=== PATIENT | female | born 1940 | race Caucasian/White ===

== ENCOUNTER 2016-11-13 08:46 | Inpatient (IN) ==
--- OUTSIDE RECORDS SUMMARY | 2016-11-13 09:10 | External Medical Summary ---
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.9 Active 31056667 vascular insufficiency of intestine Problem Vascular K55.9 Active 04112112 insufficiency of intestine Problem Ischemic colitis K55.9 Active 12118961 Problem Gallbladder polyp K82.4 Active 081486118 Problem Lower abdominal R10.30 Active 96606291 pain Problem GERD K21.9 Active 848232206 (gastroesophageal reflux disease) 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 Problem History of GI Z87.19 Active 937778408 bleed Problem Colitis K52.9 Active 715050610 Assessment Personal history Z85.828 Apr, Active 695967719 of other 2017 malignant neoplasm of skin Problem Other specified 706.8 Active 5690130 disease of sebaceous glands Problem Personal history Z85.828 Active 183715663 of other malignant neoplasm of skin Problem Other seborrheic 702.19 Active 820965502 keratosis Problem Other seborrheic L82.1 Active 855779044 keratosis Problem Personal history V10.83 Active 661419074 of other malignant neoplasm of skin Problem Actinic keratosis L57.0 Active 974741316 ALLERGIES Substance Reaction Event Type Date Status Sulfa Drugs Unknown Drug Allergy Apr, Active Fluoride Unknown Drug Allergy Apr, Active Cephalexin Unknown Drug Allergy Apr, Active SOCIAL HISTORY No smoking Hx information available PLAN OF CARE VITAL SIGNS Heart Rate 83 /min 2016-04-12 Height 68.5 in 2016-04-12 Weight 147 lbs 2016-04-12 BMI 22.02 kg/m2 2016-04-12 Blood pressure systolic 122 mm Hg 2016-04-12 Blood pressure diastolic 66 mm Hg 2016-04-12 MEDICATIONS Medication Instructions Dosage Frequency Start End Duration Status Date Date Vitamin D 400 as directed Active UNIT Lorazepam 0.5 MG Orally every 8 1 ml Active hrs PRN Compression Hose as directed Active 15-20 mm Hg Alendronate Orally Once A 1 tablet Active Sodium 10 MG WEEK Florastor 250 MG Orally qd 1 capsule 24h Active Centrum Silver as directed Active Fish Oil 1000 MG Orally Once a 1 capsule 24h 30 day(s) Active day Simvastatin 20 MG Orally Once a 1 tablet in 24h Active day the evening Gas-X 80 MG Orally Four 1 tablet 6h Active times a day after meals and at bedtime as needed Hydrocodone-Aceta Orally every 1 tablet as Active minophen 5-325 MG 4-6 hrs needed Betoptic-S 0.25 % Ophthalmic 1 drop into 12h Active Twice a day affected eye Artificial Tear as directed Active Tylenol 325 MG Orally every 6 1 tablet as 6h Active hrs needed Warfarin Sodium Orally varies 1 tablet Active 2.5 MG (4 DAY AND 3 DAYS) Omeprazole 40 MG Orally Once a 1 capsule 24h Active day Metoprolol & Orally once a as directed 24h Active Diet Manage Prod day 50 MG Calcium + D Orally Twice a 1 tablet 12h 30 day(s) Active 315-200 MG-UNIT day with meals Dicyclomine HCl Orally three 1 tablet Active 20 MG times a day as needed Iron Supplement Orally Once a 1 tablet 24h 30 day(s) Active 325 (65 Fe) MG day Levothyroxine Orally Once a 1 tablet on 24h Active Sodium 88 MCG day an empty stomach in the morning Latanoprost 0.005 Ophthalmic Once 1 drop into 24h Active % a day affected eye in the evening RESULTS No Results PROCEDURES Procedure Date Ordered Related Diagnosis Body Site Office Visit, Est Pt., Level 3 April 12, 2016 MEDS DOCUMENT W/O VERIFICA April 12, 2016 IMMUNIZATIONS No Known Immunizations
--- OUTSIDE RECORDS SUMMARY | 2016-11-13 09:10 | External Medical Summary ---
:1940 Author Organization [employer] Care Team Providers Name Role Phone TONY PINEDO Provider Role Unavailable Allergies, Adverse Reactions, Alerts Substance Reaction Event Type sulfa lip swelling Drug Allergy cephalexin lip swelling Drug Allergy flouride lip swelling Non Drug Allergy Problems Problem Type Condition Code Onset Dates Condition Status Problem Anxiety disorder NOS 300.00 Active Problem Hypothyroidism NOS 244.9 Active Problem Osteoporosis 733.00 Active Problem Bradycardia 427.89 Active Problem Anemia NOS 285.9 Active Problem Onychomycosis 110.1 Active Problem Hyperlipidemia 272.4 Active Problem Coronary Artery Disease, CAD 414.9 Active Problem Osteopenia 733.90 Active Problem Atrial fibrillation 427.31 Active Assessment Hypothyroidism NOS 244.9 Active Assessment Anxiety disorder NOS 300.00 Active Problem Closed fracture of middle or 816.01 Active proximal phalanx of finger Assessment Anemia NOS 285.9 Active Problem 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 Assessment Atrial fibrillation 427.31 Active Problem GERD 530.81 Active Medications Medication Code Code Instructions Start End Date Status Dosage System Date meloxicam NDC 92015 15 mg orally Apr 02, 1 tab(s) once a day 2013 Vitamin D NDC 6150 2000 units po Nov 12, 1 daily 2011 compression hose NDC 0 knee Dec 02, wear it for leg 2010 during day time bilateral lower legs Betoptic S NDC 3302 0.25% in each 2 gtt affected eye 2 times a day lorazepam NDC 48908 0.5 mg orally 3 May 19, 1 tab(s) times a day prn 2014 levothyroxine NDC 58908 75 mcg (0.075 Dec 26, 1 tab(s) mg) orally once 2012 a day Centrum Silver NDC 8497 Therapeutic 1 tab(s) Multiple Vitamins with Minerals orally once a day warfarin NDC 28023 5mg orally once 1 tab(s) a day except take 2.5mg on Sun, Artificial Tears NDC 6389 preserved in 1 gtt each eye 2 times a day alendronate NDC 56793 70 mg orally Nov 16, 1 tab(s) once a week 2011 Florastor NDC 63523 250 mg orally 1 cap(s) daily simvastatin NDC 27168 40 mg orally June 12, 1 tab(s) once a day (at 2013 bedtime) alendronate NDC 87228 70 mg orally Oct 14, 1 tab(s) once a week 2013 fish oil NDC 23946 1000mg po daily Jan 20, 4 cap s 2010 calcium and NDC 61982 500 mg-400 intl 1 tab(s) vitamin D units chewed 2 combination times a day Tylenol NDC 6732 500 mg orally Oct 06, 2 tab(s) every 6 hours 2009 metoprolol NDC 53209 25 mg orally 2 1 tab(s) times a day omeprazole NDC 39408 40 mg orally August 20, 1 cap(s) once a day 2011 Procedures Procedure Coding System Code Date Office Visit, estab pt, Level 4 CPT-4 73211 May 19, 2014 Vital Signs Date/Time: May 19, 2014 Blood Pressure Diastolic 58 mm Hg Blood Pressure Systolic 110 mm Hg Weight 154.8 lbs Pain Scale 8 feet 0-10 Results No Known Results Summary Purpose eClinicalWorks Submission
--- OUTSIDE RECORDS SUMMARY | 2016-11-13 09:10 | External Medical Summary ---
:1940 Author Organization [employer] Care Team Providers Name Role Phone TONY PINEDO Provider Role Unavailable Allergies No Known Allergies Problems Problem Type Condition Code Onset Dates Condition Status Problem Anxiety disorder NOS 300.00 Active Problem Hypothyroidism NOS 244.9 Active Problem Osteoporosis 733.00 Active Problem Bradycardia 427.89 Active Problem Anemia NOS 285.9 Active Problem Onychomycosis 110.1 Active Problem Hyperlipidemia 272.4 Active Problem Coronary Artery Disease, CAD 414.9 Active Problem Osteopenia 733.90 Active Problem Atrial fibrillation 427.31 Active Problem Closed fracture of middle or 816.01 Active proximal phalanx of finger Problem 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
--- OUTSIDE RECORDS SUMMARY | 2016-11-13 09:10 | External Medical Summary | Referral Summary ---
:[address] [place] Address [address] [address] Care Team Providers Name Role Phone Justin Martinez Primary Care Physician Encounter [facility] [id number] Date(s): 11/09/14 - 11/09/[address] [place] [facility] [address] [facility] [address] [place] [address] us Discharge Disposition: 01-Home or Self Care Attending Physician: Justin Martinez MD Admitting Physician: Justin Martinez MD Vital Signs No data available for this section Problem List Condition Effective Dates Status Health Status Informant Mitral valve disorder Active (disorder)(Confirmed) Allergies, Adverse Reactions, Alerts No data available for this section Medications No data available for this section Results Coagulation Most recent to oldest [Reference Range]: 1 PT Fingerstick (11/09/14 11:30 AM) INR [0.8-1.2] 2.7 1 *HI* (11/09/14 11:30 AM) 1Result Comment: Patient takes Warfarin and alternates 2.5mg and 5mg every day. Last taken 11/09/2014 5mg. Normal (no anticoagulant): 0.8 - 1.2 Units Routine Therapeutic Range: 2.0 - 3.0 Units High Risk Therapeutic Range: 2.5 - 3.5 Units Immunizations No data available for this section Procedures No data available for this section Social History No data available for this section Assessment and Plan No data available for this section
--- OUTSIDE RECORDS SUMMARY | 2016-11-13 09:10 | External Medical Summary ---
:1940 Author Organization [employer] Care Team Providers Name Role Phone TONY PINEDO Provider Role Unavailable Allergies No Known Allergies Problems Problem Type Condition ICD-9 Code Onset Dates Condition Status Problem Anxiety [...]
--- OUTSIDE RECORDS SUMMARY | 2016-11-13 09:10 | External Medical Summary ---
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
--- OUTSIDE RECORDS SUMMARY | 2016-11-13 09:10 | External Medical Summary ---
:1939 Author Organization [facility] [place] Address [address] [place] [phone] Care Team Providers Name Role Phone Brit Ly Unavailable Unavailable PROBLEMS Type Condition ICD9-CM [id number] Onset Condition SNOMED Code Code Code Dates Status Problem Unspecified 557.9 Active 35047939 vascular insufficiency of intestine Problem Vascular K55.9 Active 24370924 insufficiency of intestine Problem Ischemic colitis K55.9 Active 48866533 Problem Gallbladder polyp K82.4 Active 590825334 Problem Lower abdominal R10.30 Active 66079396 pain Problem GERD K21.9 Active 093532058 (gastroesophageal reflux disease) 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 70221783 of stomach Problem History of GI Z87.19 Active 767774753 bleed Problem Colitis K52.9 Active 279696458 Assessment GERD K21.9 18 Feb, Active 326161839 (gastroesophageal 2017 reflux disease) Problem Other specified 706.8 Active 8895318 disease of sebaceous glands Problem Personal history Z85.828 Active 798669787 of other malignant neoplasm of skin Problem Other seborrheic 702.19 Active 425031346 keratosis Problem Other seborrheic L82.1 Active 121694935 keratosis Problem Personal history V10.83 Active 196422146 of other malignant neoplasm of skin Problem Actinic keratosis L57.0 Active 246171117 ALLERGIES Substance Reaction Event Type Date Status Sulfa Drugs Unknown Drug Allergy Feb, Active Fluoride Unknown Drug Allergy Feb, Active Cephalexin Unknown Drug Allergy Feb, Active SOCIAL HISTORY No smoking Hx information available PLAN OF CARE VITAL SIGNS Heart Rate 85 /min 2016-03-01 Height 68.5 in 2016-03-01 Weight 146.4 lbs 2016-03-01 BMI 21.93 kg/m2 2016-03-01 Blood pressure systolic 134 mm Hg 2016-03-01 Blood pressure diastolic 69 mm Hg 2016-03-01 MEDICATIONS Medication Instructions Dosage Frequency Start End Duration Status Date Date Simvastatin 20 MG Orally Once a 1 tablet in 24h Active day the evening Warfarin Sodium Orally varies 1 tablet Active 2.5 MG (4 DAY AND 3 DAYS) Metoprolol & Orally once a as directed 24h Active Diet Manage Prod day 50 MG Alendronate Orally Once A 1 tablet Active Sodium 10 MG WEEK Florastor 250 MG Orally qd 1 capsule 24h Active Calcium + D Orally Twice a 1 tablet 12h 30 day(s) Active 315-200 MG-UNIT day with meals Tylenol 325 MG Orally every 6 1 tablet as 6h Active hrs needed Lorazepam 0.5 MG Orally every 8 1 ml Active hrs PRN Latanoprost 0.005 Ophthalmic Once 1 drop into 24h Active % a day affected eye in the evening Gas-X 80 MG Orally Four 1 tablet 6h Active times a day after meals and at bedtime as needed Artificial Tear as directed Active Centrum Silver as directed Active Compression Hose as directed Active 15-20 mm Hg Dicyclomine HCl Orally three 1 tablet Active 20 MG times a day as needed Betoptic-S 0.25 % Ophthalmic 1 drop into 12h Active Twice a day affected eye Vitamin D 400 as directed Active UNIT Iron Supplement Orally Once a 1 tablet 24h 30 day(s) Active 325 (65 Fe) MG day Hydrocodone-Aceta Orally every 1 tablet as Active minophen 5-325 MG 4-6 hrs needed Levothyroxine Orally Once a 1 tablet on 24h Active Sodium 88 MCG day an empty stomach in the morning Omeprazole 40 MG Orally Once a 1 capsule 24h Active day Fish Oil 1000 MG Orally Once a 1 capsule 24h 30 day(s) Active day RESULTS No Results PROCEDURES Procedure Date Ordered Related Diagnosis Body Site Office Visit Est Pt Level 3 Mar 01, 2016 [facility] MED MERGE Mar 01, 2016 DOC MEDS VERIFIED W/PT OR RE Mar 01, 2016 IMMUNIZATIONS No Known Immunizations
--- OUTSIDE RECORDS SUMMARY | 2016-11-13 09:10 | External Medical Summary ---
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 Assessment Anxiety disorder NOS 300.00 Active Problem GERD 530.81 Active Medications Medication Code Code Instructions Start End Date Status Dosage System Date Betoptic S NDC 3302 0.25% in each 2 gtt affected eye 2 times a day calcium and NDC 05198 500 mg-400 intl 1 tab(s) vitamin D units chewed 2 combination times a day compression hose NDC 0 knee Dec 02, wear it for leg 2010 during day time bilateral lower legs alendronate NDC 97605 70 mg orally June 14, 1 tab(s) once a week 2014 metoprolol NDC 46678 12.5 mg orally 2 1 tab(s) times a day Tylenol NDC 6732 500 mg orally Oct 06, 2 tab(s) every 6 hours 2009 warfarin NDC 07840 7.5 mg orally 1 tab(s) once a day Florastor NDC 70905 250 mg orally 1 cap(s) daily fish oil NDC 03790 1000mg po daily Jan 20, 4 cap s 2010 levothyroxine NDC 16116 75 mcg (0.075 Dec 26, 1 tab(s) mg) orally once 2012 [place] [address] 0.5 mg orally 3 May 19, 1 tab(s) times a day prn 2014 [place] [address] 40 mg orally August 20, 1 cap(s) once a day 2011 Vitamin D [place] 6150 2000 units po Nov 12, 1 daily 2011 Artificial [place]ears [place] 6389 preserved in 1 gtt each eye 2 [place] [address] 40 mg orally June 12, 1 tab(s) once a day (at 2013 bedtime) Centrum Silver ND 8497 Therapeutic 1 tab(s) Multiple Vitamins with Minerals orally once a day Results No Known Results Summary Purpose eClinicalWorks Submission
--- OUTSIDE RECORDS SUMMARY | 2016-11-13 09:10 | External Medical Summary ---
:1939 Author Organization [employer]ClinicalWorks Care Team Providers Name Role Phone TONY PINEDO Provider Role Unavailable Allergies, Adverse Reactions, Alerts Substance Reaction Event Type sulfa lip swelling Drug Allergy cephalexin lip swelling Drug Allergy flouride lip swelling Non Drug Allergy Problems Problem Type Condition ICD-9 Code Onset Dates Condition Status Problem Anxiety disorder NOS 300.00 Active Problem Hypothyroidism NOS 244.9 Active Problem Osteoporosis 733.00 Active Problem Bradycardia 427.89 Active Problem Anemia NOS 285.9 Active Problem Onychomycosis 110.1 Active Problem Hyperlipidemia 272.4 Active Problem Coronary Artery Disease, CAD 414.9 Active Problem Osteopenia 733.90 Active Problem Atrial fibrillation 427.31 Active Assessment Onychomycosis 110.1 Active Problem Closed fracture of middle or 816.01 Active proximal phalanx of finger Problem 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 Assessment Hypothyroidism NOS 244.9 Active Problem GERD 530.81 Active Medications Medication Code Code Instructions Start End Status Dosage System Date [place] 69803 0.5 mg orally 3 April 16, 1 tab(s) times a day prn 2009 alendronate NDC 63242 70 mg orally Oct 14, 1 tab(s) once a week 2013 levothyroxine NDC 27200 75 mcg (0.075 Dec 26, 1 tab(s) mg) orally once 2012 a day warfarin NDC 82367 5mg orally once 1 tab(s) a day except take 2.5mg on Sun, calcium and NDC 97760 500 mg-400 intl 1 tab(s) vitamin D units chewed 2 combination times a day Centrum Silver NDC 8497 Therapeutic 1 tab(s) Multiple Vitamins with Minerals orally once a day meloxicam NDC 78450 15 mg orally Apr 02, 1 tab(s) once a day 2013 Terbinafine NDC 737115 250 mg orally Apr 03, 1 tab(s) Hydrochloride once a day 2014 compression hose NDC 0 knee Dec 02, wear it for leg 2010 during day time bilateral lower legs Betoptic S NDC 3302 0.25% in each 2 gtt affected eye 2 times a day Artificial Tears NDC 6389 preserved in 1 gtt each eye 2 times a day omeprazole NDC 26488 40 mg orally August 20, 1 cap(s) once a day 2011 simvastatin NDC 64700 40 mg orally June 12, 1 tab(s) once a day (at 2013 bedtime) metoprolol NDC 17078 25 mg orally 2 1 tab(s) times a day Florastor NDC 10032 250 mg orally 1 cap(s) daily alendronate NDC 24905 70 mg orally Nov 16, 1 tab(s) once a week 2011 Tylenol NDC 6732 500 mg orally Oct 06, 2 tab(s) every 6 hours 2009 Vitamin D NDC 6150 2000 units po Nov 12, 1 daily 2011 fish oil NDC 57680 1000mg po daily Jan 20, 4 cap s 2010 Procedures Procedure Coding System Code Date Office Visit, [facility] pt, Level 3 CPT-4 31255 Apr 03, 2014 Vital Signs Date/Time: Apr 03, 2014 Blood Pressure Systolic 110 mm Hg Temperature 97.7 F Weight 153.5 lbs Pain Scale 8 feet when walking 0-10 Blood Pressure Diastolic 80 mm Hg Results No Known Results Summary Purpose eClinicalWorks Submission
--- OUTSIDE RECORDS SUMMARY | 2016-11-13 09:11 | External Medical Summary ---
:1939 Author Organization 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 Problem Post-inflammatory L81.0 Active 700837511 hyperpigmentation Problem History of GI bleed Z87.19 Active 789524462 Problem Colitis K52.9 Active 223158679 Problem Gallbladder polyp K82.4 Active 678419078 Problem Lower abdominal pain R10.30 Active 22071598 Problem Other seborrheic 702.19 Active 666145370 keratosis Problem Personal history of V10.83 Active 299714456 other malignant neoplasm of skin Problem Other seborrheic L82.1 Active 495245640 keratosis Problem Actinic keratosis L57.0 Active 557546771 Problem Other specified 706.8 Active 2622612 disease of sebaceous glands Problem Unspecified vascular 557.9 Active 23403298 insufficiency of intestine Problem Personal history of Z85.828 Active 673433432 other malignant neoplasm of skin Problem Ischemic colitis K55.9 Active 30312513 ALLERGIES Substance Reaction Event Type Date Status Sulfa Drugs Unknown Drug Allergy Aug, Active Fluoride Unknown Drug Allergy Aug, Active Cephalexin Unknown Drug Allergy Aug, Active SOCIAL HISTORY No smoking Hx information available PLAN OF CARE Activity Details Follow Up 6 Months Shana Reason: VITAL SIGNS Heart Rate 92 /min 2016-08-30 Height 68.5 in 2016-08-30 Weight 148.4 lbs 2016-08-30 BMI 22.23 kg/m2 2016-08-30 Blood pressure systolic 128 mm Hg 2016-08-30 Blood pressure diastolic 67 mm Hg 2016-08-30 MEDICATIONS Medication Instructions Dosage Frequency Start End Duration Status Date Date Iron Supplement Orally Once a 1 tablet 24h 30 day(s) Active 325 (65 Fe) MG day Levothyroxine Orally Once a 1 tablet on 24h Active Sodium 88 MCG day an empty stomach in the morning Tylenol 325 MG Orally every 6 1 tablet as 6h Active hrs needed Alendronate Orally Once A 1 tablet Active Sodium 10 MG WEEK Omeprazole 40 MG Orally Once a 1 capsule 24h Active day Vitamin D 400 Orally Once a as directed 24h Active UNIT day Metoprolol & Orally once a as directed 24h Active Diet Manage Prod day 50 MG Lorazepam 0.5 MG Orally every 8 1 ml Active hrs PRN Fish Oil 1000 MG Orally Once a 4 capsule 24h Active day Hydrocodone-Aceta Orally every 1 tablet as Active minophen 5-325 MG 4-6 hrs needed Compression Hose as directed Active 15-20 mm Hg Centrum Silver as directed Active Artificial Tear as directed Active Florastor 250 MG Orally qd 1 capsule 24h Active Gas-X 80 MG Orally Four 1 tablet 6h Active times a day after meals and at bedtime as needed Calcium + D Orally Once a 1 tablet 24h Active 315-200 MG-UNIT day with meals Simvastatin 20 MG Orally Once a 1 tablet in 24h Active day the evening Betoptic-S 0.25 % Ophthalmic 1 drop into 12h Active Twice a day affected eye Warfarin Sodium Orally varies 1 tablet Active 2.5 MG (4 DAY AND 3 DAYS) Dicyclomine HCl Orally three 1 tablet Active 20 MG times a day as needed Latanoprost 0.005 Ophthalmic Once 1 drop into 24h Active % a day affected eye in the evening RESULTS No Results PROCEDURES Procedure Date Ordered Related Diagnosis Body Site Office Visit Est Pt Level 3 August 30, 2016 DOC MEDS VERIFIED W/PT OR RE August 30, 2016 IMMUNIZATIONS No Known Immunizations
--- OUTSIDE RECORDS SUMMARY | 2016-11-13 09:11 | External Medical Summary ---
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 Problem Post-inflammatory L81.0 Active 116626587 hyperpigmentation Problem History of GI bleed Z87.19 Active 035184148 Problem Colitis K52.9 Active 635777564 Problem Gallbladder polyp K82.4 Active 304516520 Problem Lower abdominal pain R10.30 Active 73430688 Problem Other seborrheic 702.19 Active 948134447 keratosis Problem Personal history of V10.83 Active 908555096 other malignant neoplasm of skin Problem Other seborrheic L82.1 Active 327320944 keratosis Problem Actinic keratosis L57.0 Active 908277275 Problem Other specified 706.8 Active 5955842 disease of sebaceous glands Problem Unspecified vascular 557.9 Active 23881673 insufficiency of intestine Problem Personal history of Z85.828 Active 755424888 other malignant neoplasm of skin Problem Ischemic colitis K55.9 Active 63763314 ALLERGIES Substance Reaction Event Type Date Status Sulfa Drugs Unknown Drug Allergy June, Active Fluoride Unknown Drug Allergy June, Active Cephalexin Unknown Drug Allergy June, Active SOCIAL HISTORY No smoking Hx information available PLAN OF CARE Activity Details Follow Up as scheduled Reason: Future/Pending Procedure DESTRUCTION OF LESIONS, PREMALIG, 1ST LESION VITAL SIGNS Heart Rate 80 /min 2016-06-20 Height 68.5 in 2016-06-20 Weight 148 lbs 2016-06-20 BMI 22.17 kg/m2 2016-06-20 Blood pressure systolic 122 mm Hg 2016-06-20 Blood pressure diastolic 71 mm Hg 2016-06-20 MEDICATIONS Medication Instructions Dosage Frequency Start End Duration Status Date Date Lorazepam 0.5 MG Orally every 8 1 ml Active hrs PRN Gas-X 80 MG Orally Four 1 tablet 6h Active times a day after meals and at bedtime as needed Calcium + D Orally Twice a 1 tablet 12h 30 day(s) Active 315-200 MG-UNIT day with meals Simvastatin 20 MG Orally Once a 1 tablet in 24h Active day the evening Latanoprost 0.005 Ophthalmic Once 1 drop into 24h Active % a day affected eye in the evening Iron Supplement Orally Once a 1 tablet 24h 30 day(s) Active 325 (65 Fe) MG day Vitamin D 400 as directed Active UNIT Dicyclomine HCl Orally three 1 tablet Active 20 MG times a day as needed Tylenol 325 MG Orally every 6 1 tablet as 6h Active hrs needed Fish Oil 1000 MG Orally Once a 1 capsule 24h 30 day(s) Active day Alendronate Orally Once A 1 tablet Active Sodium 10 MG WEEK Metoprolol & Orally once a as directed 24h Active Diet Manage Prod day 50 MG Centrum Silver as directed Active Omeprazole 40 MG Orally Once a 1 capsule 24h Active day Compression Hose as directed Active 15-20 mm Hg Levothyroxine Orally Once a 1 tablet on 24h Active Sodium 88 MCG day an empty stomach in the morning Warfarin Sodium Orally varies 1 tablet Active 2.5 MG (4 DAY AND 3 DAYS) Artificial Tear as directed Active Hydrocodone-Aceta Orally every 1 tablet as Active minophen 5-325 MG 4-6 hrs needed Florastor 250 MG Orally qd 1 capsule 24h Active Betoptic-S 0.25 % Ophthalmic 1 drop into 12h Active Twice a day affected eye RESULTS No Results PROCEDURES Procedure Date Ordered Related Diagnosis Body Site DESTROY BENIGN/PREMAL LESION June 20, 2016 Office Visit, Est Pt., Level 3 June 20, 2016 MEDS DOCUMENT W/O VERIFICA June 20, 2016 IMMUNIZATIONS No Known Immunizations
--- OUTSIDE RECORDS SUMMARY | 2016-11-13 09:11 | External Medical Summary ---
:1940 Author Organization eClinicalWorks Care Team Providers Name Role Phone Abad Saldana Provider Role Unavailable Allergies, Adverse Reactions, Alerts Substance Reaction Event Type Sulfa Drugs Info Not Available Drug Allergy Fluoride Info Not Available Drug Allergy Cephalexin Info Not Available Drug Allergy Problems Problem Type Condition Code Onset Dates Condition Status Problem Other seborrheic keratosis L82.1 Active Problem Unspecified vascular insufficiency 557.9 Active of intestine Problem Actinic keratosis L57.0 Active Problem History of GI bleed Z87.19 Active Problem Colitis K52.9 Active Problem Lower abdominal pain R10.30 Active Problem Vascular insufficiency of intestine K55.9 Active Problem Ischemic colitis K55.9 Active Problem GERD (gastroesophageal reflux K21.9 Active disease) 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 Problem Other seborrheic keratosis 702.19 Active Problem Personal history of other malignant V10.83 Active neoplasm of skin Problem Other specified disease of 706.8 Active sebaceous glands Assessment Lower abdominal pain R10.30 Active Problem Personal history of other malignant Z85.828 Active neoplasm of skin Medications Medication Code Code Instructions Start End Status Dosage System Date Date Lorazepam [facility] 60654-55 0.5 MG Orally 1 ml 20-01 every 8 hrs PRN Simvastatin [facility] 54220-74 20 MG Orally 1 tablet in 54-10 Once a day the evening Calcium + D [facility] 90878-60 315-200 MG-UNIT 1 tablet 501 Orally Twice a with meals day Latanoprost [facility] 44897-11 0.005 % 1 drop into 45-32 Ophthalmic Once affected a day eye in the evening Centrum Silver [facility] 49128-44 Orally as directed 61-19 Iron Supplement [facility] 54295-34 325 (65 Fe) MG 1 tablet 827 Orally Once a day Omeprazole [facility] 11224-26 40 MG Orally 1 capsule 22-05 Once a day Vitamin D [facility] 64700-22 400 UNIT Orally as directed 831 Fish Oil [facility] 73326-02 1000 MG Orally 1 capsule 71-40 Once a day Dicyclomine HCl NDC 97274-21 20 MG Orally 1 tablet 27-01 three times a day as needed Metoprolol & NDC 0 50 MG Orally as directed Diet Manage Prod once a day Tylenol NDC 93844-99 325 MG Orally 1 tablet as 96-60 every 6 hrs needed Warfarin Sodium NDC 79625-26 2.5 MG Orally 1 tablet 14- varies (4 DAY AND 3 DAYS) [place] [address]-66 88 MCG Orally 1 tablet on Sodium 07-01 Once a day an empty stomach in the morning Artificial Tear NDC 0 [place]hthal[place] [address]-39 0.25 % 1 drop into 46-10 Ophthalmic [place] [address]-63 250 MG Orally qd 1 capsule 007 Alendronate NDC 49146-79 10 MG Orally 1 tablet Sodium 41-01 Once A WEEK Compression Hose NDC 0 apply to legs as directed 15-20 mm Hg qam till [facility] Procedures Procedure Coding System Code Date Office Visit, Est Pt., Level 3 CPT-4 68088 Oct 04, 2015 Vital Signs Date/Time: Oct 04, 2015 Blood Pressure Diastolic 64 mm Hg Blood Pressure Systolic 116 mm Hg Cardiac Monitoring Heart Rate 77 /min BMI 22.23 Index Weight 148.4 lbs Height 68.5 in Results No Known Results Summary Purpose eClinicalWorks Submission
--- OUTSIDE RECORDS SUMMARY | 2016-11-13 09:11 | External Medical Summary ---
[...] Medications Medication Code System Code Instructions Start Date End Date Status Dosage meloxicam [facility] [address] 15 mg orally once a Apr 02, 2013 1 tab(s) day Results No Known Results Summary Purpose eClinicalWorks Submission
--- OUTSIDE RECORDS SUMMARY | 2016-11-13 09:11 | External Medical Summary | Referral Summary ---
:[address] [place] Address [address] [address] Care Team Providers Name Role Phone Justin Martinez Primary Care Physician Encounter [facility] [id number] Date(s): 11/09/14 - 11/09/[address] [place] [facility] Medicine [address] [facility] [address] [place] [address]- us Discharge Disposition: 01-Home or [...]
--- OUTSIDE RECORDS SUMMARY | 2016-11-13 09:11 | External Medical Summary ---
[...] Instructions Start Date End Date Status Dosage levothyroxine [facility] [address] 75 mcg (0.075 mg) Dec 26 tab(s) orally once a day 2012 Results No Known Results Summary Purpose eClinicalWorks Submission
--- OUTSIDE RECORDS SUMMARY | 2016-11-13 09:11 | External Medical Summary ---
[...] Start End Status Dosage [place] [address]-30 1000 MG Orally 1 capsule 71-40 [place] [address]-03 0.25 % 1 drop into 46-10 Ophthalmic Twice [place] [address]-27 40 MG Orally 1 capsule 22-05 [place] [address]-14 250 MG Orally qd 1 capsule 007 [place] [address]-98 0.5 MG Orally 1 ml 20-01 every 8 hrs PRN Metoprolol & NDC 0 50 MG Orally as directed Diet Manage [place] [address]-25 400 UNIT Orally as directed 831 [place] [address]-04 0.005 % 1 drop into 45-32 Ophthalmic Once affected a day eye in the evening Centrum Silver NDC 74974-90 Orally as directed 61-19 [place] [address]-18 20 MG Orally 1 tablet 20-01 three times a day as needed Compression Hose NDC 0 apply to legs as directed 15-20 [place] [address]-56 325 MG Orally 1 tablet as 96-60 every 6 hrs needed Simvastatin NDC 84292-11 20 MG Orally 1 tablet in 54-10 [place] [address]-27 10 MG Orally 1 tablet Sodium 41-01 [place] [address]-31 5-325 MG Orally 1 tablet as minophen 12-20 every 4-6 hrs needed Gas-X NDC 18823-50 80 MG Orally 1 tablet 16-36 Four times a day after meals and at bedtime as needed Iron Supplement [facility] 96596-04 325 (65 Fe) MG 1 tablet 827 Orally Once a day Artificial Tear NDC 0 [place] [address]-23 88 MCG Orally 1 tablet on Sodium 07-01 Once a day an empty [place] the [place] [address]-38 2.5 MG Orally 1 tablet 14- varies (4 DAY AND 3 DAYS) Calcium + D [facility] 52449-32 315-200 MG-UNIT 1 tablet 501 Orally Twice a with meals day Procedures Procedure Coding System Code Date Office Visit, Tiff Pt., Level 3 CPT-4 45139 Nov 16, 2015 Vital Signs Date/Time: Nov 16, 2015 Blood Pressure Diastolic 75 mm Hg Blood Pressure Systolic 129 mm Hg Cardiac Monitoring Heart Rate 86 /min BMI 22.47 Index Weight 150.0 lbs Height 68.5 in Results No Known Results Summary Purpose eClinicalWorks Submission
--- OUTSIDE RECORDS SUMMARY | 2016-11-13 09:11 | External Medical Summary ---
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
--- NOTE | 2016-11-13 09:12 | Emergency Department Report ---
General Adult HPI - General Chief complaint: Nausea/Vomiting/Diarrhea Stated complaint: diarrhea,chills Time Seen by Provider: 11/13/16 09:05 Source: patient, family, EMS Mode of arrival: EMS Limitations: altered mental status - History of Present Illness HPI narrative: 76-year-old female presents the emergency department with a chief complaint of diarrhea and not feeling well. Patient noted onset of symptoms one day ago. Symptoms have been persistent in nature since onset. Patient denies any current pain or discomfort. Patient does not note any exacerbating or remitting factors. No other complaints or associated symptoms. Patient was at her sister's house visiting when her symptoms began. Symptoms have been persistent in nature since onset. No other complaints or associated symptoms. Patient sister arrives at bedside and states that the patient has been increasingly generally weak and that she has noticed that the patient is having trouble processing information more so than normal. - Related Data Home Medications Medication Instructions Recorded Confirmed Acetaminophen [Tylenol] 500 mg PO Q6HPRN PRN 11/13/16 11/13/16 Alendronate Sodium [Alendronate 70 mg PO WEEKLY 11/13/16 11/13/16 Sodium] Artificial Tears [Tears Naturale] 1 drop EACH EYE BID 11/13/16 11/13/16 Ascorbate Calcium [Vitamin C] 500 mg PO DAILY 11/13/16 11/13/16 Betaxolol HCl [Betoptic S] 2 drops OP BID 11/13/16 11/13/16 Calcium Carbonate/Vitamin D3 1 each PO BID 11/13/16 11/13/16 [Calcium 500+D Tablet Chew] Dicyclomine [Bentyl] 20 mg PO TID 11/13/16 11/13/16 Ferrous Sulfate 325 mg PO DAILY 11/13/16 11/13/16 Hydrocodone/APAP 5/325 [Helm 1 tab PO Q4-6HPRN PRN 11/13/16 11/13/16 5/325] Hyoscyamine [Levsin] 0.125 mg PO Q4HPRN PRN 11/13/16 11/13/16 LORazepam [Ativan] 0.5 mg PO TID PRN 11/13/16 11/13/16 Latanoprost 2.5 ml OP HS 11/13/16 11/13/16 Levothyroxine Sodium 88 mcg PO DAILY 11/13/16 11/13/16 Methylcellulose (with Sugar) 2,000 gm PO DAILY 11/13/16 11/13/16 [Citrucel Powder] Metoprolol Tartrate [Lopressor] 50 mg PO DAILY 11/13/16 11/13/16 Multivit-Min/Iron/Folic/Lutein 1 each PO DAILY 11/13/16 11/13/16 [Centrum Silver Women Tablet] [place]-3/Dha/Epa/Fish Oil [Fish Oil 1 each PO QID 11/13/16 11/13/16 1,000 mg Softgel] Omeprazole [Omeprazole] 40 mg PO DAILY 11/13/16 11/13/16 Simvastatin 20 mg PO HS 11/13/16 11/13/16 Vitamin B Complex Vit C No.4 150 mg PO DAILY 11/13/16 11/13/16 [Super B Complex] Warfarin [Coumadin] 2.5 mg PO MOTH 11/13/16 11/13/16 Warfarin [Coumadin] 5 mg PO SUTUWEFRSA 11/13/16 11/13/16 Allergies Allergy/AdvReac Type Severity Reaction Status Date / Time Sulfa (Sulfonamide Allergy Intermediate [place] Verified 11/13/16 14:20 Antibiotics) Review of Systems Limitations: ROS unobtainable due to patient's medical condition PFSH Patient Stated Medical History Glaucoma Yes Cardiac Arrhythmia Yes: Afib Hypertension Yes Other Cardiology Yes: Mitral valve problem, L pacemaker Gastroesophageal Reflux Yes Disease Other Hematologic Yes: Takes Warfarin QD Other Musculoskeletal Yes: Osteoporosis Depression Yes Surgical History: Heart valve replacement, pacemaker Family History: Reviewed and noncontributory. - Social History Smoking status: Never smoker Substance use type: does not use Alcohol intake frequency: does not drink Physical Exam - Limitations Limitations: altered mental status - General General appearance: alert, in no apparent distress - Normal Exams: Head:: Normocephalic without trauma Eyes:: Pupils are PERRLA w/ EOMI, No scleral icterus, irritation, or foreign bodies noted ENMT:: No facial trauma, nasal exudates, pharyngeal erythema, or exudates are noted Dental: No fractured, loose, or missing teeth noted Neck:: Full range of motion, without adenopathy, JVD, bruits or thyromegaly Chest/Respirations:: Clear all west, with good airflow, and symmetry bilaterally Cardiovascular:: Regular rate and rhythm, without murmur or gallop, Pulses 2+ all extremities, capillary refill, <2 seconds all extremities Abdomen:: Bowel sounds positive, soft, non-tender, non-distended, no hepatosplenomegaly, masses or bruits noted Lymphatic:: No lymphadenopathy, or lymphedema noted Musculoskeletal:: No tenderness, or deformity noted, good range of motion, all extremities Integumentary:: No rashes, hives, or bruising noted, hair and nails, without abnormality Neurological:: Patient is alert (oriented times 23 without focal neurologic deficit.) Course Vital Signs Temperature 100.9 F H 11/13/16 08:55 Pulse Rate 74 11/13/16 08:55 Respiratory Rate 24 11/13/16 08:55 Blood Pressure 130/61 11/13/16 08:55 Pulse Oximetry 92 11/13/16 08:55 Temperature 99.1 F 11/13/16 16:59 Pulse Rate 65 11/13/16 16:59 Respiratory Rate 20 11/13/16 16:59 Blood Pressure 112/45 11/13/16 16:59 Pulse Oximetry 95 11/13/16 16:59 Medical Decision Making - MDM Narrative Medical decision making narrative: Labs / Imaging were discussed in detail with the patient and family and questions are answered. Patient does meet SIRS criteria in the emergency department, however, I do not have a source of infection in order to qualify for sepsis and it is possible for the patient to have a viral syndrome. Patient is given 1 L normal saline intravenously. Patient is discussed with the hospitalist Dr. Clementer will be admitted to her service in improved condition. Patient and family are in agreement with the current plan of management. Discussion with the hospitalist indicates that the hospitalist may cover with broad-spectrum antibiotics after evaluation of patient. Antibiotic selection will be left to the hospitalist team as indicated at their request as I do not have a source to treat with antibiotic therapy at this time. Patient is admitted to the hospital in improved condition. No further orders from accepting physician who is in agreement with the current plan of management. Patient and family are in agreement with the current plan of management. Patient's plasma lactate is unremarkable at 1.0. Patient's pro-calcitonin is not positive at 0.8. Since sepsis markers are not elevated patient will be admitted to the service of the hospitalist for further evaluation and treatment. - Differential Diagnosis Viral syndrome, UTI, Pneumonia, Dehydration, - Lab Data Result diagrams: 11/13/16 09:16 11/13/16 09:20 Lab Results 11/13/16 11/13/16 11/13/16 Range/Units 09:16 09:16 09:20 WBC 17.2 H (4.5-11.0) T/MM3 RBC 3.54 L (4.00-5.20) M/MM3 Hgb 11.1 L (12-16) GM/DL Hct 34.6 L (36-46) % MCV 97.7 (80-100) UM3 MCH 31.4 (26-34) UUG MCHC 32.1 (31-37) GM/DL RDW Std Deviation 44.6 (36.9-50.2) FL Plt Count 172 (130-400) T/MM3 MPV 9.5 (9.4-12.4) UM3 Immature Gran % (Auto) Not performed Neut % (Auto) Not performed Lymph % (Auto) Not performed [place] % (Auto) Not performed Eos % (Auto) Not performed Baso % (Auto) Not performed Neut # (Auto) Not performed Lymph # (Auto) Not performed [place] # (Auto) Not performed Eos # (Auto) Not performed Baso # (Auto) Not performed Abs Immat Gran (auto) Not performed Neutrophils % (Manual) 56.0 (33-66) % Band Neutrophils % 14.0 H (0-6) % Lymphocytes % (Manual) 3.0 L (23-45) % Monocytes % (Manual) 26.0 H (0-9.0) % Myelocytes % 1.0 H (0-0) % Neutrophils # (Manual) 9.6 H (1.8-7.7) T/MM3 Band Neutrophils # 2.4 T/MM3 Lymphocytes # (Manual) 0.5 L (1-4.8) T/MM3 Monocytes # (Manual) 4.5 H (0-0.8) T/MM3 Myelocytes # 0.2 T/MM3 Hypochromasia 1+ Poikilocytosis 1+ RBC Morph Comment Abnormal INR 3.36 H (0.99-1.21) Turbidity < 20 (0-20) Sodium 146 H (134-144) MEQ/L Potassium 3.8 (3.6-5) MEQ/L Chloride 110 H (98-107) MEQ/L Carbon Dioxide 25 (22-30) MEQ/L Anion Gap 11 (5-15) MEQ/L BUN 14.0 (7-17) MG/DL Creatinine 0.9 (0.7-1.2) MG/DL GFR Calculation 61 BUN/Creatinine Ratio 16 (6-26) RATIO Glucose 125 H (65-110) MG/DL Calculated Osmolality 283 H (261-280) MOSM/KG Calcium 9.9 (8.4-10.2) MG/DL Total Bilirubin 0.60 (0.20-1.30) MG/DL Icterus Index < 2 (0-7) AST 32 (14-36) U/L ALT 39 (9-52) U/L Alkaline Phosphatase 83 (38-126) U/L Troponin I < 0.012 (0-0.12) ng/ml Total Protein 7.3 (6.3-8.2) G/DL Albumin 4.4 (3.5-5.0) G/DL Globulin 2.9 (2.4-3.6) G/DL Albumin/Globulin Ratio 1.5 (1.1-2.2) RATIO Plasma Lactate 1.0 (0.6-2.2) MMOL/L Procalcitonin NG/ML Specimen Hemolysis < 15 (0-25) Ur Collection Type Urine Color (YELLOW) Urine Clarity Urine pH (5.0-8.0) Ur Specific [place] (1.015-1.025) Urine Protein (NEGATIVE) Urine Glucose (UA) (NEGATIVE) Urine Ketones (NEGATIVE) Urine Occult Blood (NEGATIVE) Urine Nitrate (NEGATIVE) Urine Bilirubin (NEGATIVE) Urine Urobilinogen (NORMAL) EU/DL Ur Leukocyte Esterase (NEGATIVE) Urinalysis Comment 11/13/16 11/13/16 Range/Units 09:20 10:17 WBC (4.5-11.0) T/MM3 RBC (4.00-5.20) M/MM3 Hgb (12-16) GM/DL Hct (36-46) % MCV (80-100) UM3 MCH (26-34) UUG MCHC (31-37) GM/DL RDW Std Deviation (36.9-50.2) FL Plt Count (130-400) T/MM3 MPV (9.4-12.4) UM3 Immature Gran % (Auto) Neut % (Auto) Lymph % (Auto) [place] % (Auto) Eos % (Auto) Baso % (Auto) Neut # (Auto) Lymph # (Auto) [place] # (Auto) Eos # (Auto) Baso # (Auto) Abs Immat Gran (auto) Neutrophils % (Manual) (33-66) % Band Neutrophils % (0-6) % Lymphocytes % (Manual) (23-45) % Monocytes % (Manual) (0-9.0) % Myelocytes % (0-0) % Neutrophils # (Manual) (1.8-7.7) T/MM3 Band Neutrophils # T/MM3 Lymphocytes # (Manual) (1-4.8) T/MM3 Monocytes # (Manual) (0-0.8) T/MM3 Myelocytes # T/MM3 Hypochromasia Poikilocytosis RBC Morph Comment INR (0.99-1.21) Turbidity (0-20) Sodium (134-144) MEQ/L Potassium (3.6-5) MEQ/L Chloride (98-107) MEQ/L Carbon Dioxide (22-30) MEQ/L Anion Gap (5-15) MEQ/L BUN (7-17) MG/DL Creatinine (0.7-1.2) MG/DL GFR Calculation BUN/Creatinine Ratio (6-26) RATIO Glucose (65-110) MG/DL Calculated Osmolality (261-280) MOSM/KG Calcium (8.4-10.2) MG/DL Total Bilirubin (0.20-1.30) MG/DL Icterus Index (0-7) AST (14-36) U/L ALT (9-52) U/L Alkaline Phosphatase (38-126) U/L Troponin I (0-0.12) ng/ml Total Protein (6.3-8.2) G/DL Albumin (3.5-5.0) G/DL Globulin (2.4-3.6) G/DL Albumin/Globulin Ratio (1.1-2.2) RATIO Plasma Lactate (0.6-2.2) MMOL/L Procalcitonin 0.81 NG/ML Specimen Hemolysis (0-25) Ur Collection Type Urine, clean catch Urine Color Yellow (YELLOW) Urine Clarity Clear Urine pH 6.5 (5.0-8.0) Ur Specific [place] 1.010 L (1.015-1.025) Urine Protein Negative (NEGATIVE) Urine Glucose (UA) Negative (NEGATIVE) Urine Ketones Negative (NEGATIVE) Urine Occult Blood Negative (NEGATIVE) Urine Nitrate Negative (NEGATIVE) Urine Bilirubin Negative (NEGATIVE) Urine Urobilinogen 0.2 (NORMAL) EU/DL Ur Leukocyte Esterase Negative (NEGATIVE) Urinalysis Comment Microscopic not ind. - Radiology Data Chest x-ray: Left lower lobe atelectasis otherwise unremarkable. CT abdomen/pelvis: No acute processes. CT head: No acute processes. - EKG Data EKG #1 EKG results narrative: Junctional rhythm. 63 bpm. Right bundle audelia block with LVH. No STEMI. Reviewed with Dr. Cruz of cardiology Disposition Clinical Impression: generalized weakness Leukocytosis Qualifiers: Leukocytosis type: unspecified Qualified Code(s): D72.829 - Elevated white blood cell count, unspecified Disposition: 02 To [facility] Acute Care Condition: Stable for Transport Time of Disposition: 11:00 (Admit. Dr. Faustin. ) - Seen By: physician
--- NOTE | 2016-11-13 09:55 | CT Scan Report ---
EXAM: CT head/brain wo con COMPARISON: None available. HISTORY: AMS . Altered mental status. [place] [facility] [place]CHNIQUE: Without IV contrast, axial images were obtained through the brain and reviewed in brain, soft tissue, bone, and subdural windows. The current CT scan was performed using radiation dose-reduction techniques. FINDINGS: The CSF spaces are prominent likely related to atrophy in keeping with age. Periventricular deep white matter hypodensities are noted likely related to small vessel ischemic disease. The suprasellar cistern and quadrigeminal plate cisterns are intact. The sanchez-white junctions are distinct. No sulcal effacement is identified. The basal ganglia, posterior fossa and brainstem region appear unremarkable. There is no evidence for midline shift or mass effect. The midline structures appear unremarkable. No osseous abnormalities are identified. The paranasal sinuses and mastoid air cells are clear. IMPRESSION: 1. Atrophy in keeping with age. 2. Periventricular deep white matter hypodensities are noted likely related to small vessel ischemic disease. Note: This report was generated soon after the exam was performed and is immediately available to the ordering clinician on 11/13/2016 9:51 AM. .
--- NOTE | 2016-11-13 09:57 | XRay Report ---
EXAM: XR chest 1V COMPARISON: None available. HISTORY: AMS . FINDINGS:EKG leads project over the chest. Pacemaker and pacer wire is in place with the lead projecting over the left upper heart. Sternotomy wires are in place. The heart is enlarged. The pulmonary vascularity appears unremarkable. Linear opacities are seen at the left lung base which may represent atelectasis or scarring. There is no evidence for pleural effusion. There is no evidence for a pneumothorax. No osseous abnormalities are identified. There may be previous defibrillator wires projecting over the mid to lower heart. IMPRESSION: 1. Cardiomegaly. 2. Left basilar atelectatic changes or scarring. 3. Pacemaker in place with the lead projecting over the left mid to upper heart. LOCATION OF DICTATION: [facility] – [place] .
[2016-11-13] MEDS ORDERED: NS 1,000 ML IV ONE (11:07)
--- NOTE | 2016-11-13 11:36 | CT Scan Report ---
EXAM: CT abdomen pelvis wo con COMPARISON: None available. HISTORY: leukocytosis LOCATION OF DICTATION: [facility] [place] TECHNIQUE: Axial images were obtained from the domes of the diaphragms to the ischial tuberosities without IV contrast. The study was reconstructed into thinner axial sections and in coronal and sagittal reformations. Study is reviewed in lung, soft tissue, bone and liver windows. The current CT scan was performed using radiation dose-reduction techniques. ABDOMEN AND PELVIS FINDINGS: LUNG BASES: Some linear opacities are seen at the left posterior sulcus which may represent atelectasis rather than infiltrate. There may be a trace of right pleural effusion. HEART: Defibrillator wires are seen within the pericardium. Pacemaker lead is in place although the tip is not imaged. LIVER: Unremarkable. GALLBLADDER: Gallbladder is distended but otherwise appears unremarkable without evidence for gallstones, gallbladder wall thickening, pericholecystic fluid. SPLEEN: Unremarkable. PANCREAS: Unremarkable. ADRENAL GLANDS: Unremarkable. AORTA/IVC/VASCULATURE: Unremarkable. LYMPH NODES: No lymphadenopathy is identified. Small lymph nodes are noted, but are not pathologically enlarged. GENITOURINARY: There is a 5 mm calcific density at the lower pole of the left kidney with some cortical thinning which may represent scarring. There is a rounded hypodensity at the upper pole of the left kidney which could represent a cyst. There is bilateral perinephric stranding although no definite evidence for obstructive uropathy, ureteral, or bladder calculi are identified. The perinephric stranding may be within range of normal for this patient or could be related to other etiologies such as pyelonephritis. Clinical correlation is suggested. BOWEL: There is a small to moderate amount of stool seen throughout the colon. The terminal ileum is unremarkable. What is thought to represent the appendix appears unremarkable. The remainder of the small bowel is unremarkable. The duodenum is unremarkable. The stomach casper are thickened but may be due to nondistention rather than gastritis. ABDOMINAL/PELVIC WALL: Small umbilical defect without herniated loops of bowel. BONES: Disc space narrowing and endplate sclerosis and vacuum phenomenon is noted from T10-11 through L1-2 and mildly at L3-4. There is superior migration of the hips from joint space narrowing. SI joint degenerative changes with sclerosis is noted. IMPRESSION: 1. There is a 5 mm left renal calculus without evidence for obstructive uropathy, ureteral, or bladder stone. 2. There is bilateral perinephric stranding which is of uncertain etiology. It may be within range of normal for this patient although other etiologies such as pyelonephritis is also a consideration. Clinical correlation is suggested. 3. There may be a trace of a right pleural effusion. Linear opacities are seen at left lung base which may represent atelectasis rather than infiltrate. Note: This report was generated soon after the exam was performed and is immediately available to the ordering clinician on 11/13/2016 11:32 AM. .
[2016-11-13 12:24] VITALS: BMI 27.6
--- NOTE | 2016-11-13 14:12 | History & Physical Report ---
<Ana Cummings - Last Filed: 11/13/16 13:46> History of Present Illness Date: 11/13/16 Chief complaint: chills, weakness HPI: Patient is a 76-year-old female who resides in [place] but is here visiting her sister who lives in [place]. She states last night she started feeling achy and had chills. She was not able to sleep due to her symptoms. Her symptoms persisted this morning, thus prompting her ER visit. She was unable to check her temperature at home, but states she had a fever in the emergency room. She has not had any ill contacts. She has not had any symptoms suggestive of illness other than she feels "queasy," and reports she lost control of her bowels when she was in the emergency room. (ER nursing staff report her stools were soft.) Her sister notes that patient usually has diarrhea every morning. Patient denies any loose stools this morning however. Patient denies vomiting. She reports the last thing she ate last night was a "creamed horn." She has had nothing to eat or drink today. Her only complaint of pain is in her back, which is chronic for her. In ER, patient had negative head CT, CXR showing cardiomegaly and left basilar atelectasis vs scarring, essentially negative CT scan abdomen/pelvis, and negative urine. She had leukocytosis and bandemia, initial lactate was normal and repeat was elevated. She was given a liter of NS. Patient is seen in her bed with her sister at her bedside. She is A&O x 3 and is able to answer most questions. Her biggest complaint is feeling weak and having chills. Review of Systems All systems PM: 10-point ROS was reviewed, no additional remarkable complaints except - Constitutional Constitutional: Present: chills, fatigue, weakness - Gastrointestinal Gastrointestinal: Present: nausea - Musculoskeletal Musculoskeletal: Present: back pain [facility] Patient Stated Medical History Heart valve replacement x2 Pacemaker Atrial fibrillation Hypothyroidism GERD Osteoporosis Iron deficiency anemia Anxiety Irritable bowel syndrome Glaucoma Surgical History: Heart valve replacement, pacemaker, wrist surgery following a fracture Family History: Noncontributory - Social History Smoking status: Never smoker Substance use type: does not use Alcohol intake frequency: does not drink Housing: house Household members: none Current occupational status: retired Social history: PCP-Dr. 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 Ha at [employer] [phone] HONEY is her daughter, Danyelle Jimenez (Lives in [facility]) Medications Home Medications Medication Instructions Recorded Confirmed Type Acetaminophen [Tylenol] 500 mg PO Q6HPRN PRN 11/13/16 11/13/16 History Alendronate Sodium [Alendronate 70 mg PO WEEKLY 11/13/16 11/13/16 History Sodium] Artificial Tears [Tears Naturale] 1 drop EACH EYE BID 11/13/16 11/13/16 History Ascorbate Calcium [Vitamin C] 500 mg PO DAILY 11/13/16 11/13/16 History Betaxolol HCl [Betoptic S] 2 drops OP BID 11/13/16 11/13/16 History Calcium Carbonate/Vitamin D3 1 each PO BID 11/13/16 11/13/16 History [Calcium 500+D Tablet Chew] Dicyclomine [Bentyl] 20 mg PO TID 11/13/16 11/13/16 History Ferrous Sulfate 325 mg PO DAILY 11/13/16 11/13/16 History Hydrocodone/APAP 5/325 [[place] 1 tab PO Q4-6HPRN PRN 11/13/16 11/13/16 History 5/325] Hyoscyamine [Levsin] 0.125 mg PO Q4HPRN PRN 11/13/16 11/13/16 History LORazepam [Ativan] 0.5 mg PO TID PRN 11/13/16 11/13/16 History Latanoprost 2.5 ml OP HS 11/13/16 11/13/16 History Levothyroxine Sodium 88 mcg PO DAILY 11/13/16 11/13/16 History Methylcellulose (with Sugar) 2,000 gm PO DAILY 11/13/16 11/13/16 History [Citrucel Powder] Metoprolol Tartrate [Lopressor] 50 mg PO DAILY 11/13/16 11/13/16 History Multivit-Min/Iron/Folic/Lutein 1 each PO DAILY 11/13/16 11/13/16 History [Centrum Silver Women Tablet] [place]-3/Dha/Epa/Fish Oil [Fish Oil 1 each PO QID 11/13/16 11/13/16 History 1,000 mg Softgel] Omeprazole [Omeprazole] 40 mg PO DAILY 11/13/16 11/13/16 History Simvastatin 20 mg PO HS 11/13/16 11/13/16 History Vitamin B Complex Vit C No.4 150 mg PO DAILY 11/13/16 11/13/16 History [Super B Complex] Warfarin [Coumadin] 2.5 mg PO MOTH 11/13/16 11/13/16 History Warfarin [Coumadin] 5 mg PO SUTUWEFRSA 11/13/16 11/13/16 History Allergies Allergy/AdvReac Type Severity Reaction Status Date / Time Sulfa (Sulfonamide Allergy Intermediate ashford Verified 11/13/16 14:20 Antibiotics) Exam Vital Signs: Temperature 96.8 F 11/13/16 12:23 Pulse Rate 69 11/13/16 12:23 Respiratory Rate 17 11/13/16 12:23 Blood Pressure 129/61 11/13/16 12:23 Pulse Oximetry 94 11/13/16 12:23 Height/Weight/BMI: Height 1.55 m Weight 66.2 kg Body Mass Index 27.6 - Constitutional Present: mild distress, well developed, thin - Routine HEENT Exam Head: Present: normocephalic, atraumatic Eye: Present: EOMI. Absent: conjunctival icterus ENT: Present: oropharynx clear, nares patent - Routine Neck Exam Present: supple. Absent: lymphadenopathy, tenderness - Routine Chest/Breast/Axilla Exam Chest wall: Absent: tenderness - Routine Respiratory Exam Present: CTA bilaterally. Absent: wheezes - Routine Cardiovascular Exam Present: RRR, S1, S2, click. Absent: murmur - Routine Abdominal Exam Present: soft, normoactive bowel sounds, tenderness (right upper quadrant), non distended - Routine Extremities Exam Present: no edema, normal capillary refill - Routine Skin Exam Present: dry, warm - Routine Neurological Exam Present: alert, oriented X3, normal tone - Routine Psychiatric Exam Present: normal affect, cooperative Results - Labs CBC & Chem 7: 11/13/16 09:16 11/13/16 09:20 Labs: Laboratory Tests 11/13/16 09:16 INR 3.36 H Laboratory Tests 11/13/16 11/13/16 11/13/16 09:20 09:20 13:32 Plasma Lactate 1.0 2.4 H Procalcitonin 0.81 UA negative - Imaging and Cardiology Chest x-ray Additional comments: FINDINGS:EKG leads project over the chest. Pacemaker and pacer wire is in place with the lead projecting over the left upper heart. Sternotomy wires are in place. The heart is enlarged. The pulmonary vascularity appears unremarkable. Linear opacities are seen at the left lung base which may represent atelectasis or scarring. There is no evidence for pleural effusion. There is no evidence for a pneumothorax. No osseous abnormalities are identified. There may be previous defibrillator wires projecting over the mid to lower heart. IMPRESSION: 1. Cardiomegaly. 2. Left basilar atelectatic changes or scarring. 3. Pacemaker in place with the lead projecting over the left mid to upper heart. CT scan - abdomen Additional comments: ABDOMEN AND PELVIS FINDINGS: LUNG BASES: Some linear opacities are seen at the left posterior sulcus which may represent atelectasis rather than infiltrate. There may be a trace of right pleural effusion. HEART: Defibrillator wires are seen within the pericardium. Pacemaker lead is in place although the tip is not imaged. LIVER: Unremarkable. GALLBLADDER: Gallbladder is distended but otherwise appears unremarkable without evidence for gallstones, gallbladder wall thickening, pericholecystic fluid. SPLEEN: Unremarkable. PANCREAS: Unremarkable. ADRENAL GLANDS: Unremarkable. AORTA/IVC/VASCULATURE: Unremarkable. LYMPH NODES: No lymphadenopathy is identified. Small lymph nodes are noted, but are not pathologically enlarged. GENITOURINARY: There is a 5 mm calcific density at the lower pole of the left kidney with some cortical thinning which may represent scarring. There is a rounded hypodensity at the upper pole of the left kidney which could represent a cyst. There is bilateral perinephric stranding although no definite evidence for obstructive uropathy, ureteral, or bladder calculi are identified. The perinephric stranding may be within range of normal for this patient or could be related to other etiologies such as pyelonephritis. Clinical correlation is suggested. BOWEL: There is a small to moderate amount of stool seen throughout the colon. The terminal ileum is unremarkable. What is thought to represent the appendix appears unremarkable. The remainder of the small bowel is unremarkable. The duodenum is unremarkable. The stomach casper are thickened but may be due to nondistention rather than gastritis. ABDOMINAL/PELVIC WALL: Small umbilical defect without herniated loops of bowel. BONES: Disc space narrowing and endplate sclerosis and vacuum phenomenon is noted from T10-11 through L1-2 and mildly at L3-4. There is superior migration of the hips from joint space narrowing. SI joint degenerative changes with sclerosis is noted. IMPRESSION: 1. There is a 5 mm left renal calculus without evidence for obstructive uropathy, ureteral, or bladder stone. 2. There is bilateral perinephric stranding which is of uncertain etiology. It may be within range of normal for this patient although other etiologies such as pyelonephritis is also a consideration. Clinical correlation is suggested. 3. There may be a trace of a right pleural effusion. Linear opacities are seen at left lung base which may represent atelectasis rather than infiltrate. CT scan - head Additional comments: FINDINGS: The CSF spaces are prominent likely related to atrophy in keeping with age. Periventricular deep white matter hypodensities are noted likely related to small vessel ischemic disease. The suprasellar cistern and quadrigeminal plate cisterns are intact. The sanchez-white junctions are distinct. No sulcal effacement is identified. The basal ganglia, posterior fossa and brainstem region appear unremarkable. There is no evidence for midline shift or mass effect. The midline structures appear unremarkable. No osseous abnormalities are identified. The paranasal sinuses and mastoid air cells are clear. IMPRESSION: 1. Atrophy in keeping with age. 2. Periventricular deep white matter hypodensities are noted likely related to small vessel ischemic disease. Assessment and Plan DVT Prophylaxis: SCD's GI Prophylaxis: other (omeprazole-patient takes at home) Assessment and Plan: Assessment: Severe sepsis - based on temp 100.9, tachypnea, WBC 17.2, 14% bands and lactate >2 and suspected GI source of infection given her RUQ pain on exam RUQ abdominal pain weakness leukocytosis acute urinary retention Heart valve replacement x2 Pacemaker Atrial fibrillation Hypothyroidism GERD Osteoporosis Iron deficiency anemia Anxiety Irritable bowel syndrome Glaucoma PLAN: Admit patient to observation under the hospitalist service, Dr. Faustin attending, for severe sepsis. Blood cultures and initial lactate drawn in emergency room. Repeat lactate was elevated. Initiate Zosyn 3.375 IV every 6 hours for suspected intra-abdominal infection given her right upper quadrant pain and nausea. Gallbladder ultrasound and lipase added to orders to rule out gallbladder disease. GI panel to rule out GI pathogens given her stool incontinence Check lateral view chest x-ray for completeness possibility of pulmonary source of infection. Normal saline 100 cc per hour for hydration SCDs for DVT prophylaxis. Patient is also on warfarin for A. fib and valve replacement. NPO until gallbladder Ultrasound has been resulted. Place Zarate catheter given her urinary retention CBC and CMP in a.m. to follow leukocytosis, renal and kidney function and electrolytes. Pharmacy consult to monitor warfarin dosage for A. fib and valve replacement Incentive spirometry for pulmonary toilet Patient requests to be a Patient's care to return to her PCP, Dr. Garcia, in [place], [place] on dismissal Sepsis Assessment - Evaluation Possible source: GI tract/intra-abdominal Confirmed Suspected Infection: No SIRS Criteria: acute mental status change, temperature > or equal to 100.4, WBC > or equal to 12,000, Bands > or equal to 10%, RR > or equal to 20 Severe Sepsis: lactate > or equal to 2.0 mg/dl, INR > 1.5 Hospital Course Summary Disclaimer: The visit summary below is not to be considered part of the above Progress Note. <Jocelin Faustin - Last Filed: 11/13/16 15:47> History of Present Illness Date: 11/13/16 Exam Vital Signs: Temperature 96.8 F 11/13/16 12:23 Pulse Rate 69 11/13/16 12:23 Respiratory Rate 17 11/13/16 12:23 Blood Pressure 129/61 11/13/16 12:23 Pulse Oximetry 94 11/13/16 12:23 Height/Weight/BMI: Height 1.55 m Weight 66.2 kg Body Mass Index 27.6 Results - Labs CBC & Chem 7: 11/13/16 09:16 11/13/16 09:20 Assessment and Plan Resuscitation Status: Full Code Assessment and Plan: I have independently evaluated and examined this patient. I reviewed the chart, the patient's history, and the CHEF HEAD/PA's documented findings as above. We discussed and formulated the assessment and plan as above with additions as below: Mrs. Jimenez reports onset of feeling poorly last night when she developed shakes that she couldn't control followed by fevers. She describes having a cough with minimal sputum production for some time that comes and goes and was present this morning but is better this afternoon. She does not feel that GI symptoms or anything beyond her normal irritable bowel syndrome. She denies urinary symptoms or flank pain and is not have generalized myalgias or arthralgias. Examination reveals a pale female who responds to questions appropriately but appears very fatigued Conjugate gaze, no palpebral petechiae Respirations nonlabored, left basilar crackles Regular rhythm, 2-3/6 aortic murmur upper sternal borders No splinter hemorrhages at nailbeds Abdomen soft with minor discomfort on deep palpation right upper quadrant/ epigastric-no guarding No wounds, erythema, or acute joint inflammation Leukocytosis with left shift noted. Urine unremarkable, procalcitonin 0.81, lactic acid 2.4. CT abdomen reviewed by myself-gallbladder sludge without gallbladder wall thickening or or cholecystic fluid, infiltrate left base versus atelectasis. Portable chest x-ray with poorly defined left base-possible infiltrate by my review. EKG also reviewed-likely paced although spikes not well seen. Repeat chest x-ray with lateral view to be obtained to better define potential left lower lobe infiltrate. Presentation with abrupt onset chills consistent with strep pneumonia. Patient also has artificial valve and at risk for bacteremia although no stigmata present. Empiric treatment initiated for GI sources, should cover strep if present. Strep pneumonia urine antigen to be obtained. Monitor GI symptoms closely for recurrent diarrhea or change in periumbilical pain. Discussed with Dr. Handy, multiple imaging studies reviewed by myself. Hospital Course Summary Disclaimer: The visit summary below is not to be considered part of the above Progress Note.
[2016-11-13] MEDS ORDERED: WARFARIN - PHARMACY CONSULT MC ONE (14:28)
[2016-11-13] MEDS ORDERED: ONDANSETRON 4 MG/2 ML INJECTION IVP PRN (14:51)
[2016-11-13] MEDS ORDERED: LORazepam 0.5 MG TABLET PO PRN (15:01)
[2016-11-13] MEDS ORDERED: ACETAMINOPHEN 500 MG TABLET PO PRN (15:01)
[2016-11-13] MEDS ORDERED: HYOSCYAMINE 0.125 MG ORAL TABLET PO PRN (15:01)
[2016-11-13] MEDS: NS 1,000 ML IV SCH (15:05)
[2016-11-13] MEDS: PIPERACILLIN/TAZOBACTAM 3.375 GM in NS 100 ML IV SCH ×2 (15:28→20:54)
--- NOTE | 2016-11-13 16:01 | Pharmacy Consult ---
Pharmacy Consult-Warfarin - Laboratory Information is 76yo F admitted for severe sepsis, secondary to probable intraabdominal infection. Pt has hx of A. Fib, mitral valve replacement x 2. Last valve is tissue (pig) valve. Warfarin home dose reported as 2.5mg on , Th, 5mg all other days. Pt has not taken today yet. Today's INR = 3.36 Will HOLD dose today. Goal INR = 2-3 Thank you.
--- NOTE | 2016-11-13 16:07 | Ultrasound Report ---
EXAM: US gall bladder LOCATION OF DICTATION: [facility] [place] COMPARISON: 11/13/2016 CT abdomen pelvis. HISTORY: RUQ pain, fever FINDINGS: PANCREAS: Unremarkable. What is able to be seen of the head and body of the pancreas appears unremarkable. The tail of the pancreas is not well visualized and is not able to be evaluated. AORTA/IVC: Unremarkable. No evidence for aneurysm. LIVER: 14.1 cm in length. Normal in echotexture, size, and appearance. No intrahepatic ductal dilatation. No lesions are seen. The main portal vein has normal color Doppler flow and direction. GALLBLADDER: Some echogenic debris is seen within the gallbladder which may represent sludge. No evidence for gallstones, gallbladder wall thickening, or pericholecystic fluid. The patient is not tender over the gallbladder with transducer pressure. CBD: Unremarkable. Normal in caliber. No intra or extrahepatic ductal dilatation. Normal for age. 2.3 mm. RIGHT KIDNEY: There may mild prominence of the right renal pelvis which could represent an extrarenal pelvis rather than hydronephrosis. 10.7 x 4.1 x 4.5 cm. COMMENTS: The liver was technically difficult to image well. The pancreas was not fully seen. Mobile debris was seen of the gallbladder. Echogenic debris was also seen attached to the anterior wall of the gallbladder. IMPRESSION: 1. Echogenic debris is seen within the gallbladder which may represent sludge. Otherwise, unremarkable exam without evidence for cholelithiasis or other signs of acute or chronic cholecystitis. 2. Right renal pelvis appeared mildly prominent but likely represents an extrarenal pelvis rather than hydronephrosis. The technologist conveyed the results to the ordering clinician, or to nurse on the floor, immediately after the exam which is consistent with the above findings. .
--- NOTE | 2016-11-13 16:43 | XRay Report ---
EXAM: Single lateral view of the chest, two images. COMPARISON: 11/13/2016 at 0942 hours HISTORY: fever . FINDINGS:Study is limited as only a single lateral view of the chest was ordered. Pacemaker and pacer wires are in place and appears appropriate. Valvular prosthesis is in place. Sternotomy wires are in place. There may be minimal blunting the posterior sulcus which may represent pleural thickening. Mild endplate sclerosis is seen of the thoracic spine. No definite evidence for infiltrate or consolidation is identified to suggest pneumonia. Costochondral calcifications are noted. The lungs are relatively clear. The heart is mildly enlarged. IMPRESSION: 1. Study is limited as only a lateral single view is obtained. No definite evidence for pneumonia is identified. 2. Mild cardiomegaly. LOCATION OF DICTATION: [facility] [place] .
[2016-11-13] MEDS: HYDROCODONE/APAP 5mg/325mg TABLET PO PRN (18:18)
[2016-11-13] MEDS: LATANOPROST 0.005% EYE DROPS 2.5ml EACH EYE SCH (20:53)
[2016-11-13] MEDS: EYE RIGHT EYE SCH (20:53)
[2016-11-13] MEDS: BETAXOLOL 0.25% RIGHT EYE SCH (20:53)
[2016-11-13] MEDS: REFRESH CLASSIC Eye Drops 0.4ml EACH EYE SCH (20:54)
[2016-11-13] MEDS ORDERED: VANCOMYCIN - PHARMACY CONSULT MC ONE (21:44)
[2016-11-14] MEDS: PIPERACILLIN/TAZOBACTAM 3.375 GM in NS 100 ML IV SCH ×2 (02:03→09:23)
[2016-11-14] MEDS: NS 1,000 ML IV SCH ×2 (04:33→11:22)
[2016-11-14] MEDS: HYDROCODONE/APAP 5mg/325mg TABLET PO PRN ×2 (06:09→13:25)
[2016-11-14] MEDS: LEVOTHYROXINE 88 MCG TABLET PO SCH (06:09)
--- NOTE | 2016-11-14 08:28 | Pharmacy Consult ---
Pharmacy Consult-Warfarin - Laboratory Information 11/14/16 04:15 INR 3.87 H is 76yo F admitted for severe sepsis, secondary to probable intraabdominal infection. Patient has a history of A. Fib, mitral valve replacement x 2. Last valve is tissue (pig) valve. Warfarin home dose reported as 2.5mg on Mo, Th, 5mg all other days. The goal INR is between 2-3. Date INR Dose 11/13 3.36 Held 11/14 3.87 Hold Today's INR is supratherapeutic at 3.87. I ordered the warfarin to be held today. I called his nurse and informed her that the warfarin was to be held today. Thank you for the Warfarin Dosing Protocol, Dse Lala, Pharmacist.
[2016-11-14] MEDS: FERROUS SULFATE 324 MG TABLET PO SCH (09:26)
[2016-11-14] MEDS: CALCIUM 500 + VIT D 200 TABLET PO SCH ×2 (09:26→20:36)
[2016-11-14] MEDS: MULTI-VITAMIN + MINERAL TABLET PO SCH (09:27)
[2016-11-14] MEDS: BETAXOLOL 0.25% RIGHT EYE SCH ×2 (09:27→20:36)
[2016-11-14] MEDS: EYE RIGHT EYE SCH ×2 (09:27→20:36)
[2016-11-14] MEDS: REFRESH CLASSIC Eye Drops 0.4ml EACH EYE SCH ×2 (09:29→20:36)
[2016-11-14] MEDS: ASCORBIC ACID 500 MG TABLET PO SCH ×2 (09:30→11:56)
[2016-11-14] MEDS: OMEPRAZOLE 20 MG CAPSULE PO SCH (09:30)
--- NOTE | 2016-11-14 11:36 | Progress Note ---
<Ana Cummings - Last Filed: 11/14/16 11:30> Subjective: Patient is seen during her bed bath today. She reports she feels slightly better. She has eaten some. She's not developed any new symptoms. No vomiting. She reports she feels the urge to void consistently (has anderson in) but has no urge to defecate, despite the fact that she has had ongoing passage of soft stools which she is not aware of. She was initially not requiring oxygen, but this morning, she is requiring 3.5 L of oxygen to keep O2 sat of 90%. She continues to run a low-grade fever. She continues to cough some, but reports this is typical for her. Objective Vital signs: Temperature 99.8 F 11/14/16 08:43 Pulse Rate 64 11/14/16 08:43 Respiratory Rate 18 11/14/16 08:43 Blood Pressure 95/44 11/14/16 08:43 Pulse Oximetry 90 11/14/16 08:43 Height/Weight/BMI: Height 1.55 m Weight 69 kg Body Mass Index 27.6 - Constitutional Present: no acute distress, well nourished, well developed - Routine HEENT Exam Head: Present: normocephalic, atraumatic - Routine Respiratory Exam Present: decreased breath sounds, CTA bilaterally. Absent: wheezes - Routine Cardiovascular Exam Present: RRR, S1, S2, murmur (grade 2-3, best heard at the upper sternal borders ) - Routine Abdominal Exam Present: soft, normoactive bowel sounds, non distended. Absent: tenderness - Routine Extremities Exam Present: no edema, normal capillary refill - Routine Skin Exam Present: dry, warm - Routine Neurological Exam Present: alert, altered mental status (she has some problems with recall. She herself notes that is having more trouble with processing (with this illness) than her baseline.) - Routine Lymphatic Exam Lymphatic: Absent: adenopathy - Routine Psychiatric Exam Present: normal affect, cooperative Results - Labs CBC & Chem 7: 11/14/16 04:15 11/14/16 04:15 Microbiology Results: Microbiology 11/13/16 17:13 Urine Streptococcus pneumoniae Antigen (M - Final She has growth of Staphylococcus aureus from both peripheral sites drawn in ER yesterday. Assessment and Plan Assessment and Plan: Assessment Bacteremia-positive growth of staph aureus on blood cultures (final results pending) Severe sepsis - based on temp 100.9, tachypnea, WBC 17.2, 14% bands and lactate >2 and suspected GI source of infection given her RUQ pain on exam RUQ abdominal pain Transaminitis Hypernatremia Hypokalemia Weakness Leukocytosis-worsening Acute urinary retention (POA) Heart valve replacement x2 Pacemaker Atrial fibrillation Hypothyroidism GERD Osteoporosis Iron deficiency anemia Anxiety Irritable bowel syndrome Glaucoma Plan Vancomycin was initiated overnight due to the positive Staphylococcus aureus blood cultures. Zosyn was discontinued. Simvastatin is held given her increase in LFTs. Consult cardiology-Dr. Rowe. Will schedule CARLITOS given her artificial valves and bacteremia - needs to be NPO for 8 hours prior. May have regular diet for now. Dr. Rowe prefers her INR be less than 2.5 to perform procedure. Pharmacy was notified to discontinue Coumadin. We will need to re-order when it needs to be restarted. Continue daily INR. Hospital Course Summary Disclaimer: The visit summary below is not to be considered part of the above Progress Note. Hospital Course: Assessment Bacteremia-positive growth of staph aureus on blood cultures (final results pending) Severe sepsis - based on temp 100.9, tachypnea, WBC 17.2, 14% bands and lactate >2 and suspected GI source of infection given her RUQ pain on exam RUQ abdominal pain Transaminitis Hypernatremia Hypokalemia Weakness Leukocytosis-worsening Acute urinary retention (POA) Heart valve replacement x2 Pacemaker Atrial fibrillation Hypothyroidism GERD Osteoporosis Iron deficiency anemia Anxiety Irritable bowel syndrome Glaucoma 11/13/16-hospital admission Admit patient to observation under the hospitalist service, Dr. Faustin attending, for severe sepsis. Blood cultures and initial lactate drawn in emergency room. Repeat lactate was elevated. Initiate Zosyn 3.375 IV every 6 hours for suspected intra-abdominal infection given her right upper quadrant pain and nausea. Gallbladder ultrasound and lipase added to orders to rule out gallbladder disease. GI panel to rule out GI pathogens given her stool incontinence Check lateral view chest x-ray for completeness possibility of pulmonary source of infection. Normal saline 100 cc per hour for hydration SCDs for DVT prophylaxis. Patient is also on warfarin for A. fib and valve replacement. NPO until gallbladder Ultrasound has been resulted. Place Anderson catheter given her urinary retention CBC and CMP in a.m. to follow leukocytosis, renal and kidney function and electrolytes. Pharmacy consult to monitor warfarin dosage for A. fib and valve replacement Incentive spirometry for pulmonary toilet Pt has a living will. Is deferring DNR vs full code decision to her daughter. At this time, patient will be listed as a full-code. Patient's care to return to her PCP, Dr. Garcia, in [place], [place] on dismissal 11/14/16 Vancomycin was initiated overnight due to the positive Staphylococcus aureus blood cultures. Zosyn was discontinued. Simvastatin is held given her increase in LFTs. Consult cardiology-Dr. Rowe. Will schedule CARLITOS given her artificial valves and bacteremia - needs to be NPO for 8 hours prior. May have regular diet for now. Dr. Rowe prefers her INR be less than 2.5 to perform procedure. Pharmacy was notified to discontinue Coumadin. We will need to re-order when it needs to be restarted. Continue daily INR. <Jocelin Faustin - Last Filed: 11/14/16 16:23> Objective Vital signs: Temperature 99.8 F 11/14/16 08:43 Pulse Rate 64 11/14/16 08:43 Respiratory Rate 18 11/14/16 08:43 Blood Pressure 95/44 11/14/16 08:43 Pulse Oximetry 90 11/14/16 08:43 Results - Labs CBC & Chem 7: 11/14/16 04:15 11/14/16 04:15 Assessment and Plan DVT Prophylaxis: Coumadin Resuscitation Status: Full Code Assessment and Plan: I have independently evaluated and examined this patient. I reviewed the chart, the patient's history, and the CHECK INSPECTOR/PA's documented findings as above. We discussed and formulated the assessment and plan as above with additions as below: Mrs. Jimenez reports feeling a little better today despite continued low-grade fevers overnight. She denied nausea and indicated she was hungry. She denies dyspnea and reports the only time she needs oxygen is when she is in the hospital. No pain described. Denies palpitations-due to have pacemaker checked. Generalized pallor, no conjunctival petechiae; no splinter hemorrhages Respirations nonlabored but crackles are present at the bases bilaterally, no wheezing Regular rhythm, S1-S2 Persistent mild tenderness right upper quadrant without guarding. Leukocytosis present with 9% bands; 2/2 blood cultures positive for staph aureus. INR 3.87. Mild elevation transaminases today. Staph aureus bacteremia-discussed with Dr. Rowe to coordinate CARLITOS, tentatively scheduled for Sunday. Blood cultures to be repeated in a.m. after patient on vancomycin for 24 hours. IV fluids discontinued, repeat chest x-ray in a.m. due to hypoxia and development of crackles at the bases bilaterally. Pacemaker to be interrogated. Hospital Course Summary Disclaimer: The visit summary below is not to be considered part of the above Progress Note.
--- NOTE | 2016-11-14 11:51 | Pharmacy Consult-Antibiotics ---
Pharmacy Consult-Vancomycin - Laboratory Information WBC 20.6 T/MM3 (4.5-11.0) H 11/14/16 04:15 BUN 19.0 MG/DL (7-17) H 11/14/16 04:15 Creatinine 1.2 MG/DL (0.7-1.2) D 11/14/16 04:15 Procalcitonin 0.81 NG/ML 11/13/16 09:20 - Consult Information 76 y.o. F. admitted through E.R. with chills, fatigue, weakness and nausea. blood culture results positive for staph aureus. Vancomycin per pharmacy protocol ordered. goal trough range= 15 to 20 mcg/ml Vancomycin 1 gram IV Q18H ordered. This dose gives an estimated trough of ~17 mcg/ml. SCr increased 11/14/16= 1.2 mg/dL from 11/13/16 SCr= 0.9 mg/dL on admit Pharmacy will monitor and adjust as needed. Thank you, Lacey Puga [facility]
[2016-11-14] MEDS ORDERED: SIMETHICONE 80 MG CHEWABLE TABLET PO PRN (12:02)
--- NOTE | 2016-11-14 16:08 | Cardiology Consult Note ---
History of Present Illness Chief complaint: staph bacteremia , hx of artifical valve replacement <Paulie Rowe Dalton - 11/15/16 19:26> shaking, fatigue, hx of artifical valve replacement <Alicia Laguerre 11/14/16 16:42> History of present illness: she denies dyspnea, orthopnea PND or LE edema. we were asked to evaluate for CARLITOS to R/O prosthetic valve endocarditis . pt is anticoagulated with a supratherapeutic INR. Pt is expected to remain in the hospital for several days . <Paulie Rowe Dalton - 11/15/16 19:26> 76 yo female w/ hx of rhuematic fever as child and 2 mitral valve replacement sx presented to ED yesterday for confusion, chills, shaking x2 days. pt is in town from [place] visiting her sister. her sister states that yesterday Ms. kruse would not get out of bed, was very cold, was shivering and seemed out of it. she called EMS and states the pt had a fever of 102. pt feels tired and weak; she had watery diarrhea 2 times yesterday, she denies N/V, abdominal pain. she denies any recent hospitalizations, denies being around any sick people. denies hx of CA, HTN, stroke, DM. her first mitral valve replacement was a mechanical valve in 1982, second MVR was a tissue valve in 1992. pt had a pacemaker put in about two years ago. she is on coumadin for a fib. she denies cp, chest pressure, palpitations, lightheadedness, dizziness, soa, UTI symp, stroke symp. <Alicia Laguerre 11/14/16 16:42> Review of Systems - Constitutional Constitutional: Present: chills, fatigue, fever(s), headache(s), weakness. Absent: weight gain, weight loss <Alicia Laguerre 11/14/16 16:14> Comments: decreased appetite x 6mo <Alicia Laguerre 11/14/16 16:42> - EENMT Eyes: Absent: blurry vision, change in vision, loss of vision <Alicia Laguerre 11/14/16 16:14> Mouth/Throat: Absent: sore throat <Alicia Laguerre 11/14/16 16:14> - Cardiovascular Cardiovascular: Present: hx of rheumatic fever. Absent: chest pain, palpitations, syncope, cyanosis <EdilsonAlicia la 11/14/16 16:14> - Respiratory Respiratory: Present: cough (was productive, now a dry cough for a while now ). Absent: dyspnea <Alicia Laguerre 11/14/16 16:42> - Gastrointestinal Gastrointestinal: Present: diarrhea. Absent: abdominal pain, constipation, hematochezia, nausea, vomiting <Alicia Laguerre 11/14/16 16:14> - Genitourinary Genitourinary: Present: urinary frequency. Absent: dysuria, pelvic pain < EdilsonAlicia la 11/14/16 16:14> - Integumentary/Breasts Integumentary: Absent: lesions, wounds <EdilsonAlicia la 11/14/16 16:14> - Neurological Neurological: Present: confusion. Absent: abnormal speech, dizziness < Alicia Laguerre 11/14/16 16:14> - Hematologic/Lymphatic Hematologic/Lymphatic: Present: other (anticoagulation apparently for Afib. no outside records available.) <Paulie Rowe Dalton 11/15/16 19:26> [facility] Patient Stated Medical History Hx Renal Disease No <Paulie Rowe Dalton 11/15/16 19:26> Surgical History: see HPI <Jae,Paulie Dalton 11/15/16 19:26> Heart valve replacement, pacemaker <Alicia Laguerre 16:14> - Social History Smoking status: Never smoker <Jae,Paulie Dalton 11/15/16 19:51> Alcohol intake frequency: does not drink <Paluie Rowe Dalton 11/15/16 19:51> Current occupational status: retired <JaePaulie Dalton 11/15/16 19:51> Current residence: Apartment/Private Home <Alicia Laguerre 11/14/16 16:14> Medications Home Medications Medication Instructions Recorded Confirmed Type Acetaminophen [Tylenol] 500 mg PO Q6HPRN PRN 11/13/16 11/13/16 History Alendronate Sodium [Alendronate 70 mg PO WEEKLY 11/13/16 11/13/16 History Sodium] Artificial Tears [Tears Naturale] 1 drop EACH EYE BID 11/13/16 11/13/16 History Ascorbate Calcium [Vitamin C] 500 mg PO DAILY 11/13/16 11/13/16 History Betaxolol HCl [Betoptic S] 2 drops OP BID 11/13/16 11/13/16 History Calcium Carbonate/Vitamin D3 1 each PO BID 11/13/16 11/13/16 History [Calcium 500+D Tablet Chew] Dicyclomine [Bentyl] 20 mg PO TID 11/13/16 11/13/16 History Ferrous Sulfate 325 mg PO DAILY 11/13/16 11/13/16 History Hydrocodone/APAP 5/325 [[place] 1 tab PO Q4-6HPRN PRN 11/13/16 11/13/16 History 5/325] Hyoscyamine [Levsin] 0.125 mg PO Q4HPRN PRN 11/13/16 11/13/16 History LORazepam [Ativan] 0.5 mg PO TID PRN 11/13/16 11/13/16 History Latanoprost 2.5 ml OP HS 11/13/16 11/13/16 History Levothyroxine Sodium 88 mcg PO DAILY 11/13/16 11/13/16 History Methylcellulose (with Sugar) 2,000 gm PO DAILY 11/13/16 11/13/16 History [Citrucel Powder] Metoprolol Tartrate [Lopressor] 50 mg PO DAILY 11/13/16 11/13/16 History Multivit-Min/Iron/Folic/Lutein 1 each PO DAILY 11/13/16 11/13/16 History [Centrum Silver Women Tablet] [place]-3/Dha/Epa/Fish Oil [Fish Oil 1 each PO QID 11/13/16 11/13/16 History 1,000 mg Softgel] Omeprazole [Omeprazole] 40 mg PO DAILY 11/13/16 11/13/16 History Simvastatin 20 mg PO HS 11/13/16 11/13/16 History Vitamin B Complex Vit C No.4 150 mg PO DAILY 11/13/16 11/13/16 History [Super B Complex] Warfarin [Coumadin] 2.5 mg PO MOTH 11/13/16 11/13/16 History Warfarin [Coumadin] 5 mg PO [id number] 11/13/16 11/13/16 History <Paulie Rowe Dalton - 11/15/16 19:51> Allergies Allergy/AdvReac Type Severity Reaction Status Date / Time Sulfa (Sulfonamide Allergy Intermediate [place] Verified 11/13/16 14:20 Antibiotics) <Paulie Rowe - 11/15/16 19:51> Exam Vital signs: Temperature 97.7 F 11/15/16 14:58 Pulse Rate 61 11/15/16 14:58 Respiratory Rate 20 11/15/16 14:58 Blood Pressure 108/73 11/15/16 14:58 Pulse Oximetry 99 11/15/16 14:58 <Paulie Rowe - 11/15/16 19:51> Temperature 99.8 F 11/14/16 08:43 Pulse Rate 64 11/14/16 08:43 Respiratory Rate 18 11/14/16 08:43 Blood Pressure 95/44 11/14/16 08:43 Pulse Oximetry 90 11/14/16 08:43 <Alicia Laguerre R - 11/14/16 16:14> Narrative: EKG: appears junctional rhythm, rate 63 BPM, w/ RBBB and LAFB tele: appears junctional rhythm, rate 60 BPM CXR: 1. Cardiomegaly. 2. Left basilar atelectatic changes or scarring. 3. Pacemaker in place with the lead projecting over the left mid to upper heart. <Alicia Laguerre - 11/14/16 16:42> - Constitutional no acute distress, thin, cooperative <Alicia Laguerre 11/14/16 16:14> - Routine HEENT Exam Head: Present: normocephalic, atraumatic <Alicia Laguerre 11/14/16 16:14> Eye: Present: EOMI, PERRL, conjunctivae pink. Absent: nystagmus <Alicia Laguerre 11/14/16 16:14> ENT: Present: mucous membranes moist <Alicia Laguerre 11/14/16 16:14> Throat: normal inspection, other (no ruiz spots) <Alicia Laguerre - 11/14/16 16:14> - Routine Neck Exam Present: supple, trachea midline. Absent: JVD, carotid bruit, thyromegaly < Alicia Laguerre - 11/14/16 16:14> - Routine Chest/Breast/Axilla Exam Chest wall: Present: pacemaker (normal scar L upper chest) <[facility] 11/15/16 19:51> Present: pacemaker. Absent: tenderness <Alicia Laguerre [facility] 16:14> - Routine Respiratory Exam Present: CTA bilaterally (overall except for few scattered rales ), rales <[facility] 11/15/16 19:51> Present: CTA bilaterally, rales (few, scattered ). Absent: accessory muscle use <Alicia Laguerre [facility] 11/14/16 16:14> - Routine Cardiovascular Exam Present: murmur (II/ systolic throughout the precordium) < [facility] 11/15/16 19:51> Present: RRR, murmur (II/ systolic ) <Alicia Laguerre [facility] 04/28 16:14> - Routine Abdominal Exam Absent: organomegaly, mass <[facility] 11/15/16 19:51> Present: soft, normoactive bowel sounds, non distended, non tender <Alicia Laguerre [facility] 11/14/16 16:14> - Routine Extremities Exam Present: normal capillary refill <[facility] 11/15/16 19: 51> Present: pulses intact. Absent: cyanosis, clubbing, edema < Alicia Laguerre [facility] 11/14/16 16:14> - Routine Skin Exam Absent: petechiae <[facility] 11/15/16 19:51> Present: intact. Absent: cyanosis, erythema, lesions, rash < Alicia Laguerre [facility] 11/14/16 16:42> Comments: no splinter hemorrhages on nail beds. <Alicia Laguerre [facility] 11/14/16 16:42> - Routine Neurological Exam Present: alert, oriented X3, CN II-XII intact, moving all extremities, normal speech. Absent: motor deficit, facial asymmetry <Alicia Laguerre [facility] 11/14/16 16:14> - Routine Psychiatric Exam Present: normal affect, normal thought process <Alicia Laguerre [facility] 11/14/16 16 :14> Results 11/15/16 04:13 11/15/16 04:13 <Paulie Rowe Dalton - 11/15/16 19:51> Cardiac Enzymes 11/15/16 Range/Units 04:13 AST 81 H (14-36) U/L CBC 11/15/16 Range/Units 04:13 WBC 19.3 H (4.5-11.0) T/MM3 RBC 3.06 L (4.00-5.20) M/MM3 Hgb 9.4 L (12-16) GM/DL Hct 29.9 L (36-46) % Plt Count 120 L (130-400) T/MM3 Neut # (Auto) Not performed Lymph # (Auto) Not performed [place] # (Auto) Not performed Eos # (Auto) Not performed Baso # (Auto) Not performed Comprehensive Metabolic Panel 11/15/16 Range/Units 04:13 Sodium 142 (134-144) MEQ/L Potassium 3.5 L (3.6-5) MEQ/L Chloride 114 H (98-107) MEQ/L Carbon Dioxide 21 L (22-30) MEQ/L BUN 18.0 H (7-17) MG/DL Creatinine 0.9 D (0.7-1.2) MG/DL Glucose 109 (65-110) MG/DL Calcium 8.6 (8.4-10.2) MG/DL AST 81 H (14-36) U/L ALT 79 H (9-52) U/L Alkaline Phosphatase 60 (38-126) U/L Total Protein 5.7 L (6.3-8.2) G/DL Albumin 3.1 L (3.5-5.0) G/DL Intake and Output 11/15/16 11/15/16 11/15/16 06:59 14:59 22:59 Intake Total 994 / 994 Output Total 400 / 400 1850 / 1850 Balance -400 / -400 -856 / -856 Intake: IV 250 / 250 Vancocin 1,000 mg In 250 / 250 Normal Saline 250 ml @ 250 mls/hr IV Q18H [facility] Rx #:[id number] Oral 744 / 744 Output: Urine Amount (Catheter) 400 / 400 1850 / 1850 Other: Urine Appearance Cloudy Clear Urine Color Straw Yellow Urine Odor Strong Normal Stool Color Brown Stool Consistency Dry and Hard Size of Bowel Movement Small # Incontinent Bowel 1 Movements Weight 69.5 kg Patient Weight 11/16/16 06:59 Weight 69.5 kg <JaePaulie Dalton - 11/15/16 19:51> Intake and Output 11/14/16 11/14/16 11/14/16 06:59 14:59 22:59 Output Total 275 / 275 Balance -275 / 325 Output: Urine Amount (Catheter) 275 / 275 Other: Urine Color Yellow Stool Color Brown Stool Consistency Soft Size of Bowel Movement Small # Incontinent Bowel 1 Movements <Alicia Laguerre R - 11/14/16 16:14> - Imaging and Cardiology Holter: other (telemetry shows a regular wide QRS stable rythm w/o pacemaker spikes) <JaePaulie Dalton - 11/15/16 19:51> Imaging & Cardiology Narrative: 11/15/16 19:49 CXR single chamber Pacemaker in place w/o cardiomegaly or pulomonary edema <Paulie Rowe - 11/15/16 19:51> - EKG Interpretation EKG: no acute changes (no visible p waves or pacemaker spikes .regular rhythm appears to be acclerated junctional RBBB ), not changed from: (no old ekg for comparison) <JaePaulie Dalton - 11/15/16 19:51> Assessment and Plan - Attestation Attestation Narrative: 11/15/16 19:44 I have personally interviewed and examined the pt and formulated the plan of care.I have personally and directly supervised the student. <JaePaulie Dalton - 11/15/16 19:51> - Assessment and Plan (1) Hx of artificial heart valve replacement Current visit: Yes Status: Acute medtronic pacemaker interrogation hold coumadin CARLITOS scheduled sunday 1100AM, risks, benefits, indications, and alternatives discussed with pt, pt verbalizes she would like to proceed with procedure. will follow pt intermittently, please call Dr. Rowe if new cardiovascular issues occurs. (2) Atrial fibrillation Current visit: Yes Status: Acute (3) Bacteremia Current visit: Yes Status: Acute <Alicia Laguerre - 11/14/16 16:33> (1) Hx of artificial heart valve replacement Current visit: Yes Status: Acute no indication for urgent CARLITOS , so will await INR to go down. pt is receiving IV Vanco for staph bactremia . There is no hemodynamic instability ,pulmonary edema or embolism (such as a stroke) that would warrant a more urgent Dx or an different intervention , wether a vegetation on the prosthetic valve is to be found. this was discussed in detail with the hospitalist service and they'r in agreement. (2) Atrial fibrillation Current visit: Yes Status: Chronic (3) Bacteremia Current visit: Yes Status: Acute (4) Cardiac pacemaker Current visit: Yes Status: Chronic <Paulie Rowe Dalton - 11/15/16 19:51> Hospital Course Summary Disclaimer: The visit summary below is not to be considered part of the above Progress Note. <JaePaulie - 11/15/16 19:51> The visit summary below is not to be considered part of the above Progress Note. <Alicia Laguerre - 11/14/16 16:14> Hospital Course: Assessment Bacteremia-positive growth of staph aureus on blood cultures (final results pending) Severe sepsis - based on temp 100.9, tachypnea, WBC 17.2, 14% bands and lactate >2 and suspected GI source of infection given her RUQ pain on exam RUQ abdominal pain Transaminitis Hypernatremia Hypokalemia Weakness Leukocytosis-worsening Acute urinary retention (POA) Heart valve replacement x2 Pacemaker Atrial fibrillation Hypothyroidism GERD Osteoporosis Iron deficiency anemia Anxiety Irritable bowel syndrome Glaucoma 11/13/16-hospital admission Admit patient to observation under the hospitalist service, Dr. Faustin attending, for severe sepsis. Blood cultures and initial lactate drawn in emergency room. Repeat lactate was elevated. Initiate Zosyn 3.375 IV every 6 hours for suspected intra-abdominal infection given her right upper quadrant pain and nausea. Gallbladder ultrasound and lipase added to orders to rule out gallbladder disease. GI panel to rule out GI pathogens given her stool incontinence Check lateral view chest x-ray for completeness possibility of pulmonary source of infection. Normal saline 100 cc per hour for hydration SCDs for DVT prophylaxis. Patient is also on warfarin for A. fib and valve replacement. NPO until gallbladder Ultrasound has been resulted. Place Zarate catheter given her urinary retention CBC and CMP in a.m. to follow leukocytosis, renal and kidney function and electrolytes. Pharmacy consult to monitor warfarin dosage for A. fib and valve replacement Incentive spirometry for pulmonary toilet Pt has a living will. Is deferring DNR vs full code decision to her daughter. At this time, patient will be listed as a full-code. Patient's care to return to her PCP, Dr. Garcia, in [place], [place] on dismissal 11/14/16 Vancomycin was initiated overnight due to the positive Staphylococcus aureus blood cultures. Zosyn was discontinued. Simvastatin is held given her increase in LFTs. Consult cardiology-Dr. Rowe. Will schedule CARLITOS given her artificial valves and bacteremia - needs to be NPO for 8 hours prior. May have regular diet for now. Dr. Rowe prefers her INR be less than 2.5 to perform procedure. Pharmacy was notified to discontinue Coumadin. We will need to re-order when it needs to be restarted. Continue daily INR. <Alicia Laguerre R - 11/14/16 16:14>
[2016-11-14] MEDS: LATANOPROST 0.005% EYE DROPS 2.5ml EACH EYE SCH (20:36)
[2016-11-14] MEDS ORDERED: SIMVASTATIN 20 MG TABLET PO SCH (21:00)
[2016-11-15] MEDS: HYDROCODONE/APAP 5mg/325mg TABLET PO PRN ×3 (00:19→20:10)
[2016-11-15] MEDS: LEVOTHYROXINE 88 MCG TABLET PO SCH (06:20)
--- NOTE | 2016-11-15 08:51 | XRay Report ---
INDICATION: hypoxemia PROCEDURE: CHEST 2-VIEWS UPRIGHT (PA & LAT) Encounter: Initial COMPARISON: November 13, 2016 FINDINGS: New significant airspace consolidation in the medial aspect of the right upper and lower lobes with a new small right pleural effusion. There is also some hazy infrahilar airspace opacity on the left with a small left effusion. No pneumothorax. Heart size and mediastinal contours are stable. Prior CABG with a left cardiac pacemaker. Impression: New severe pulmonary edema. .
[2016-11-15] MEDS: NS FLUSH BAG 500ml IV PRN (09:02)
[2016-11-15] MEDS: OMEPRAZOLE 20 MG CAPSULE PO SCH (09:03)
[2016-11-15] MEDS: ASCORBIC ACID 500 MG TABLET PO SCH (09:05)
[2016-11-15] MEDS: MULTI-VITAMIN + MINERAL TABLET PO SCH (09:05)
[2016-11-15] MEDS: REFRESH CLASSIC Eye Drops 0.4ml EACH EYE SCH ×2 (09:05→20:47)
[2016-11-15] MEDS: FERROUS SULFATE 324 MG TABLET PO SCH (09:05)
[2016-11-15] MEDS: CALCIUM 500 + VIT D 200 TABLET PO SCH ×2 (09:05→20:46)
[2016-11-15] MEDS: BETAXOLOL 0.25% RIGHT EYE SCH ×2 (09:06→20:46)
[2016-11-15] MEDS: EYE RIGHT EYE SCH ×2 (09:06→20:46)
--- NOTE | 2016-11-15 10:01 | Progress Note ---
Subjective: The patient was seen this morning accompanied by her sister. The patient states that she is feeling better. She states that her confusion is better and her sister agrees. She states she is less fatigued and having less shaking chills. She denies any headache, chest pain or abdominal pain. She denies any nausea or vomiting. She states that she does not have her dentures and is having trouble eating because of this. The speech therapist is coming in to see her after my visit. The patient complains of some chronic back pain around the waist level from a compression fracture in May 2015. Other than that she denies any pain. She denies feeling short of breath. She denies nausea, vomiting and diarrhea. She states that prior to admission she did not notice difficulties with urinary retention or difficulties urinating. She denies any bleeding. Objective Vital signs: Temperature 97.9 F 11/15/16 07:45 Pulse Rate 62 11/15/16 07:45 Respiratory Rate 18 11/15/16 07:45 Blood Pressure 122/54 11/15/16 07:45 Pulse Oximetry 94 11/15/16 07:45 Height/Weight/BMI: Weight 69.5 kg Comments: MAXIMUM TEMPERATURE is 100.9. Current temperature is 97.9. Blood pressure 122/54 , heart rate 62, O2 sat 94% on 5.5 L. Yesterday morning she was requiring 3 L. First admission weight is likely an error and was 45 kg. Repeat weight that day was 66.2 kg. Weight today is 69.5 kg up 3.2 kg. GEN-alert, oriented, no acute distress. She is having difficulty chewing her oatmeal without her dentures and eventually has to spit it out. HEENT-sclera anicteric, pupils are equal, oropharynx is moist, no oral lesions NECK-supple with positive JVD CV-regular rate and rhythm CHEST-mild crackles more so in the right midlung field and base ABD-soft, mild tenderness right upper quadrant, no rebound or guarding, positive bowel sounds, non-distended -Zarate in place with good urine output EXT-SCDs are on, no edema NEURO-no focal deficits SKIN-warm and dry without rashes Results - Labs CBC & Chem 7: 11/15/16 04:13 11/15/16 04:13 Labs: Bands are down from 9 yesterday to 2 today Hemoglobin is trending down and is 9.4 White count is fairly stable at 19.3 INR is 4.69 up from 3.87 and 3.36 Transaminases are trending down and AST is 81 and ALT is 79. Microbiology Results: Microbiology 11/15/16 04:09 Peripheral/Iv Start Blood Culture - Preliminary Culture Initiated - Results Pending 11/15/16 04:13 Peripheral/Iv Start Blood Culture - Preliminary Culture Initiated - Results Pending Staph is sensitive to all antibiotics tested. - Impressions Chest x-ray reveals no significant airspace consolidation in the medial aspect of the right upper and lower lobes with a new small right pleural effusion. Also some hazy infrahilar airspace opacity in the left with small left effusion. Impression is no severe pulmonary edema. I have also viewed the films myself and agree with radiology interpretation. Assessment and Plan Assessment and Plan: 11/15/2016 Assessment Bacteremia-positive growth of staph aureus on blood cultures 2 on 11/13/2016. Sensitive to all antibiotics tested. Severe sepsis - based on temp 100.9, tachypnea, WBC 17.2, 14% bands and lactate >2 source is unknown Acute hypoxic respiratory failure secondary to sepsis and pulmonary edema, rule out pneumonia Pulmonary edema with bilateral pleural effusions RUQ abdominal tenderness-improved, uncertain etiology Transaminitis-improving Hypernatremia-resolved Hypokalemia-resolved Weakness-improving Leukocytosis-stable, bandemia decreasing Acute urinary retention (POA)-Zarate catheter placed Heart valve replacement x2 Pacemaker Atrial fibrillation Hypothyroidism GERD Osteoporosis Iron deficiency anemia Anxiety Irritable bowel syndrome Glaucoma Encephalopathy on admission-resolved Dysphagia-worsened without patient's dentures Chronic back pain secondary to old compression fracture-stable Dysphagia Plan Overall, the patient is feeling better despite worsening signs on chest x-ray and increasing oxygen needs. We'll give Lasix 40 mg IV 2 for pulmonary edema and reassess. Replace potassium orally. Discuss treatment of staph bacteremia with infectious disease chain sales consultant. Repeat blood cultures drawn this morning and are pending. Place PICC line for presumed prolonged IV antibiotics. Continue to hold Coumadin for coagulopathy and for CARLITOS scheduled for Sunday. Agree with IRU consult Cause of the patient's mild right upper quadrant tenderness is unknown. Patient denies abdominal pain, nausea or vomiting. Liver enzymes are improving. Continue Zarate for now for urinary retention and need for aggressive diuresis. Consider trying to remove Zarate tomorrow. Speech therapy consult regarding dysphagia Consult Dr. Ramirez regarding worsening acute hypoxic respiratory failure and pulmonary infiltrates (pulmonary edema/possible pneumonia in the setting of sepsis bacteremia). Will diurese for now and continue IV antibiotics. Repeat CBC and chemistries in the morning. Repeat chest x-ray in the morning. Greater than 45 minutes time spent seeing and evaluating the patient in determining care plan. Hospital Course Summary Disclaimer: The visit summary below is not to be considered part of the above Progress Note. Hospital Course: Assessment Bacteremia-positive growth of staph aureus on blood cultures (final results pending) Severe sepsis - based on temp 100.9, tachypnea, WBC 17.2, 14% bands and lactate >2 and suspected GI source of infection given her RUQ pain on exam RUQ abdominal pain Transaminitis Hypernatremia Hypokalemia Weakness Leukocytosis-worsening Acute urinary retention (POA) Heart valve replacement x2 Pacemaker Atrial fibrillation Hypothyroidism GERD Osteoporosis Iron deficiency anemia Anxiety Irritable bowel syndrome Glaucoma 11/13/16-hospital admission Admit patient to observation under the hospitalist service, Dr. Faustin attending, for severe sepsis. Blood cultures and initial lactate drawn in emergency room. Repeat lactate was elevated. Initiate Zosyn 3.375 IV every 6 hours for suspected intra-abdominal infection given her right upper quadrant pain and nausea. Gallbladder ultrasound and lipase added to orders to rule out gallbladder disease. GI panel to rule out GI pathogens given her stool incontinence Check lateral view chest x-ray for completeness possibility of pulmonary source of infection. Normal saline 100 cc per hour for hydration SCDs for DVT prophylaxis. Patient is also on warfarin for A. fib and valve replacement. NPO until gallbladder Ultrasound has been resulted. Place Zarate catheter given her urinary retention CBC and CMP in a.m. to follow leukocytosis, renal and kidney function and electrolytes. Pharmacy consult to monitor warfarin dosage for A. fib and valve replacement Incentive spirometry for pulmonary toilet Pt has a living will. Is deferring DNR vs full code decision to her daughter. At this time, patient will be listed as a full-code. Patient's care to return to her PCP, Dr. Garcia, in [place], [place] on dismissal 11/14/16 Vancomycin was initiated overnight due to the positive Staphylococcus aureus blood cultures. Zosyn was discontinued. Simvastatin is held given her increase in LFTs. Consult cardiology-Dr. Rowe. Will schedule CARLITOS given her artificial valves and bacteremia - needs to be NPO for 8 hours prior. May have regular diet for now. Dr. Rowe prefers her INR be less than 2.5 to perform procedure. Pharmacy was notified to discontinue Coumadin. We will need to re-order when it needs to be restarted. Continue daily INR.
[2016-11-15] MEDS: FUROSEMIDE 40 MG/4 ML INJECTION IVP SCH ×2 (10:12→15:20)
--- NOTE | 2016-11-15 10:52 | Pulmonology Consult Note ---
<MeghanMissy D - Last Filed: 11/15/16 10:42> History of Present Illness Consult date: 11/15/16 Requesting physician: Susan Miller Reason for consult: hypoxemia, pleural effusion Chief complaint: Abdominal pain, fevers History of present illness: This is a 76 yo female with a Hx of VHD who was visiting her sister in [place]. She currently resides in [place], [place]. She states Sunday night she noted fevers and chills which didn't allow her to sleep well. Her symptoms persisted Sunday along will noticing RUQ abdominal pain. She was brought to the ER secondary to these symptoms. CT abdomen and pelvis were negative, she was noted with leukocytosis with bandemia, febrile and initial lactate was normal but repeat was elevated at 2.4. She was given an IVF bolus. Since her admit she was noted to have staphylococcus bacteremia and currently on Vancomycin IV, strep pneumoniae urine was negative. She has been having increased O2 needs and currently at 5L per NC, CXR today noted bilateral pleural effusions with Right side infiltrates. We have been consulted for her pulmonary issues and appreciate the consult. Review of Systems - Constitutional Constitutional: Present: chills, fatigue, fever(s) - EENT Eyes: Present: as per HPI Nose: Present: as per HPI - Cardiovascular Cardiovascular: Absent: chest pain, other, as per HPI, palpitations, syncope, dyspnea on exertion, orthopnea, edema, cyanosis, heart murmur, hx of rheumatic fever - Respiratory Respiratory: Present: as per HPI - Gastrointestinal Gastrointestinal: Present: abdominal pain - Genitourinary Genitourinary: Present: as per HPI - Musculoskeletal Musculoskeletal: Present: as per HPI - Integumentary/Breasts Integumentary: Present: as per HPI - Neurological Neurological: Present: as per HPI - Psychiatric Psychiatric: Present: as per HPI - Endocrine Endocrine: Present: as per HPI - Hematologic/Lymphatic Hematologic/Lymphatic: Present: as per HPI - Allergic/Immunologic Allergic/Immunologic: Present: as per HPI PFSH Surgical History: Heart valve replacement, pacemaker - Social History Smoking status: Never smoker Substance use type: does not use Alcohol intake frequency: does not drink Housing: house Current occupational status: retired Current occupational exposures/hazards: No Does patient use chewing tobacco?: No Current residence: Apartment/Private Home Medications Home Medications Medication Instructions Recorded Confirmed Type Acetaminophen [Tylenol] 500 mg PO Q6HPRN PRN 11/13/16 11/13/16 History Alendronate Sodium [Alendronate 70 mg PO WEEKLY 11/13/16 11/13/16 History Sodium] Artificial Tears [Tears Naturale] 1 drop EACH EYE BID 11/13/16 11/13/16 History Ascorbate Calcium [Vitamin C] 500 mg PO DAILY 11/13/16 11/13/16 History Betaxolol HCl [Betoptic S] 2 drops OP BID 11/13/16 11/13/16 History Calcium Carbonate/Vitamin D3 1 each PO BID 11/13/16 11/13/16 History [Calcium 500+D Tablet Chew] Dicyclomine [Bentyl] 20 mg PO TID 11/13/16 11/13/16 History Ferrous Sulfate 325 mg PO DAILY 11/13/16 11/13/16 History Hydrocodone/APAP 5/325 [[place] 1 tab PO Q4-6HPRN PRN 11/13/16 11/13/16 History 5/325] Hyoscyamine [Levsin] 0.125 mg PO Q4HPRN PRN 11/13/16 11/13/16 History LORazepam [Ativan] 0.5 mg PO TID PRN 11/13/16 11/13/16 History Latanoprost 2.5 ml OP HS 11/13/16 11/13/16 History Levothyroxine Sodium 88 mcg PO DAILY 11/13/16 11/13/16 History Methylcellulose (with Sugar) 2,000 gm PO DAILY 11/13/16 11/13/16 History [Citrucel Powder] Metoprolol Tartrate [Lopressor] 50 mg PO DAILY 11/13/16 11/13/16 History Multivit-Min/Iron/Folic/Lutein 1 each PO DAILY 11/13/16 11/13/16 History [Centrum Silver Women Tablet] [place]-3/Dha/Epa/Fish Oil [Fish Oil 1 each PO QID 11/13/16 11/13/16 History 1,000 mg Softgel] Omeprazole [Omeprazole] 40 mg PO DAILY 11/13/16 11/13/16 History Simvastatin 20 mg PO HS 11/13/16 11/13/16 History Vitamin B Complex Vit C No.4 150 mg PO DAILY 11/13/16 11/13/16 History [Super B Complex] Warfarin [Coumadin] 2.5 mg PO MOTH 11/13/16 11/13/16 History Warfarin [Coumadin] 5 mg PO SUTUWEFRSA 11/13/16 11/13/16 History Allergies Allergy/AdvReac Type Severity Reaction Status Date / Time Sulfa (Sulfonamide Allergy Intermediate [place] Verified 11/13/16 14:20 Antibiotics) Exam Vital signs: Temperature 97.9 F 11/15/16 07:45 Pulse Rate 62 11/15/16 07:45 Respiratory Rate 18 11/15/16 07:45 Blood Pressure 122/54 11/15/16 07:45 Pulse Oximetry 94 11/15/16 07:45 - Constitutional no acute distress, well nourished - Routine HEENT Exam Head: Present: normocephalic Eye: Present: PERRL - Routine Neck Exam Present: supple, full ROM - Routine Chest/Breast/Axilla Exam Chest wall: Present: pacemaker - Routine Respiratory Exam Present: decreased breath sounds, crackles - Routine Cardiovascular Exam Present: RRR, no murmur - Routine Abdominal Exam Present: soft, normoactive bowel sounds, non tender - Routine Back/Spine/Pelvis Exam Back/Spine: Present: full ROM - Routine Skin Exam Present: intact, dry - Routine Neurological Exam Present: alert, oriented X3, CN II-XII intact - Routine Psychiatric Exam Present: normal affect, normal thought process Results - Laboratory Findings CBC and BMP: 11/15/16 04:13 11/15/16 04:13 PT/INR, D-dimer INR 4.69 (0.99-1.21) H* 11/15/16 04:13 Abnormal lab findings: Abnormal Labs 11/15/16 11/15/16 11/15/16 04:13 04:13 04:13 WBC 19.3 H RBC 3.06 L Hgb 9.4 L Hct 29.9 L Plt Count 120 L Lymphocytes % (Manual) 12.0 L Monocytes % (Manual) 34.0 H Neutrophils # (Manual) 10.0 H Monocytes # (Manual) 6.6 H INR 4.69 H* Potassium 3.5 L Chloride 114 H Carbon Dioxide 21 L BUN 18.0 H AST 81 H ALT 79 H Total Protein 5.7 L Albumin 3.1 L - Diagnostic Findings Chest x-ray: image reviewed (as noted in HPI) Assessment and Plan - Assessment and Plan (1) Acute respiratory failure with hypoxia Current visit: Yes Status: Acute (2) Pleural effusion Current visit: Yes Status: Acute (3) Pulmonary infiltrates on CXR Current visit: Yes Status: Acute (4) Bacteremia Current visit: Yes Status: Acute (5) Hx of artificial heart valve replacement Current visit: Yes Status: Acute - Assessment and Plan Pt currently on O2 at 5L per NC and tolerating, doesn't use O2 at home. CXR as noted with bilateral pleural effusions and R side infiltrates. ? cause of infiltrates, no c/o coughing while eating, would try to obtain a sputum cx, add BT's, + cough with no sputum noted at this time. Primary started lasix for pleural effusions and congestion, follow CXR and I/O in am. Afebrile but WBC 20.6>19.3 on vanco for staph bacteremia. Is on coumadin and being held at this time for possible CARLITOS on sunday, INR 4.69 today, per primary. <Christian Ramirez - Last Filed: 11/16/16 14:57> History of Present Illness History of present illness: Patient presented with pneumonia, bacteremia with S aureus. Reports mild cough and sputum. Breathing is stable on O2. [facility] Patient Stated Medical History Hx Renal Disease No Exam Vital signs: Temperature 98.8 F 11/16/16 08:00 Pulse Rate 82 11/16/16 13:00 Respiratory Rate 20 11/16/16 13:00 Blood Pressure 121/60 11/16/16 08:00 Pulse Oximetry 95 11/16/16 13:00 Results - Laboratory Findings CBC and BMP: 11/16/16 04:08 11/16/16 04:08 PT/INR, D-dimer INR 1.64 (0.99-1.21) H 11/16/16 04:08 Abnormal lab findings: Abnormal Labs 11/15/16 11/15/16 11/15/16 04:13 04:13 04:13 WBC 19.3 H RBC 3.06 L Hgb 9.4 L Hct 29.9 L Plt Count 120 L Lymphocytes % (Manual) 12.0 L Monocytes % (Manual) 34.0 H Neutrophils # (Manual) 10.0 H Monocytes # (Manual) 6.6 H INR 4.69 H* Potassium 3.5 L Chloride 114 H Carbon Dioxide 21 L BUN 18.0 H Phosphorus AST 81 H ALT 79 H C-Reactive Protein Total Protein 5.7 L Albumin 3.1 L 11/16/16 11/16/16 11/16/16 04:08 04:08 04:08 WBC 13.3 H RBC 2.90 L Hgb 9.0 L Hct 28.0 L Plt Count 117 L Lymphocytes % (Manual) 13.0 L Monocytes % (Manual) 28.0 H Neutrophils # (Manual) Monocytes # (Manual) 3.7 H INR 1.64 H Potassium 3.3 L Chloride 110 H Carbon Dioxide BUN Phosphorus 1.7 L AST ALT C-Reactive Protein 188.8 H Total Protein Albumin 3.1 L - Diagnostic Findings Chest x-ray: report reviewed, image reviewed Assessment and Plan - Assessment and Plan (1) Staph aureus infection Current visit: Yes Status: Acute S aureus pneumonia wiht bacteremia. gram stain on sputum was polymicrobial, and I do wonder about aspiration as a possible cause. CARLITOS planned for tomorrow. CXR is improved on current antibiotics. Continue O2, neb treatments, mucus clearance and lung expansion device.
--- NOTE | 2016-11-15 14:45 | XRay Report ---
Indication: PICC PLACEMENT PROCEDURE: XR chest post-procedure 1V: Encounter: Initial Comparison: November 15, 2016 at 0609 Findings: New right PICC line in place with the tip projecting over the right atrium. Lungs are stable with severe airspace disease in the right lung and small right greater than left pleural effusions. No pneumothorax. Left pacemaker. Heart size and mediastinal contours are grossly stable. Impression: New right PICC line tip projects over the right atrium. This could be retracted by approximately 1 cm to reside at the expected cavoatrial junction. These findings were relayed to the clinical service by the soil technologist at the time of the exam. .
[2016-11-15] MEDS: CEFAZOLIN 2 G in NS 100 ML IV SCH (17:25)
[2016-11-15] MEDS: ALBUTEROL 2.5mg/3ml (0.083%) NEB AEROSOL SCH ×2 (17:32→19:45)
[2016-11-15] MEDS ORDERED: PHYTONADIONE 5 MG/2.5 ML ORAL LIQUID PO ONE (18:21)
[2016-11-15] MEDS ORDERED: PHYTONADIONE 1 MG/0.5 ML ORAL LIQUID PO ONE (18:35)
[2016-11-15] MEDS: LATANOPROST 0.005% EYE DROPS 2.5ml EACH EYE SCH (21:44)
[2016-11-15] MEDS ORDERED: FALL RISK - PHARMACY CONSULT XX ONE (22:00)
[2016-11-16] MEDS: CEFAZOLIN 2 G in NS 100 ML IV SCH ×3 (00:29→17:48)
[2016-11-16] MEDS: SALINE FLUSH 10ml SYRINGE IVF PRN (00:29)
[2016-11-16] MEDS: HYDROCODONE/APAP 5mg/325mg TABLET PO PRN ×2 (04:14→22:20)
[2016-11-16] MEDS: LEVOTHYROXINE 88 MCG TABLET PO SCH (06:09)
[2016-11-16] MEDS ORDERED: FUROSEMIDE 20 MG/2 ML INJECTION IVP ONE (07:47)
[2016-11-16] MEDS: ALBUTEROL 2.5mg/3ml (0.083%) NEB AEROSOL SCH ×5 (07:49→19:30)
--- NOTE | 2016-11-16 08:33 | XRay Report ---
INDICATION: pulm edema, effusions PROCEDURE: CHEST 2-VIEWS UPRIGHT (PA & LAT) Encounter: Initial COMPARISON: November 15, 2016 FINDINGS: Right PICC line remains in place. Left pacemaker. Continued diffuse airspace opacity in the right lung with small bilateral pleural effusions. There is slight improvement of the right lower lobe and less density of the consolidation overall with more of a groundglass type appearance. Faint hazy opacity in the left infrahilar region. No pneumothorax. Heart size and mediastinal contours are stable. Impression: Slightly decreasing density of the diffuse right lung consolidation. Continued small pleural effusions. .
[2016-11-16] MEDS: ASCORBIC ACID 500 MG TABLET PO SCH (08:53)
[2016-11-16] MEDS: OMEPRAZOLE 20 MG CAPSULE PO SCH (08:53)
[2016-11-16] MEDS: REFRESH CLASSIC Eye Drops 0.4ml EACH EYE SCH ×2 (08:54→21:15)
[2016-11-16] MEDS: CALCIUM 500 + VIT D 200 TABLET PO SCH ×2 (08:54→21:15)
[2016-11-16] MEDS: FERROUS SULFATE 324 MG TABLET PO SCH (08:54)
[2016-11-16] MEDS: MULTI-VITAMIN + MINERAL TABLET PO SCH (08:54)
[2016-11-16] MEDS: EYE RIGHT EYE SCH ×2 (08:55→21:16)
[2016-11-16] MEDS: BETAXOLOL 0.25% RIGHT EYE SCH ×2 (08:55→21:16)
[2016-11-16] MEDS: POTASSIUM ACID PHOSPHATE 500 MG TABLET PO SCH ×4 (09:02→21:36)
[2016-11-16] MEDS ORDERED: ALBUTEROL 2.5mg/3ml (0.083%) NEB AEROSOL SCH (11:14)
[2016-11-16] MEDS: ACETAMINOPHEN 500 MG TABLET PO PRN (17:40)
[2016-11-16] MEDS: NS FLUSH BAG 500ml IV PRN (17:48)
[2016-11-16] MEDS: LATANOPROST 0.005% EYE DROPS 2.5ml EACH EYE SCH (21:56)
--- NOTE | 2016-11-16 22:28 | Progress Note ---
Subjective: The patient was seen earlier this afternoon. She stated she was feeling a little bit better. She was able to be weaned down to 3 L per nasal cannula, but going lower than that caused some dyspnea. She denies any shortness of breath or chest pain. She was given Lasix IV 1 this morning. She is eating and drinking a little bit better. Objective Vital signs: Temperature 97.0 F 11/16/16 20:17 Pulse Rate 93 11/16/16 20:17 Respiratory Rate 26 H 11/16/16 20:17 Blood Pressure 102/40 11/16/16 20:17 Pulse Oximetry 92 11/16/16 20:17 Height/Weight/BMI: Weight 68.3 kg Comments: GEN-alert, oriented, no acute distress, appears chronically ill HEENT-sclera anicteric, oropharynx is moist NECK-positive JVD CV-regular rate and rhythm, positive prosthetic clicks CHEST-mild crackles ABD-soft, nontender with positive bowel sounds -Zarate in place with good urine output EXT-no edema NEURO-no focal deficits SKIN-warm and dry and without rashes Results - Labs CBC & Chem 7: 11/16/16 04:08 11/16/16 04:08 Labs: Laboratory Tests 11/13/16 11/14/16 11/15/16 09:16 04:15 04:13 INR 3.36 H 3.87 H 4.69 H* 11/16/16 04:08 INR 1.64 H Microbiology Results: Microbiology 11/15/16 15:23 Sputum, Expectorated Gram Stain - Final 11/15/16 15:23 Sputum, Expectorated Sputum Culture - Preliminary Staphylococcus aureus 11/15/16 04:09 Peripheral/Iv Start Blood Culture - Preliminary No Growth After 1 Day 11/15/16 04:13 Peripheral/Iv Start Blood Culture - Preliminary No Growth After 1 Day - Impressions Chest x-ray showed slight lead decreasing density of the diffuse right lung consolidation. Continued small pleural effusions. I did view the films myself and agree. Assessment and Plan Assessment and Plan: 11/16/2016 Assessment Bacteremia-positive growth of staph aureus on blood cultures 2 on 11/13/2016. Sensitive to all antibiotics tested. Severe sepsis - based on temp 100.9, tachypnea, WBC 17.2, 14% bands and lactate >2 source is unknown Acute hypoxic respiratory failure-improving Probable pneumonia with staph aureus in sputum-sensitivities pending Pulmonary edema with bilateral pleural effusions-improved with diuresis RUQ abdominal tenderness-improved, uncertain etiology Transaminitis-improving Hypernatremia-resolved Hypokalemia Hypophosphatemia Weakness-improving Leukocytosis-stable, bandemia decreasing Acute urinary retention (POA)-Zarate catheter placed Heart valve replacement x2 Pacemaker Atrial fibrillation Hypothyroidism GERD Osteoporosis Iron deficiency anemia Anxiety Irritable bowel syndrome Glaucoma Encephalopathy on admission-resolved Dysphagia-worsened without patient's dentures Chronic back pain secondary to old compression fracture-stable Dysphagia Plan Agent given Lasix 1 again this morning. Replace phosphorus orally Replace potassium orally. Day 2 of cefazolin, the patient previously received 2 days of vancomycin. Continue to hold Coumadin for coagulopathy and for CARLITOS scheduled for Sunday. Vitamin K given yesterday and INR is decreasing Agree with IRU consult Consider DC Zarate tomorrow Discussed with Dr. Ramirez Hospital Course Summary Disclaimer: The visit summary below is not to be considered part of the above Progress Note. Hospital Course: Assessment Bacteremia-positive growth of staph aureus on blood cultures (final results pending) Severe sepsis - based on temp 100.9, tachypnea, WBC 17.2, 14% bands and lactate >2 and suspected GI source of infection given her RUQ pain on exam RUQ abdominal pain Transaminitis Hypernatremia Hypokalemia Weakness Leukocytosis-worsening Acute urinary retention (POA) Heart valve replacement x2 Pacemaker Atrial fibrillation Hypothyroidism GERD Osteoporosis Iron deficiency anemia Anxiety Irritable bowel syndrome Glaucoma 11/13/16-hospital admission Admit patient to observation under the hospitalist service, Dr. Faustin attending, for severe sepsis. Blood cultures and initial lactate drawn in emergency room. Repeat lactate was elevated. Initiate Zosyn 3.375 IV every 6 hours for suspected intra-abdominal infection given her right upper quadrant pain and nausea. Gallbladder ultrasound and lipase added to orders to rule out gallbladder disease. GI panel to rule out GI pathogens given her stool incontinence Check lateral view chest x-ray for completeness possibility of pulmonary source of infection. Normal saline 100 cc per hour for hydration SCDs for DVT prophylaxis. Patient is also on warfarin for A. fib and valve replacement. NPO until gallbladder Ultrasound has been resulted. Place Zarate catheter given her urinary retention CBC and CMP in a.m. to follow leukocytosis, renal and kidney function and electrolytes. Pharmacy consult to monitor warfarin dosage for A. fib and valve replacement Incentive spirometry for pulmonary toilet Pt has a living will. Is deferring DNR vs full code decision to her daughter. At this time, patient will be listed as a full-code. Patient's care to return to her PCP, Dr. Garcia, in [place], [place] on dismissal 11/14/16 Vancomycin was initiated overnight due to the positive Staphylococcus aureus blood cultures. Zosyn was discontinued. Simvastatin is held given her increase in LFTs. Consult cardiology-Dr. Rowe. Will schedule CARLITOS given her artificial valves and bacteremia - needs to be NPO for 8 hours prior. May have regular diet for now. Dr. Rowe prefers her INR be less than 2.5 to perform procedure. Pharmacy was notified to discontinue Coumadin. We will need to re-order when it needs to be restarted. Continue daily INR. 11/16/16 22:28 11/15/2016 Assessment Bacteremia-positive growth of staph aureus on blood cultures 2 on 11/13/2016. Sensitive to all antibiotics tested. Severe sepsis - based on temp 100.9, tachypnea, WBC 17.2, 14% bands and lactate >2 source is unknown Acute hypoxic respiratory failure secondary to sepsis and pulmonary edema, rule out pneumonia Pulmonary edema with bilateral pleural effusions RUQ abdominal tenderness-improved, uncertain etiology Transaminitis-improving Hypernatremia-resolved Hypokalemia-resolved Weakness-improving Leukocytosis-stable, bandemia decreasing Acute urinary retention (POA)-Zarate catheter placed Heart valve replacement x2 Pacemaker Atrial fibrillation Hypothyroidism GERD Osteoporosis Iron deficiency anemia Anxiety Irritable bowel syndrome Glaucoma Encephalopathy on admission-resolved Dysphagia-worsened without patient's dentures Chronic back pain secondary to old compression fracture-stable Dysphagia Plan Overall, the patient is feeling better despite worsening signs on chest x-ray and increasing oxygen needs. We'll give Lasix 40 mg IV 2 for pulmonary edema and reassess. Replace potassium orally. Discuss treatment of staph bacteremia with infectious disease nursing consultant. Repeat blood cultures drawn this morning and are pending. Place PICC line for presumed prolonged IV antibiotics. Continue to hold Coumadin for coagulopathy and for CARLITOS scheduled for Sunday. Agree with IRU consult Cause of the patient's mild right upper quadrant tenderness is unknown. Patient denies abdominal pain, nausea or vomiting. Liver enzymes are improving. Continue Zarate for now for urinary retention and need for aggressive diuresis. Consider trying to remove Zarate tomorrow. Speech therapy consult regarding dysphagia Consult Dr. Ramirez regarding worsening acute hypoxic respiratory failure and pulmonary infiltrates (pulmonary edema/possible pneumonia in the setting of sepsis bacteremia). Will diurese for now and continue IV antibiotics. Repeat CBC and chemistries in the morning. Repeat chest x-ray in the morning. Greater than 45 minutes time spent seeing and evaluating the patient in determining care plan.
[2016-11-17] MEDS: CEFAZOLIN 2 G in NS 100 ML IV SCH ×3 (00:33→16:40)
[2016-11-17] MEDS: SALINE FLUSH 10ml SYRINGE IVF PRN ×3 (00:33→09:11)
[2016-11-17] MEDS: LEVOTHYROXINE 88 MCG TABLET PO SCH (06:12)
[2016-11-17] MEDS ORDERED: SALINE FLUSH 10ml SYRINGE ONE (08:17)
[2016-11-17] MEDS: POTASSIUM ACID PHOSPHATE 500 MG TABLET PO SCH ×4 (08:17→22:43)
[2016-11-17] MEDS: EYE RIGHT EYE SCH ×2 (08:18→22:42)
[2016-11-17] MEDS: BETAXOLOL 0.25% RIGHT EYE SCH ×2 (08:18→22:42)
[2016-11-17] MEDS: ALBUTEROL 2.5mg/3ml (0.083%) NEB AEROSOL SCH ×4 (08:23→19:29)
[2016-11-17] MEDS: REFRESH CLASSIC Eye Drops 0.4ml EACH EYE SCH ×2 (09:13→22:57)
[2016-11-17] MEDS: POTASSIUM CHLORIDE PREMIX 10 MEQ/100 ML BAG IV SCH ×2 (09:13→11:23)
--- NOTE | 2016-11-17 09:14 | Pulmonology Progress Note ---
Subjective Principal diagnosis: Bacteremia Interval history: Pt sitting up in the chair, states she has little cough at this time. Does noted some SOB with ambulation though. Exam Vital signs: Temperature 98.3 F 11/17/16 07:38 Pulse Rate 78 11/17/16 07:38 Respiratory Rate 16 11/17/16 08:23 Blood Pressure 125/56 11/17/16 07:38 Pulse Oximetry 92 11/17/16 08:23 - Constitutional no acute distress, well developed - Routine HEENT Exam Head: Present: normocephalic, atraumatic Eye: Present: PERRL - Routine Neck Exam Present: supple, full ROM - Routine Respiratory Exam Present: crackles - Routine Cardiovascular Exam Present: RRR, no murmur - Routine Abdominal Exam Present: soft, normoactive bowel sounds, non distended, non tender - Routine Extremities Exam Present: no edema, full ROM - Routine Back/Spine/Pelvis Exam Back/Spine: Present: full ROM - Routine Skin Exam Present: intact, dry - Routine Neurological Exam Present: alert, oriented X3, CN II-XII intact - Routine Psychiatric Exam Present: normal affect, normal thought process - Urinary Catheter Management Urethral Cath placed during this visit: yes Insertion date: 11/13/16 Insertion time: 15:20 Progress Note-A&P - Time Spent With Patient Total time spent is greater than 50% in coordination of care (as documented) at patient's floor/unit and/or counseling patient: less than 15 minutes (1) Acute respiratory failure with hypoxia Status: Acute Current Visit: Yes (2) Pleural effusion Status: Acute Current Visit: Yes (3) Bacteremia Status: Acute Current Visit: Yes (4) Pneumonia Status: Acute Current Visit: Yes (5) Hx of artificial heart valve replacement Status: Acute Current Visit: Yes - Assessment and Plan Pt currently on O2 at 2L per NC, tolerating. Still with SOB on ambulation. CXR yesterday with improving R infiltrates, not as consolidated. Currently on Ancef for SHARON pna and bacteremia, WBC improving, afebrile, most recent BC NTD. Is NPO at this time and awaiting CARLITOS secondary to mitral valve replacement. Will continue to follow.
[2016-11-17] MEDS ORDERED: WARFARIN - PHARMACY CONSULT MC ONE (13:30)
[2016-11-17] MEDS ORDERED: WARFARIN 4 MG TABLET PO ONE (13:33)
--- NOTE | 2016-11-17 13:36 | Pharmacy Consult ---
Pharmacy Consult-Warfarin - Laboratory Information 11/15/16 11/16/16 11/17/16 04:13 04:08 04:57 INR 4.69 H* 1.64 H 1.17 - Consult Information We will be resuming warfarin protocol per pharmacy today. 4mg warfarin p.o. ordered for now and daily INR for the next several days. We will be working with the diagnosis of A. Fib. Thanks
--- NOTE | 2016-11-17 13:44 | Transesophageal Echocardiogram ---
DATE 11/17/2016 INDICATION Staph bacteremia in a patient with a bioprosthetic mitral valve, atrial fibrillation and a pacemaker in place. Rule out endocarditis. PREMEDICATION IV Versed and Fentanyl. Please refer to the nursing notes for the exact amount given. Also Cetacaine [place] to the oropharynx was applied. PROCEDURE After adequate level of sedation was obtained, I went ahead and advanced the Omniprobe to the stomach. Transgastric lower and mid transesophageal images of good quality were obtained. Procedure was well tolerated. There were no immediate complications. FINDINGS 1. CARDIAC CHAMBERS. Left atrium is enlarged. There is positive smoke sign present of at least a mild degree. The left atrial appendage appears to have been clipped or ligated. Interatrial septum appears intact without evidence of shunt on color flow Doppler and bubble study. 2. LV FUNCTION. Systolic function appears to be low normal range with septal hypokinesis to dyskinesis associated with prior thoracotomy. LV ejection fraction is estimated at about 50%. 3. VALVES. Aortic valve is trileaflet, normal structure and motion. Mitral valve is replaced by bioprosthesis which appears to have a normal structure and normal valve opening. Tricuspid valve structure and motion appears normal with normal valve excursion. Pulmonic valve leaflets structure and motion appear normal, normal valve excursion. Pacemaker leads are examined and the right atrium and right ventricle appear unremarkable without any evidence of vegetation seen on any of the valves. 4. DOPPLER. Doppler shows a trivial regurgitation involving tricuspid, mitral , aortic and pulmonic valves, none of hemodynamic significance. 5. No evidence of intracardiac masses, thrombi, vegetations or shunts. No pericardial effusion. 6. Visualized portion of the thoracic aorta exhibits mild atherosclerotic plaque without aneurysm or dissection. 7. Patient is in atrial fibrillation throughout the study. IMPRESSION 1. No evidence of vegetation on any of the four valves including the bioprosthesis in the mitral position. No evidence of vegetation on the pacemaker lead. 2. LV systolic function is borderline reduced, ejection fraction estimated about 50%. 3. Normal bioprosthesis in the mitral position with normal structure and motion. 4. Positive "smoke sign" seen in the left atrium indicative of procoagulant state. RECOMMENDATION Restart anticoagulation with bridging with Lovenox. Please contact me p.r.nSindy OLVERA
[2016-11-17] MEDS ORDERED: MIDAZOLAM 2mg/2ml INJECTION IVP ONE (14:52)
[2016-11-17] MEDS ORDERED: FentaNYL 100 MCG/2 ML INJECTION IVP ONE (14:52)
[2016-11-17] MEDS: OMEPRAZOLE 20 MG CAPSULE PO SCH (14:58)
[2016-11-17] MEDS: MULTI-VITAMIN + MINERAL TABLET PO SCH (14:58)
[2016-11-17] MEDS: ASCORBIC ACID 500 MG TABLET PO SCH (14:58)
[2016-11-17] MEDS: CALCIUM 500 + VIT D 200 TABLET PO SCH ×2 (14:59→22:43)
[2016-11-17] MEDS: FERROUS SULFATE 324 MG TABLET PO SCH (14:59)
--- NOTE | 2016-11-17 15:05 | Progress Note ---
Subjective: The patient underwent CARLITOS earlier today. Fortunately, there were no vegetations seen. Patient denies any chest pains or palpitations. She denies feeling short of breath. She states she's feeling a little bit better. She denies pain anywhere. She denies difficulty swallowing but when I was in the room she could not swallow a bite of jello. She is having loose or soft stools daily. Objective Vital signs: Temperature 99.1 F 11/17/16 14:39 Pulse Rate 109 H 11/17/16 14:39 Respiratory Rate 20 11/17/16 14:39 Blood Pressure 128/66 11/17/16 14:39 Pulse Oximetry 91 11/17/16 14:39 Height/Weight/BMI: Weight 67 kg Comments: Weight is 67 kg . Admission weight was 66.2 GEN-alert, no acute distress HEENT-pupils are equal, oropharynx is moist NECK-supple, mild JVD CV-borderline tachycardic rate with irregular rhythm CHEST-clear to auscultation bilaterally ABD-soft, nontender with positive bowel sounds -Zarate in place EXT-no edema, SCDs in place NEURO-no focal deficits SKIN-warm and dry and without rashes Results - Labs CBC & Chem 7: 11/17/16 04:57 11/17/16 04:57 Labs: Bands 6%, neutrophils 66% INR 1.17 Potassium low at 3.3 Microbiology Results: Microbiology 11/15/16 15:23 Sputum, Expectorated Gram Stain - Final 11/15/16 15:23 Sputum, Expectorated Sputum Culture - Final Staphylococcus aureus Normal Respiratory Irene 11/15/16 04:09 Peripheral/Iv Start Blood Culture - Preliminary No Growth After 2 Days 11/15/16 04:13 Peripheral/Iv Start Blood Culture - Preliminary No Growth After 2 Days Blood cultures from 11/13/2016 revealed staph aureus 2 which were pansensitive. Sputum culture also reveals staph aureus which is pansensitive. - Echocardiogram Echocardiogram: CARLITOS 11/17/2016 IMPRESSION 1. No evidence of vegetation on any of the four valves including the bioprosthesis in the mitral position. No evidence of vegetation on the pacemaker lead. 2. LV systolic function is borderline reduced, ejection fraction estimated about 50%. 3. Normal bioprosthesis in the mitral position with normal structure and motion. 4. Positive "smoke sign" seen in the left atrium indicative of procoagulant state. RECOMMENDATION Restart anticoagulation with bridging with Lovenox. Please contact me p.r.n. Assessment and Plan Assessment and Plan: 11/17/2016 Assessment Bacteremia-positive growth of staph aureus on blood cultures 2 on 11/13/2016. Sensitive to all antibiotics tested. Repeat blood cultures are negative so far Severe sepsis - based on temp 100.9, tachypnea, WBC 17.2, 14% bands and lactate >2 source is likely secondary to pneumonia Acute hypoxic respiratory failure-improving pneumonia with staph aureus in sputum-appears to be same species as an blood cultures, all are pansensitive Pulmonary edema with bilateral pleural effusions-improved with diuresis RUQ abdominal tenderness-resolved Transaminitis-improving Hypernatremia-resolved Hypokalemia Hypophosphatemia Weakness-improving Acute urinary retention (POA)-Zarate catheter placed Heart valve replacement x2-tissue valves Pacemaker Atrial fibrillation Hypothyroidism GERD Osteoporosis Iron deficiency anemia Anxiety Irritable bowel syndrome Glaucoma Encephalopathy on admission-resolved Dysphagia-worsened without patient's dentures Chronic back pain secondary to old compression fracture-stable Dysphagia Plan Fortunately, CARLITOS was negative for vegetations. Discussed with Dr. Rowe today. Overall the patient is doing a little bit better. Initiated Vanco on the evening of 11/13/2016 and continued through 11/15/2016. Cefazolin started 11/15/2016. Continue cefazolin for now. Recommend ID consult on Sunday to give further recommendations on antibiotics Replace phosphorus orally Replace potassium orally. Restart Coumadin today. Bridge with therapeutic dose Lovenox starting today. The patient has been accepted to IRU on Sunday. DC Zarate. Increase activity as tolerated. Currently she has mild rapid ventricular response with her A. fib, although she is up in a chair and trying to eat. We'll monitor. She did receive her Lopressor dose this morning. I did ask speech therapy to see the patient again regarding her swallow. Speech therapist did tell me that the patient has significant swallow delay but is not aspirating and can stay on her current diet. Repeat chest x-ray tomorrow. Discussed today with her nurse, Dr. Rowe, and speech therapy. Hospital Course Summary Disclaimer: The visit summary below is not to be considered part of the above Progress Note. Hospital Course: Assessment Bacteremia-positive growth of staph aureus on blood cultures (final results pending) Severe sepsis - based on temp 100.9, tachypnea, WBC 17.2, 14% bands and lactate >2 and suspected GI source of infection given her RUQ pain on exam RUQ abdominal pain Transaminitis Hypernatremia Hypokalemia Weakness Leukocytosis-worsening Acute urinary retention (POA) Heart valve replacement x2 Pacemaker Atrial fibrillation Hypothyroidism GERD Osteoporosis Iron deficiency anemia Anxiety Irritable bowel syndrome Glaucoma 11/13/16-hospital admission Admit patient to observation under the hospitalist service, Dr. Faustin attending, for severe sepsis. Blood cultures and initial lactate drawn in emergency room. Repeat lactate was elevated. Initiate Zosyn 3.375 IV every 6 hours for suspected intra-abdominal infection given her right upper quadrant pain and nausea. Gallbladder ultrasound and lipase added to orders to rule out gallbladder disease. GI panel to rule out GI pathogens given her stool incontinence Check lateral view chest x-ray for completeness possibility of pulmonary source of infection. Normal saline 100 cc per hour for hydration SCDs for DVT prophylaxis. Patient is also on warfarin for A. fib and valve replacement. NPO until gallbladder Ultrasound has been resulted. Place Zarate catheter given her urinary retention CBC and CMP in a.m. to follow leukocytosis, renal and kidney function and electrolytes. Pharmacy consult to monitor warfarin dosage for A. fib and valve replacement Incentive spirometry for pulmonary toilet Pt has a living will. Is deferring DNR vs full code decision to her daughter. At this time, patient will be listed as a full-code. Patient's care to return to her PCP, Dr. Garcia, in [place], [place] on dismissal 11/14/16 Vancomycin was initiated overnight due to the positive Staphylococcus aureus blood cultures. Zosyn was discontinued. Simvastatin is held given her increase in LFTs. Consult cardiology-Dr. Rowe. Will schedule CARLITOS given her artificial valves and bacteremia - needs to be NPO for 8 hours prior. May have regular diet for now. Dr. Rowe prefers her INR be less than 2.5 to perform procedure. Pharmacy was notified to discontinue Coumadin. We will need to re-order when it needs to be restarted. Continue daily INR. 11/16/16 22:28 11/15/2016 Assessment Bacteremia-positive growth of staph aureus on blood cultures 2 on 11/13/2016. Sensitive to all antibiotics tested. Severe sepsis - based on temp 100.9, tachypnea, WBC 17.2, 14% bands and lactate >2 source is unknown Acute hypoxic respiratory failure secondary to sepsis and pulmonary edema, rule out pneumonia Pulmonary edema with bilateral pleural effusions RUQ abdominal tenderness-improved, uncertain etiology Transaminitis-improving Hypernatremia-resolved Hypokalemia-resolved Weakness-improving Leukocytosis-stable, bandemia decreasing Acute urinary retention (POA)-Zarate catheter placed Heart valve replacement x2 Pacemaker Atrial fibrillation Hypothyroidism GERD Osteoporosis Iron deficiency anemia Anxiety Irritable bowel syndrome Glaucoma Encephalopathy on admission-resolved Dysphagia-worsened without patient's dentures Chronic back pain secondary to old compression fracture-stable Dysphagia Plan Overall, the patient is feeling better despite worsening signs on chest x-ray and increasing oxygen needs. We'll give Lasix 40 mg IV 2 for pulmonary edema and reassess. Replace potassium orally. Discuss treatment of staph bacteremia with infectious disease lean consultant. Repeat blood cultures drawn this morning and are pending. Place PICC line for presumed prolonged IV antibiotics. Continue to hold Coumadin for coagulopathy and for CARLITOS scheduled for Sunday. Agree with IRU consult Cause of the patient's mild right upper quadrant tenderness is unknown. Patient denies abdominal pain, nausea or vomiting. Liver enzymes are improving. Continue Zarate for now for urinary retention and need for aggressive diuresis. Consider trying to remove Zarate tomorrow. Speech therapy consult regarding dysphagia Consult Dr. Ramirez regarding worsening acute hypoxic respiratory failure and pulmonary infiltrates (pulmonary edema/possible pneumonia in the setting of sepsis bacteremia). Will diurese for now and continue IV antibiotics. Repeat CBC and chemistries in the morning. Repeat chest x-ray in the morning. Greater than 45 minutes time spent seeing and evaluating the patient in determining care plan. 11/16/2016 Assessment Bacteremia-positive growth of staph aureus on blood cultures 2 on 11/13/2016. Sensitive to all antibiotics tested. Severe sepsis - based on temp 100.9, tachypnea, WBC 17.2, 14% bands and lactate >2 source is unknown Acute hypoxic respiratory failure-improving Probable pneumonia with staph aureus in sputum-sensitivities pending Pulmonary edema with bilateral pleural effusions-improved with diuresis RUQ abdominal tenderness-improved, uncertain etiology Transaminitis-improving Hypernatremia-resolved Hypokalemia Hypophosphatemia Weakness-improving Leukocytosis-stable, bandemia decreasing Acute urinary retention (POA)-Zarate catheter placed Heart valve replacement x2 Pacemaker Atrial fibrillation Hypothyroidism GERD Osteoporosis Iron deficiency anemia Anxiety Irritable bowel syndrome Glaucoma Encephalopathy on admission-resolved Dysphagia-worsened without patient's dentures Chronic back pain secondary to old compression fracture-stable Dysphagia Plan Agent given Lasix 1 again this morning. Replace phosphorus orally Replace potassium orally. Day 2 of cefazolin, the patient previously received 2 days of vancomycin. Continue to hold Coumadin for coagulopathy and for CARLITOS scheduled for Sunday. Vitamin K given yesterday and INR is decreasing Agree with IRU consult Consider DC Zarate tomorrow Discussed with Dr. Ramirez
[2016-11-17] MEDS: HYDROCODONE/APAP 5mg/325mg TABLET PO PRN (18:55)
[2016-11-17] MEDS: ENOXAPARIN 80 MG/0.8 ML INJECTION SQ SCH (22:44)
[2016-11-17] MEDS: LATANOPROST 0.005% EYE DROPS 2.5ml EACH EYE SCH (22:49)
[2016-11-18] MEDS: CEFAZOLIN 2 G in NS 100 ML IV SCH ×3 (01:53→16:54)
[2016-11-18] MEDS: ACETAMINOPHEN 500 MG TABLET PO PRN (02:36)
[2016-11-18] MEDS: LEVOTHYROXINE 88 MCG TABLET PO SCH (06:08)
[2016-11-18] MEDS: ALBUTEROL 2.5mg/3ml (0.083%) NEB AEROSOL SCH ×4 (07:29→19:42)
--- NOTE | 2016-11-18 08:46 | Pharmacy Consult ---
Pharmacy Consult-Warfarin - Laboratory Information 11/15/16 11/16/16 11/17/16 04:13 04:08 04:57 INR 4.69 H* 1.64 H 1.17 11/18/16 04:02 INR 1.22 H - Consult Information 76 y.o. Female with history of a. fib and chronic anticoagulation with Warfarin. home dose= 5 mg po daily except 2.5 mg on Sunday and Sunday. goal INR = 2.0 to 3.0. Vitamin K 5 mg was given 11/15/16 and INR dropped significantly after vitamin K dose. Will give warfarin 3 mg po today. Pharmacy will monitor and adjust as needed. Thank you, Lacey Puga [facility]
[2016-11-18] MEDS: MULTI-VITAMIN + MINERAL TABLET PO SCH (08:48)
[2016-11-18] MEDS: ASCORBIC ACID 500 MG TABLET PO SCH (08:48)
[2016-11-18] MEDS: OMEPRAZOLE 20 MG CAPSULE PO SCH (08:48)
[2016-11-18] MEDS: REFRESH CLASSIC Eye Drops 0.4ml EACH EYE SCH ×2 (08:48→21:26)
[2016-11-18] MEDS: POTASSIUM ACID PHOSPHATE 500 MG TABLET PO SCH ×4 (08:48→21:25)
[2016-11-18] MEDS: SALINE FLUSH 10ml SYRINGE IVF PRN ×2 (08:49→16:54)
[2016-11-18] MEDS: CALCIUM 500 + VIT D 200 TABLET PO SCH ×2 (08:49→21:25)
[2016-11-18] MEDS: FERROUS SULFATE 324 MG TABLET PO SCH (08:49)
[2016-11-18] MEDS: ENOXAPARIN 80 MG/0.8 ML INJECTION SQ SCH ×2 (08:49→21:24)
[2016-11-18] MEDS: EYE RIGHT EYE SCH ×3 (08:53→21:44)
[2016-11-18] MEDS: BETAXOLOL 0.25% RIGHT EYE SCH ×3 (08:53→21:44)
[2016-11-18] MEDS ORDERED: WARFARIN 3 MG TABLET PO SCH (12:00)
[2016-11-18] MEDS: LACTOBACILLUS (15B cfu) CAPSULE PO SCH ×2 (12:08→16:55)
--- NOTE | 2016-11-18 16:10 | Progress Note ---
Subjective: 76-year-old female who resides in [place] but is here visiting her sister who lives in [place]. She states the night before admission, she started feeling achy and had chills. She was not able to sleep due to her symptoms. Her symptoms persisted the next morning so she presented to the ED. She was unable to check her temperature at home, but states she had a fever in the emergency room. She has not had any ill contacts. She has not had any symptoms suggestive of illness other than she feels "queasy," and reports she lost control of her bowels when she was in the emergency room. (ER nursing staff report her stools were soft.) Her sister notes that patient usually has diarrhea every morning. Patient denies vomiting. She reports the last thing she ate the night before was a "creamed corn." She had nothing to eat or drink the day of admission. Her only complaint of pain is in her back, which is chronic for her. In ER, patient had negative head CT, CXR showing cardiomegaly and left basilar atelectasis vs scarring, essentially negative CT scan abdomen/pelvis, and negative urine. She had leukocytosis and bandemia, initial lactate was normal and repeat was elevated. She was given a liter of NS. Patient is seen in her bed with her sister at her bedside. She is A&O x 3 and is able to answer most questions. Her biggest complaint is feeling weak and having chills. 11/18/2016 Today, the patient states she is feeling a bit better. She is not experiencing chills. She does state that she had "3 big blowouts" of soft brown stool today. She denies any pain. She states she feels a bit stronger today. She does report not eating very well as she is just not hungry. She is currently on 1 L of oxygen. She has been off oxygen at times today with good oxygenation saturations. She denies cough or sputum production. She has been afebrile since yesterday afternoon. Her white blood count is up a bit today as our her bands. She denies lightheadedness or dizziness. She does need at least one assist to ambulate. This is that her than yesterday when she required 2assists. She denies abdominal pain. She denies chest pain or palpitations. She denies shortness of breath. Her blood cultures from the 4th remain negative for growth. Objective Vital signs: Temperature 97.7 F 11/18/16 15:32 Pulse Rate 93 11/18/16 15:32 Respiratory Rate 20 11/18/16 15:32 Blood Pressure 114/61 11/18/16 15:32 Pulse Oximetry 94 11/18/16 15:32 Height/Weight/BMI: Weight 66.7 kg Comments: GEN: alert, oriented, no acute distress SKIN: Warm and dry HEENT: NC/AT PERRL, EOMI, sclera anicteric, MMM, OP clear. NECK: Supple. No JVD, Carotids 2+ without bruits. LUNGS: Few fine crackles bilaterally at the bases. Upper airways clear. CV: Irregular. Soft murmur. No rub, gallop. ABD: soft, nontender, nondistended with positive bowel sounds : Zarate in place with good urine output EXT: no edema NEURO: no focal deficits Results - Labs CBC & Chem 7: 11/19/16 03:52 11/19/16 03:52 Microbiology Results: Microbiology 11/15/16 04:09 Peripheral/Iv Start Blood Culture - Preliminary No Growth After 3 Days 11/15/16 04:13 Peripheral/Iv Start Blood Culture - Preliminary No Growth After 3 Days 11/15/16 15:23 Sputum, Expectorated Gram Stain - Final 11/15/16 15:23 Sputum, Expectorated Sputum Culture - Final Staphylococcus aureus Normal Respiratory Irene Assessment and Plan Assessment and Plan: 11/17/2016 Assessment Bacteremia-positive growth of staph aureus on blood cultures 2 on 11/13/2016. Sensitive to all antibiotics tested. Repeat blood cultures are negative so far Severe sepsis - based on temp 100.9, tachypnea, WBC 17.2, 14% bands and lactate >2 source is likely secondary to pneumonia Acute hypoxic respiratory failure-improving pneumonia with staph aureus in sputum-appears to be same species as an blood cultures, all are pansensitive Pulmonary edema with bilateral pleural effusions-improved with diuresis RUQ abdominal tenderness-resolved Transaminitis-improving Hypernatremia-resolved Hypokalemia Hypophosphatemia Weakness-improving Acute urinary retention (POA)-Zarate catheter placed Heart valve replacement x2-tissue valves Pacemaker Atrial fibrillation Hypothyroidism GERD Osteoporosis Iron deficiency anemia Anxiety Irritable bowel syndrome Glaucoma Encephalopathy on admission-resolved Dysphagia-worsened without patient's dentures Chronic back pain secondary to old compression fracture-stable Dysphagia Plan Fortunately, CARLITOS was negative for vegetations. Discussed with Dr. Rowe today. Overall the patient is doing a little bit better. Initiated Vanco on the evening of 11/13/2016 and continued through 11/15/2016. Cefazolin started 11/15/2016. Continue cefazolin for now. Recommend ID consult on Sunday to give further recommendations on antibiotics Replace phosphorus orally Replace potassium orally. Restart Coumadin today. Bridge with therapeutic dose Lovenox starting today. The patient has been accepted to IRU on Sunday. DC Zarate. Increase activity as tolerated. Currently she has mild rapid ventricular response with her A. fib, although she is up in a chair and trying to eat. We'll monitor. She did receive her Lopressor dose this morning. I did ask speech therapy to see the patient again regarding her swallow. Speech therapist did tell me that the patient has significant swallow delay but is not aspirating and can stay on her current diet. Repeat chest x-ray tomorrow. Discussed today with her nurse, Dr. Rowe, and speech therapy. 11/18/2016 Assessment and Plan 1. Bacteremia -+ staph aureus on blood cultures 2 on 11/13/2016. Pansensitive. Repeat Cx 11/15 neg to date. -On Cefazolin -CARLITOS neg for vegetations. 2. Severe sepsis - resolved. 3. Acute hypoxic respiratory failure-improving -pneumonia with staph aureus in sputum-appears to be same species as an blood cultures, all are pansensitive -Pt down to 1 liter oxygen 4. Pulmonary edema with bilateral pleural effusions -improved with diuresis 5. Transaminitis-improved 6. Hypernatremia-resolved 7. Hypokalemia-resolved. 8. Weakness-improving -PT 9. Acute urinary retention (POA)-Zarate catheter placed -Zarate DC's yesterday, urinating. 10. Heart valve replacement x2-tissue valves 11. Afib s/p Pacemaker 12. Hypothyroidism -On supplements 13. GERD -On omeprazole 14. Iron deficiency anemia -On iron supplements 15. Irritable bowel syndrome 16. Glaucoma 17. Encephalopathy on admission-resolved 18. Chronic back pain secondary to old compression fracture-stable 19. Dysphagia-Speech evaluated without concerns. Increase activity. Hospital Course Summary Disclaimer: The visit summary below is not to be considered part of the above Progress Note. Hospital Course: Assessment Bacteremia-positive growth of staph aureus on blood cultures (final results pending) Severe sepsis - based on temp 100.9, tachypnea, WBC 17.2, 14% bands and lactate >2 and suspected GI source of infection given her RUQ pain on exam RUQ abdominal pain Transaminitis Hypernatremia Hypokalemia Weakness Leukocytosis-worsening Acute urinary retention (POA) Heart valve replacement x2 Pacemaker Atrial fibrillation Hypothyroidism GERD Osteoporosis Iron deficiency anemia Anxiety Irritable bowel syndrome Glaucoma 11/13/16-hospital admission Admit patient to observation under the hospitalist service, Dr. Faustin attending, for severe sepsis. Blood cultures and initial lactate drawn in emergency room. Repeat lactate was elevated. Initiate Zosyn 3.375 IV every 6 hours for suspected intra-abdominal infection given her right upper quadrant pain and nausea. Gallbladder ultrasound and lipase added to orders to rule out gallbladder disease. GI panel to rule out GI pathogens given her stool incontinence Check lateral view chest x-ray for completeness possibility of pulmonary source of infection. Normal saline 100 cc per hour for hydration SCDs for DVT prophylaxis. Patient is also on warfarin for A. fib and valve replacement. NPO until gallbladder Ultrasound has been resulted. Place Zarate catheter given her urinary retention CBC and CMP in a.m. to follow leukocytosis, renal and kidney function and electrolytes. Pharmacy consult to monitor warfarin dosage for A. fib and valve replacement Incentive spirometry for pulmonary toilet Pt has a living will. Is deferring DNR vs full code decision to her daughter. At this time, patient will be listed as a full-code. Patient's care to return to her PCP, Dr. Garcia, in [place], [place] on dismissal 11/14/16 Vancomycin was initiated overnight due to the positive Staphylococcus aureus blood cultures. Zosyn was discontinued. Simvastatin is held given her increase in LFTs. Consult cardiology-Dr. Rowe. Will schedule CARLITOS given her artificial valves and bacteremia - needs to be NPO for 8 hours prior. May have regular diet for now. Dr. Rowe prefers her INR be less than 2.5 to perform procedure. Pharmacy was notified to discontinue Coumadin. We will need to re-order when it needs to be restarted. Continue daily INR. 11/16/16 22:28 11/15/2016 Assessment Bacteremia-positive growth of staph aureus on blood cultures 2 on 11/13/2016. Sensitive to all antibiotics tested. Severe sepsis - based on temp 100.9, tachypnea, WBC 17.2, 14% bands and lactate >2 source is unknown Acute hypoxic respiratory failure secondary to sepsis and pulmonary edema, rule out pneumonia Pulmonary edema with bilateral pleural effusions RUQ abdominal tenderness-improved, uncertain etiology Transaminitis-improving Hypernatremia-resolved Hypokalemia-resolved Weakness-improving Leukocytosis-stable, bandemia decreasing Acute urinary retention (POA)-Zarate catheter placed Heart valve replacement x2 Pacemaker Atrial fibrillation Hypothyroidism GERD Osteoporosis Iron deficiency anemia Anxiety Irritable bowel syndrome Glaucoma Encephalopathy on admission-resolved Dysphagia-worsened without patient's dentures Chronic back pain secondary to old compression fracture-stable Dysphagia Plan Overall, the patient is feeling better despite worsening signs on chest x-ray and increasing oxygen needs. We'll give Lasix 40 mg IV 2 for pulmonary edema and reassess. Replace potassium orally. Discuss treatment of staph bacteremia with infectious disease healthcare consultant. Repeat blood cultures drawn this morning and are pending. Place PICC line for presumed prolonged IV antibiotics. Continue to hold Coumadin for coagulopathy and for CARLITOS scheduled for Sunday. Agree with IRU consult Cause of the patient's mild right upper quadrant tenderness is unknown. Patient denies abdominal pain, nausea or vomiting. Liver enzymes are improving. Continue Zarate for now for urinary retention and need for aggressive diuresis. Consider trying to remove Zarate tomorrow. Speech therapy consult regarding dysphagia Consult Dr. Ramirez regarding worsening acute hypoxic respiratory failure and pulmonary infiltrates (pulmonary edema/possible pneumonia in the setting of sepsis bacteremia). Will diurese for now and continue IV antibiotics. Repeat CBC and chemistries in the morning. Repeat chest x-ray in the morning. Greater than 45 minutes time spent seeing and evaluating the patient in determining care plan. 11/16/2016 Assessment Bacteremia-positive growth of staph aureus on blood cultures 2 on 11/13/2016. Sensitive to all antibiotics tested. Severe sepsis - based on temp 100.9, tachypnea, WBC 17.2, 14% bands and lactate >2 source is unknown Acute hypoxic respiratory failure-improving Probable pneumonia with staph aureus in sputum-sensitivities pending Pulmonary edema with bilateral pleural effusions-improved with diuresis RUQ abdominal tenderness-improved, uncertain etiology Transaminitis-improving Hypernatremia-resolved Hypokalemia Hypophosphatemia Weakness-improving Leukocytosis-stable, bandemia decreasing Acute urinary retention (POA)-Zarate catheter placed Heart valve replacement x2 Pacemaker Atrial fibrillation Hypothyroidism GERD Osteoporosis Iron deficiency anemia Anxiety Irritable bowel syndrome Glaucoma Encephalopathy on admission-resolved Dysphagia-worsened without patient's dentures Chronic back pain secondary to old compression fracture-stable Dysphagia Plan Agent given Lasix 1 again this morning. Replace phosphorus orally Replace potassium orally. Day 2 of cefazolin, the patient previously received 2 days of vancomycin. Continue to hold Coumadin for coagulopathy and for CARLITOS scheduled for Sunday. Vitamin K given yesterday and INR is decreasing Agree with IRU consult Consider DC Tessa tomorrow Discussed with Dr. Ramirez
[2016-11-18] MEDS ORDERED: WARFARIN - PHARMACY CONSULT MC ONE (17:08)
[2016-11-18] MEDS: HYDROCODONE/APAP 5mg/325mg TABLET PO PRN (18:40)
[2016-11-18] MEDS: LATANOPROST 0.005% EYE DROPS 2.5ml EACH EYE SCH (21:25)
[2016-11-19] MEDS: HYDROCODONE/APAP 5mg/325mg TABLET PO PRN ×2 (00:13→12:00)
[2016-11-19] MEDS: CEFAZOLIN 2 G in NS 100 ML IV SCH ×2 (00:31→09:07)
[2016-11-19] MEDS: LEVOTHYROXINE 88 MCG TABLET PO SCH (05:44)
[2016-11-19] MEDS: ALBUTEROL 2.5mg/3ml (0.083%) NEB AEROSOL SCH ×2 (07:37→11:20)
[2016-11-19 07:50] VITALS: BP 118/49; TEMP 99.5
--- NOTE | 2016-11-19 08:37 | Pharmacy Consult ---
Pharmacy Consult-Warfarin - Laboratory Information 11/15/16 11/16/16 11/17/16 04:13 04:08 04:57 INR 4.69 H* 1.64 H 1.17 11/18/16 11/19/16 04:02 03:52 INR 1.22 H 1.18 - Consult Information 76 y.o. Female with history of a. fib and chronic anticoagulation with Warfarin. home dose= 5 mg po daily except 2.5 mg on Sunday and Sunday. goal INR = 2.0 to 3.0. Vitamin K 5 mg was given 11/15/16 when INR= 4.69, and INR dropped significantly after vitamin K dose. Will give warfarin 4 mg po today. Pharmacy will monitor and adjust as needed. Thank you, Lacey Puga [facility]
[2016-11-19] MEDS: LACTOBACILLUS (15B cfu) CAPSULE PO SCH ×2 (09:04→12:00)
[2016-11-19] MEDS: CALCIUM 500 + VIT D 200 TABLET PO SCH (09:04)
[2016-11-19] MEDS: MULTI-VITAMIN + MINERAL TABLET PO SCH (09:04)
[2016-11-19] MEDS: FERROUS SULFATE 324 MG TABLET PO SCH (09:05)
[2016-11-19] MEDS: ENOXAPARIN 80 MG/0.8 ML INJECTION SQ SCH (09:07)
[2016-11-19] MEDS: OMEPRAZOLE 20 MG CAPSULE PO SCH (09:07)
[2016-11-19] MEDS: POTASSIUM ACID PHOSPHATE 500 MG TABLET PO SCH ×2 (09:07→12:00)
[2016-11-19] MEDS: ASCORBIC ACID 500 MG TABLET PO SCH (09:07)
[2016-11-19] MEDS: REFRESH CLASSIC Eye Drops 0.4ml EACH EYE SCH (09:08)
[2016-11-19] MEDS: SALINE FLUSH 10ml SYRINGE IVF PRN (09:08)
[2016-11-19] MEDS: NS FLUSH BAG 500ml IV PRN (09:08)
[2016-11-19] MEDS: BETAXOLOL 0.25% RIGHT EYE SCH (09:09)
[2016-11-19] MEDS: EYE RIGHT EYE SCH (09:09)
--- NOTE | 2016-11-19 10:46 | XRay Report ---
INDICATION: pneumonia and pulm edema PROCEDURE: CHEST 2-VIEWS UPRIGHT (PA & LAT) Encounter: Initial COMPARISON: November 16, 2016 FINDINGS: Right PICC line remains in place. Aeration of the right lung has improved. Small pleural effusions are stable. No new areas of airspace disease or pneumothorax. Heart size and mediastinal contours are unchanged. Impression: Improving appearance of the right chest. .
--- NOTE | 2016-11-19 10:55 | XRay Report ---
Indication: Pna PROCEDURE: XR chest 1V: Encounter: Initial Comparison: November 18, 2016 Findings: Right PICC line remains in place. Continued slight improvement in aeration of the right lung with more focal right basilar consolidation peripherally and small right effusion. Left pleural effusion has decreased. No pneumothorax. No new or worsening airspace disease. Heart size and mediastinal contours stable. Pulmonary vascularity is unchanged. Impression: Continued improved appearance of the right lung. .
[2016-11-19 11:23] VITALS: RESP 18; O2SAT 94
[2016-11-19 11:24] VITALS: PULSE 84
[2016-11-19] MEDS ORDERED: LOPERAMIDE 2 MG CAPSULE PO PRN (11:35)
[2016-11-19] MEDS ORDERED: WARFARIN 4 MG TABLET PO SCH (12:00)
--- NOTE | 2016-11-19 12:44 | Discharge Instructions ---
Discharge Plan - Med Rec/Dispo Alex Instructions: Transesophageal Echocardiogram (GEN), Dehydration (GEN) Prescriptions: New Albuterol Neb (0.083%) [Proventil Neb (0.083%)] 2.5 mg AEROSOL RTQID neb Enoxaparin Sodium [Lovenox] 70 mg SQ BID syringe Loperamide [Imodium] 2 mg PO PRN PRN capsule PRN Reason: Diarrhea Warfarin [Coumadin] 3 mg PO NOON #30 tab Acidoph/L.bulg/Bif.b/S.thermop [Bacid Caplet] 2 cap PO TIDWM tablet Simethicone [Mylicon] 80 mg PO PCHS PRN tab.chew PRN Reason: Gas Cefazolin [Kefzol] 2 g IV Q8HR vial Continue Hyoscyamine [Levsin] 0.125 mg PO Q4HPRN PRN PRN Reason: Prn Orders Latanoprost 2.5 ml OP HS Metoprolol Tartrate [Lopressor] 50 mg PO DAILY Levothyroxine Sodium 88 mcg PO DAILY Ascorbate Calcium [Vitamin C] 500 mg PO DAILY Vitamin B Complex Vit C No.4 [Super B Complex] 150 mg PO DAILY Ferrous Sulfate 325 mg PO DAILY Multivit-Min/Iron/Folic/Lutein [Centrum Silver Women Tablet] 1 each PO DAILY Calcium Carbonate/Vitamin D3 [Calcium 500+D Tablet Chew] 1 each PO BID Acetaminophen [Tylenol] 500 mg PO Q6HPRN PRN PRN Reason: Pain Artificial Tears [Tears Naturale] 1 drop EACH EYE BID Omeprazole 40 mg PO DAILY Alendronate Sodium 70 mg PO WEEKLY Dicyclomine [Bentyl] 20 mg PO TID Methylcellulose (with Sugar) [Citrucel Powder] 2,000 gm PO DAILY LORazepam [Ativan] 0.5 mg PO TID PRN PRN Reason: Anxiety Adger-3/Dha/Epa/Fish Oil [Fish Oil 1,000 mg Softgel] 1 each PO QID Betaxolol HCl [Betoptic S] 2 drops OP BID Hydrocodone/APAP 5/325 [[place] 5/325] 1 tab PO Q4-6HPRN PRN PRN Reason: Pain Simvastatin 20 mg PO HS Discontinued Warfarin [Coumadin] 2.5 mg PO MOTH Warfarin [Coumadin] 5 mg PO [id number] - Disposition 61 To [facility]
--- NOTE | 2016-11-19 13:05 | Discharge Summary ---
Discharge Information Date of admission: 11/14/16 10:27 Anticipated date of discharge: 11/19/16 Attending Physician: Susan Miller MD Consults: 11/14/16 IRU Screening [Inpatient Rehab Screening] [CONS] Routine 11/14/16 12:18 Physician Consult [CONS] Routine Consulting Provider: Paulie Rowe Reason For Exam: bacteremia, artificial valves Ordering Provider has Notified Typo Machine Operator: Yes 11/15/16 08:54 Physician Consult [CONS] Routine Consulting Provider: Christian Ramirez Reason For Exam: ?pnuemonia, pleural effusions, hypoxia, staph bact Ordering Provider has Notified Typo Machine Operator: Yes 11/15/16 10:36 Dietary Consult [CONS] Routine Comment: Reason For Exam: poor po intake, difficulty chewing without denture - Procedures Procedures: Type of Exam(s): US keisha w/ doppler DATE 11/17/2016 INDICATION Staph bacteremia in a patient with a bioprosthetic mitral valve, atrial fibrillation and a pacemaker in place. Rule out endocarditis. PREMEDICATION IV Versed and Fentanyl. Please refer to the nursing notes for the exact amount given. Also Cetacaine [place] to the oropharynx was applied. PROCEDURE After adequate level of sedation was obtained, I went ahead and advanced the Omniprobe to the stomach. Transgastric lower and mid transesophageal images of good quality were obtained. Procedure was well tolerated. There were no immediate complications. FINDINGS 1. CARDIAC CHAMBERS. Left atrium is enlarged. There is positive smoke sign present of at least a mild degree. The left atrial appendage appears to have been clipped or ligated. Interatrial septum appears intact without evidence of shunt on color flow Doppler and bubble study. 2. LV FUNCTION. Systolic function appears to be low normal range with septal hypokinesis to dyskinesis associated with prior thoracotomy. LV ejection fraction is estimated at about 50%. 3. VALVES. Aortic valve is trileaflet, normal structure and motion. Mitral valve is replaced by bioprosthesis which appears to have a normal structure and normal valve opening. Tricuspid valve structure and motion appears normal with normal valve excursion. Pulmonic valve leaflets structure and motion appear normal, normal valve excursion. Pacemaker leads are examined and the right atrium and right ventricle appear unremarkable without any evidence of vegetation seen on any of the valves. 4. DOPPLER. Doppler shows a trivial regurgitation involving tricuspid, mitral , aortic and pulmonic valves, none of hemodynamic significance. 5. No evidence of intracardiac masses, thrombi, vegetations or shunts. No pericardial effusion. 6. Visualized portion of the thoracic aorta exhibits mild atherosclerotic plaque without aneurysm or dissection. 7. Patient is in atrial fibrillation throughout the study. IMPRESSION 1. No evidence of vegetation on any of the four valves including the bioprosthesis in the mitral position. No evidence of vegetation on the pacemaker lead. 2. LV systolic function is borderline reduced, ejection fraction estimated about 50%. 3. Normal bioprosthesis in the mitral position with normal structure and motion. 4. Positive "smoke sign" seen in the left atrium indicative of procoagulant state. - Laboratory Labs: 11/19/16 03:52 11/19/16 03:52 DATE INR 11/14 3.87 11/15 4.69 11/16 1.64 11/17 1.17 11/18 1.22 11/19 1.18 - Microbiology Microbiology 11/15/16 04:09 Peripheral/Iv Start Blood Culture - Preliminary No Growth After 4 Days 11/15/16 04:13 Peripheral/Iv Start Blood Culture - Preliminary No Growth After 4 Days 11/15/16 15:23 Sputum, Expectorated Gram Stain - Final 11/15/16 15:23 Sputum, Expectorated Sputum Culture - Final Staphylococcus aureus Normal Respiratory Irene - Radiology Radiology: Date of Exam: 11/19/16 Ordering Provider: Missy Christianson APRN Type of Exam(s): XR chest 1V Reason for Exam(s): Pna Indication: Pna PROCEDURE: XR chest 1V: Encounter: Initial Comparison: November 18, 2016 Findings: Right PICC line remains in place. Continued slight improvement in aeration of the right lung with more focal right basilar consolidation peripherally and small right effusion. Left pleural effusion has decreased. No pneumothorax. No new or worsening airspace disease. Heart size and mediastinal contours stable. Pulmonary vascularity is unchanged. Impression: Continued improved appearance of the right lung. History of Present Illness HPI: Patient is a 76-year-old female who resides in [place] but is here visiting her sister who lives in [place]. She states last night she started feeling achy and had chills. She was not able to sleep due to her symptoms. Her symptoms persisted this morning, thus prompting her ER visit. She was unable to check her temperature at home, but states she had a fever in the emergency room. She has not had any ill contacts. She has not had any symptoms suggestive of illness other than she feels "queasy," and reports she lost control of her bowels when she was in the emergency room. (ER nursing staff report her stools were soft.) Her sister notes that patient usually has diarrhea every morning. Patient denies any loose stools this morning however. Patient denies vomiting. She reports the last thing she ate last night was a "creamed horn." She has had nothing to eat or drink today. Her only complaint of pain is in her back, which is chronic for her. In ER, patient had negative head CT, CXR showing cardiomegaly and left basilar atelectasis vs scarring, essentially negative CT scan abdomen/pelvis, and negative urine. She had leukocytosis and bandemia, initial lactate was normal and repeat was elevated. She was given a liter of NS. Patient is seen in her bed with her sister at her bedside. She is A&O x 3 and is able to answer most questions. Her biggest complaint is feeling weak and having chills. 11/17/2016 The patient underwent KEISHA earlier today. Fortunately, there were no vegetations seen. Patient denies any chest pains or palpitations. She denies feeling short of breath. She states she's feeling a little bit better. She denies pain anywhere. She denies difficulty swallowing but when I was in the room she could not swallow a bite of jello. She is having loose or soft stools daily. 11/18/2016 Today, the patient states she is feeling a bit better. She is not experiencing chills. She does state that she had "3 big blowouts" of soft brown stool today. She denies any pain. She states she feels a bit stronger today. She does report not eating very well as she is just not hungry. She is currently on 1 L of oxygen. She has been off oxygen at times today with good oxygenation saturations. She denies cough or sputum production. She has been afebrile since yesterday afternoon. Her white blood count is up a bit today as our her bands. She denies lightheadedness or dizziness. She does need at least one assist to ambulate. This is that her than yesterday when she required 2assists. She denies abdominal pain. She denies chest pain or palpitations. She denies shortness of breath. Her blood cultures from the 4th remain negative for growth. 11/19/16 13:09 the patient is sending up in the chair today. She states she is feeling better. She has had to loose stools today. She tells me that she has a history of ischemic colitis and just wanted to let me know. She denies any abdominal pain. She's tolerating food. She is on room air and denies feeling shortness of breath. She denies fever or chills. She has been working with physical therapy. Rehab facility is excepting her today. We will transfer her over to IRU by this afternoon. Hospital Course This is a general summary of the patient's hospital course. For more details refer to the complete medical record. Hospital course: Assessment Bacteremia-positive growth of staph aureus on blood cultures (final results pending) Severe sepsis - based on temp 100.9, tachypnea, WBC 17.2, 14% bands and lactate >2 and suspected GI source of infection given her RUQ pain on exam RUQ abdominal pain Transaminitis Hypernatremia Hypokalemia Weakness Leukocytosis-worsening Acute urinary retention (POA) Heart valve replacement x2 Pacemaker Atrial fibrillation Hypothyroidism GERD Osteoporosis Iron deficiency anemia Anxiety Irritable bowel syndrome Glaucoma 11/13/16-hospital admission Admit patient to observation under the hospitalist service, Dr. Faustin attending, for severe sepsis. Blood cultures and initial lactate drawn in emergency room. Repeat lactate was elevated. Initiate Zosyn 3.375 IV every 6 hours for suspected intra-abdominal infection given her right upper quadrant pain and nausea. Gallbladder ultrasound and lipase added to orders to rule out gallbladder disease. GI panel to rule out GI pathogens given her stool incontinence Check lateral view chest x-ray for completeness possibility of pulmonary source of infection. Normal saline 100 cc per hour for hydration SCDs for DVT prophylaxis. Patient is also on warfarin for A. fib and valve replacement. NPO until gallbladder Ultrasound has been resulted. Place Zarate catheter given her urinary retention CBC and CMP in a.m. to follow leukocytosis, renal and kidney function and electrolytes. Pharmacy consult to monitor warfarin dosage for A. fib and valve replacement Incentive spirometry for pulmonary toilet Pt has a living will. Is deferring DNR vs full code decision to her daughter. At this time, patient will be listed as a full-code. Patient's care to return to her PCP, Dr. Garcia, in [place], [place] on dismissal 11/14/16 Vancomycin was initiated overnight due to the positive Staphylococcus aureus blood cultures. Zosyn was discontinued. Simvastatin is held given her increase in LFTs. Consult cardiology-Dr. Rowe. Will schedule EKISHA given her artificial valves and bacteremia - needs to be NPO for 8 hours prior. May have regular diet for now. Dr. Rowe prefers her INR be less than 2.5 to perform procedure. Pharmacy was notified to discontinue Coumadin. We will need to re-order when it needs to be restarted. Continue daily INR. 11/16/16 22:28 11/15/2016 Assessment Bacteremia-positive growth of staph aureus on blood cultures 2 on 11/13/2016. Sensitive to all antibiotics tested. Severe sepsis - based on temp 100.9, tachypnea, WBC 17.2, 14% bands and lactate >2 source is unknown Acute hypoxic respiratory failure secondary to sepsis and pulmonary edema, rule out pneumonia Pulmonary edema with bilateral pleural effusions RUQ abdominal tenderness-improved, uncertain etiology Transaminitis-improving Hypernatremia-resolved Hypokalemia-resolved Weakness-improving Leukocytosis-stable, bandemia decreasing Acute urinary retention (POA)-Zarate catheter placed Heart valve replacement x2 Pacemaker Atrial fibrillation Hypothyroidism GERD Osteoporosis Iron deficiency anemia Anxiety Irritable bowel syndrome Glaucoma Encephalopathy on admission-resolved Dysphagia-worsened without patient's dentures Chronic back pain secondary to old compression fracture-stable Dysphagia Plan Overall, the patient is feeling better despite worsening signs on chest x-ray and increasing oxygen needs. We'll give Lasix 40 mg IV 2 for pulmonary edema and reassess. Replace potassium orally. Discuss treatment of staph bacteremia with infectious disease design and sales consultant. Repeat blood cultures drawn this morning and are pending. Place PICC line for presumed prolonged IV antibiotics. Continue to hold Coumadin for coagulopathy and for KEISHA scheduled for Sunday. Agree with IRU consult Cause of the patient's mild right upper quadrant tenderness is unknown. Patient denies abdominal pain, nausea or vomiting. Liver enzymes are improving. Continue Zarate for now for urinary retention and need for aggressive diuresis. Consider trying to remove Zarate tomorrow. Speech therapy consult regarding dysphagia Consult Dr. Ramirez regarding worsening acute hypoxic respiratory failure and pulmonary infiltrates (pulmonary edema/possible pneumonia in the setting of sepsis bacteremia). Will diurese for now and continue IV antibiotics. Repeat CBC and chemistries in the morning. Repeat chest x-ray in the morning. Greater than 45 minutes time spent seeing and evaluating the patient in determining care plan. 11/16/2016 Assessment Bacteremia-positive growth of staph aureus on blood cultures 2 on 11/13/2016. Sensitive to all antibiotics tested. Severe sepsis - based on temp 100.9, tachypnea, WBC 17.2, 14% bands and lactate >2 source is unknown Acute hypoxic respiratory failure-improving Probable pneumonia with staph aureus in sputum-sensitivities pending Pulmonary edema with bilateral pleural effusions-improved with diuresis RUQ abdominal tenderness-improved, uncertain etiology Transaminitis-improving Hypernatremia-resolved Hypokalemia Hypophosphatemia Weakness-improving Leukocytosis-stable, bandemia decreasing Acute urinary retention (POA)-Zarate catheter placed Heart valve replacement x2 Pacemaker Atrial fibrillation Hypothyroidism GERD Osteoporosis Iron deficiency anemia Anxiety Irritable bowel syndrome Glaucoma Encephalopathy on admission-resolved Dysphagia-worsened without patient's dentures Chronic back pain secondary to old compression fracture-stable Dysphagia Plan Agent given Lasix 1 again this morning. Replace phosphorus orally Replace potassium orally. Day 2 of cefazolin, the patient previously received 2 days of vancomycin. Continue to hold Coumadin for coagulopathy and for KEISHA scheduled for Sunday. Vitamin K given yesterday and INR is decreasing Agree with IRU consult Consider DC Zarate tomorrow Discussed with Dr. Ramirez 11/17/2016 Assessment Bacteremia-positive growth of staph aureus on blood cultures 2 on 11/13/2016. Sensitive to all antibiotics tested. Repeat blood cultures are negative so far Severe sepsis - based on temp 100.9, tachypnea, WBC 17.2, 14% bands and lactate >2 source is likely secondary to pneumonia Acute hypoxic respiratory failure-improving pneumonia with staph aureus in sputum-appears to be same species as an blood cultures, all are pansensitive Pulmonary edema with bilateral pleural effusions-improved with diuresis RUQ abdominal tenderness-resolved Transaminitis-improving Hypernatremia-resolved Hypokalemia Hypophosphatemia Weakness-improving Acute urinary retention (POA)-Zarate catheter placed Heart valve replacement x2-tissue valves Pacemaker Atrial fibrillation Hypothyroidism GERD Osteoporosis Iron deficiency anemia Anxiety Irritable bowel syndrome Glaucoma Encephalopathy on admission-resolved Dysphagia-worsened without patient's dentures Chronic back pain secondary to old compression fracture-stable Dysphagia Plan Fortunately, KEISHA was negative for vegetations. Discussed with Dr. Rowe today. Overall the patient is doing a little bit better. Initiated Vanco on the evening of 11/13/2016 and continued through 11/15/2016. Cefazolin started 11/15/2016. Continue cefazolin for now. Recommend ID consult on Sunday to give further recommendations on antibiotics Replace phosphorus orally Replace potassium orally. Restart Coumadin today. Bridge with therapeutic dose Lovenox starting today. The patient has been accepted to IRU on Sunday. DC Zarate. Increase activity as tolerated. Currently she has mild rapid ventricular response with her A. fib, although she is up in a chair and trying to eat. We'll monitor. She did receive her Lopressor dose this morning. I did ask speech therapy to see the patient again regarding her swallow. Speech therapist did tell me that the patient has significant swallow delay but is not aspirating and can stay on her current diet. Repeat chest x-ray tomorrow. 11/18/2016 Assessment and Plan 1. Bacteremia -+ staph aureus on blood cultures 2 on 11/13/2016. Pansensitive. Repeat Cx 11/15 neg to date. -On Cefazolin -KEISHA neg for vegetations. 2. Severe sepsis - resolved. 3. Acute hypoxic respiratory failure-improving -pneumonia with staph aureus in sputum-appears to be same species as an blood cultures, all are pansensitive -Pt down to 1 liter oxygen 4. Pulmonary edema with bilateral pleural effusions -improved with diuresis 5. Transaminitis-improved 6. Hypernatremia-resolved 7. Hypokalemia-resolved. 8. Weakness-improving -PT 9. Acute urinary retention (POA)-Zarate catheter placed -Zarate DC's yesterday, urinating. 10. Heart valve replacement x2-tissue valves 11. Afib s/p Pacemaker 12. Hypothyroidism -On supplements 13. GERD -On omeprazole 14. Iron deficiency anemia -On iron supplements 15. Irritable bowel syndrome 16. Glaucoma 17. Encephalopathy on admission-resolved 18. Chronic back pain secondary to old compression fracture-stable 19. Dysphagia-Speech evaluated without concerns. Increase activity. 11/19/2016 Ms Jimenez was feeling better today. She was on room air. She denies any coffer sputum production. She did have 2 slightly loose stools today. Cultures on stools were negative. She is eating well. She denies any pain or shortness of breath. IRU has accepted the patient and transfer. The patient is stable to be transferred there for further rehab. Discharge Plan - Med Rec/Dispo [place] Instructions: Transesophageal Echocardiogram (GEN), Dehydration (GEN) Prescriptions: New Albuterol Neb (0.083%) [Proventil Neb (0.083%)] 2.5 mg AEROSOL RTQID neb Enoxaparin Sodium [Lovenox] 70 mg SQ BID syringe Loperamide [Imodium] 2 mg PO PRN PRN capsule PRN Reason: Diarrhea Warfarin [Coumadin] 3 mg PO NOON #30 tab Acidoph/L.bulg/Bif.b/S.thermop [Bacid Caplet] 2 cap PO TIDWM tablet Simethicone [Mylicon] 80 mg PO PCHS PRN tab.chew PRN Reason: Gas Cefazolin [Kefzol] 2 g IV Q8HR vial Continue Hyoscyamine [Levsin] 0.125 mg PO Q4HPRN PRN PRN Reason: Prn Orders Latanoprost 2.5 ml OP HS Metoprolol Tartrate [Lopressor] 50 mg PO DAILY Levothyroxine Sodium 88 mcg PO DAILY Ascorbate Calcium [Vitamin C] 500 mg PO DAILY Vitamin B Complex Vit C No.4 [Super B Complex] 150 mg PO DAILY Ferrous Sulfate 325 mg PO DAILY Multivit-Min/Iron/Folic/Lutein [Centrum Silver Women Tablet] 1 each PO DAILY Calcium Carbonate/Vitamin D3 [Calcium 500+D Tablet Chew] 1 each PO BID Acetaminophen [Tylenol] 500 mg PO Q6HPRN PRN PRN Reason: Pain Artificial Tears [Tears Naturale] 1 drop EACH EYE BID Omeprazole 40 mg PO DAILY Alendronate Sodium 70 mg PO WEEKLY Dicyclomine [Bentyl] 20 mg PO TID Methylcellulose (with Sugar) [Citrucel Powder] 2,000 gm PO DAILY LORazepam [Ativan] 0.5 mg PO TID PRN PRN Reason: Anxiety [place]-3/Dha/Epa/Fish Oil [Fish Oil 1,000 mg Softgel] 1 each PO QID Betaxolol HCl [Betoptic S] 2 drops OP BID Hydrocodone/APAP 5/325 [Americus 5/325] 1 tab PO Q4-6HPRN PRN PRN Reason: Pain Simvastatin 20 mg PO HS Discontinued Warfarin [Coumadin] 2.5 mg PO MOTH Warfarin [Coumadin] 5 mg PO SUTUWEFRSA - Disposition 62 To [facility]
[2016-11-20] MEDS ORDERED: WARFARIN 3 MG TABLET PO SCH (12:00)
== END 2016-11-19 13:48 | DRG 871 ==
LOC: ED 08:46 → MED 08:46 → SUATTDRO 11-14 10:27
PROVIDERS: ADMIT Internal Medicine; ATTEND Internal Medicine

== ENCOUNTER 2016-11-19 13:53 | Inpatient (IN) ==
--- OUTSIDE RECORDS SUMMARY | 2016-11-19 14:01 | External Medical Summary ---
[...] Date Status Dosage System Date meloxicam NDC 81412 15 mg orally Apr 02, 1 tab(s) once a day 2013 Vitamin D NDC 6150 2000 units po Nov 12, 1 daily 2011 compression hose NDC 0 knee Dec 02, wear it for leg 2010 during day time bilateral lower legs Betoptic S NDC 3302 0.25% in each 2 gtt affected eye 2 times a day lorazepam NDC 18704 0.5 mg orally 3 May 19, 1 tab(s) times a day prn 2014 levothyroxine NDC 00963 75 mcg (0.075 Dec 26, 1 tab(s) mg) orally once 2012 a day Centrum Silver NDC 8497 Therapeutic 1 tab(s) Multiple Vitamins with Minerals orally once a day warfarin NDC 64864 5mg orally once 1 tab(s) a day except take 2.5mg on Sun, Artificial Tears NDC 6389 preserved in 1 gtt each eye 2 times a day alendronate NDC 07664 70 mg orally Nov 16, 1 tab(s) once a week 2011 Florastor NDC 51793 250 mg orally 1 cap(s) daily simvastatin NDC 50017 40 mg orally June 12, 1 tab(s) once a day (at 2013 bedtime) alendronate NDC 94754 70 mg orally Oct 14, 1 tab(s) once a week 2013 fish oil NDC 31478 1000mg po daily Jan 20, 4 cap s 2010 calcium and NDC 54190 500 mg-400 intl 1 tab(s) vitamin D units chewed 2 combination times a day Tylenol NDC 6732 500 mg orally Oct 06, 2 tab(s) every 6 hours 2009 metoprolol NDC 54539 25 mg orally 2 1 tab(s) times a day omeprazole NDC 32968 40 mg orally August 20, 1 cap(s) once a day 2011 Procedures Procedure Coding System Code Date Office Visit, estab pt, Level 4 CPT-4 86687 May 19, 2014 Vital Signs Date/Time: May 19, 2014 Blood Pressure Diastolic 58 mm Hg Blood Pressure Systolic 110 mm Hg Weight 154.8 lbs Pain Scale 8 feet 0-10 Results No Known Results Summary Purpose eClinicalWorks Submission
--- OUTSIDE RECORDS SUMMARY | 2016-11-19 14:02 | External Medical Summary ---
[...] Start Date End Date Status Dosage meloxicam [facility] [address] 15 mg orally once a Apr 02, 2013 1 tab(s) day Results No Known Results Summary Purpose eClinicalWorks Submission
--- OUTSIDE RECORDS SUMMARY | 2016-11-19 14:02 | External Medical Summary ---
[...] Dos[place] [address]-56 1000 MG Orally 1 capsule 71-40 [place] [address]-49 0.25 % 1 drop into 46-10 Ophthalmic Twice [place] [address]-52 40 MG Orally 1 capsule 22-05 [place] [address]-33 250 MG Orally qd 1 capsule 007 [place] [address]-89 0.5 MG Orally 1 ml 20-01 every 8 hrs PRN Metoprolol & NDC 0 50 MG Orally as directed Diet Manage [place] [address]-06 400 UNIT Orally as directed 831 [place] [address]-19 0.005 % 1 drop into 45-32 Ophthalmic Once affected a day eye in the evening Centrum Silver NDC 38312-64 Orally as directed 61-19 [place] [address]-92 20 MG Orally 1 tablet 20-01 three times a day as needed Compression Hose NDC 0 apply to legs as directed 15-20 [place] [address]-84 325 MG Orally 1 tablet as 96-60 every 6 hrs needed Simvastatin NDC 60639-67 20 MG Orally 1 tablet in 54-10 [place] [address]-88 10 MG Orally 1 tablet Sodium 41-01 [place] [address]-87 5-325 MG Orally 1 tablet as minophen 12-20 every 4-6 hrs needed Gas-X NDC 67990-26 80 MG Orally 1 tablet 16-36 Four times a day after meals and at bedtime as needed Iron Supplement [facility] 47064-93 325 (65 Fe) MG 1 tablet 827 Orally Once a day Artificial Tear NDC 0 [place] [address]-20 88 MCG Orally 1 tablet on Sodium 07-01 Once a day an empty [place] the [place] [address]-32 2.5 MG Orally 1 tablet 14- varies (4 DAY AND 3 DAYS) Calcium + D [facility] 70620-31 315-200 MG-UNIT 1 tablet 501 Orally Twice a with meals day Procedures Procedure Coding System Code Date Office Visit, Tiff Pt., Level 3 CPT-4 47458 Nov 16, 2015 Vital Signs Date/Time: Nov 16, 2015 Blood Pressure Diastolic 75 mm Hg Blood Pressure Systolic 129 mm Hg Cardiac Monitoring Heart Rate 86 /min BMI 22.47 Index Weight 150.0 lbs Height 68.5 in Results No Known Results Summary Purpose eClinicalWorks Submission
--- OUTSIDE RECORDS SUMMARY | 2016-11-19 14:02 | External Medical Summary ---
[...] 2 times a day calcium and NDC 69232 500 mg-400 intl 1 tab(s) vitamin D units chewed 2 combination times a day compression hose NDC 0 knee Dec 02, wear it for leg 2010 during day time bilateral lower legs alendronate NDC 53063 70 mg orally June 14, 1 tab(s) once a week 2014 metoprolol NDC 06724 12.5 mg orally 2 1 tab(s) times a day Tylenol NDC 6732 500 mg orally Oct 06, 2 tab(s) every 6 hours 2009 warfarin NDC 77080 7.5 mg orally 1 tab(s) once a day Florastor NDC 23299 250 mg orally 1 cap(s) daily fish oil NDC 76992 1000mg po daily Jan 20, 4 cap s 2010 levothyroxine NDC 54794 75 mcg (0.075 Dec 26, 1 tab(s) mg) orally once 2012 [place] [address] 0.5 mg orally 3 May 19, 1 tab(s) times a day prn 2014 [place] [address] 40 mg orally August 20, 1 cap(s) once a day 2011 [place] 6150 2000 units po Nov 12, 1 daily 2011 [place] 6389 preserved in 1 gtt each eye 2 [place] [address] 40 mg orally June 12, 1 tab(s) once a day (at 2013 bedtime) Centrum Silver ND 8497 Therapeutic 1 tab(s) Multiple Vitamins with Minerals orally once a day Results No Known Results Summary Purpose eClinicalWorks Submission
--- OUTSIDE RECORDS SUMMARY | 2016-11-19 14:02 | External Medical Summary ---
[...] Status Dosage System Date Date lorazepam NDC 75258 0.5 mg orally 3 April 16, 1 tab(s) times a day prn 2009 alendronate NDC 80851 70 mg orally Oct 14, 1 tab(s) once a week 2013 levothyroxine NDC 96384 75 mcg (0.075 Dec 26, 1 tab(s) mg) orally once 2012 a day warfarin NDC 50074 5mg orally once 1 tab(s) a day except take 2.5mg on Sun, calcium and NDC 21068 500 mg-400 intl 1 tab(s) vitamin D units chewed 2 combination times a day Centrum Silver NDC 8497 Therapeutic 1 tab(s) Multiple Vitamins with Minerals orally once a day meloxicam NDC 67974 15 mg orally Apr 02, 1 tab(s) once a day 2013 Terbinafine NDC 760223 250 mg orally Apr 03, 1 tab(s) Hydrochloride once a day 2014 compression hose NDC 0 knee Dec 02, wear it for leg 2010 during day time bilateral lower legs Betoptic S NDC 3302 0.25% in each 2 gtt affected eye 2 times a day Artificial Tears NDC 6389 preserved in 1 gtt each eye 2 times a day omeprazole NDC 76103 40 mg orally August 20, 1 cap(s) once a day 2011 simvastatin NDC 58039 40 mg orally June 12, 1 tab(s) once a day (at 2013 bedtime) metoprolol NDC 63606 25 mg orally 2 1 tab(s) times a day Florastor NDC 54949 250 mg orally 1 cap(s) daily alendronate NDC 43321 70 mg orally Nov 16, 1 tab(s) once a week 2011 Tylenol NDC 6732 500 mg orally Oct 06, 2 tab(s) every 6 hours 2009 Vitamin D NDC 6150 2000 units po Nov 12, 1 daily 2011 fish oil NDC 15345 1000mg po daily Jan 20, 4 cap s 2010 Procedures Procedure Coding System Code Date Office Visit, [facility] pt, Level 3 CPT-4 10928 Apr 03, 2014 Vital Signs Date/Time: Apr 03, 2014 Blood Pressure Systolic 110 mm Hg Temperature 97.7 F Weight 153.5 lbs Pain Scale 8 feet when walking 0-10 Blood Pressure Diastolic 80 mm Hg Results No Known Results Summary Purpose eClinicalWorks Submission
--- OUTSIDE RECORDS SUMMARY | 2016-11-19 14:02 | External Medical Summary ---
[...] Start Date End Date Status Dosage levothyroxine [facility] 24205 75 mcg (0.075 mg) Dec 26 tab(s) orally once a day 2012 Results No Known Results Summary Purpose eClinicalWorks Submission
--- OUTSIDE RECORDS SUMMARY | 2016-11-19 14:02 | External Medical Summary ---
[...] End Status Dosage System Date Date Lorazepam [facility][NOTE 3] 02496-53 0.5 MG Orally 1 ml 20-01 every 8 hrs PRN Simvastatin [facility][NOTE 3] 17054-58 20 MG Orally 1 tablet in 54-10 Once a day the evening Calcium + D [facility][NOTE 3] 72394-80 315-200 MG-UNIT 1 tablet 501 Orally Twice a with meals day Latanoprost [facility][NOTE 3] 66046-92 0.005 % 1 drop into 45-32 Ophthalmic Once affected a day eye in the evening Centrum Silver [facility][NOTE 3] 98280-73 Orally as directed 61-19 Iron Supplement [facility][NOTE 3] 27893-04 325 (65 Fe) MG 1 tablet 827 Orally Once a day Omeprazole [facility][NOTE 3] 14218-39 40 MG Orally 1 capsule 22-05 Once a day Vitamin D [facility][NOTE 3] 10779-17 400 UNIT Orally as directed 831 Fish Oil [facility][NOTE 3] 92438-95 1000 MG Orally 1 capsule 71-40 Once a day Dicyclomine HCl NDC 88080-53 20 MG Orally 1 tablet 27-01 three times a day as needed Metoprolol & NDC 0 50 MG Orally as directed Diet Manage Prod once a day Tylenol NDC 96364-91 325 MG Orally 1 tablet as 96-60 every 6 hrs needed Warfarin Sodium NDC 77312-41 2.5 MG Orally 1 tablet 14- varies (4 DAY AND 3 DAYS) [place] [address]-72 88 MCG Orally 1 tablet on Sodium 07-01 Once a day an empty stomach in the morning Artificial Tear NDC 0 Ophthal[place] [address]-45 0.25 % 1 drop into 46-10 Ophthalmic [place] [address]-19 250 MG Orally qd 1 capsule 007 Alendronate NDC 76171-56 10 MG Orally 1 tablet Sodium 41-01 Once A WEEK Compression Hose NDC 0 apply to legs as directed 15-20 mm Hg qam till [facility] Procedures Procedure Coding System Code Date Office Visit, Est Pt., Level 3 CPT-4 04085 Oct 04, 2015 Vital Signs Date/Time: Oct 04, 2015 Blood Pressure Diastolic 64 mm Hg Blood Pressure Systolic 116 mm Hg Cardiac Monitoring Heart Rate 77 /min BMI 22.23 Index Weight 148.4 lbs Height 68.5 in Results No Known Results Summary Purpose eClinicalWorks Submission
[2016-11-19] MEDS ORDERED: LORazepam 0.5 MG TABLET PO PRN (14:11)
[2016-11-19] MEDS ORDERED: FALL RISK - PHARMACY CONSULT XX ONE ×2 (14:11)
[2016-11-19] MEDS ORDERED: ACETAMINOPHEN 500 MG TABLET PO PRN (14:11)
[2016-11-19] MEDS ORDERED: ONDANSETRON 4 MG/2 ML INJECTION IVP PRN (14:11)
[2016-11-19] MEDS ORDERED: LOPERAMIDE 2 MG CAPSULE PO PRN (14:11)
[2016-11-19] MEDS ORDERED: HYOSCYAMINE 0.125 MG ORAL TABLET PO PRN (14:11)
[2016-11-19] MEDS ORDERED: SIMETHICONE 80 MG CHEWABLE TABLET PO PRN (14:11)
[2016-11-19] MEDS ORDERED: NS FLUSH BAG 500ml IV PRN (14:11)
[2016-11-19] MEDS ORDERED: SALINE FLUSH 10ml SYRINGE IVF PRN (14:11)
[2016-11-19 15:33] VITALS: BMI 22.4
[2016-11-19] MEDS: ALBUTEROL 2.5mg/3ml (0.083%) NEB AEROSOL SCH ×2 (16:28→20:00)
[2016-11-19] MEDS: LACTOBACILLUS (15B cfu) CAPSULE PO SCH (18:31)
[2016-11-19] MEDS: CEFAZOLIN 2 G in NS 100 ML IV SCH (18:32)
[2016-11-19] MEDS: POTASSIUM ACID PHOSPHATE 500 MG TABLET PO SCH ×2 (21:05→21:29)
[2016-11-19] MEDS: HYDROCODONE/APAP 5mg/325mg TABLET PO PRN (21:05)
[2016-11-19] MEDS: ENOXAPARIN 80 MG/0.8 ML INJECTION SQ SCH (21:06)
[2016-11-19] MEDS: CALCIUM 500 + VIT D 200 TABLET PO SCH (21:06)
[2016-11-19] MEDS: BETAXOLOL 0.25% RIGHT EYE SCH (21:06)
[2016-11-19] MEDS: SIMVASTATIN 20 MG TABLET PO SCH (21:06)
[2016-11-19] MEDS: EYE RIGHT EYE SCH (21:06)
[2016-11-19] MEDS: LATANOPROST 0.005% EYE DROPS 2.5ml EACH EYE SCH (21:07)
[2016-11-19] MEDS: REFRESH CLASSIC Eye Drops 0.4ml EACH EYE SCH (21:49)
[2016-11-20] MEDS: CEFAZOLIN 2 G in NS 100 ML IV SCH ×3 (00:44→18:17)
[2016-11-20] MEDS: LEVOTHYROXINE 88 MCG TABLET PO SCH (06:42)
[2016-11-20] MEDS: ALBUTEROL 2.5mg/3ml (0.083%) NEB AEROSOL SCH ×4 (06:54→19:10)
[2016-11-20] MEDS: LACTOBACILLUS (15B cfu) CAPSULE PO SCH ×3 (10:02→18:17)
[2016-11-20] MEDS: FERROUS SULFATE 324 MG TABLET PO SCH (10:02)
[2016-11-20] MEDS: POTASSIUM ACID PHOSPHATE 500 MG TABLET PO SCH ×4 (10:03→22:02)
[2016-11-20] MEDS: ASCORBIC ACID 500 MG TABLET PO SCH (10:03)
[2016-11-20] MEDS: BETAXOLOL 0.25% RIGHT EYE SCH (10:04)
[2016-11-20] MEDS: ENOXAPARIN 80 MG/0.8 ML INJECTION SQ SCH ×2 (10:04→22:02)
[2016-11-20] MEDS: CALCIUM 500 + VIT D 200 TABLET PO SCH ×2 (10:04→22:07)
[2016-11-20] MEDS: EYE RIGHT EYE SCH (10:04)
[2016-11-20] MEDS: OMEPRAZOLE 20 MG CAPSULE PO SCH (10:05)
[2016-11-20] MEDS: MULTI-VITAMIN + MINERAL TABLET PO SCH (10:05)
[2016-11-20] MEDS: REFRESH CLASSIC Eye Drops 0.4ml EACH EYE SCH ×2 (10:06→22:03)
--- NOTE | 2016-11-20 10:10 | Consult Note ---
<Ana Cummings - Last Filed: 11/20/16 11:22> Consult Information - Data of Consult Consult date: 11/20/16 Requesting Physician: Golden Boyer MD Primary Care Provider: Dr. Artie Garcia [facility] Provider: Dr. Artie Garcia - Consult Narrative Reason for consult: Management of chronic medical problems. History of present illness: Patient is a 76-year-old female who resides in [place] but was here visiting her sister who lives in [place] when she developed fever and chills. She was admitted to [facility] on 11/13/16 with sepsis. She grew out Staphylococcus aureus from both blood culture sites and sputum culture. Vancomycin was initiated the evening of 11/13/16 and continued through 11/15/16. Cefazolin was started 11/15/16 when sensitivities were resulted. She developed pulmonary edema, hypophosphatemia and hypokalemia. She was given Lasix, phosphorus and potassium to correct this. Dr. Ramirez was consulted for her increasing oxygen needs and pulmonary edema. She had no interventions other than medical management including Lasix and continued antibiotics, breathing treatments and oxygen supplementation. She also developed acute urinary retention during her acute stay and required Zarate catheter, but this was discontinued before discharge. On 11/17/16 she had CARLITOS with Dr. Rowe to rule out vegetation on her artificial valve. Fortunately, this was negative for vegetation. Pharmacy is managing her Coumadin. She also had speech therapy consult during her acute stay due to dysphagia. Speech therapist diagnosed significant swallow delay but reported patient was not aspirating and could stay on a normal diet. 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 Artie Garcia at [facility] in [place] [phone] Hammer Smith-Dr. Ha at [employer] [phone] HONEY is her daughter, Danyelle Jimenez (Lives in [place], [place]) Review of Systems All systems PM: 10-point ROS was reviewed, no additional remarkable complaints except - Constitutional Constitutional: Present: other (poor appetite) - Gastrointestinal Gastrointestinal: Present: diarrhea (chronic for patient) - Integumentary/Breasts Integumentary: Present: other (cold sores) Medications Home Medications Medication Instructions Recorded Confirmed Type Acetaminophen [Tylenol] 500 mg PO Q6HPRN PRN 11/13/16 11/13/16 History Alendronate Sodium 70 mg PO WEEKLY 11/13/16 11/13/16 History Artificial Tears [Tears Naturale] 1 drop EACH EYE BID 11/13/16 11/13/16 History Ascorbate Calcium [Vitamin C] 500 mg PO DAILY 11/13/16 11/13/16 History Betaxolol HCl [Betoptic S] 2 drops OP BID 11/13/16 11/13/16 History Calcium Carbonate/Vitamin D3 1 each PO BID 11/13/16 11/13/16 History [Calcium 500+D Tablet Chew] Dicyclomine [Bentyl] 20 mg PO TID 11/13/16 11/13/16 History Ferrous Sulfate 325 mg PO DAILY 11/13/16 11/13/16 History Hydrocodone/APAP 5/325 [[place] 1 tab PO Q4-6HPRN PRN 11/13/16 11/13/16 History 5/325] Hyoscyamine [Levsin] 0.125 mg PO Q4HPRN PRN 11/13/16 11/13/16 History LORazepam [Ativan] 0.5 mg PO TID PRN 11/13/16 11/13/16 History Latanoprost 2.5 ml OP HS 11/13/16 11/13/16 History Levothyroxine Sodium 88 mcg PO DAILY 11/13/16 11/13/16 History Methylcellulose (with Sugar) 2,000 gm PO DAILY 11/13/16 11/13/16 History [Citrucel Powder] Metoprolol Tartrate [Lopressor] 50 mg PO DAILY 11/13/16 11/13/16 History Multivit-Min/Iron/Folic/Lutein 1 each PO DAILY 11/13/16 11/13/16 History [Centrum Silver Women Tablet] [place]-3/Dha/Epa/Fish Oil [Fish Oil 1 each PO QID 11/13/16 11/13/16 History 1,000 mg Softgel] Omeprazole 40 mg PO DAILY 11/13/16 11/13/16 History Simvastatin 20 mg PO HS 11/13/16 11/13/16 History Vitamin B Complex Vit C No.4 150 mg PO DAILY 11/13/16 11/13/16 History [Super B Complex] Allergies Allergy/AdvReac Type Severity Reaction Status Date / Time Sulfa (Sulfonamide Allergy Intermediate [place] Verified 11/19/16 16:56 Antibiotics) Exam Vital Signs: Temperature 98.3 F 11/20/16 08:00 Pulse Rate 86 11/20/16 08:00 Respiratory Rate 18 11/20/16 08:00 Blood Pressure 103/62 11/20/16 08:00 Pulse Oximetry 99 11/20/16 08:00 Height/Weight/BMI: Height 1.73 m Weight 67 kg Body Mass Index 22.4 - Constitutional Present: no acute distress, well nourished, well developed - Routine HEENT Exam Head: Present: normocephalic, atraumatic Eye: Present: EOMI ENT: Present: mucous membranes moist, oropharynx clear Comments: scabbing on upper lips - Routine Respiratory Exam Present: CTA bilaterally. Absent: wheezes - Routine Cardiovascular Exam Present: irregularly irregular. Absent: murmur - Routine Abdominal Exam Present: soft, normoactive bowel sounds, non distended. Absent: tenderness - Routine Extremities Exam Present: no edema, normal capillary refill - Routine Skin Exam Present: dry, warm - Routine Neurological Exam Present: alert, oriented X3, CN II-XII intact - Routine Psychiatric Exam Present: normal affect, cooperative Results - Labs CBC & Chem 7: 11/20/16 05:30 11/20/16 05:30 Microbiology Results: 11/15/16 Sputum culture-Staphylococcus aureus-pansensitive 11/13/16 both blood culture sites -Staphylococcus aureus-pansensitive - Imaging and Cardiology Chest x-ray Additional comments: Chest x-ray-11/18/16 FINDINGS: Right PICC line remains in place. Aeration of the right lung has improved. Small pleural effusions are stable. No new areas of airspace disease or pneumothorax. Heart size and mediastinal contours are unchanged. Impression: Improving appearance of the right chest. CARLITOS-Dr. Rowe Additional comments: 11/17/16 IMPRESSION 1. No evidence of vegetation on any of the four valves including the bioprosthesis in the mitral position. No evidence of vegetation on the pacemaker lead. 2. LV systolic function is borderline reduced, ejection fraction estimated about 50%. 3. Normal bioprosthesis in the mitral position with normal structure and motion. 4. Positive "smoke sign" seen in the left atrium indicative of procoagulant state. Assessment and Plan Assessment and Plan: Impression Bacteremia- staph aureus on blood cultures Severe sepsis on recent admission-resolved Acute hypoxic respiratory failure-improving pneumonia with staph aureus in sputum-appears to be same species as an blood cultures, all are pansensitive Pulmonary edema with bilateral pleural effusions-improved with diuresis Debility secondary to illness Mitral Heart valve replacement -tissue valve Pacemaker Atrial fibrillation - anticoagulation therapy Hypothyroidism GERD Osteoporosis Iron deficiency anemia Anxiety Irritable bowel syndrome-diarrhea prominent Glaucoma Chronic back pain secondary to old compression fracture-stable Plan Agree with IRU admission for improving strength and functional abilities. Continue anticoagulation for atrial fibrillation. Pharmacy to manage. Dr. David will consult today to determine length of antibiotic therapy for her bacteremia. Continues on cefazolin. Continue nebulizer treatments and oxygen PRN. Continue incentive spirometry. Will monitor blood counts and electrolytes given her history of hypokalemia, hypernatremia and leukocytosis during her acute stay. Her hemoglobin continues to drop. Monitor closely. Continue home medications for her chronic medical problems. Appreciate the consult. We will continue to follow patient with you throughout her stay. Hospital Course Summary Disclaimer: The visit summary below is not to be considered part of the above Progress Note. Hospital Course: Impression Bacteremia- staph aureus on blood cultures Severe sepsis on recent admission-resolved Acute hypoxic respiratory failure-improving pneumonia with staph aureus in sputum-appears to be same species as an blood cultures, all are pansensitive Pulmonary edema with bilateral pleural effusions-improved with diuresis Debility secondary to illness Mitral Heart valve replacement -tissue valve Pacemaker Atrial fibrillation - anticoagulation therapy Hypothyroidism GERD Osteoporosis Iron deficiency anemia Anxiety Irritable bowel syndrome-diarrhea prominent Glaucoma Chronic back pain secondary to old compression fracture-stable 11/20/16 - hospitalist consult Agree with IRU admission for improving strength and functional abilities. Continue anticoagulation for atrial fibrillation. Pharmacy to manage. Dr. David saw patient today. She needs 4 weeks of IV antibiotics from the date of her negative blood culture 11/15/16. She can stay on cefazolin until discharge. Upon discharge, could consider once a day IV antibiotic to finish therapy. Continue nebulizer treatments and oxygen PRN. Continue incentive spirometry. Will monitor blood counts and electrolytes given her history of hypokalemia, hypernatremia and leukocytosis during her acute stay. Her hemoglobin continues to drop. Monitor closely. Continue home medications for her chronic medical problems. Appreciate the consult. We will continue to follow patient with you throughout her stay <MillerSusan willingham - Last Filed: 11/20/16 21:56> Consult Information - Data of Consult Requesting Physician: Golden Boyer MD [facility] Patient Stated Medical History Cataracts Yes: both eyes Glaucoma Yes Cardiac Arrhythmia Yes: Afib Hypertension Yes Other Cardiology Yes: Mitral valve problem, L pacemaker Sleep Apnea No Constipation No Gastroesophageal Reflux Yes Disease Other GI ibs, ischemic colitis Hx Incontinence No Hx Renal Disease No Other Hematologic Yes: Takes Warfarin QD Other Musculoskeletal Yes: Osteoporosis Depression Yes Exam Vital Signs: Temperature 98.8 F 11/20/16 20:46 Pulse Rate 82 11/20/16 20:46 Respiratory Rate 18 11/20/16 20:46 Blood Pressure 115/49 11/20/16 20:46 Pulse Oximetry 98 11/20/16 20:46 Height/Weight/BMI: Height 1.73 m Weight 67 kg Body Mass Index 22.4 Results - Labs CBC & Chem 7: 11/20/16 05:30 11/20/16 05:30 Assessment and Plan Assessment and Plan: 11/20/2016-I reviewed this chart, the patient history, and the EDGE PLUGGER's/PA's documented findings as above. We discussed and formulated the assessment and plan as above with the additions below.-Dr. Miller The patient was seen this evening. Her biggest complaints are of pain around her lips and diarrhea. Most likely the source on her lips are herpes/cold sores. She thinks her diarrhea is from colitis history. She had a negative GI panel on Sunday. At home she occasionally takes Lomotil for diarrhea. She denies any chest pain or shortness of breath. She's having some difficulty eating because of her lip pain. On exam she is alert and in no acute distress HEENT reveals dark scabbed lesions on both upper and lower lips. No lesions in her mouth. Chest is clear to auscultation. Cardiovascular reveals an irregularly irregular rhythm with a 2 /6 systolic murmur. Abdomen is soft and nontender. Extremities are free of edema. Impression and plan We'll continue with current care plan regarding staph bacteremia. Discussed the patient with Dr. David earlier today. A. fib reveals rate control. Continue Lovenox and Coumadin. Can discontinue Lovenox when INR is therapeutic. Agree with acyclovir for oral lesions. Will start now. We'll start Lomotil to before meals breakfast and see if this helps. We'll hold if she is developing constipation. Regarding respiratory failure, the patient is doing much better and is off of oxygen. Hospital Course Summary Disclaimer: The visit summary below is not to be considered part of the above Progress Note.
--- NOTE | 2016-11-20 11:23 | IRU History & Physical Report ---
HPI IRU Date: Chief complaint: I'm very weak HPI: Ms. Jimenez is a 76-year-old white female admitted from acute care. Referring physician is Dr. Jocelin Faustin. Primary care physician is Dr. Artie Garcia in [place]. Her cardiologists include Dr. Palacios and Dr. Ha both in [place]. She was here visiting her sister for her birthday. She developed symptoms of weakness and shivering. She felt achy all over. This was on 11/12/2016. She presented to the emergency department and was evaluated and felt to have severe sepsis on the basis of fever 100, elevated lactic acid, leukocytosis with bandemia with a suspected source of bacterial infection. She was admitted to acute care to the hospitalist service. Blood cultures are positive x 2 for staph aureus which was pansensitive. Urine was positive for Streptococcus pneumonia antigen but negative on culture. Sputum culture was positive for staph aureus which was also pansensitive. Her chest x-ray was abnormal revealing but somewhat diffuse infiltrate mainly in the right lung. Whether that was unilateral pulmonary edema versus infectious infiltrate are 2 options. There is questionable atelectasis in the left base. Source of the positive blood cultures remains obscure. There was consideration given to GI source. Abdominal pelvic CT scan was essentially negative. Gallbladder sonogram did show some sludge but was otherwise unremarkable. It is possible the source was the gallbladder although she has not had ongoing symptoms in that regard. It is also possible source was her pneumonia. In addition she does have history of permanent pacemaker placed several years ago in [place]. She initially had a [place] Deon valve placed in the mitral position. This then failed she states and a porcine valve was placed in the mitral position. To her knowledge, she has had normal coronary arteries. CARLITOS was done during the acute hospitalization failing to reveal evidence of vegetation. Ejection fraction was modestly reduced at around 50%. She has developed acute hypoxemic respiratory failure. She has also had the recent sepsis and hypokalemia. However most significantly, she feels very weak. 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 At home she lives by herself in her own home. She does live in a split-level house and has to climb 6 steps to get on one level and another 6 steps to get another level. She does use a walker from time to time. At home prior to admission she was independent for most activities of daily living. She was modified independent for walking but could walk 500 feet with a rolling walker. She was modified independent for stairs. At present however she is maximum assistance for grooming, maximal assistance for upper and lower body dressing, total assistance for toileting, head/chair/ wheelchair transfers, toilet transfers and walking. She can walk only 18 feet with a rolling walker. The following medical conditions are noted and require active monitoring and/or management: 1. Critical illness myopathy 2. Acute hypoxemic respiratory failure: She has required supplemental oxygen. 3. Hypokalemia: She has received replacement potassium and now her potassium is improved. 4. Recent Severe Sepsis with positive blood cultures for staph aureus. 5. Diarrhea with negative stool screen. She reports a history of ischemic colitis several years ago. She does have irritable bowel syndrome The following therapies will be needed: 1. Physical therapy: for transfers and ambulation and stairs. 2. Occupational therapy: for ADL's and transfers. 3. Medical management: for the above conditions. 4. 24 hour Rehabilitation Nursing to monitor and address the following: oxygen saturations, diarrhea, monitor for recurrence of fever/ infectious signs or symptoms. [facility] Patient Stated Medical History Cataracts Yes: both eyes Glaucoma Yes Cardiac Arrhythmia Yes: Afib Hypertension Yes Other Cardiology Yes: Mitral valve problem, L pacemaker Sleep Apnea No Constipation No Gastroesophageal Reflux Yes Disease Other GI ibs, ischemic colitis Hx Incontinence No Hx Renal Disease No Other Hematologic Yes: Takes Warfarin QD Other Musculoskeletal Yes: Osteoporosis Depression Yes Surgical History: Heart proper placement, pacemaker, wrist surgery following fracture. St. Deon mitral valve placed initially. That failed and in approximately 2007 a porcine mitral valve was placed. Family History: She reports that both parents in their 80s. He did not pass away from heart problems and she does not know the cause of . - Social History Smoking status: Never smoker Substance use type: does not use Alcohol intake: never Alcohol intake frequency: does not drink Housing: house Household members: none Current occupational status: retired Current residence: Apartment/Private Home Social history: Patient lives alone in [place] in her own home which is a split-level. 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 from a number of years ago. She does have 2 children. Review of Systems - Constitutional Constitutional: Present: anorexia, fatigue. Absent: fever(s), headache(s) - EENMT Eyes: Absent: blurry vision, change in vision, diplopia Ears: Absent: ear pain Balance: Absent: vertigo Mouth/Throat: Absent: pain, sore throat - Cardiovascular Cardiovascular: Absent: chest pain, palpitations, syncope, dyspnea on exertion, orthopnea, edema Rhythm: Present: abnormal rhythm Vascular: Absent: intermittent claudication - Respiratory Respiratory: Present: cough (has had a recent cough but now is much improved.), dyspnea. Absent: wheezing, pain on inspiration, chest congestion - Gastrointestinal Gastrointestinal: Present: change in bowel habits, diarrhea (reports explosive diarrhea with negative stool screen. History of irritable bowel syndrome.). Absent: abdominal pain - Musculoskeletal Musculoskeletal: Absent: abnormal gait, arthralgias, myalgias - Neurological Neurological: Present: weakness. Absent: abnormal gait, abnormal movements, abnormal speech, frequent falls - Psychiatric Psychiatric: Absent: abnormal sleep pattern, anhedonia, anxiety, depression, difficulty concentrating, hallucinations Medications Home Medications Medication Instructions Recorded Confirmed Type Acetaminophen [Tylenol] 500 mg PO Q6HPRN PRN 11/13/16 11/13/16 History Alendronate Sodium 70 mg PO WEEKLY 11/13/16 11/13/16 History Artificial Tears [Tears Naturale] 1 drop EACH EYE BID 11/13/16 11/13/16 History Ascorbate Calcium [Vitamin C] 500 mg PO DAILY 11/13/16 11/13/16 History Betaxolol HCl [Betoptic S] 2 drops OP BID 11/13/16 11/13/16 History Calcium Carbonate/Vitamin D3 1 each PO BID 11/13/16 11/13/16 History [Calcium 500+D Tablet Chew] Dicyclomine [Bentyl] 20 mg PO TID 11/13/16 11/13/16 History Ferrous Sulfate 325 mg PO DAILY 11/13/16 11/13/16 History Hydrocodone/APAP 5/325 [[place] 1 tab PO Q4-6HPRN PRN 11/13/16 11/13/16 History 5/325] Hyoscyamine [Levsin] 0.125 mg PO Q4HPRN PRN 11/13/16 11/13/16 History LORazepam [Ativan] 0.5 mg PO TID PRN 11/13/16 11/13/16 History Latanoprost 2.5 ml OP HS 11/13/16 11/13/16 History Levothyroxine Sodium 88 mcg PO DAILY 11/13/16 11/13/16 History Methylcellulose (with Sugar) 2,000 gm PO DAILY 11/13/16 11/13/16 History [Citrucel Powder] Metoprolol Tartrate [Lopressor] 50 mg PO DAILY 11/13/16 11/13/16 History Multivit-Min/Iron/Folic/Lutein 1 each PO DAILY 11/13/16 11/13/16 History [Centrum Silver Women Tablet] [place]-3/Dha/Epa/Fish Oil [Fish Oil 1 each PO QID 11/13/16 11/13/16 History 1,000 mg Softgel] Omeprazole 40 mg PO DAILY 11/13/16 11/13/16 History Simvastatin 20 mg PO HS 11/13/16 11/13/16 History Vitamin B Complex Vit C No.4 150 mg PO DAILY 11/13/16 11/13/16 History [Super B Complex] Allergies Allergy/AdvReac Type Severity Reaction Status Date / Time Sulfa (Sulfonamide Allergy Intermediate [place] Verified 11/19/16 16:56 Antibiotics) Results IRU - Labs Labs: I reviewed extensive acute care notes, labs etc. including radiographs. Exam Vital Signs: Temperature 98.3 F 11/20/16 08:00 Pulse Rate 86 11/20/16 08:00 Respiratory Rate 18 11/20/16 08:00 Blood Pressure 103/62 11/20/16 08:00 Pulse Oximetry 99 11/20/16 08:00 Height/Weight/BMI: Height 1.73 m Weight 67 kg Body Mass Index 22.4 - Constitutional Present: no acute distress, thin. Absent: severe distress - Routine HEENT Exam Head: Present: normocephalic, atraumatic. Absent: cushingoid faces, abrasion, laceration, hematoma Eye: Present: EOMI. Absent: conjunctival icterus, scleral injection ENT: Present: mucous membranes moist - Routine Neck Exam Present: supple - Routine Respiratory Exam Present: CTA bilaterally. Absent: accessory muscle use, dyspnea, rales, respiratory distress, rhonchi, stridor, wheezes, crackles - Routine Cardiovascular Exam Present: S1, S2, click (normal although minimal prosthetic click.), irregularly irregular. Absent: S3, S4 - Routine Abdominal Exam Present: soft, normoactive bowel sounds, non distended. Absent: tenderness, rebound, guarding, firm, organomegaly, mass - Routine Extremities Exam Absent: cyanosis, clubbing, edema - Routine Back/Spine/Pelvis Exam Back/Spine: Present: full ROM - Routine Skin Exam Present: intact, dry, warm. Absent: erythema, lesions - Routine Neurological Exam Present: alert, oriented X3, CN II-XII intact - Routine Psychiatric Exam Present: normal affect, normal thought process, cooperative, good insight, good judgment IRU A/P (1) Myopathy Current visit: Yes Status: Acute Patient has evidence of acute critical illness myopathy. She has muscle weakness primarily lower extremities. (2) Atrial fibrillation Qualifiers: Atrial fibrillation type: chronic Qualified Code(s): I48.2 - Chronic atrial fibrillation Current visit: No Status: Chronic She has chronic atrial fibrillation and will require adjustment of her warfarin dosage. (3) Acute respiratory failure with hypoxia Current visit: No Status: Acute She has required supplemental oxygen but it is improving. We will monitor her saturations carefully. (4) Pulmonary infiltrates on CXR Current visit: No Status: Acute She has had evidence of pneumonia on chest radiograph. Her pulmonary status will be monitored carefully. (5) Pneumonia Qualifiers: Pneumonia type: due to methicillin-sensitive Staphylococcus aureus (MSSA) Laterality: right Lung location: lower lobe of lung Qualified Code(s): J15.211 - Pneumonia due to Methicillin susceptible Staphylococcus aureus Current visit: No Status: Acute She has a positive sputum culture for staph aureus. Her pulmonary status is improving but will be monitored carefully for deterioration. She will remain on intravenous antibiotics for her recent sepsis and pneumonia. (6) Staph aureus infection Current visit: No Status: Acute DVT Prophylaxis: SCD's, Coumadin Resuscitation Status: Full Code - Course Hospital Course: Golden Boyer MD: - Interventions to Obtain Goals PT Treatment Plan: Balance/Proprioception, Functional Activities, Gait Training , Patient/Family Education OT Treatment Plan: ADL (Basic Care), Balance Training, IADL, Pt./Family Education Goals Progress/Modifications: An intensive individualized program of occupational therapy and physical therapy along with medical supervision and 24 rehabilitation nursing monitoring of the patient's saturations and vital signs and observance for recurrence of infection will be undertaken.
--- NOTE | 2016-11-20 11:24 | Infectious Disease Consult ---
Infectious Disease Consult Date of Consultation: 11/20/16 Requesting Physician: Susan Miller Reason for Consultation: antibiotic recs History of Present Illness: Ms. Jimenez is a 76 y/o woman who was admitted here on 11/13/16 with the rather sudden onset of chills. She had no other focal complaints. In ER, patient had negative head CT, CXR showing cardiomegaly and left basilar atelectasis vs scarring, essentially negative CT scan abdomen/pelvis, and negative urine. She had leukocytosis and bandemia, initial lactate was normal and repeat was elevated. She was given a liter of NS. She was admitted for further evaluation , and her blood cultures drawn 11/13 returned positive for MSSA. Blood cultures from 11/15 are NGTD. She also had sputum cx that grew heavy growth of MSSA. CxR showed RUL and RLL opacities. She had a CARLITOS on 11/17 that was negative. I' ve been asked to help with antibiotics. Medications Home Medications Medication Instructions Recorded Confirmed Type Acetaminophen [Tylenol] 500 mg PO Q6HPRN PRN 11/13/16 11/13/16 History Alendronate Sodium 70 mg PO WEEKLY 11/13/16 11/13/16 History Artificial Tears [Tears Naturale] 1 drop EACH EYE BID 11/13/16 11/13/16 History Ascorbate Calcium [Vitamin C] 500 mg PO DAILY 11/13/16 11/13/16 History Betaxolol HCl [Betoptic S] 2 drops OP BID 11/13/16 11/13/16 History Calcium Carbonate/Vitamin D3 1 each PO BID 11/13/16 11/13/16 History [Calcium 500+D Tablet Chew] Dicyclomine [Bentyl] 20 mg PO TID 11/13/16 11/13/16 History Ferrous Sulfate 325 mg PO DAILY 11/13/16 11/13/16 History Hydrocodone/APAP 5/325 [[place] 1 tab PO Q4-6HPRN PRN 11/13/16 11/13/16 History 5/325] Hyoscyamine [Levsin] 0.125 mg PO Q4HPRN PRN 11/13/16 11/13/16 History LORazepam [Ativan] 0.5 mg PO TID PRN 11/13/16 11/13/16 History Latanoprost 2.5 ml OP HS 11/13/16 11/13/16 History Levothyroxine Sodium 88 mcg PO DAILY 11/13/16 11/13/16 History Methylcellulose (with Sugar) 2,000 gm PO DAILY 11/13/16 11/13/16 History [Citrucel Powder] Metoprolol Tartrate [Lopressor] 50 mg PO DAILY 11/13/16 11/13/16 History Multivit-Min/Iron/Folic/Lutein 1 each PO DAILY 11/13/16 11/13/16 History [Centrum Silver Women Tablet] [place]-3/Dha/Epa/Fish Oil [Fish Oil 1 each PO QID 11/13/16 11/13/16 History 1,000 mg Softgel] Omeprazole 40 mg PO DAILY 11/13/16 11/13/16 History Simvastatin 20 mg PO HS 11/13/16 11/13/16 History Vitamin B Complex Vit C No.4 150 mg PO DAILY 11/13/16 11/13/16 History [Super B Complex] Allergies Allergy/AdvReac Type Severity Reaction Status Date / Time Sulfa (Sulfonamide Allergy Intermediate [place] Verified 11/19/16 16:56 Antibiotics) [facility] Patient Stated Medical History Cataracts Yes: both eyes Glaucoma Yes Cardiac Arrhythmia Yes: Afib Hypertension Yes Other Cardiology Yes: Mitral valve problem, L pacemaker Sleep Apnea No Constipation No Gastroesophageal Reflux Yes Disease Other GI ibs, ischemic colitis Hx Incontinence No Hx Renal Disease No Other Hematologic Yes: Takes Warfarin QD Other Musculoskeletal Yes: Osteoporosis Depression Yes Surgical History: Heart valve replacement (mitral), pacemaker, wrist surgery following fracture Family History: reviewed and noncontributory - Social History Smoking status: Never smoker Substance use type: does not use Alcohol intake frequency: does not drink Review of Systems All systems PM: 10-point ROS was reviewed, no additional remarkable complaints except - Constitutional Constitutional: Present: chills, malaise - EENMT Eyes: Absent: change in vision Mouth/Throat: Present: sores (on lips) - Cardiovascular Cardiovascular: Absent: chest pain - Respiratory Respiratory: Present: cough, dyspnea (was on O2) - Gastrointestinal Gastrointestinal: Present: diarrhea (since admission). Absent: nausea, vomiting - Genitourinary Genitourinary: Absent: dysuria - Musculoskeletal Musculoskeletal: Absent: arthralgias - Integumentary/Breasts Integumentary: Absent: rash - Neurological Neurological: Absent: headache(s) Exam Vital Signs: Temperature 98.3 F 11/20/16 08:00 Pulse Rate 86 11/20/16 08:00 Respiratory Rate 18 11/20/16 08:00 Blood Pressure 103/62 11/20/16 08:00 Pulse Oximetry 99 11/20/16 08:00 Height/Weight/BMI: Height 1.73 m Weight 67 kg Body Mass Index 22.4 - Constitutional Present: no acute distress, well nourished, well developed - Routine HEENT Exam Head: Present: normocephalic, atraumatic Eye: Present: EOMI, PERRL. Absent: scleral injection ENT: Present: mucous membranes moist Comments: lesions of crusted blood on lower lips - Routine Neck Exam Present: supple. Absent: lymphadenopathy - Routine Respiratory Exam Present: CTA bilaterally. Absent: accessory muscle use - Routine Cardiovascular Exam Present: RRR. Absent: murmur - Routine Abdominal Exam Present: soft, normoactive bowel sounds, non distended, non tender. Absent: rebound, guarding - Routine Exam Comments: no anderson, no bladder distention - Routine Extremities Exam Absent: cyanosis, clubbing, edema, joint swelling - Routine Back/Spine/Pelvis Exam Back/Spine: Present: full ROM - Routine Skin Exam Present: intact. Absent: rash - Routine Neurological Exam Present: alert, oriented X3, CN II-XII intact. 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 I'll give her some acyclovir for her lip lesions.
--- NOTE | 2016-11-20 11:36 | IRU 24Hr Post Admit Eval ---
24 Hr Post Admission Physical - Relevant Changes Relevant Changes: No Reviewed: I have reviewed the patient's information and concur with the finding and results of the pre-admission screen. Certification: I certify the patient for rehabilitation. - Patient Condition (1) Myopathy Status: Acute Code(s): G72.9 - Myopathy, unspecified Classification: Present on IRF Admission, IRF Tx That Should Address Diagnosis, Diagnosis Requiring Medical Follow Up (2) Atrial fibrillation Status: Chronic Qualifiers: Atrial fibrillation type: chronic Qualified Code(s): I48.2 - Chronic atrial fibrillation Code(s): I48.91 - Unspecified atrial fibrillation Classification: Present on IRF Admission, IRF Tx That Should Address Diagnosis, Diagnosis Requiring Medical Follow Up (3) Acute respiratory failure with hypoxia Status: Acute Code(s): J96.01 - Acute respiratory failure with hypoxia Classification: Present on IRF Admission, IRF Tx That Should Address Diagnosis, Diagnosis Requiring Medical Follow Up (4) Pulmonary infiltrates on CXR Status: Acute Code(s): R91.8 - Other nonspecific abnormal finding of lung field Classification: Present on IRF Admission, IRF Tx That Should Address Diagnosis, Diagnosis Requiring Medical Follow Up (5) Pneumonia Status: Acute Qualifiers: Pneumonia type: due to methicillin-sensitive Staphylococcus aureus (MSSA) Laterality: right Lung location: lower lobe of lung Qualified Code(s): J15.211 - Pneumonia due to Methicillin susceptible Staphylococcus aureus Code(s): J18.9 - Pneumonia, unspecified organism Classification: Present on IRF Admission, IRF Tx That Should Address Diagnosis, Diagnosis Requiring Medical Follow Up (6) Staph aureus infection Status: Acute Code(s): A49.01 - Methicillin susceptible Staphylococcus aureus infection, unspecified site Classification: Present on IRF Admission, IRF Tx That Should Address Diagnosis, Diagnosis Requiring Medical Follow Up - Prior Functional Status Lives With: Alone Residence Type: Apartment/Private Home Assitive Devices: Front Wheeled Walker Prior Functional Status: Indep. at home or school, Used assistive device - Current Functional Status Current Level of Function: Ration is currently maximal assistance for grooming, upper and lower body dressing. She is total assistance for toileting and bed/chair/wheelchair transfers. She is total assistance for walking with a rolling walker and can walk only 18 feet. Failed Alternative Therapy: Arrived from Acute Care Patient Requirements: The patient requires oversight by rehabilitation physician to manage their rehabilitation treatment plan and multidisciplinary approach to care that can only be provided in an IRF and requires a multidisciplinary approach to care, provided by professional PTs, OTs, STs, dieticians, RTs, rehabilitation nurses and is not available in lesser levels of care. Limitations Req: Mobility Impairment, ADL Impairment, Respiratory Impairment Physical Therapy Minutes: 90 Occupational Therapy Minutes: 90 Therapy: The patient is to receive therapy at least 5 days a week. - Complications/Comorbidities Impact on Functional Outcomes: The patient's critical illness myopathy will impact her functional recovery. However it is anticipated that she will be at least modified independent functioning at the conclusion of therapy. Barriers to Discharge: Weakness, Balance, Endurance, Medical Limitation - Plan to Avoid Complications Plan to Avoid Complications: The patient cannot receive this care in a lesser intensive setting such as [facility] or Outpatient Therapy due to the patient requiring the following : Close monitoring of patient's oxygen saturations, vital signs and evidence of recurrence of her staph aureus infection/pneumonia. .
[2016-11-20] MEDS ORDERED: WARFARIN 3 MG TABLET PO SCH (12:00)
[2016-11-20] MEDS: HYDROCODONE/APAP 5mg/325mg TABLET PO PRN ×2 (13:45→19:50)
[2016-11-20] MEDS: SIMVASTATIN 20 MG TABLET PO SCH (22:07)
[2016-11-20] MEDS: LATANOPROST 0.005% EYE DROPS 2.5ml EACH EYE SCH (22:07)
[2016-11-20] MEDS: ACYCLOVIR 200 MG CAPSULE PO SCH (22:15)
[2016-11-21] MEDS: CEFAZOLIN 2 G in NS 100 ML IV SCH ×2 (00:47→09:47)
[2016-11-21] MEDS: HYDROCODONE/APAP 5mg/325mg TABLET PO PRN ×2 (02:01→07:51)
[2016-11-21] MEDS: LEVOTHYROXINE 88 MCG TABLET PO SCH (05:42)
[2016-11-21] MEDS ORDERED: LOPERAMIDE 2 MG CAPSULE PO SCH (06:30)
[2016-11-21] MEDS: ALBUTEROL 2.5mg/3ml (0.083%) NEB AEROSOL SCH ×2 (07:09→11:22)
[2016-11-21] MEDS ORDERED: ACYCLOVIR 200 MG CAPSULE PO SCH (09:00)
[2016-11-21] MEDS ORDERED: NS 1,000 ML IV SCH (09:30)
[2016-11-21] MEDS: MORPHINE SULFATE 2mg INJECTION IVP PRN ×2 (09:46→11:12)
[2016-11-21] MEDS: LACTOBACILLUS (15B cfu) CAPSULE PO SCH ×2 (09:51→12:07)
[2016-11-21] MEDS: FERROUS SULFATE 324 MG TABLET PO SCH (09:51)
[2016-11-21] MEDS: POTASSIUM ACID PHOSPHATE 500 MG TABLET PO SCH ×2 (09:58→12:07)
[2016-11-21] MEDS: ACYCLOVIR 200 MG CAPSULE PO SCH ×2 (10:02→12:08)
[2016-11-21] MEDS: MULTI-VITAMIN + MINERAL TABLET PO SCH (10:03)
[2016-11-21] MEDS: CALCIUM 500 + VIT D 200 TABLET PO SCH (10:03)
[2016-11-21] MEDS: ENOXAPARIN 80 MG/0.8 ML INJECTION SQ SCH (10:03)
--- NOTE | 2016-11-21 10:18 | IRU Progress Note ---
- Subjective/Serverity of Illness Ms. Jimenez was interviewed and examined in her room with her sister present. She is worse today. Sometime in the middle of night she had rather sudden onset of worsening right posterior/lateral and somewhat anterior abdominal pain. Mainly it appears to be in the right flank posteriorly. She is tender to palpate in the right posterior flank but also tender over the lower ribs on the right side and even tender in the posterior superior iliac crest area. She says that she has had a low-grade sensation here for some time, even prior to coming into the hospital but it became suddenly worse last night. She says that she is known to have a compression fracture of the lumbar spine about a year or year and a half ago. She has not fallen recently. She says that her breathing is doing fine. She denies any dysuria or frequency. She is afebrile. Her oxygen saturations are good. She has been evaluated by the hospitalist team. A CT scan of the abdomen and pelvis has been ordered. She says that her breathing is doing fairly well. Does not really have much in the way of cough. Her saturations are normal. She denies any nausea or vomiting. She does have 12% bands with a normal total white count. Her hemoglobin is down to 7.3. The following medical conditions are noted and require active monitoring and/or management: 1. Critical illness myopathy: She continues to have significant muscle weakness in the lower extremities as well as somewhat in the upper extremities. 2. Acute hypoxemic respiratory failure: She has required supplemental oxygen. At the present time her saturations are adequate off of oxygen. 3. Hypokalemia: She has received replacement potassium and now her potassium is improved. 4. Recent Severe Sepsis with positive blood cultures for staph aureus. She remains on intravenous cefazolin. 5. Diarrhea with negative stool screen. She reports a history of ischemic colitis several years ago. She does have irritable bowel syndrome. She does have abdominal pain/right flank pain today. 6. New right flank pain: Differential considerations would include acute pyelonephritis, kidney stone, musculoskeletal such as rib injury or compression fracture. 7. Worsening anemia: This is of unclear etiology. Exam Vital Signs: Temperature 98.1 F 11/21/16 08:00 Pulse Rate 87 11/21/16 08:11 Respiratory Rate 24 11/21/16 08:00 Blood Pressure 105/58 11/21/16 08:11 Pulse Oximetry 97 11/21/16 08:00 Height/Weight/BMI: Height 1.73 m Weight 67 kg Body Mass Index 22.4 Comments: The patient is awake, alert and oriented. However she is in acute painful distress regarding the right flank. Pupils are equal. The neck is supple. Chest: Clear to auscultation bilaterally. Cor: Irregular rhythm with no gallop. She has normal porcine valve prosthetic sound click. I do not hear much in the way of a murmur at present. Abd: The abdomen is soft and she has normoactive bowel sounds. However she is tender in the right upper and mid abdomen. No masses are present. She is also tender in the right posterior flank area. The right inferior ribs are tender to palpate along with the right posterior superior iliac crest. Extremities: No edema is noted. There are good pulses in both ankles. No cyanosis is present. Results IRU - Labs Labs: She has 12% bands with a normal white count. Hemoglobin is down to 7.3 g percent. I have reviewed all labs and vital signs etc. Iron studies are pending. Liver enzymes are normal. She does have 6% metamyelocytes which either represents an active bone marrow or the possibility of an underlying leukemic/ neoplastic process. IRU A/P (1) Myopathy Current visit: Yes Status: Acute Continues to have significant muscle weakness in the upper and lower extremities bilaterally. This is felt to be secondary to her recent critical illness with sepsis. We are going to need to hold therapy today because of her recurrent worsened right flank pain until this is further delineated. (2) Atrial fibrillation Qualifiers: Atrial fibrillation type: chronic Qualified Code(s): I48.2 - Chronic atrial fibrillation Current visit: No Status: Chronic Her INR is 1.31. (3) Acute respiratory failure with hypoxia Current visit: No Status: Resolved She has not required oxygen and I think this problem is currently resolved. (4) Pulmonary infiltrates on CXR Current visit: No Status: Acute (5) Pneumonia Qualifiers: Pneumonia type: due to methicillin-sensitive Staphylococcus aureus (MSSA) Laterality: right Lung location: lower lobe of lung Qualified Code(s): J15.211 - Pneumonia due to Methicillin susceptible Staphylococcus aureus Current visit: No Status: Acute Exam the lungs is fairly unremarkable. She may have some decreased breath sounds on the right but is not prominent. I cannot sit her up well to listen to her entire back however. Clinically she is doing well with regard to lack of fever and no cough. She is oxygenating well. She remains on cefazolin. (6) Staph aureus infection Current visit: No Status: Acute (7) Anemia Qualifiers: Anemia type: unspecified type Qualified Code(s): D64.9 - Anemia, unspecified Current visit: Yes Status: Acute She has worsening anemia of uncertain etiology. Iron studies are pending. She is producing some metamyelocytes indicative of an overactive bone marrow versus underlying neoplastic process. DVT Prophylaxis: SCD's, Coumadin Resuscitation Status: Full Code - Course Hospital Course: Golden Boyer MD: 11/21/16 10:23 Unfortunately she has developed worsening right flank pain today. Workup is in progress including blood work, CT abdomen and pelvis and repeat clinical exam. She is unable to do therapy today so this will be held for 24 hours. Her anemia is of concern. There is no obvious evidence of blood loss. She is producing some metamyelocytes which raises other issues. She has 12% bands. Workup is in progress. - Interventions to Obtain Goals PT Treatment Plan: Balance/Proprioception, Functional Activities, Gait Training , Patient/Family Education OT Treatment Plan: ADL (Basic Care), Balance Training, IADL, Pt./Family Education, Ther. Exercise for ADL Goals Progress/Modifications: Time spent with patient and on floor reviewing data and documentin min Barriers to dismissal: new right flank pain, muscle weakness Medical decision-making: The patient has developed a multitude of difficult issues. She has right flank pain of uncertain cause. She is very debilitated by this and we are needed to hold therapy today. In addition, she has 12% bands with a normal white count. She has 6% metamyelocytes which raises the possibility of an underlying bone marrow process. She remains afebrile and is oxygenating adequately. CT scan has been ordered. We have discussed with the hospitalist service and are coordinating our therapy with them. Please note that the patient's individual plan of care was developed and documented today, requiring review of therapy notes, medical conditions and anticipated functional recovery. This required additional medical decision making with regard to interaction of the patient's medical issues with the anticipated functional recovery. Please see separate document
--- NOTE | 2016-11-21 10:28 | IRU Plan of Care ---
[facility] Overall Plan of Care - Date Date: 11/21/16 - Patient Impairments (1) Myopathy Code(s): G72.9 - Myopathy, unspecified Status: Acute Classification: Present on IRF Admission, IRF Tx That Should Address Diagnosis, Diagnosis Requiring Medical Follow Up (2) Atrial fibrillation Qualifiers: Atrial fibrillation type: chronic Qualified Code(s): I48.2 - Chronic atrial fibrillation Code(s): I48.91 - Unspecified atrial fibrillation Status: Chronic Classification: Present on IRF Admission, IRF Tx That Should Address Diagnosis, Diagnosis Requiring Medical Follow Up (3) Acute respiratory failure with hypoxia Code(s): J96.01 - Acute respiratory failure with hypoxia Status: Resolved Classification: Present on IRF Admission, IRF Tx That Should Address Diagnosis, Diagnosis Requiring Medical Follow Up (4) Pulmonary infiltrates on CXR Code(s): R91.8 - Other nonspecific abnormal finding of lung field Status: Acute Classification: Present on IRF Admission, IRF Tx That Should Address Diagnosis, Diagnosis Requiring Medical Follow Up (5) Pneumonia Qualifiers: Pneumonia type: due to methicillin-sensitive Staphylococcus aureus (MSSA) Laterality: right Lung location: lower lobe of lung Qualified Code(s): J15.211 - Pneumonia due to Methicillin susceptible Staphylococcus aureus Code(s): J18.9 - Pneumonia, unspecified organism Status: Acute Classification: Present on IRF Admission, IRF Tx That Should Address Diagnosis, Diagnosis Requiring Medical Follow Up (6) Staph aureus infection Code(s): A49.01 - Methicillin susceptible Staphylococcus aureus infection, unspecified site Status: Acute Classification: Present on IRF Admission, IRF Tx That Should Address Diagnosis, Diagnosis Requiring Medical Follow Up (7) Anemia Qualifiers: Anemia type: unspecified type Qualified Code(s): D64.9 - Anemia, unspecified Code(s): D64.9 - Anemia, unspecified Status: Acute (8) Acute right flank pain Code(s): R10.9 - Unspecified abdominal pain Status: Acute Classification: IRF Tx That Should Address Diagnosis, Diagnosis Requiring Medical Follow Up, Complications Since IRF Admission - Relevant Changes Relevant Changes: No Reviewed: I have reviewed the patient's information and concur with the finding and results of the pre-admission screen. Certification: I certify the patient for rehabilitation. - Medical Prognosis Medical Prognosis: Good Vital Signs: Last Vital Signs Temp 98.1 F 10/10/17 08:00 Pulse 87 11/21/16 08:11 Resp 24 11/21/16 08:00 BP 105/58 11/21/16 08:11 Pulse Ox 97 11/21/16 08:00 - Anticipated Interventions Anticipated Interventions: The patient requires inpatient IRF care for PT, OT, and/or ST for residuals remaining from sepsis and pneumonia resulting in muscular weakness and strength deficits. - Current Functional Status Failed Alternative Therapy: Arrived from Acute Care Patient Requires: The patient requires oversight by rehabilitation physician to manage their rehabilitation treatment plan and multidisciplinary approach to care that can only be provided in an IRF and requires a multidisciplinary approach to care, provided by professional PTs, OTs, STs, dieticians, RTs, rehabilitation nurses and is not available in lesser levels of care. Physical Therapy Minutes: 90 Occupational Therapy Minutes: 90 Therapy: The patient is to receive therapy at least 5 days a week. - Anticipated LOS/Outcomes Anticipated Functional Outcome: It is anticipated the patient will able to return to her home in [place] with modified independent functioning for all ADLs and ambulation. Anticipated Length of Stay (days): 10 Anticipated DC Destination: Home Health Service Home Safety Plan: The patient will be provided with the development of a Home Safety Plan for return to a home or home-like environment and and to ensure safety post discharge. - Plan to Avoid Complications Barriers to Attaining Goals: Weakness, Endurance, Medical Limitation Plan to Avoid Complications: The patient cannot receive this care in a lesser intensive setting such as Senior Living or Outpatient Therapy due to the patient requiring the following : Close monitoring of oxygen saturations, as well as monitoring for evidence of recurrence of active infection. Also she is on intravenous antibiotics every 8 hours. .
[2016-11-21] MEDS ORDERED: NS FLUSH BAG 500ml IV PRN ×2 (11:41→13:33)
--- NOTE | 2016-11-21 11:44 | CT Scan Report ---
Indication: severe R sided abd/hip pain PROCEDURE: CT abdomen pelvis w con: Encounter: Initial Comparison: CT abdomen and pelvis dated November 13, 2016 Technique: Axial CT images were performed through the abdomen and pelvis after the administration of intravenous contrast. Coronal and sagittal two-dimensional reformats. Automated Exposure Control and Iterative Reconstruction dose reducing techniques were utilized. Contrast: Omnipaque 300 89 mL Findings: New small right pleural effusion with right lower lobe atelectasis. New large right retroperitoneal hemorrhage with fluid hematocrit levels present suggesting that it is somewhat subacute. There is inflammation in the right retroperitoneum. This displaces the right kidney anteriorly. Hemorrhage extends along the right has musculature. The largest fluid pocket measures approximately 10 cm in craniocaudal length. The liver is also somewhat displaced by this process. Liver enhances normally. Gallbladder is unremarkable. The spleen, pancreas and adrenal glands are within normal limits. Kidneys are heterogeneous with left renal cysts and cortical calcifications. No abdominal or pelvic adenopathy. Surgical clips in the right inguinal and femoral region. Bladder is grossly normal. No evidence for a bowel obstruction. Bone windows show degenerative change and scoliosis in the spine. Impression: 1. Large right retroperitoneal hemorrhage with blood products of varying ages appears to represent acute and subacute hemorrhage. No active extravasation identified. 2. Right pleural effusion. Findings were discussed with the ordering clinician Ana Cummings at 1139 November 21, 2016. .
[2016-11-21] MEDS: ASCORBIC ACID 500 MG TABLET PO SCH (12:08)
[2016-11-21] MEDS: DiphenhydrAMINE 25 MG CAPSULE PO ONE ×2 (12:08→13:33)
[2016-11-21] MEDS: OMEPRAZOLE 20 MG CAPSULE PO SCH (12:08)
[2016-11-21] MEDS: REFRESH CLASSIC Eye Drops 0.4ml EACH EYE SCH (12:08)
[2016-11-21] MEDS ORDERED: HYDROMORPHONE 2 MG/ML INJECTION IVP PRN (12:17)
--- NOTE | 2016-11-21 12:42 | Progress Note ---
Progress Note: As noted previously, the patient developed severe right flank pain. She was evaluated by myself as well as the hospitalist team. A CT abdomen and pelvis was obtained demonstrating a retroperitoneal bleed on the right side. I have discussed the case with Dr. Miller personally as well as with the patient. The patient has been fully advised that she does have a bleed. Right now she appears to be stable. Her blood pressure is above 100. Her oxygen saturation is doing well. IV fluids have been ordered as well as pain medication. In addition blood transfusion has been ordered. Dr. Miller has indicated she will check with Dr. Izaguirre, surgery for his input. At present, we will continue monitoring her carefully here with hourly vital signs and close reassessment. However if she deteriorates with regard to blood pressure control etc. we will need to transfer to acute care. I have personally assessed the patient just now as well as earlier this morning and have been in close communication with Dr. Miller recently.
[2016-11-21] MEDS ORDERED: ACETAMINOPHEN 325 MG TABLET PO ONE (13:25)
--- NOTE | 2016-11-21 14:07 | Discharge Instructions ---
Discharge Plan - Med Rec/Dispo Referrals/Follow Up: Susan Miller MD [Physician] - Prescriptions: New Acyclovir [Zovirax] 400 mg PO 5XD capsule Albuterol Neb (0.083%) [Proventil Neb (0.083%)] 2.5 mg AEROSOL RTQID neb Hydromorphone [Dilaudid] 0.5 mg IVP Q3H PRN vial PRN Reason: Pain NS FLUSH BAG 500ml [Normal Saline] 500 ml IV PRN PRN iv.soln PRN Reason: Hypotension Ondansetron Inj [Zofran] 4 mg IVP Q6H PRN vial PRN Reason: Nausea &/Or Vomiting Potassium Acid Phosphate Tab [K-Phos Original] 1,000 mg PO WMHS tablet Saline Flush [IV Flush] 10 - 80 ml IVF PRN PRN syringe PRN Reason: Flushing Cefazolin [Kefzol] 2 g IV Q8HR vial Acetaminophen [Tylenol] 500 mg PO Q5H PRN tablet PRN Reason: Discomfort Acidoph/L.bulg/Bif.b/S.thermop [Bacid Caplet] 2 cap PO TIDWM tablet Loperamide [Imodium] 2 mg PO ACB capsule Polyvinyl Alcohol/Povidone O/S [Refresh Classic] 1 drop EACH EYE BID amp Simethicone [Mylicon] 80 mg PO PCHS PRN tab.chew PRN Reason: Gas Continue Latanoprost 2.5 ml OP HS Levothyroxine Sodium 88 mcg PO DAILY Ascorbate Calcium [Vitamin C] 500 mg PO DAILY Ferrous Sulfate 325 mg PO DAILY Multivit-Min/Iron/Folic/Lutein [Centrum Silver Women Tablet] 1 each PO DAILY Calcium Carbonate/Vitamin D3 [Calcium 500+D Tablet Chew] 1 each PO BID Artificial Tears [Tears Naturale] 1 drop EACH EYE BID Omeprazole 40 mg PO DAILY LORazepam [Ativan] 0.5 mg PO TID PRN PRN Reason: Anxiety Simvastatin 20 mg PO HS Discontinued Hyoscyamine [Levsin] 0.125 mg PO Q4HPRN PRN PRN Reason: Prn Orders Metoprolol Tartrate [Lopressor] 50 mg PO DAILY Hydrocodone/APAP 5/325 [[place] 5/325] 1 tab PO Q4-6HPRN PRN PRN Reason: Pain No Action Vitamin B Complex Vit C No.4 [Super B Complex] 150 mg PO DAILY Acetaminophen [Tylenol] 500 mg PO Q6HPRN PRN PRN Reason: Pain Alendronate Sodium 70 mg PO WEEKLY Dicyclomine [Bentyl] 20 mg PO TID Albuterol Neb (0.083%) [Proventil Neb (0.083%)] 2.5 mg AEROSOL RTQID neb Enoxaparin Sodium [Lovenox] 70 mg SQ BID syringe Loperamide [Imodium] 2 mg PO PRN PRN capsule PRN Reason: Diarrhea Warfarin [Coumadin] 3 mg PO NOON #30 tab Methylcellulose (with Sugar) [Citrucel Powder] 2,000 gm PO DAILY [place]-3/Dha/Epa/Fish Oil [Fish Oil 1,000 mg Softgel] 1 each PO QID Betaxolol HCl [Betoptic S] 2 drops OP BID Acidoph/L.bulg/Bif.b/S.thermop [Bacid Caplet] 2 cap PO TIDWM tablet Simethicone [Mylicon] 80 mg PO PCHS PRN tab.chew PRN Reason: Gas Cefazolin [Kefzol] 2 g IV Q8HR vial Discharge Instructions/Outpatient Orders: Provider Discharge Instructions Location: Determined By Patient - Disposition 02 Acute Care Hosp, Other
--- NOTE | 2016-11-21 14:17 | Discharge Summary ---
Discharge Information Date of admission: 11/19/16 13:53 Anticipated date of discharge: 11/21/16 Attending Physician: Golden Boyer MD Consults: 11/19/16 14:37 Physician Consult [CONS] Routine Consulting Provider: Susan Miller Reason For Exam: Medical management Ordering Provider has Notified Manager Clinical Informatics: Yes 11/20/16 07:56 Physician Consult [CONS] Routine Consulting Provider: Mackenzie David Reason For Exam: mssa bacteremia, pneumonia Ordering Provider has Notified Manager Clinical Informatics: Yes - Discharge Diagnosis (1) Myopathy Status: Acute Discharge Diagnosis: Critical illness myopathy (2) Atrial fibrillation Status: Chronic Discharge Diagnosis: Chronic atrial fibrillation (3) Pulmonary infiltrates on CXR Status: Acute (4) Pneumonia Status: Acute Discharge Diagnosis: Staph aureus, methicillin sensitive, pneumonia (5) Staph aureus infection Status: Acute (6) Anemia Status: Acute Discharge Diagnosis: Acute blood loss anemia (7) Acute right flank pain Status: Acute (8) Retroperitoneal bleed Status: Acute Discharge Diagnosis: Acute right retroperitoneal bleed - Laboratory Labs: 11/21/16 12:09 11/21/16 04:07 History of Present Illness HPI: 11/21/16 14:12 Ms. Jimenez lives in [facility]. She was here visiting her sister for her birthday. She developed weakness and chills and presented to the emergency department. She was found to have positive blood cultures with staph aureus, methicillin sensitive. Chest x-ray was abnormal and she did have evidence of an acute pneumonia. Sputum did grow staph aureus also pansensitive. While on acute care she was initially treated with IV fluids due to severe sepsis. She was treated with vancomycin initially and then this was transitioned to cefazolin after the sensitivities became available. She does have a porcine mitral valve as well as chronic atrial fibrillation. A CARLITOS was performed failing to reveal evidence of valvular vegetation. Her ejection fraction was moderately reduced at around 50%. Abdominal pelvic CT scan done while on acute showed some gallbladder sludge but nothing as dramatic. She improved while on acute care and was felt to be an excellent candidate for acute inpatient rehabilitation where she was transferred. Hospital Course This is a general summary of the patient's hospital course. For more details refer to the complete medical record. After the patient was admitted to the acute rehabilitation unit, individualized program was developed for physical therapy and occupational therapy. She had previously been evaluated by speech therapy but it was not felt she would be a candidate for this component. Medical issues included recent evidence of acute hypoxemic respiratory failure requiring new use of oxygen, critical illness myopathy in view of her sepsis and hospitalization and recent sepsis. The patient was getting started with therapy. 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 She said that she had had some "inkling" of this previously but had not mentioned it. It became suddenly worse early this morning. It was quite severe. She was evaluated by Dr. Boyer, rehabilitation medical photographer as well as by the hospitalist service, Dr. Miller. She was tender in the right posterior flank area. Hemoglobin demonstrated a drop down to around 7.3 g percent. She did have an episode of hypotension and tachycardia which rapidly resolved. IV fluids were begun. CT scan of the abdomen and pelvis was performed urgently demonstrating a large right retroperitoneal bleed with a mixture of old and new blood components. Therefore this could have been a subacute bleed. It is noted that her INR was not particularly elevated (it was 1.31). The Coumadin was discontinued along with the Lovenox. Hemoglobin dropped further to 6.3 g percent. Packed red blood cells were ordered. She was transferred to the intensive care unit for further close monitoring by the hospitalist service. Throughout this time, we maintained close communication with Dr. Miller as well as reassessing the patient on several occasions. At the time of transfer her blood pressure was 115. She is awake and alert. She states that the Dilaudid has helped her discomfort. Hospital course: Impression Bacteremia- staph aureus on blood cultures Severe sepsis on recent admission-resolved Acute hypoxic respiratory failure-improving pneumonia with staph aureus in sputum-appears to be same species as an blood cultures, all are pansensitive Pulmonary edema with bilateral pleural effusions-improved with diuresis Debility secondary to illness Mitral Heart valve replacement -tissue valve Pacemaker Atrial fibrillation - anticoagulation therapy Hypothyroidism GERD Osteoporosis Iron deficiency anemia Anxiety Irritable bowel syndrome-diarrhea prominent Glaucoma Chronic back pain secondary to old compression fracture-stable 11/20/16 - hospitalist consult Agree with IRU admission for improving strength and functional abilities. Continue anticoagulation for atrial fibrillation. Pharmacy to manage. Dr. David saw patient today. She needs 4 weeks of IV antibiotics from the date of her negative blood culture 10/4/17. She can stay on cefazolin until discharge. Upon discharge, could consider once a day IV antibiotic to finish therapy. Continue nebulizer treatments and oxygen PRN. Continue incentive spirometry. Will monitor blood counts and electrolytes given her history of hypokalemia, hypernatremia and leukocytosis during her acute stay. Her hemoglobin continues to drop. Monitor closely. Continue home medications for her chronic medical problems. Appreciate the consult. We will continue to follow patient with you throughout her stay Time spent with patient: 25 - 35 minutes Discharge Plan - Med Rec/Dispo Referrals/Follow Up: Susan Miller MD [Physician] - Prescriptions: New Acyclovir [Zovirax] 400 mg PO 5XD capsule Albuterol Neb (0.083%) [Proventil Neb (0.083%)] 2.5 mg AEROSOL RTQID neb Hydromorphone [Dilaudid] 0.5 mg IVP Q3H PRN vial PRN Reason: Pain NS FLUSH BAG 500ml [Normal Saline] 500 ml IV PRN PRN iv.soln PRN Reason: Hypotension Ondansetron Inj [Zofran] 4 mg IVP Q6H PRN vial PRN Reason: Nausea &/Or Vomiting Potassium Acid Phosphate Tab [K-Phos Original] 1,000 mg PO WMHS tablet Saline Flush [IV Flush] 10 - 80 ml IVF PRN PRN syringe PRN Reason: Flushing Cefazolin [Kefzol] 2 g IV Q8HR vial Acetaminophen [Tylenol] 500 mg PO Q5H PRN tablet PRN Reason: Discomfort Acidoph/L.bulg/Bif.b/S.thermop [Bacid Caplet] 2 cap PO TIDWM tablet Loperamide [Imodium] 2 mg PO ACB capsule Polyvinyl Alcohol/Povidone O/S [Refresh Classic] 1 drop EACH EYE BID amp Simethicone [Mylicon] 80 mg PO PCHS PRN tab.chew PRN Reason: Gas Continue Latanoprost 2.5 ml OP HS Levothyroxine Sodium 88 mcg PO DAILY Ascorbate Calcium [Vitamin C] 500 mg PO DAILY Ferrous Sulfate 325 mg PO DAILY Multivit-Min/Iron/Folic/Lutein [Centrum Silver Women Tablet] 1 each PO DAILY Calcium Carbonate/Vitamin D3 [Calcium 500+D Tablet Chew] 1 each PO BID Artificial Tears [Tears Naturale] 1 drop EACH EYE BID Omeprazole 40 mg PO DAILY LORazepam [Ativan] 0.5 mg PO TID PRN PRN Reason: Anxiety Simvastatin 20 mg PO HS Discontinued Hyoscyamine [Levsin] 0.125 mg PO Q4HPRN PRN PRN Reason: Prn Orders Metoprolol Tartrate [Lopressor] 50 mg PO DAILY Hydrocodone/APAP 5/325 [[place] 5/325] 1 tab PO Q4-6HPRN PRN PRN Reason: Pain No Action Vitamin B Complex Vit C No.4 [Super B Complex] 150 mg PO DAILY Acetaminophen [Tylenol] 500 mg PO Q6HPRN PRN PRN Reason: Pain Alendronate Sodium 70 mg PO WEEKLY Dicyclomine [Bentyl] 20 mg PO TID Albuterol Neb (0.083%) [Proventil Neb (0.083%)] 2.5 mg AEROSOL RTQID neb Enoxaparin Sodium [Lovenox] 70 mg SQ BID syringe Loperamide [Imodium] 2 mg PO PRN PRN capsule PRN Reason: Diarrhea Warfarin [Coumadin] 3 mg PO NOON #30 tab Methylcellulose (with Sugar) [Citrucel Powder] 2,000 gm PO DAILY [place]-3/Dha/Epa/Fish Oil [Fish Oil 1,000 mg Softgel] 1 each PO QID Betaxolol HCl [Betoptic S] 2 drops OP BID Acidoph/L.bulg/Bif.b/S.thermop [Bacid Caplet] 2 cap PO TIDWM tablet Simethicone [Mylicon] 80 mg PO PCHS PRN tab.chew PRN Reason: Gas Cefazolin [Kefzol] 2 g IV Q8HR vial Discharge Instructions/Outpatient Orders: Provider Discharge Instructions Location: Determined By Patient
[2016-11-21 14:37] VITALS: BP 120/56; RESP 24; TEMP 97.5; O2SAT 98
[2016-11-21 15:19] VITALS: PULSE 77
== END 2016-11-21 14:50 | disposition short-term general hospital (02) | DRG 91 ==
PROVIDERS: ADMIT Internal Medicine; ATTEND Internal Medicine

== ENCOUNTER 2016-11-21 14:12 | Inpatient (IN) ==
[2016-11-21] MEDS ORDERED: NS 1,000 ML IV SCH (15:15)
[2016-11-21] MEDS ORDERED: SIMETHICONE 80 MG CHEWABLE TABLET PO PRN (15:15)
[2016-11-21] MEDS ORDERED: HYOSCYAMINE 0.125 MG ORAL TABLET PO PRN (15:15)
[2016-11-21] MEDS ORDERED: FALL RISK - PHARMACY CONSULT XX ONE ×3 (15:15)
[2016-11-21] MEDS ORDERED: LOPERAMIDE 2 MG CAPSULE PO PRN (15:15)
[2016-11-21] MEDS ORDERED: ACETAMINOPHEN 500 MG TABLET PO PRN ×3 (15:15→19:27)
[2016-11-21] MEDS ORDERED: NS FLUSH BAG 500ml IV PRN ×2 (15:15)
--- OUTSIDE RECORDS SUMMARY | 2016-11-21 15:16 | External Medical Summary ---
[...] Date Status Dosage System Date meloxicam NDC 57629 15 mg orally Apr 02, 1 tab(s) once a day 2013 Vitamin D NDC 6150 2000 units po Nov 12, 1 daily 2011 compression hose NDC 0 knee Dec 02, wear it for leg 2010 during day time bilateral lower legs Betoptic S NDC 3302 0.25% in each 2 gtt affected eye 2 times a day lorazepam NDC 33263 0.5 mg orally 3 May 19, 1 tab(s) times a day prn 2014 levothyroxine NDC 91430 75 mcg (0.075 Dec 26, 1 tab(s) mg) orally once 2012 a day Centrum Silver NDC 8497 Therapeutic 1 tab(s) Multiple Vitamins with Minerals orally once a day warfarin NDC 91947 5mg orally once 1 tab(s) a day except take 2.5mg on Sun, Artificial Tears NDC 6389 preserved in 1 gtt each eye 2 times a day alendronate NDC 65910 70 mg orally Nov 16, 1 tab(s) once a week 2011 Florastor NDC 26284 250 mg orally 1 cap(s) daily simvastatin NDC 14409 40 mg orally June 12, 1 tab(s) once a day (at 2013 bedtime) alendronate NDC 14146 70 mg orally Oct 14, 1 tab(s) once a week 2013 fish oil NDC 13665 1000mg po daily Jan 20, 4 cap s 2010 calcium and NDC 66944 500 mg-400 intl 1 tab(s) vitamin D units chewed 2 combination times a day Tylenol NDC 6732 500 mg orally Oct 06, 2 tab(s) every 6 hours 2009 metoprolol NDC 97588 25 mg orally 2 1 tab(s) times a day omeprazole NDC 81362 40 mg orally August 20, 1 cap(s) once a day 2011 Procedures Procedure Coding System Code Date Office Visit, estab pt, Level 4 CPT-4 00808 May 19, 2014 Vital Signs Date/Time: May 19, 2014 Blood Pressure Diastolic 58 mm Hg Blood Pressure Systolic 110 mm Hg Weight 154.8 lbs Pain Scale 8 feet 0-10 Results No Known Results Summary Purpose eClinicalWorks Submission
[2016-11-21 15:50] VITALS: BMI 23.4
--- NOTE | 2016-11-21 15:55 | History & Physical Report ---
<Ana Cummings - Last Filed: 11/21/16 16:02> History of Present Illness Date: 11/21/16 Chief complaint: retroperitoneal bleed HPI: Patient is a 76-year-old female who resides in [place] but was here visiting her sister who lives in [place] when she developed fever and chills. She was admitted to [facility] on 11/13/16 with sepsis. She grew out Staphylococcus aureus from both blood culture sites and sputum culture. Vancomycin was initiated the evening of 11/13/16 and continued through 11/15/16. Cefazolin was started 11/15/16 when sensitivities were resulted. She developed pulmonary edema, hypophosphatemia and hypokalemia. She was given Lasix, phosphorus and potassium to correct this. Dr. Ramirez was consulted for her increasing oxygen needs and pulmonary edema. She had no interventions other than medical management including Lasix and continued antibiotics, breathing treatments and oxygen supplementation. On 11/17/16 she had CARLITOS with Dr. Rowe to rule out vegetation on her artificial valve. Fortunately, this was negative for vegetation. Her Coumadin was resumed and Lovenox was started the evening of 11/17/16. She was stable on the medical unit and transferred to rehabilitation yesterday ( 11/20/16) for continued strengthening. Overnight she developed pain in her right hip and back and abdominal area. This morning she rated it at 10 out of 10. Bonduel did not help the pain. IV morphine relieved the pain some. It was also noted that her hemoglobin has been dropping. Thus, CT of the pelvis and abdomen was performed revealing a retro-peritoneal bleed. She developed some hypotension so she was started on IV fluids and was also given a unit of PRBCs. Decision was made to transfer to CCU for close monitoring given the circumstances. PFSH Medical History Mitral heart valve replacement - tissue valve Pacemaker Atrial fibrillation - anticoagulation therapy Hypothyroidism GERD Osteoporosis Iron deficiency anemia Anxiety Irritable bowel syndrome Glaucoma Surgical History: Heart valve replacement (mitral), pacemaker, wrist surgery following fracture - Social History Smoking status: Never smoker Substance use type: does not use Alcohol intake frequency: does not drink Housing: house Household members: none Current occupational status: retired Social history: PCP - Dr. 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 Ha at [facility] [phone] HONEY is her daughter, Danyelle Jimenez (Lives in [place], [place]) Medications Home Medications Medication Instructions Recorded Confirmed Type Acetaminophen [Tylenol] 500 mg PO Q6HPRN PRN 11/13/16 11/21/16 History Alendronate Sodium 70 mg PO WEEKLY 11/13/16 11/21/16 History Artificial Tears [Tears Naturale] 1 drop EACH EYE BID 11/13/16 11/21/16 History Ascorbate Calcium [Vitamin C] 500 mg PO DAILY 11/13/16 11/21/16 History Calcium Carbonate/Vitamin D3 1 each PO BID 11/13/16 11/21/16 History [Calcium 500+D Tablet Chew] Dicyclomine [Bentyl] 20 mg PO TID 11/13/16 11/21/16 History Ferrous Sulfate 325 mg PO DAILY 11/13/16 11/21/16 History LORazepam [Ativan] 0.5 mg PO TID PRN 11/13/16 11/21/16 History Latanoprost 2.5 ml OP HS 11/13/16 11/21/16 History Levothyroxine Sodium 88 mcg PO DAILY 11/13/16 11/21/16 History Methylcellulose (with Sugar) 2,000 gm PO DAILY 11/13/16 11/21/16 History [Citrucel Powder] Multivit-Min/Iron/Folic/Lutein 1 each PO DAILY 11/13/16 11/21/16 History [Centrum Silver Women Tablet] [place]-3/Dha/Epa/Fish Oil [Fish Oil 1 each PO QID 11/13/16 11/21/16 History 1,000 mg Softgel] Omeprazole 40 mg PO DAILY 11/13/16 11/21/16 History Simvastatin 20 mg PO HS 11/13/16 11/21/16 History Vitamin B Complex Vit C No.4 150 mg PO DAILY 11/13/16 11/21/16 History [Super B Complex] Allergies Allergy/AdvReac Type Severity Reaction Status Date / Time Sulfa (Sulfonamide Allergy Intermediate ashford Verified 11/21/16 16:55 Antibiotics) betaxolol Allergy Mild Verified 11/21/16 17:24 Exam Vital Signs: Temperature 98.9 F 11/21/16 15:34 Pulse Rate 108 H 11/21/16 15:34 Respiratory Rate 24 11/21/16 15:34 Blood Pressure 103/49 11/21/16 15:34 Pulse Oximetry 96 11/21/16 15:34 Results - Labs Microbiology Results: 11/15/16 Sputum culture-Staphylococcus aureus-pansensitive 11/13/16 both blood culture sites -Staphylococcus aureus-pansensitive - Imaging and Cardiology CARLITOS-Dr. Rowe Additional comments: 11/17/16 IMPRESSION 1. No evidence of vegetation on any of the four valves including the bioprosthesis in the mitral position. No evidence of vegetation on the pacemaker lead. 2. LV systolic function is borderline reduced, ejection fraction estimated about 50%. 3. Normal bioprosthesis in the mitral position with normal structure and motion. 4. Positive "smoke sign" seen in the left atrium indicative of procoagulant state. Chest x-ray Additional comments: Chest x-ray-11/18/16 FINDINGS: Right PICC line remains in place. Aeration of the right lung has improved. Small pleural effusions are stable. No new areas of airspace disease or pneumothorax. Heart size and mediastinal contours are unchanged. Impression: Improving appearance of the right chest. 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 Miller, for retroperitoneal bleed. Anticoagulation remains on hold. She is to continue on IV antibiotics through December 13 for her bacteremia. Continue acyclovir for herpes labialis Continue O2, DuoNeb and incentive spirometry for pneumonia Continue Imodium every morning and PRN for diarrhea Continue ferrous sulfate and ascorbic acid iron deficiency anemia Hydromorphone IV PRN pain Continue IV fluids at 125 mL per hour NPO Dr. Miller as discussed patient's case with Dr. Izaguirre. Further plan of care to be determined by Dr. Miller. Hospital Course Summary Disclaimer: The visit summary below is not to be considered part of the above Progress Note. 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 Pneumonia with staph aureus in sputum-(appears to be same species as an blood cultures, all are pansensitive)-improving Pulmonary edema with bilateral pleural effusions-improved with diuresis Debility secondary to illness Mitral Heart valve replacement -tissue valve Pacemaker Atrial fibrillation - anticoagulation therapy (currently on hold) Hypothyroidism GERD Osteoporosis Iron deficiency anemia Anxiety Irritable bowel syndrome-diarrhea prominent Glaucoma Chronic back pain secondary to old compression fracture-stable 11/21/16-admission to CCU Admit to CCU for close monitoring, under the care of Dr. Miller, for retroperitoneal bleed. Anticoagulation remains on hold. She is to continue on IV antibiotics through December 13 for her bacteremia. Continue acyclovir for herpes labialis Continue O2, DuoNeb and incentive spirometry for pneumonia Continue Imodium every morning and PRN for diarrhea Continue ferrous sulfate and ascorbic acid iron deficiency anemia Hydromorphone IV PRN pain Continue IV fluids at 125 mL per hour NPO Dr. Miller as discussed patient's case with Dr. Izaguirre. Further plan of care to be determined by Dr. Miller. <PaulSusan Dubose - Last Filed: 11/21/16 21:03> History of Present Illness Date: 11/21/16 [facility] Patient Stated Medical History Cataracts Yes: both eyes Glaucoma Yes Cardiac Arrhythmia Yes: Afib Hypertension Yes Other Cardiology Yes: Mitral valve problem, L pacemaker Sleep Apnea No Constipation No Gastroesophageal Reflux Yes Disease Other GI ibs, ischemic colitis Hx Incontinence No Hx Renal Disease No Other Hematologic Yes: Takes Warfarin QD Other Musculoskeletal Yes: Osteoporosis Sepsis Yes: 2017 Blood Transfusions Yes Depression Yes Exam Vital Signs: Temperature 97.6 F 11/21/16 16:01 Pulse Rate 108 H 11/21/16 20:30 Respiratory Rate 36 H 11/21/16 20:30 Blood Pressure 84/52 11/21/16 20:30 Pulse Oximetry 95 11/21/16 20:30 Height/Weight/BMI: Height 1.73 m Weight 69.9 kg Body Mass Index 23.4 Results - Labs CBC & Chem 7: 11/21/16 18:40 Assessment and Plan Assessment and Plan: 11/21/2016-I reviewed this chart, the patient history, and the 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 We discussed and formulated the assessment and plan as above with the additions below.-Dr. Miller I've seen the patient off and on throughout the day starting early this morning. She complained of right-sided abdominal and back pain and had a drop in her hemoglobin. CT abdomen showed results as above. Initially blood pressure was stable and plans were made to transfuse and monitor in the inpatient rehabilitation unit. Her hemoglobin dropped further and plans were made to discharge from inpatient rehabilitation and transfer to CCU. Here in CCU she has received 2 units of blood and last hemoglobin was 8.2 and verbal report of a repeat hemoglobin was 9. She has received a 500 cc normal saline bolus. Blood pressures were in the 110s but now have dropped to 87/51 with a heart rate of 108. Currently the patient states she is feeling better regarding pain. She has been getting Dilaudid for pain. The patient denied having any trauma or falls recently. Currently, she is resting comfortably and states her pain is improving. In general, she is pale and chronically ill-appearing. She is in no acute distress. HEENT reveals sclerae to be anicteric. She has scabbed lesions around her lips from probable herpes/cold sores. Chest is clear to auscultation anteriorly. Cardiovascular reveals a borderline tachycardic rate with irregular rhythm. Abdomen is soft, mildly tender, hypoactive bowel sounds. Extremities are free of edema. Impression/plan Acute blood loss anemia on chronic anemia Retroperitoneal bleed-spontaneous Hypotension-likely secondary to acute blood loss anemia Chronic anticoagulation for history of A. fib-Lovenox bridging initiated last Sunday. This has been stopped. Last dose was last night. Coumadin on hold. INR was 1.31 With recent hypotension, will give another unit of blood now (this will be her third unit). Continue to hold Lovenox and warfarin. Continue to monitor hemoglobin every 6 hours SCDs for DVT prophylaxis Discussed with Dr. Li, Tele-hospitalist. He was updated on current findings and plans for transfusion tonight. I did talk with the trauma surgeon application lead earlier this evening and he recommended blood transfusion and close monitoring off of anticoagulation, as we are doing. He stated transfer was not necessary at this time, but if she had significant bleeding requiring more transfusions, could consider transferring to [place] to the surgeon application lead for consideration for angiogram and coiling. Greater than 90 minutes of critical care time spent seeing and evaluating the patient multiple times today, talking with family members and person and by phone, and talking with consultants. Hospital Course Summary Disclaimer: The visit summary below is not to be considered part of the above Progress Note.
[2016-11-21] MEDS: NS FLUSH BAG 500ml IV PRN ×2 (16:26→18:42)
[2016-11-21] MEDS: SALINE FLUSH 10ml SYRINGE IVF PRN (16:27)
[2016-11-21] MEDS: HYDROMORPHONE 2 MG/ML INJECTION IVP PRN ×3 (16:27→22:04)
[2016-11-21] MEDS ORDERED: CEFAZOLIN 2 G in NS 100 ML IV SCH (17:00)
[2016-11-21] MEDS ORDERED: POTASSIUM ACID PHOSPHATE 500 MG TABLET PO SCH (17:30)
[2016-11-21] MEDS: LACTOBACILLUS (15B cfu) CAPSULE PO SCH (18:32)
[2016-11-21] MEDS: ACYCLOVIR 200 MG CAPSULE PO SCH ×2 (18:32→22:07)
[2016-11-21] MEDS: CEFAZOLIN 2 G in NS 100 ML IV SCH (19:09)
[2016-11-21] MEDS: ALBUTEROL 2.5mg/3ml (0.083%) NEB AEROSOL SCH (19:55)
[2016-11-21] MEDS ORDERED: NS FLUSH BAG 500ml IV ONE (20:40)
[2016-11-21] MEDS ORDERED: ENOXAPARIN 80 MG/0.8 ML INJECTION SQ SCH (21:00)
[2016-11-21] MEDS: NS 1,000 ML IV SCH (21:45)
[2016-11-21] MEDS ORDERED: HYDROMORPHONE 2 MG/ML INJECTION IVP PRN (21:58)
[2016-11-21] MEDS: REFRESH CLASSIC Eye Drops 0.4ml EACH EYE SCH (22:06)
[2016-11-21] MEDS: SIMVASTATIN 20 MG TABLET PO SCH (22:07)
[2016-11-21] MEDS: CALCIUM 500 + VIT D 200 TABLET PO SCH (22:07)
[2016-11-21] MEDS: LATANOPROST 0.005% EYE DROPS 2.5ml EACH EYE SCH (22:10)
[2016-11-22] MEDS: HYDROMORPHONE 2 MG/ML INJECTION IVP PRN ×5 (02:28→20:44)
[2016-11-22] MEDS: CEFAZOLIN 2 G in NS 100 ML IV SCH ×3 (04:25→18:58)
[2016-11-22] MEDS: NS 1,000 ML IV SCH ×3 (04:26→21:21)
[2016-11-22] MEDS: ONDANSETRON 4 MG/2 ML INJECTION IVP PRN (05:53)
[2016-11-22] MEDS: OMEPRAZOLE 20 MG CAPSULE PO SCH ×2 (06:56→08:14)
[2016-11-22] MEDS: LEVOTHYROXINE 88 MCG TABLET PO SCH ×2 (06:56→08:13)
[2016-11-22] MEDS: LOPERAMIDE 2 MG CAPSULE PO SCH (06:56)
[2016-11-22] MEDS: ALBUTEROL 2.5mg/3ml (0.083%) NEB AEROSOL SCH ×4 (07:56→19:16)
[2016-11-22] MEDS ORDERED: FUROSEMIDE 40 MG/4 ML INJECTION IVP ONE (07:56)
[2016-11-22] MEDS: ACYCLOVIR 200 MG CAPSULE PO SCH ×5 (08:15→20:06)
[2016-11-22] MEDS: LACTOBACILLUS (15B cfu) CAPSULE PO SCH ×3 (08:16→17:47)
[2016-11-22] MEDS: FERROUS SULFATE 324 MG TABLET PO SCH (08:17)
[2016-11-22] MEDS: MULTI-VITAMIN + MINERAL TABLET PO SCH (08:18)
[2016-11-22] MEDS: ASCORBIC ACID 500 MG TABLET PO SCH (08:18)
[2016-11-22] MEDS: CALCIUM 500 + VIT D 200 TABLET PO SCH ×2 (08:18→20:06)
[2016-11-22] MEDS: REFRESH CLASSIC Eye Drops 0.4ml EACH EYE SCH ×2 (08:21→20:12)
--- NOTE | 2016-11-22 09:05 | Infectious Disease Consult ---
Infectious Disease Consult Date of Consultation: 11/22/16 Requesting Physician: Susan Miller Reason for Consultation: antibiotic recs History of Present Illness: I initially saw Ms. Jimenez on 11/20/16 for antibiotic recommendations for S. aureus septicemia. Ms. Jimenez is a 76 y/o woman who was admitted here on with the rather sudden onset of chills. She had no other focal complaints. In ER, patient had negative head CT, CXR showing cardiomegaly and left basilar atelectasis vs scarring, essentially negative CT scan abdomen/pelvis, and negative urine. She had leukocytosis and bandemia, initial lactate was normal and repeat was elevated. She was given a liter of NS. She was admitted for further evaluation, and her blood cultures drawn 11/13 returned positive for MSSA. Blood cultures from 11/15 are NGTD. She also had sputum cx that grew heavy growth of MSSA. CxR showed RUL and RLL opacities. She had a CARLITOS on 11/17 that was negative. Yesterday she developed severe R-sided abdominal and back pain, and her Hgb was dropping. She was found to have a retroperitoneal hematoma. She was transferred to the CCU, and has been given at least 3 units of PRBCs. Her WBC increased to almost 32K today and her creatinine is increased to 1.6. She had some hypotension yesterday. She has not had any fevers. She continues on the ancef. Medications Home Medications Medication Instructions Recorded Confirmed Type Acetaminophen [Tylenol] 500 mg PO Q6HPRN PRN 11/13/16 11/21/16 History Alendronate Sodium 70 mg PO WEEKLY 11/13/16 11/21/16 History Artificial Tears [Tears Naturale] 1 drop EACH EYE BID 11/13/16 11/21/16 History Ascorbate Calcium [Vitamin C] 500 mg PO DAILY 11/13/16 11/21/16 History Calcium Carbonate/Vitamin D3 1 each PO BID 11/13/16 11/21/16 History [Calcium 500+D Tablet Chew] Dicyclomine [Bentyl] 20 mg PO TID 11/13/16 11/21/16 History Ferrous Sulfate 325 mg PO DAILY 11/13/16 11/21/16 History LORazepam [Ativan] 0.5 mg PO TID PRN 11/13/16 11/21/16 History Latanoprost 2.5 ml OP HS 11/13/16 11/21/16 History Levothyroxine Sodium 88 mcg PO DAILY 11/13/16 11/21/16 History Methylcellulose (with Sugar) 2,000 gm PO DAILY 11/13/16 11/21/16 History [Citrucel Powder] Multivit-Min/Iron/Folic/Lutein 1 each PO DAILY 11/13/16 11/21/16 History [Centrum Silver Women Tablet] [place]-3/Dha/Epa/Fish Oil [Fish Oil 1 each PO QID 11/13/16 11/21/16 History 1,000 mg Softgel] Omeprazole 40 mg PO DAILY 11/13/16 11/21/16 History Simvastatin 20 mg PO HS 11/13/16 11/21/16 History Vitamin B Complex Vit C No.4 150 mg PO DAILY 11/13/16 11/21/16 History [Super B Complex] Allergies Allergy/AdvReac Type Severity Reaction Status Date / Time Sulfa (Sulfonamide Allergy Intermediate [place] Verified 11/21/16 16:55 Antibiotics) betaxolol Allergy Mild Verified 11/21/16 17:24 PFS Patient Stated Medical History Cataracts Yes: both eyes Glaucoma Yes Cardiac Arrhythmia Yes: Afib Hypertension Yes Other Cardiology Yes: Mitral valve problem, L pacemaker Sleep Apnea No Constipation No Gastroesophageal Reflux Yes Disease Other GI ibs, ischemic colitis Hx Incontinence No Hx Renal Disease No Other Hematologic Yes: Takes Warfarin QD Other Musculoskeletal Yes: Osteoporosis Sepsis Yes: 2017 Blood Transfusions Yes Depression Yes Surgical History: Heart valve replacement (mitral), pacemaker, wrist surgery following fracture Family History: reviewed and noncontributory - Social History Smoking status: Never smoker Substance use type: does not use Alcohol intake frequency: does not drink Review of Systems All systems PM: 10-point ROS was reviewed, no additional remarkable complaints except (R-sided abdominal pain, improved) - Constitutional Constitutional: Absent: chills, fever(s) - EENMT Eyes: Absent: change in vision - Cardiovascular Cardiovascular: Absent: chest pain - Respiratory Respiratory: Absent: dyspnea - Gastrointestinal Gastrointestinal: Present: abdominal pain (R side), nausea. Absent: diarrhea, vomiting - Genitourinary Genitourinary: Absent: dysuria - Musculoskeletal Musculoskeletal: Present: back pain - Integumentary/Breasts Integumentary: Absent: erythema, rash - Neurological Neurological: Absent: headache(s) Exam Vital Signs: Temperature 96.8 F 11/22/16 00:00 Pulse Rate 109 H 11/22/16 06:00 Respiratory Rate 20 11/22/16 07:58 Blood Pressure 96/50 11/22/16 06:00 Pulse Oximetry 97 11/22/16 07:58 Height/Weight/BMI: Height 1.73 m Weight 69.9 kg Body Mass Index 23.4 - Constitutional Present: no acute distress, well nourished, well developed - Routine HEENT Exam Head: Present: normocephalic, atraumatic Eye: Present: EOMI, PERRL ENT: Present: mucous membranes moist, dentition normal Comments: crusted lesions on lips, she also has some dried blood in L nare - Routine Neck Exam Present: supple. Absent: lymphadenopathy - Routine Respiratory Exam Present: CTA bilaterally. Absent: accessory muscle use - Routine Cardiovascular Exam Present: RRR. Absent: murmur - Routine Abdominal Exam Present: soft (diminished bowel sounds), non tender. Absent: non distended, rebound, guarding - Routine Extremities Exam Absent: cyanosis, clubbing, edema - Routine Skin Exam Present: intact. Absent: rash - Routine Neurological Exam Present: alert, oriented X3, CN II-XII intact - Routine Psychiatric Exam Present: normal affect Results - Labs CBC & Chem 7: 11/22/16 04:23 11/22/16 08:07 Impression: Sepsis, suspect secondary to pulmonary source MSSA septicemia, CARLITOS negative 11/17/16 MSSA pneumonia S/p Mitral (mechanical followed by tissue) valve replacement S/p pacemaker placement Atrial fibrillation Hypothyroidism Lip lesions, suspect HSV R retroperitoneal bleed GUILHERME Recommendation: I will repeat blood cultures given recent events. I recommend 4 weeks of IV antibiotics after blood cultures are negative, so this would go through . Continue acyclovir x 7 days for her lip lesions. Monitor creatinine.
[2016-11-22] MEDS ORDERED: INFLUENZA VAC. INJ. ADMIN CHARGE INJ ONE (10:16)
[2016-11-22] MEDS ORDERED: PNEUMOCOCCAL VAC ADMIN CHARGE INJ ONE (10:17)
[2016-11-22] MEDS ORDERED: WARFARIN 3 MG TABLET PO SCH (12:00)
[2016-11-22] MEDS: HYDROCODONE/APAP 5mg/325mg TABLET PO PRN ×2 (13:08→19:00)
[2016-11-22] MEDS ORDERED: INFLUENZA VAC High Dose 2017-18 (Fluzone HD*) (>=65yo) 0.5ml IM ONE (14:09)
[2016-11-22] MEDS ORDERED: PNEUMOCOCCAL 13 VACCINE 0.5ml INJECTION IM ONE (15:05)
[2016-11-22] MEDS: SIMVASTATIN 20 MG TABLET PO SCH (20:06)
[2016-11-22] MEDS: LATANOPROST 0.005% EYE DROPS 2.5ml EACH EYE SCH (20:10)
--- NOTE | 2016-11-22 21:31 | Progress Note ---
Subjective: Mrs. Jimenez seen with her sister at bedside. She reported significant mid right abdominal pain radiating to her back indicating pain is 10/10 today. She attributes much of her pain to compression fracture. She reports previously having had epidural injections for back pain. She reports that she had some transient generalized abdominal discomfort with nausea this morning but that has subsided. She denied dyspnea, chest pain, palpitations, fever, or lightheadedness today but reported lightheadedness yesterday. Nursing describes poor urine output this morning which has not responded to a fluid bolus or Lasix administration. She was hypotensive yesterday. Objective Vital signs: Temperature 97.4 F 11/22/16 19:00 Pulse Rate 108 H 11/22/16 21:00 Respiratory Rate 30 H 11/22/16 20:45 Blood Pressure 112/51 11/22/16 20:45 Pulse Oximetry 95 11/22/16 20:45 EXAM General-mildly uncomfortable, alert, fluent speech HEENT-EOMI, conjunctiva clear, oropharynx clear Lungs-respirations nonlabored, good airflow, breath sounds clear anteriorly/ laterally Cardiac-regular rhythm, regular rhythm, low-grade tachycardia Abd-soft with tenderness throughout the right abdomen with mild guarding, decreased bowel sounds Ext-without edema Skin-generalized pallor, bruising on the upper extremities Neuro-moving all extremities well Psych-calm, cooperative - Rhythm: Sinus Tachycardia Height/Weight/BMI: Height 1.73 m Weight 63.1 kg Body Mass Index 23.4 Results - Labs CBC & Chem 7: 11/22/16 04:23 11/22/16 08:07 Labs: Differential: Segs 75, bands 7, lymphocytes 7, monocytes 11 INR 1.23, magnesium 1.5, CRP 41.5 (from 188.8-6 days ago), albumin 2.6 Microbiology Results: Microbiology 11/22/16 13:20 Peripheral/Iv Start Blood Culture - Preliminary Culture Initiated - Results Pending 11/22/16 11:11 Peripheral/Iv Start Blood Culture - Preliminary Culture Initiated - Results Pending Assessment and Plan DVT Prophylaxis: SCD's GI Prophylaxis: other (omeprazole) Resuscitation Status: Full Code Assessment and Plan: Impression Retroperitoneal bleed, acute, spontaneous Acute blood loss anemia on chronic Fe def. 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 Pneumonia with SHARON in sputum-(appears to be same species as an blood cultures, all are pansensitive)-improving Pulmonary edema with bilateral pleural effusions-resolved with diuresis Debility secondary to illness Mitral Heart valve replacement -tissue valve Pacemaker Atrial fibrillation -chronic anticoagulation therapy (currently on hold) Hypothyroidism GERD Osteoporosis Anxiety Irritable bowel syndrome-diarrhea prominent Glaucoma Chronic back pain secondary to old compression fracture-stable Hypomagnesemia, hyperphosphatemia Malnutrition Plan Persistent abdominal pain due to retroperitoneal hemorrhage-no preceding trauma but was anticoagulated. CT of the abdomen/pelvis reviewed by myself demonstrating large multi-density retroperitoneal hemorrhage on the right. Hemoglobin 8.5 after a total of 3 units of packed red blood cells transfused overnight; warfarin/Lovenox on hold. We'll discuss future anticoagulation plans with cardiology but at present for 2 risky to re-anticoagulation in the immediate future. Acute kidney injury evident with poor urine output today and bump in creatinine from 1.1 yesterday to 1.6 today. Renal function being reassessed this evening in conjunction with urine sodium/creatinine. Minimal response to fluid bolus earlier today, continue IV fluids/additional fluid bolus being given this evening. Suspect ATN due to yesterday's hypotension. Continue cefazolin through 12/13 for 0SSA bacteremia/pneumonia. Will also complete 1 week therapy of acyclovir for herpes labialis. Marked leukocytosis-consistent with stress reaction. Magnesium to be replaced IV today-reassess in a.m. Persistent low-grade tachycardia, likely due to pain but may be slightly dry and additional fluids being given Patient remains critically ill and at high risk for decompensation due to multiple medical problems but most acutely the retroperitoneal hemorrhage with hemodynamic instability and threatened renal function. Discussed with nursing throughout the day, patient's sister, and patient's daughter.. Critical care-44 minutes inpatient care. Hospital Course Summary Disclaimer: The visit summary below is not to be considered part of the above Progress Note. 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 Pneumonia with staph aureus in sputum-(appears to be same species as an blood cultures, all are pansensitive)-improving Pulmonary edema with bilateral pleural effusions-improved with diuresis Debility secondary to illness Mitral Heart valve replacement -tissue valve Pacemaker Atrial fibrillation - anticoagulation therapy (currently on hold) Hypothyroidism GERD Osteoporosis Iron deficiency anemia Anxiety Irritable bowel syndrome-diarrhea prominent Glaucoma Chronic back pain secondary to old compression fracture-stable 11/21/16-admission to CCU Admit to CCU for close monitoring, under the care of Dr. Miller, for retroperitoneal bleed. Anticoagulation remains on hold. She is to continue on IV antibiotics through December 13 for her bacteremia. Continue acyclovir for herpes labialis Continue O2, DuoNeb and incentive spirometry for pneumonia Continue Imodium every morning and PRN for diarrhea Continue ferrous sulfate and ascorbic acid iron deficiency anemia Hydromorphone IV PRN pain Continue IV fluids at 125 mL per hour NPO Dr. Miller as discussed patient's case with Dr. Izaguirre. 11/22/16 Persistent abdominal pain due to retroperitoneal hemorrhage-no preceding trauma but was anticoagulated. CT of the abdomen/pelvis reviewed by myself demonstrating large multi-density retroperitoneal hemorrhage on the right. Hemoglobin 8.5 after a total of 3 units of packed red blood cells transfused overnight; warfarin/Lovenox on hold. We'll discuss future anticoagulation plans with cardiology but at present for 2 risky to re-anticoagulation in the immediate future. Acute kidney injury evident with poor urine output today and bump in creatinine from 1.1 yesterday to 1.6 today. Renal function being reassessed this evening in conjunction with urine sodium/creatinine. Minimal response to fluid bolus earlier today, continue IV fluids/additional fluid bolus being given this evening. Suspect ATN due to yesterday's hypotension. Continue cefazolin through 12/13 for 0SSA bacteremia/pneumonia. Will also complete 1 week therapy of acyclovir for herpes labialis. Marked leukocytosis-consistent with stress reaction. Magnesium to be replaced IV today-reassess in a.m. Persistent low-grade tachycardia, likely due to pain but may be slightly dry and additional fluids being given Patient remains critically ill and at high risk for decompensation due to multiple medical problems but most acutely the retroperitoneal hemorrhage with hemodynamic instability and threatened renal function.
[2016-11-22] MEDS: MAGNESIUM SULFATE 1gm PREMIX 1 GM/100 ML BAG IV SCH ×2 (22:13→23:06)
[2016-11-23] MEDS: HYDROMORPHONE 2 MG/ML INJECTION IVP PRN ×5 (01:15→21:41)
[2016-11-23] MEDS: CEFAZOLIN 2 G in NS 100 ML IV SCH ×3 (02:50→19:03)
[2016-11-23] MEDS: HYDROCODONE/APAP 5mg/325mg TABLET PO PRN ×3 (02:50→17:05)
[2016-11-23] MEDS: NS 1,000 ML IV SCH ×2 (04:42→12:54)
[2016-11-23] MEDS: LEVOTHYROXINE 88 MCG TABLET PO SCH (05:54)
[2016-11-23] MEDS: LOPERAMIDE 2 MG CAPSULE PO SCH (05:54)
[2016-11-23] MEDS: OMEPRAZOLE 20 MG CAPSULE PO SCH (05:54)
[2016-11-23] MEDS: SALINE FLUSH 10ml SYRINGE IVF PRN (06:50)
[2016-11-23] MEDS: ALBUTEROL 2.5mg/3ml (0.083%) NEB AEROSOL SCH ×4 (07:17→19:44)
[2016-11-23] MEDS: ASCORBIC ACID 500 MG TABLET PO SCH (08:50)
[2016-11-23] MEDS: FERROUS SULFATE 324 MG TABLET PO SCH (08:50)
[2016-11-23] MEDS: REFRESH CLASSIC Eye Drops 0.4ml EACH EYE SCH ×2 (08:51→21:26)
[2016-11-23] MEDS: ACYCLOVIR 200 MG CAPSULE PO SCH ×5 (08:51→21:25)
[2016-11-23] MEDS: MULTI-VITAMIN + MINERAL TABLET PO SCH (08:51)
[2016-11-23] MEDS: LACTOBACILLUS (15B cfu) CAPSULE PO SCH ×3 (08:51→17:08)
[2016-11-23] MEDS: CALCIUM 500 + VIT D 200 TABLET PO SCH ×2 (08:51→21:25)
[2016-11-23] MEDS ORDERED: LIDOCAINE 1% (10mg/ml) 5ml PF SDV ONE (11:32)
--- NOTE | 2016-11-23 12:43 | CT Scan Report ---
Indication: retroperitoneal hematoma PROCEDURE: CT abdomen pelvis wo con: Encounter: Initial Comparison: CT abdomen and pelvis dated November 21 and November 13, 2016 Technique: Axial CT images were performed through the abdomen and pelvis without intravenous contrast. Coronal and sagittal two-dimensional reformats. Automated Exposure Control and Iterative Reconstruction dose reducing techniques were utilized. Findings: Increasing moderate right and small left pleural effusions with compressive atelectasis in the lower lobes. Cardiomegaly. Increasing size of the large right retroperitoneal hemorrhage with a prominent fluid hematocrit level present. Increase in the proportion of high attenuation material representing acute hemorrhage compared to the prior study. This measures up to 14.5 x 8.4 cm on coronal image #33 compared to 10.7 x 10.5 cm on the prior exam. This again causes displacement of the right kidney and liver. There is inflammatory change and stranding with inflammation surrounding the right psoas muscle. Increasing moderate free abdominal and pelvic fluid as well which appears lower in attenuation at 29 Hounsfield units. Bladder is decompressed with a Zarate catheter. No evidence of a bowel obstruction. Cecum is moderately distended. No abnormally dilated small bowel loops. There is increasing subcutaneous edema and fluid since the prior study with fluid tracking along the left flank and abdominal wall laterally. No free air appreciated. Bone windows are unchanged. The unenhanced contours of the liver, gallbladder, spleen, adrenal glands and kidneys are unchanged. Pancreas is grossly stable. Impression: 1. Increasing size of the large right retroperitoneal hemorrhage with evidence of acute hemorrhage since the prior study. This is consistent with ongoing bleeding, particularly given the history of transfusion requirements. Interventional radiology evaluation for possible embolization may be helpful. 2. Increasing pleural effusions, ascites and anasarca consistent with a generalized volume overload or third spacing of fluid. .
--- NOTE | 2016-11-23 14:10 | CT Scan Report ---
Indication:retroperitoneal hematoma, question infection Procedure:CT guided aspiration RETROPERITONEAL FLUID COLLECTION ASPIRATION WITH CT GUIDANCE: After discussing the details of the procedure, including the risks, the patient's questions were answered. Informed consent was obtained. A preprocedural timeout was performed to confirm the correct patient and procedure. Using aseptic technique, local lidocaine anesthetic, and CT guidance throughout, an 18-gauge spinal needle was advanced into the retroperitoneal fluid collection located in the right side of the abdomen. Approximately 10 cc of straw-colored fluid was collected into a specimen cup and sent to lab. The needle was removed. The patient tolerated this procedure well. Following the procedure, the patient was taken back to her room in the critical care unit. Impression: Successful fluid aspiration from the retroperitoneal fluid collection in the right side of the abdomen. Erick Badillo RPA/ALEXEY performed this under my personal supervision. .
[2016-11-23] MEDS ORDERED: NS FLUSH BAG 500ml IV PRN (15:44)
--- NOTE | 2016-11-23 15:52 | Progress Note ---
Subjective: Mrs. Jimenez was seen earlier today. She reported mild dyspnea overnight but that it had resolved and she remains on room air. She describes significant pain in her right abdomen and back with movement but that she is okay at rest. She's had no fever. She has minimal appetite and reports being very weak. Nursing report poor IV access and that current single lumen PICC cannot be changed to dual-lumen PICC due to small vein. Urine output remains poor. Objective Vital signs: Temperature 99.2 F 11/23/16 15:40 Pulse Rate 104 H 11/23/16 15:40 Respiratory Rate 24 11/23/16 15:40 Blood Pressure 121/56 11/23/16 15:40 Pulse Oximetry 95 11/23/16 15:40 I/O 3876/137 EXAM General-NAD, alert, soft-spoken HEENT-PER, EOMI, oropharynx clear, lower lip lesions improving Lungs-respirations slightly labored with decreased breath sounds; patient not reposition to listen posteriorly at this time Cardiac regular rhythm, S1-S2, low-grade tachycardia Abd-soft, diffuse tenderness on the right side with guarding, diminished bowel sounds; no right flank bruising/ecchymosis evident Ext-PICC site right upper extremity unremarkable Psych-flat affect - Height/Weight/BMI: Height 1.73 m Weight 77.8 kg Body Mass Index 23.4 Results - Labs CBC & Chem 7: 11/23/16 14:58 11/23/16 14:58 Labs: Initial hemoglobin this morning 5.6-6.5-7.6 after 1/2 units PRBC BUN/Creatinine earlier this morning 31/2.6 Microbiology Results: Microbiology 11/22/16 13:20 Peripheral/Iv Start Blood Culture - Preliminary No Growth After 1 Day 11/23/16 12:15 Body Fluid, Nos Body Fluid Culture - Preliminary Culture Initiated - Results Pending 11/22/16 11:11 Peripheral/Iv Start Blood Culture - Preliminary No Growth After 1 Day - Imaging and Cardiology CT scan - abdomen Status: image reviewed by me (CT reviewed and discussed with Dr. Izaguirre- increasing R>L pleural effusions with compressive atelectasis, cardiomegaly; increasing right retroperitoneal hematoma with approximately 4 cm increase caudally, evidence of acute hemorrhage compared to prior study, hematoma causing displacement of the right kidney and liver. Inflammatory stranding in the right psoas muscle. Increasing free abdominal fluid. Increased subcutaneous edema.) Assessment and Plan (1) Nontraumatic retroperitoneal hematoma Current visit: Yes Status: Acute DVT Prophylaxis: SCD's GI Prophylaxis: other (omeprazole) Resuscitation Status: Full Code Assessment and Plan: Impression Retroperitoneal bleed, acute, spontaneous Acute blood loss anemia-transfused 3 units PRBCs 11/21, 2 units 11/23 Chronic Fe def. 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 Pneumonia with SHARON in sputum-(appears to be same species as an blood cultures, all are pansensitive)-improving Pulmonary edema with bilateral pleural effusions-resolved with diuresis Debility secondary to illness Mitral Heart valve replacement -tissue valve Pacemaker Atrial fibrillation -chronic anticoagulation therapy (currently on hold) Hypothyroidism GERD Osteoporosis Anxiety Irritable bowel syndrome-diarrhea prominent Glaucoma Chronic back pain secondary to old compression fracture-stable Hypomagnesemia, hyperphosphatemia Malnutrition Plan Persistent abdominal pain due to retroperitoneal hemorrhage-no preceding trauma but was anticoagulated. Repeat CT of the abdomen/pelvis reviewed by myself demonstrating further bleeding and increasing size hematoma since study 2 days ago. Hemoglobin down again today, 2 units packed red blood cells given. Fibrinogen pending-plan 2 units FFP. Platelet count stable. Off Lovenox/warfarin reversed. May require transfer to [place] for IR embolization of blood loss ongoing. Acute kidney injury -creatinine from 1.1 2 days ago to 2.6 today, appears to be stabilizing and urine output improving slightly with Bumex. Clearly volume overloaded by imaging with borderline oxygenation at times. May require Bumex drip if urine output does not improve further. Fractional excretion consistent with prerenal state however obtained after initial dose of diuretics. Probable ATN. Developing mild metabolic acidosis consistent with renal failure we will initiate low rate bicarbonate infusion. Hematoma aspirated for culture by radiology today to exclude infected hematoma after discussion with Dr. David. Continue cefazolin through 12/13 for 0SSA bacteremia/pneumonia. Will also complete 1 week therapy of acyclovir for herpes labialis. Marked leukocytosis-consistent with stress reaction. Magnesium replaced adequately. Monitor with administration of diuretics Persistent low-grade tachycardia, likely due to pain but may be slightly dry and additional fluids being given. Discussed with patient's strickler attendant's office in [place] and records received confirming chronic atrial fibrillation. Patient remains critically ill and at high risk for decompensation due to multiple medical problems but most acutely the retroperitoneal hemorrhage with hemodynamic instability and threatened renal function. Discussed with nursing throughout the day, patient's sister, and patient's daughter and son. Discussed with Dr. David and Dr. Izaguirre will place central line. Critical care- Time in 1003, time out 1103 Time in 1542, Timeout 1608 Hospital Course Summary Disclaimer: The visit summary below is not to be considered part of the above Progress Note. 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 Pneumonia with staph aureus in sputum-(appears to be same species as an blood cultures, all are pansensitive)-improving Pulmonary edema with bilateral pleural effusions-improved with diuresis Debility secondary to illness Mitral Heart valve replacement -tissue valve Pacemaker Atrial fibrillation - anticoagulation therapy (currently on hold) Hypothyroidism GERD Osteoporosis Iron deficiency anemia Anxiety Irritable bowel syndrome-diarrhea prominent Glaucoma Chronic back pain secondary to old compression fracture-stable 11/21/16-admission to CCU Admit to CCU for close monitoring, under the care of Dr. Miller, for retroperitoneal bleed. Anticoagulation remains on hold. She is to continue on IV antibiotics through December 13 for her bacteremia. Continue acyclovir for herpes labialis Continue O2, DuoNeb and incentive spirometry for pneumonia Continue Imodium every morning and PRN for diarrhea Continue ferrous sulfate and ascorbic acid iron deficiency anemia Hydromorphone IV PRN pain Continue IV fluids at 125 mL per hour NPO Dr. Miller as discussed patient's case with Dr. Izaguirre. 11/22/16 Persistent abdominal pain due to retroperitoneal hemorrhage-no preceding trauma but was anticoagulated. CT of the abdomen/pelvis reviewed by myself demonstrating large multi-density retroperitoneal hemorrhage on the right. Hemoglobin 8.5 after a total of 3 units of packed red blood cells transfused overnight; warfarin/Lovenox on hold. We'll discuss future anticoagulation plans with cardiology but at present for 2 risky to re-anticoagulation in the immediate future. Acute kidney injury evident with poor urine output today and bump in creatinine from 1.1 yesterday to 1.6 today. Renal function being reassessed this evening in conjunction with urine sodium/creatinine. Minimal response to fluid bolus earlier today, continue IV fluids/additional fluid bolus being given this evening. Suspect ATN due to yesterday's hypotension. Continue cefazolin through 12/13 for 0SSA bacteremia/pneumonia. Will also complete 1 week therapy of acyclovir for herpes labialis. Marked leukocytosis-consistent with stress reaction. Magnesium to be replaced IV today-reassess in a.m. Persistent low-grade tachycardia, likely due to pain but may be slightly dry and additional fluids being given Patient remains critically ill and at high risk for decompensation due to multiple medical problems but most acutely the retroperitoneal hemorrhage with hemodynamic instability and threatened renal function. 11/23/16 Persistent abdominal pain due to retroperitoneal hemorrhage-no preceding trauma but was anticoagulated. Repeat CT of the abdomen/pelvis reviewed by myself demonstrating further bleeding and increasing size hematoma since study 2 days ago. Hemoglobin down again today, 2 units packed red blood cells given. Fibrinogen pending-plan 2 units FFP. Platelet count stable. Off Lovenox/warfarin reversed. May require transfer to [place] for IR embolization if blood loss ongoing. Acute kidney injury -creatinine from 1.1 2 days ago to 2.6 today, appears to be stabilizing and urine output improving slightly with Bumex. Clearly volume overloaded by imaging with borderline oxygenation at times. May require Bumex drip if urine output does not improve further. Fractional excretion consistent with prerenal state however obtained after initial dose of diuretics. Probable ATN. Developing mild metabolic acidosis consistent with renal failure we will initiate low rate bicarbonate infusion. Hematoma aspirated for culture by radiology today to exclude infected hematoma after discussion with Dr. David. Continue cefazolin through 12/13 for 0SSA bacteremia/pneumonia. Will also complete 1 week therapy of acyclovir for herpes labialis. Marked leukocytosis-consistent with stress reaction. Magnesium replaced adequately. Monitor with administration of diuretics Persistent low-grade tachycardia, likely due to pain but may be slightly dry and additional fluids being given. Discussed with patient's strickler attendant's office in [place] and records received confirming chronic atrial fibrillation. Patient remains critically ill and at high risk for decompensation due to multiple medical problems but most acutely the retroperitoneal hemorrhage with hemodynamic instability and threatened renal function. Discussed with nursing throughout the day, patient's sister, and patient's daughter and son. Discussed with Dr. David and Dr. Izaguirre will place central line.
--- NOTE | 2016-11-23 16:37 | General Surgery Consult Note ---
Consult date: 11/23/16 Attending Physician: Jocelin Faustin MD Reason for consult: other (central line and retroperitoneal hematoma) [facility] Patient Stated Medical History Cataracts Yes: both eyes Glaucoma Yes Cardiac Arrhythmia Yes: Afib Hypertension Yes Other Cardiology Yes: Mitral valve problem, L pacemaker Sleep Apnea No Constipation No Gastroesophageal Reflux Yes Disease Other GI ibs, ischemic colitis Hx Incontinence No Hx Renal Disease No Other Hematologic Yes: Takes Warfarin QD Other Musculoskeletal Yes: Osteoporosis Sepsis Yes: 2017 Blood Transfusions Yes Depression Yes Surgical History: Heart valve replacement (mitral), pacemaker, wrist surgery following fracture Family History: Noncontributory - Social History Smoking status: Never smoker Social history: PCP - Dr. Artie Garcia at [facility] in [place] [phone] V[address] [facility]-[address] Ha at [facility] [phone] CEDRICK-Gunner is her daughter, Danyelle Jimenez (Lives in [place], [place]) Medications Home Medications Medication Instructions Recorded Confirmed Type Acetaminophen [Tylenol] 500 mg PO Q6HPRN PRN 11/13/16 11/21/16 History Alendronate Sodium 70 mg PO WEEKLY 11/13/16 11/21/16 History Artificial Tears [Tears Naturale] 1 drop EACH EYE BID 11/13/16 11/21/16 History Ascorbate Calcium [Vitamin C] 500 mg PO DAILY 11/13/16 11/21/16 History Calcium Carbonate/Vitamin D3 1 each PO BID 11/13/16 11/21/16 History [Calcium 500+D Tablet Chew] Dicyclomine [Bentyl] 20 mg PO TID 11/13/16 11/21/16 History Ferrous Sulfate 325 mg PO DAILY 11/13/16 11/21/16 History LORazepam [Ativan] 0.5 mg PO TID PRN 11/13/16 11/21/16 History Latanoprost 2.5 ml OP HS 11/13/16 11/21/16 History Levothyroxine Sodium 88 mcg PO DAILY 11/13/16 11/21/16 History Methylcellulose (with Sugar) 2,000 gm PO DAILY 11/13/16 11/21/16 History [Citrucel Powder] Multivit-Min/Iron/Folic/Lutein 1 each PO DAILY 11/13/16 11/21/16 History [Centrum Silver Women Tablet] Gallion-3/Dha/Epa/Fish Oil [Fish Oil 1 each PO QID 11/13/16 11/21/16 History 1,000 mg Softgel] Omeprazole 40 mg PO DAILY 11/13/16 11/21/16 History Simvastatin 20 mg PO HS 11/13/16 11/21/16 History Vitamin B Complex Vit C No.4 150 mg PO DAILY 11/13/16 11/21/16 History [Super B Complex] Allergies Allergy/AdvReac Type Severity Reaction Status Date / Time Sulfa (Sulfonamide Allergy Intermediate [place] Verified 11/21/16 16:55 Antibiotics) betaxolol Allergy Mild Verified 11/21/16 17:24 Review of Systems 10-point ROS: negative except for HPI and the following: - Eyes/Ears/Nose/Throat Eyes: Present: vision problems (wears glasses) - Cardiovascular Cardiovascular: Present: irregular heart beat - Gastrointestinal Gastrointestinal: Present: other (abd pain) - Musculoskeletal Musculoskeletal: Present: back pain, joint pain - Hematologic/Lymphatic Hematologic/Lymphatic: Present: easy bruising, use of blood thinners - Vital Signs Last Vital Signs Temp 99.2 F 11/23/16 15:40 Pulse 104 H 11/23/16 15:40 Resp 24 11/23/16 15:40 BP 121/56 11/23/16 15:40 Pulse Ox 95 11/23/16 15:40 - Laboratory Result Diagrams: 11/23/16 14:58 11/23/16 14:58 - Microbiogy Microbiology 11/22/16 13:20 Peripheral/Iv Start Blood Culture - Preliminary No Growth After 1 Day 11/23/16 12:15 Body Fluid, Nos Body Fluid Culture - Preliminary Culture Initiated - Results Pending 11/22/16 11:11 Peripheral/Iv Start Blood Culture - Preliminary No Growth After 1 Day General Surgery Results - Results Labs: 11/23/16 14:58 11/23/16 14:58 Microbiology: Microbiology 11/22/16 13:20 Peripheral/Iv Start Blood Culture - Preliminary No Growth After 1 Day 11/23/16 12:15 Body Fluid, Nos Body Fluid Culture - Preliminary Culture Initiated - Results Pending 11/22/16 11:11 Peripheral/Iv Start Blood Culture - Preliminary No Growth After 1 Day Hospital Course Summary Disclaimer: The visit summary below is not to be considered part of the above Progress Note. 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 Pneumonia with staph aureus in sputum-(appears to be same species as an blood cultures, all are pansensitive)-improving Pulmonary edema with bilateral pleural effusions-improved with diuresis Debility secondary to illness Mitral Heart valve replacement -tissue valve Pacemaker Atrial fibrillation - anticoagulation therapy (currently on hold) Hypothyroidism GERD Osteoporosis Iron deficiency anemia Anxiety Irritable bowel syndrome-diarrhea prominent Glaucoma Chronic back pain secondary to old compression fracture-stable 11/21/16-admission to CCU Admit to CCU for close monitoring, under the care of Dr. Miller, for retroperitoneal bleed. Anticoagulation remains on hold. She is to continue on IV antibiotics through December 13 for her bacteremia. Continue acyclovir for herpes labialis Continue O2, DuoNeb and incentive spirometry for pneumonia Continue Imodium every morning and PRN for diarrhea Continue ferrous sulfate and ascorbic acid iron deficiency anemia Hydromorphone IV PRN pain Continue IV fluids at 125 mL per hour NPO Dr. Miller as discussed patient's case with Dr. Izaguirre. 11/22/16 Persistent abdominal pain due to retroperitoneal hemorrhage-no preceding trauma but was anticoagulated. CT of the abdomen/pelvis reviewed by myself demonstrating large multi-density retroperitoneal hemorrhage on the right. Hemoglobin 8.5 after a total of 3 units of packed red blood cells transfused overnight; warfarin/Lovenox on hold. We'll discuss future anticoagulation plans with cardiology but at present for 2 risky to re-anticoagulation in the immediate future. Acute kidney injury evident with poor urine output today and bump in creatinine from 1.1 yesterday to 1.6 today. Renal function being reassessed this evening in conjunction with urine sodium/creatinine. Minimal response to fluid bolus earlier today, continue IV fluids/additional fluid bolus being given this evening. Suspect ATN due to yesterday's hypotension. Continue cefazolin through 12/13 for 0SSA bacteremia/pneumonia. Will also complete 1 week therapy of acyclovir for herpes labialis. Marked leukocytosis-consistent with stress reaction. Magnesium to be replaced IV today-reassess in a.m. Persistent low-grade tachycardia, likely due to pain but may be slightly dry and additional fluids being given Patient remains critically ill and at high risk for decompensation due to multiple medical problems but most acutely the retroperitoneal hemorrhage with hemodynamic instability and threatened renal function. 11/23/16 Persistent abdominal pain due to retroperitoneal hemorrhage-no preceding trauma but was anticoagulated. Repeat CT of the abdomen/pelvis reviewed by myself demonstrating further bleeding and increasing size hematoma since study 2 days ago. Hemoglobin down again today, 2 units packed red blood cells given. Fibrinogen pending-plan 2 units FFP. Platelet count stable. Off Lovenox/warfarin reversed. May require transfer to [place] for IR embolization if blood loss ongoing. Acute kidney injury -creatinine from 1.1 2 days ago to 2.6 today, appears to be stabilizing and urine output improving slightly with Bumex. Clearly volume overloaded by imaging with borderline oxygenation at times. May require Bumex drip if urine output does not improve further. Fractional excretion consistent with prerenal state however obtained after initial dose of diuretics. Probable ATN. Developing mild metabolic acidosis consistent with renal failure we will initiate low rate bicarbonate infusion. Hematoma aspirated for culture by radiology today to exclude infected hematoma after discussion with Dr. David. Continue cefazolin through 12/13 for 0SSA bacteremia/pneumonia. Will also complete 1 week therapy of acyclovir for herpes labialis. Marked leukocytosis-consistent with stress reaction. Magnesium replaced adequately. Monitor with administration of diuretics Persistent low-grade tachycardia, likely due to pain but may be slightly dry and additional fluids being given. Discussed with patient's pharmaceutical salesperson's office in [place] and records received confirming chronic atrial fibrillation. Patient remains critically ill and at high risk for decompensation due to multiple medical problems but most acutely the retroperitoneal hemorrhage with hemodynamic instability and threatened renal function. Discussed with nursing throughout the day, patient's sister, and patient's daughter and son. Discussed with Dr. David and Dr. Izaguirre will place central line.
--- NOTE | 2016-11-23 17:04 | XRay Report ---
Indication: Central line placement, r/o pneumothorax PROCEDURE: XR chest post-procedure 1V: Encounter: Initial Comparison: November 19, 2016 Findings: New right internal jugular approach central venous catheter in place with the tip projecting over the lower SVC. Existing right PICC line is stable in position. Left pacemaker. Continued airspace consolidation in the right lower lobe with small bilateral effusions. No visible pneumothorax. Heart size and mediastinal contours are stable. Pulmonary vascularity is mildly prominent. Impression: New right internal jugular line as above. No evidence of pneumothorax. .
[2016-11-23] MEDS: SODIUM BICARBONATE 150 MEQ in D5W 1,000 ML IV SCH (18:20)
--- NOTE | 2016-11-23 20:01 | Consultation ---
DATE OF SERVICE 11/23/2016 FINDINGS Mrs. Jimenez is a 76-year-old female whom I was asked to see as a new patient as a result of her history for an expanding retroperitoneal hematoma in conjunction to assess her venous access. The patient typically resides in [place] but was visiting her sister here in [place]. She then became ill and had developed fever and chills. Patient was admitted on November 13, 2016 to [facility] with sepsis. She was found to be bacteremic with Staphylococcus aureus. Patient had undergone prior transesophageal echocardiogram by Cardiology to rule out vegetation on artificial cardiac valve. The patient was not found to have any element of vegetations. The patient was stabilized and was transferred out to the rehab unit for strengthening and further recovery. The patient's Coumadin was resumed and she was given Lovenox. The patient then began to complain of severe right hip and back pain. The patient subsequently underwent CT scan which did reveal a large retroperitoneal bleed. The patient has required multiple units of packed RBCs. She has been transfused 5 units per report. I did speak with the radiologist today who had stated that he felt that her retroperitoneal hematoma had increased in its overall size over the last 24 hours. At this time nursing staff has a single lumen PICC catheter within the right antecubital fossa as well as an additional IV within her foot. Patient is to receive additional blood products and additional venous access has been requested. PAST MEDICAL HISTORY, PAST SURGICAL HISTORY, MEDICATIONS, ALLERGIES, SOCIAL HISTORY, FAMILY HISTORY, REVIEW OF SYSTEMS Performed by my nurse practitioner, Lambert Watts APRN. PHYSICAL EXAMINATION GENERAL: Mrs. Jimenez is a 76-year-old female who does appear to be in a fair amount of discomfort. She is sitting upright in bed and complaining of right flank and generalized abdominal pain. VITAL SIGNS: Temperature 99.2, pulse 104, respirations 24, blood pressure 121/ 56, SAO2 95% on a couple liters of O2 per nasal cannula. HEENT: Normocephalic. Pupils are equally round and react to light and accommodation. CHEST: Clear to auscultation bilaterally. HEART: Regular rate and rhythm. Normal S1 and S2 without gallops, murmurs or clicks. ABDOMEN: Visualization of the abdomen does reveal it to be somewhat distended in its overall appearance. I did not see any evidence for marked ecchymosis along the right lateral abdominal wall but I was unable to see the right flank region. Palpation of the abdomen revealed it to be tender throughout her entire abdomen. Most tenderness was noted, however, along the right lower abdominal wall as well as extending into the right flank region upon palpation. The patient did have a component of voluntary guarding but was without evidence for involuntary guarding or rebound. EXTREMITIES: Without clubbing, cyanosis, or edema. NEURO: Cranial nerves II-XII grossly intact. Patient is without focal motor or sensory deficits. LABORATORY/RADIOGRAPHIC EVALUATION The patient's white count has significantly increased and currently is 54.9. Hemoglobin is 7.6. The patient does have a left shift with 13% bands and 67% neutrophils. BMP was obtained today and found to be abnormal. Her creatinine was increased to 2.6. BUN is elevated at 33. Chloride is elevated at 114. I reviewed the patient's recent CT scans. Today's CT scan revealed increasing size of a large right retroperitoneal hematoma with evidence of acute hemorrhage since her prior study. This was consistent ongoing bleeding. ASSESSMENT 76-year-old female with history for sepsis, bacteremia, who has now developed a large increasing right retroperitoneal hematoma. PLAN I informed the hospitalist that I felt that the patient may benefit from being transferred to a tertiary care facility where Interventional Radiology is available. Hospitalist had stated with the increasing BUN and creatinine that IR may be reluctant to proceed with intervention. Given her multiple units of transfusion of packed RBCs, I also recommended to the hospitalist that there may be some benefit in replacing her clotting factors and had recommended the patient be transfused a couple units of fresh frozen plasma. I do feel the patient would benefit from placement of a central line for additional venous access. I did discuss with the patient what placement of a right internal jugular triple-lumen catheter would entail and its associated risks which included but was not inclusive of bleeding, hemopneumothorax. The patient understood and wished to proceed. WADE
[2016-11-23] MEDS: SIMVASTATIN 20 MG TABLET PO SCH (21:25)
[2016-11-23] MEDS: LATANOPROST 0.005% EYE DROPS 2.5ml EACH EYE SCH (21:26)
[2016-11-24] MEDS: HYDROCODONE/APAP 5mg/325mg TABLET PO PRN ×3 (01:02→21:02)
[2016-11-24] MEDS: HYDROMORPHONE 2 MG/ML INJECTION IVP PRN ×4 (02:03→22:08)
[2016-11-24] MEDS: CEFAZOLIN 2 G in NS 100 ML IV SCH ×2 (03:45→11:27)
[2016-11-24] MEDS: SALINE FLUSH 10ml SYRINGE IVF PRN ×4 (03:47→12:02)
[2016-11-24] MEDS: LOPERAMIDE 2 MG CAPSULE PO SCH (06:35)
[2016-11-24] MEDS: ALBUTEROL 2.5mg/3ml (0.083%) NEB AEROSOL SCH ×4 (06:39→19:03)
[2016-11-24] MEDS: OMEPRAZOLE 20 MG CAPSULE PO SCH (07:03)
[2016-11-24] MEDS: LEVOTHYROXINE 88 MCG TABLET PO SCH (07:03)
[2016-11-24] MEDS: LACTOBACILLUS (15B cfu) CAPSULE PO SCH ×3 (08:52→17:33)
[2016-11-24] MEDS: FERROUS SULFATE 324 MG TABLET PO SCH (08:52)
[2016-11-24] MEDS: MULTI-VITAMIN + MINERAL TABLET PO SCH (08:53)
[2016-11-24] MEDS: CALCIUM 500 + VIT D 200 TABLET PO SCH ×2 (08:53→21:02)
[2016-11-24] MEDS: ASCORBIC ACID 500 MG TABLET PO SCH (08:53)
[2016-11-24] MEDS: ACYCLOVIR 200 MG CAPSULE PO SCH ×5 (08:53→21:02)
[2016-11-24] MEDS: REFRESH CLASSIC Eye Drops 0.4ml EACH EYE SCH ×2 (10:05→21:03)
--- NOTE | 2016-11-24 10:08 | Progress Note ---
Subjective Date: 11/24/16 Subjective: She still has quite a bit of pain on her right side. Thinks her lips are better. Had some nausea this morning. Denies fever or chills. No vomiting. Exam Vital Signs: Temperature 98 F 11/24/16 04:00 Pulse Rate 109 H 11/24/16 08:00 Respiratory Rate 30 H 11/24/16 07:15 Blood Pressure 120/58 11/24/16 07:15 Pulse Oximetry 90 11/24/16 07:15 Height/Weight/BMI: Height 1.73 m Weight 81.6 kg Body Mass Index 23.4 - Constitutional Present: no acute distress, cooperative, other (pale) - Routine HEENT Exam Head: Present: normocephalic, atraumatic Eye: Present: EOMI, PERRL ENT: Present: mucous membranes moist, dentition normal Comments: scabbed lesions on lips are improving - Routine Neck Exam Present: supple - Routine Respiratory Exam Present: CTA bilaterally. Absent: accessory muscle use - Routine Cardiovascular Exam Present: RRR. Absent: murmur - Routine Abdominal Exam Present: soft, tenderness (over R abdomen). Absent: rebound, guarding Comments: hypoactive bowel sounds - Routine Extremities Exam Present: edema (trace LEs). Absent: cyanosis, clubbing - Routine Skin Exam Present: intact. Absent: rash Comments: RUE PICC, R IJ central line - Routine Neurological Exam Present: alert, oriented X3, CN II-XII intact - Routine Psychiatric Exam Present: normal affect, normal thought process Results - Labs CBC & Chem 7: 11/24/16 04:37 11/24/16 04:37 Microbiology Results: Microbiology 11/22/16 13:20 Peripheral/Iv Start Blood Culture - Preliminary No Growth After 1 Day 11/23/16 12:15 Body Fluid, Nos Body Fluid Culture - Preliminary Culture Initiated - Results Pending 11/22/16 11:11 Peripheral/Iv Start Blood Culture - Preliminary No Growth After 1 Day Impression: Sepsis, suspect secondary to pulmonary source MSSA septicemia 11/13/16, CARLITOS negative 11/17/16. Blood cultures 11/15 NGTD. 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 Continue acyclovir x 7 days for her lip lesions. Monitor creatinine. Discussed with Dr. Faustin. Considering transferring to [place] for IR to embolize bleeding.
[2016-11-24] MEDS ORDERED: PHYTONADIONE 5 MG/2.5 ML ORAL LIQUID PO ONE (10:42)
[2016-11-24] MEDS: BUMETANIDE DRIP IV SCH ×2 (11:27→20:12)
[2016-11-24] MEDS: RTU SALINE IV SCH ×2 (11:27→20:12)
[2016-11-24] MEDS: SODIUM BICARBONATE 150 MEQ in D5W 1,000 ML IV SCH (14:42)
--- NOTE | 2016-11-24 15:40 | Progress Note ---
DATE OF SERVICE 11/24/2016 FINDINGS Mrs. Jimenez this afternoon was sitting upright and conversant. She still was complaining of generalized abdominal tenderness and felt as if there was a "rubber band" going around her abdomen. PHYSICAL EXAM VITAL SIGNS: Last recorded vitals include temperature 98 degrees, pulse 81, respiratory rate 33, blood pressure 121/53, SAO2 85% on room air. HEENT: Normocephalic. Pupils are equally round and react to light and accommodation. CHEST: Clear to auscultation bilaterally. HEART: Regular rate and rhythm. Normal S1 and S2 without gallops, murmurs or clicks. ABDOMEN: Visualization of the abdomen still reveals it to be fairly distended. Palpation of the abdomen reveals it to be taut in nature. Palpation does reveal generalized tenderness throughout. Tenderness is worse on the right in comparison to the left. LABORATORY/RADIOGRAPHIC EVALUATION The patient's hemoglobin today was 7.4. Yesterday it was 8.2. Still has significant leukocytosis with a white count of 45,000. Left shift with 11% bands and 68% neutrophils. INR is 1.59. BMP obtained and reviewed. ASSESSMENT 76-year-old female with spontaneous retroperitoneal bleed. It appear that bleeding has somewhat stabilized at this juncture in time. It does not appear, at least from within the computer, that the patient has received multiple additional transfusions. Although creatinine is increased in nature today to 2.8 from 2.7 yesterday, it does appear that her hourly urinary output has improved. The patient appears to be stable to slightly improved at this time. The right internal jugular catheter that was placed yesterday is clean, dry and intact. Postprocedure chest x-ray did not reveal evidence for pneumothorax and correct placement of tip catheter. [facility]'S HOSPITALPancho
--- NOTE | 2016-11-24 17:14 | XRay Report ---
Indication: hypoxia PROCEDURE: XR chest 1V: Encounter: Initial Comparison: November 23, 2016 Findings: Right IJ line and right PICC line remain in place. Left pacemaker. Increasing moderate right pleural effusion with worsening compressive atelectasis of the right middle and lower lobes. No pneumothorax. Small left effusion. Heart size and mediastinal contours are stable. Pulmonary edema has worsened. Impression: Worsening pulmonary edema and increasing right pleural effusion. .
[2016-11-24] MEDS: LORazepam 0.5 MG TABLET PO PRN (17:37)
--- NOTE | 2016-11-24 18:32 | Progress Note ---
Subjective: Mrs. Jimenez was seen today with her daughter at bedside. Patient reported that she was better although she was breathless at the time I saw her and subsequently developed hypoxia requiring supplemental oxygen. She denied dyspnea and everything else that was asked including palpitations, nausea, fever , or lightheadedness. She reports that she slept well last night. She is having ongoing pain with any activity in the right abdomen and back and her appetite is poor although she feels she ate better at lunch having pudding and broth. Objective Vital signs: Temperature 98.8 F 11/24/16 12:00 Pulse Rate 80 11/24/16 17:51 Respiratory Rate 26 H 11/24/16 16:00 Blood Pressure 132/63 11/24/16 14:00 Pulse Oximetry 92 11/24/16 16:00 I/O 4360/572; urine output thus far today 862 EXAM General-alert, slightly breathless, general pallor HEENT-oropharynx clear Lungs-respirations moderately labored, breath sounds diminished throughout especially at the bases, upper lung west clear, no wheezing or rhonchi Cardiac-regular rhythm, low-grade tachycardia, S1 and S2 Abd-abdomen is distended with generalized tenderness on palpation, bowel sounds are diminished Ext-trace edema bilateral lower extremities and hands Neuro-moving upper extremities spontaneously Psych-flat affect, slightly anxious - Rhythm: Atrial Fibrillation with RVR Height/Weight/BMI: Height 1.73 m Weight 81.6 kg Body Mass Index 23.4 Comments: Ventricularly paced Results - Labs CBC & Chem 7: 11/24/16 13:59 11/24/16 13:58 Labs: Morning labs: White count 45.4 with S 68, B 11, L3, M 12, metamyelocytes 5; HCO3 18, BUN 34, creatinine 1.2 INR 1.59, repeat early afternoon 1.52 Microbiology Results: Microbiology 11/23/16 12:15 Body Fluid, Nos Gram Stain - Final 11/23/16 12:15 Body Fluid, Nos Body Fluid Culture - Preliminary No Growth After 1 Day 11/22/16 13:20 Peripheral/Iv Start Blood Culture - Preliminary No Growth After 2 Days 11/22/16 11:11 Peripheral/Iv Start Blood Culture - Preliminary No Growth After 2 Days - ABG Interpretation Attestation: I reviewed and interpreted this ABG. ABG results: 11/24/16 16:45 ABG pH 7.480 H ABG pCO2 29 L ABG pO2 75 L ABG HCO3 22 ABG Total CO2 22.5 L ABG O2 Saturation 96.0 ABG Base Excess -1.0 Interpretation: respiratory alkalosis (with hypoxia) - Imaging and Cardiology Chest x-ray Status: image reviewed by me (increasing vascular fluid and right pleural effusion-moderately large; atelectasis right lower lung.) Assessment and Plan (1) Nontraumatic retroperitoneal hematoma Current visit: Yes Status: Acute DVT Prophylaxis: SCD's GI Prophylaxis: other (omeprazole) Resuscitation Status: Full Code Assessment and Plan: Impression Retroperitoneal bleed, acute, spontaneous Acute blood loss anemia-transfused 3 units PRBCs 11/21, 3 units 11/23 , 2 units FFP (-11/23, -11/24) Acute renal failure Acute hypoxic respiratory failure-onset 11/24 Chronic Fe def. 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 Pneumonia with SHARON in sputum-(appears to be same species as an blood cultures, all are pansensitive)-improving Pulmonary edema with bilateral pleural effusions-resolved with diuresis Debility secondary to illness Mitral Heart valve replacement -tissue valve Pacemaker Atrial fibrillation -chronic anticoagulation therapy (currently on hold) Hypothyroidism GERD Osteoporosis Anxiety Irritable bowel syndrome-diarrhea prominent Glaucoma Chronic back pain secondary to old compression fracture-stable Hypomagnesemia, hyperphosphatemia Malnutrition Plan Persistent abdominal pain due to retroperitoneal hemorrhage-no preceding trauma but was anticoagulated. Repeat CT of the abdomen/pelvis 11/23 demonstrated further bleeding and increasing size hematoma since original study. Additional blood required yesterday, INR modestly elevated at 1.6 per verbal report of the lab and patient received one unit FFP yesterday and it additional unit today in addition to 10 mg vitamin K. Have discussed potential for transfer to [place] for IR embolization with interventional radiology and nephrology in light of patient's current renal status-both believe intervention now would be very risky due to volume of dye required for the study. Acute kidney failure now oliguric with urine outputs of about 30-130 mL/hr-per hour on Bumex drip. Neck drip initiated this morning at 0.5 mg/h-increased 1 mg/ h this afternoon. Creatinine increased from 1.1 - 3 days ago to 2.8 today, appears to be plateauing. Persistent mild metabolic acidosis-bicarbonate infusion on hold due to volume overload. Clearly volume overloaded by imaging with deteriorating oxygenation through the day today requiring initiation of supplemental oxygen and trial of BiPAP and subsequently converted to CPAP due to high tidal volumes achieved with low pressure BiPAP. Patient advised she will require when necessary CPAP during the day and continuous CPAP at night pending further diuresis. Hematoma aspirated for culture by radiology yesterday to exclude infected hematoma-culture negative today. Continue cefazolin through 12/13 for 0SSA bacteremia/pneumonia. Will also complete 1 week therapy of acyclovir for herpes labialis. Marked leukocytosis-consistent with stress reaction. Magnesium replaced adequately. Monitor with administration of diuresis. Persistent low-grade tachycardia. Patient remains critically ill and at high risk for decompensation due to multiple medical problems but most acutely the retroperitoneal hemorrhage with hemodynamic instability and threatened renal function. Discussed with nursing throughout the day, patient's sister, and patient's daughter and son. Discussed with Dr. David. Multiple conversations with patient and daughter throughout the day. Critical care-55 minutes care today - Time spent with patient Time with patient PN: 50 minutes (55 minutes-critical care) Hospital Course Summary Disclaimer: The visit summary below is not to be considered part of the above Progress Note. 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 Pneumonia with staph aureus in sputum-(appears to be same species as an blood cultures, all are pansensitive)-improving Pulmonary edema with bilateral pleural effusions-improved with diuresis Debility secondary to illness Mitral Heart valve replacement -tissue valve Pacemaker Atrial fibrillation - anticoagulation therapy (currently on hold) Hypothyroidism GERD Osteoporosis Iron deficiency anemia Anxiety Irritable bowel syndrome-diarrhea prominent Glaucoma Chronic back pain secondary to old compression fracture-stable 11/21/16-admission to CCU Admit to CCU for close monitoring, under the care of Dr. Miller, for retroperitoneal bleed. Anticoagulation remains on hold. She is to continue on IV antibiotics through November 1 for her bacteremia. Continue acyclovir for herpes labialis Continue O2, DuoNeb and incentive spirometry for pneumonia Continue Imodium every morning and PRN for diarrhea Continue ferrous sulfate and ascorbic acid iron deficiency anemia Hydromorphone IV PRN pain Continue IV fluids at 125 mL per hour NPO Dr. Miller as discussed patient's case with Dr. Izaguirre. 11/22/16 Persistent abdominal pain due to retroperitoneal hemorrhage-no preceding trauma but was anticoagulated. CT of the abdomen/pelvis reviewed by myself demonstrating large multi-density retroperitoneal hemorrhage on the right. Hemoglobin 8.5 after a total of 3 units of packed red blood cells transfused overnight; warfarin/Lovenox on hold. We'll discuss future anticoagulation plans with cardiology but at present for 2 risky to re-anticoagulation in the immediate future. Acute kidney injury evident with poor urine output today and bump in creatinine from 1.1 yesterday to 1.6 today. Renal function being reassessed this evening in conjunction with urine sodium/creatinine. Minimal response to fluid bolus earlier today, continue IV fluids/additional fluid bolus being given this evening. Suspect ATN due to yesterday's hypotension. Continue cefazolin through 12/13 for 0SSA bacteremia/pneumonia. Will also complete 1 week therapy of acyclovir for herpes labialis. Marked leukocytosis-consistent with stress reaction. Magnesium to be replaced IV today-reassess in a.m. Persistent low-grade tachycardia, likely due to pain but may be slightly dry and additional fluids being given Patient remains critically ill and at high risk for decompensation due to multiple medical problems but most acutely the retroperitoneal hemorrhage with hemodynamic instability and threatened renal function. 11/23/16 Persistent abdominal pain due to retroperitoneal hemorrhage-no preceding trauma but was anticoagulated. Repeat CT of the abdomen/pelvis reviewed by myself demonstrating further bleeding and increasing size hematoma since study 2 days ago. Hemoglobin down again today, 2 units packed red blood cells given. Fibrinogen pending-plan 2 units FFP. Platelet count stable. Off Lovenox/warfarin reversed. May require transfer to [place] for IR embolization if blood loss ongoing. Acute kidney injury -creatinine from 1.1 2 days ago to 2.6 today, appears to be stabilizing and urine output improving slightly with Bumex. Clearly volume overloaded by imaging with borderline oxygenation at times. May require Bumex drip if urine output does not improve further. Fractional excretion consistent with prerenal state however obtained after initial dose of diuretics. Probable ATN. Developing mild metabolic acidosis consistent with renal failure we will initiate low rate bicarbonate infusion. Hematoma aspirated for culture by radiology today to exclude infected hematoma after discussion with Dr. David. Continue cefazolin through 12/13 for 0SSA bacteremia/pneumonia. Will also complete 1 week therapy of acyclovir for herpes labialis. Marked leukocytosis-consistent with stress reaction. Magnesium replaced adequately. Monitor with administration of diuretics Persistent low-grade tachycardia, likely due to pain but may be slightly dry and additional fluids being given. Discussed with patient's rejector's office in [place] and records received confirming chronic atrial fibrillation. Patient remains critically ill and at high risk for decompensation due to multiple medical problems but most acutely the retroperitoneal hemorrhage with hemodynamic instability and threatened renal function. Discussed with nursing throughout the day, patient's sister, and patient's daughter and son. Discussed with Dr. David and Dr. Izaguirre will place central line. 11/24/16 Persistent abdominal pain due to retroperitoneal hemorrhage-no preceding trauma but was anticoagulated. Repeat CT of the abdomen/pelvis 11/23 demonstrated further bleeding and increasing size hematoma since original study. Additional blood required yesterday, INR modestly elevated at 1.6 per verbal report of the lab and patient received one unit FFP yesterday and it additional unit today in addition to 10 mg vitamin K. Have discussed potential for transfer to [place] for IR embolization with interventional radiology and nephrology in light of patient's current renal status-both believe intervention now would be very risky due to volume of dye required for the study. Acute kidney failure now oliguric with urine outputs of about 30-130 mL/hr-per hour on Bumex drip. Neck drip initiated this morning at 0.5 mg/h-increased 1 mg/ h this afternoon. Creatinine increased from 1.1 - 3 days ago to 2.8 today, appears to be plateauing. Persistent mild metabolic acidosis-bicarbonate infusion on hold due to volume overload. Clearly volume overloaded by imaging with deteriorating oxygenation through the day today requiring initiation of supplemental oxygen and trial of BiPAP and subsequently converted to CPAP due to high tidal volumes achieved with low pressure BiPAP. Patient advised she will require when necessary CPAP during the day and continuous CPAP at night pending further diuresis. Hematoma aspirated for culture by radiology yesterday to exclude infected hematoma-culture negative today. Continue cefazolin through 12/13 for 0SSA bacteremia/pneumonia. Will also complete 1 week therapy of acyclovir for herpes labialis. Marked leukocytosis-consistent with stress reaction. Magnesium replaced adequately. Monitor with diuresis. Persistent low-grade tachycardia.
[2016-11-24] MEDS: CEFAZOLIN 1 G in NS 100 ML IV SCH (19:17)
[2016-11-24] MEDS: SIMVASTATIN 20 MG TABLET PO SCH (21:02)
[2016-11-24] MEDS: LATANOPROST 0.005% EYE DROPS 2.5ml EACH EYE SCH (21:03)
[2016-11-24] MEDS: ONDANSETRON 4 MG/2 ML INJECTION IVP PRN (21:55)
[2016-11-25] MEDS: LORazepam 0.5 MG TABLET PO PRN ×2 (00:34→21:47)
[2016-11-25] MEDS: CEFAZOLIN 1 G in NS 100 ML IV SCH ×3 (03:50→19:16)
[2016-11-25] MEDS: SALINE FLUSH 10ml SYRINGE IVF PRN ×3 (04:06→11:34)
[2016-11-25] MEDS: OMEPRAZOLE 20 MG CAPSULE PO SCH (05:48)
[2016-11-25] MEDS: LEVOTHYROXINE 88 MCG TABLET PO SCH (05:48)
[2016-11-25] MEDS: LOPERAMIDE 2 MG CAPSULE PO SCH (05:48)
[2016-11-25] MEDS: HYDROCODONE/APAP 5mg/325mg TABLET PO PRN ×2 (05:48→21:58)
[2016-11-25] MEDS: ALBUTEROL 2.5mg/3ml (0.083%) NEB AEROSOL SCH ×4 (06:41→21:31)
[2016-11-25] MEDS: HYDROMORPHONE 2 MG/ML INJECTION IVP PRN ×4 (08:36→21:49)
[2016-11-25] MEDS: RTU SALINE IV SCH ×4 (09:14→21:55)
[2016-11-25] MEDS: BUMETANIDE DRIP IV SCH ×4 (09:14→21:55)
[2016-11-25] MEDS: LACTOBACILLUS (15B cfu) CAPSULE PO SCH ×3 (09:20→17:24)
[2016-11-25] MEDS: MULTI-VITAMIN + MINERAL TABLET PO SCH (09:20)
[2016-11-25] MEDS: ACYCLOVIR 200 MG CAPSULE PO SCH ×5 (09:24→22:03)
[2016-11-25] MEDS: REFRESH CLASSIC Eye Drops 0.4ml EACH EYE SCH ×2 (09:26→21:56)
[2016-11-25] MEDS: CALCIUM 500 + VIT D 200 TABLET PO SCH ×2 (09:26→21:55)
[2016-11-25] MEDS: FERROUS SULFATE 324 MG TABLET PO SCH (09:26)
--- NOTE | 2016-11-25 10:49 | Progress Note ---
DATE OF SERVICE 11/25/2016 F[address]INGS Mrs. Jimenez this morning was somewhat more somnolent but did awaken and answer appropriately. She states that she is experiencing a little less abdominal pain today. She still describes a "rubber band feeling" around her mid abdomen. EXAM VITAL SIGNS: Temperature 97.9, pulse 74, respirations 24, SAO2 96% on 40% fio2 simple mask. HEENT: Normocephalic. Pupils are equally round and react to light and accommodation. CHEST: Clear to auscultation bilaterally. HEART: Regular rate and rhythm. Normal S1 and S2 without gallops, murmurs or clicks. ABDOMEN: Visualization of the abdomen does not reveal it to be quite as distended today. Palpation of the abdomen actually reveals it to be slightly softer today and not nearly as taut. The patient did have less abdominal discomfort upon palpation as well. LABORATORY/RADIOGRAPHIC EVALUATION The patient's hemoglobin has stabilized and today was 7.3. Her bandemia continues to improve and has gone from 11% to 2%. Her leukocytosis is also continued on a downward trend to 36.8. INR is overall is stable at 1.3. BMP was obtained and her creatinine is stable at 2.8. BUN is slightly elevated at 38. Chest x-ray was obtained yesterday that revealed increasing pulmonary edema, right greater than left. Chest x-ray was not obtained today. ASSESSMENT 76-year-old female with recent history for MMSA septicemia, pneumonia, atrial fibrillation, spontaneous right retroperitoneal bleed originating after initiation of anticoagulation. Retroperitoneal hematoma appears stable at this time without active ongoing bleeding. PLAN At this point in time the patient seems to be stabilizing in regards to her retroperitoneal bleed. She has required no further transfusions. Her abdomen is less tender/taut upon physical examination. Will continue with ongoing care at this time. WADE
--- NOTE | 2016-11-25 16:49 | Progress Note ---
Subjective: Mrs. Jimenez was seen with her daughter at bedside. Patient reported that her breathing was better in oxygenation is been titrated from 6 to 4 L. She tolerated CPAP well overnight wearing it for about 6 hours. Nursing reported abdomen is less distended today and patient doesn't think it's quite as painful. She denied palpitations or nausea and her daughter reports that she ate okay at breakfast. She's had no fever and is voiding well. Objective Vital signs: Temperature 98.5 F 11/25/16 12:00 Pulse Rate 81 11/25/16 14:15 Respiratory Rate 17 11/25/16 14:47 Blood Pressure 128/62 11/25/16 14:15 Pulse Oximetry 94 11/25/16 14:47 I/O 1185/2943 NAD, alert, generalized pallor Respirations remain mildly labored with diminished airflow-especially at the right base, breath sounds are clear in the upper anterior lung west Cardiac rhythm is regular currently, S1-S2 Abdomen is distended but perhaps not quite as much as yesterday, there is still generalized tenderness, soft bowel sounds are present +1/2 edema 4 extremities Oriented 3, moving upper extremities symmetrically Rhythm: Atrial Fibrillation with RVR Height/Weight/BMI: Height 1.73 m Weight 75.2 kg Body Mass Index 23.4 Results - Labs CBC & Chem 7: 11/25/16 04:23 11/25/16 04:23 Labs: INR 1.3 Microbiology Results: Microbiology 11/22/16 13:20 Peripheral/Iv Start Blood Culture - Preliminary No Growth After 3 Days 11/23/16 12:15 Body Fluid, Nos Gram Stain - Final 11/23/16 12:15 Body Fluid, Nos Body Fluid Culture - Preliminary No Growth After 2 Days 11/22/16 11:11 Peripheral/Iv Start Blood Culture - Preliminary No Growth After 3 Days - ABG Interpretation ABG results: 11/24/16 11/25/16 16:45 04:35 ABG pH 7.480 H 7.410 ABG pCO2 29 L 37 ABG pO2 75 L 80 ABG HCO3 22 24 ABG Total CO2 22.5 L 24.6 ABG O2 Saturation 96.0 96.0 ABG Base Excess -1.0 -0.9 Interpretation: other (hypoxia) Assessment and Plan (1) Nontraumatic retroperitoneal hematoma Current visit: Yes Status: Acute DVT Prophylaxis: SCD's GI Prophylaxis: other (omeprazole) Resuscitation Status: Full Code Assessment and Plan: Impression Retroperitoneal bleed, acute, spontaneous Acute blood loss anemia-7 units PRBCs (3-11/21, 3-11/23, 1-11/25), 2 units FFP ( 1-11/23, 1-11/24) Acute renal failure Acute hypoxic respiratory failure-onset 11/24 Volume overload Chronic Fe def. 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 Pneumonia with SHARON in sputum-(appears to be same species as an blood cultures, all are pansensitive)-improving Pulmonary edema with bilateral pleural effusions-resolved with diuresis Debility secondary to illness Mitral Heart valve replacement-tissue valve Pacemaker Atrial fibrillation -chronic anticoagulation therapy (currently on hold) Hypothyroidism GERD Osteoporosis Anxiety Irritable bowel syndrome-diarrhea prominent Glaucoma Chronic back pain secondary to old compression fracture-stable Hypomagnesemia, hyperphosphatemia Malnutrition Plan Persistent abdominal pain due to retroperitoneal hemorrhage-no preceding trauma but was anticoagulated. Repeat CT of the abdomen/pelvis 11/23 demonstrated further bleeding and increasing size hematoma since original study. One additional unit of blood being given today; vitamin K yesterday-INR improved today. Repeat hemoglobin pending currently. Poor oral intake-may require vitamin K intermittently to maintain low INR. Have discussed potential for transfer to [place] for IR embolization with interventional radiology and nephrology in light of patient's current renal status-both believe intervention now would be very risky due to volume of dye required for the study. Acute kidney failure now oliguric with urine outputs of about 150-200 mL/hr-per hour on Bumex drip. Creatinine unchanged. Metabolic acidosis no longer present with current urine volumes. Volume overloaded-continue supplemental oxygen and BiPAP prn/at bedtime. Hematoma aspirated for culture by radiology 11/23 to exclude infected hematoma- culture negative at 48 hours. Continue cefazolin through 12/13 for 0SSA bacteremia/pneumonia. Continue acyclovir for 1 week for herpes labialis-started 11/21. Marked leukocytosis-consistent with stress reaction. Patient remains critically ill and at high risk for decompensation due to multiple medical problems but most acutely the retroperitoneal hemorrhage with hemodynamic instability and threatened renal function. Discussed with nursing throughout the day, patient's daughter and son. Discussed with Dr. Izaguirre. Critical care-43 minutes care today - Time spent with patient Time with patient PN: other (43-critical care) Hospital Course Summary Disclaimer: The visit summary below is not to be considered part of the above Progress Note. 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 Pneumonia with staph aureus in sputum-(appears to be same species as an blood cultures, all are pansensitive)-improving Pulmonary edema with bilateral pleural effusions-improved with diuresis Debility secondary to illness Mitral Heart valve replacement -tissue valve Pacemaker Atrial fibrillation - anticoagulation therapy (currently on hold) Hypothyroidism GERD Osteoporosis Iron deficiency anemia Anxiety Irritable bowel syndrome-diarrhea prominent Glaucoma Chronic back pain secondary to old compression fracture-stable 11/21/16-admission to CCU Admit to CCU for close monitoring, under the care of Dr. Miller, for retroperitoneal bleed. Anticoagulation remains on hold. She is to continue on IV antibiotics through December 13 for her bacteremia. Continue acyclovir for herpes labialis Continue O2, DuoNeb and incentive spirometry for pneumonia Continue Imodium every morning and PRN for diarrhea Continue ferrous sulfate and ascorbic acid iron deficiency anemia Hydromorphone IV PRN pain Continue IV fluids at 125 mL per hour NPO Dr. Miller as discussed patient's case with Dr. Izaguirre. 11/22/16 Persistent abdominal pain due to retroperitoneal hemorrhage-no preceding trauma but was anticoagulated. CT of the abdomen/pelvis reviewed by myself demonstrating large multi-density retroperitoneal hemorrhage on the right. Hemoglobin 8.5 after a total of 3 units of packed red blood cells transfused overnight; warfarin/Lovenox on hold. We'll discuss future anticoagulation plans with cardiology but at present for 2 risky to re-anticoagulation in the immediate future. Acute kidney injury evident with poor urine output today and bump in creatinine from 1.1 yesterday to 1.6 today. Renal function being reassessed this evening in conjunction with urine sodium/creatinine. Minimal response to fluid bolus earlier today, continue IV fluids/additional fluid bolus being given this evening. Suspect ATN due to yesterday's hypotension. Continue cefazolin through 12/13 for 0SSA bacteremia/pneumonia. Will also complete 1 week therapy of acyclovir for herpes labialis. Marked leukocytosis-consistent with stress reaction. Magnesium to be replaced IV today-reassess in a.m. Persistent low-grade tachycardia, likely due to pain but may be slightly dry and additional fluids being given Patient remains critically ill and at high risk for decompensation due to multiple medical problems but most acutely the retroperitoneal hemorrhage with hemodynamic instability and threatened renal function. 11/23/16 Persistent abdominal pain due to retroperitoneal hemorrhage-no preceding trauma but was anticoagulated. Repeat CT of the abdomen/pelvis reviewed by myself demonstrating further bleeding and increasing size hematoma since study 2 days ago. Hemoglobin down again today, 2 units packed red blood cells given. Fibrinogen pending-plan 2 units FFP. Platelet count stable. Off Lovenox/warfarin reversed. May require transfer to [place] for IR embolization if blood loss ongoing. Acute kidney injury -creatinine from 1.1 2 days ago to 2.6 today, appears to be stabilizing and urine output improving slightly with Bumex. Clearly volume overloaded by imaging with borderline oxygenation at times. May require Bumex drip if urine output does not improve further. Fractional excretion consistent with prerenal state however obtained after initial dose of diuretics. Probable ATN. Developing mild metabolic acidosis consistent with renal failure we will initiate low rate bicarbonate infusion. Hematoma aspirated for culture by radiology today to exclude infected hematoma after discussion with Dr. David. Continue cefazolin through 12/13 for 0SSA bacteremia/pneumonia. Will also complete 1 week therapy of acyclovir for herpes labialis. Marked leukocytosis-consistent with stress reaction. Magnesium replaced adequately. Monitor with administration of diuretics Persistent low-grade tachycardia, likely due to pain but may be slightly dry and additional fluids being given. 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 Patient remains critically ill and at high risk for decompensation due to multiple medical problems but most acutely the retroperitoneal hemorrhage with hemodynamic instability and threatened renal function. Discussed with nursing throughout the day, patient's sister, and patient's daughter and son. Discussed with Dr. David and Dr. Izaguirre will place central line. 11/24/16 Persistent abdominal pain due to retroperitoneal hemorrhage-no preceding trauma but was anticoagulated. Repeat CT of the abdomen/pelvis 11/23 demonstrated further bleeding and increasing size hematoma since original study. Additional blood required yesterday, INR modestly elevated at 1.6 per verbal report of the lab and patient received one unit FFP yesterday and it additional unit today in addition to 10 mg vitamin K. Have discussed potential for transfer to [place] for IR embolization with interventional radiology and nephrology in light of patient's current renal status-both believe intervention now would be very risky due to volume of dye required for the study. Acute kidney failure now oliguric with urine outputs of about 30-130 mL/hr-per hour on Bumex drip. Neck drip initiated this morning at 0.5 mg/h-increased 1 mg/ h this afternoon. Creatinine increased from 1.1 - 3 days ago to 2.8 today, appears to be plateauing. Persistent mild metabolic acidosis-bicarbonate infusion on hold due to volume overload. Clearly volume overloaded by imaging with deteriorating oxygenation through the day today requiring initiation of supplemental oxygen and trial of BiPAP and subsequently converted to CPAP due to high tidal volumes achieved with low pressure BiPAP. Patient advised she will require when necessary CPAP during the day and continuous CPAP at night pending further diuresis. Hematoma aspirated for culture by radiology yesterday to exclude infected hematoma-culture negative today. Continue cefazolin through 12/13 for 0SSA bacteremia/pneumonia. Will also complete 1 week therapy of acyclovir for herpes labialis. Marked leukocytosis-consistent with stress reaction. Magnesium replaced adequately. Monitor with diuresis. Persistent low-grade tachycardia. 11/25/16 Persistent abdominal pain due to retroperitoneal hemorrhage-no preceding trauma but was anticoagulated. Repeat CT of the abdomen/pelvis 11/23 demonstrated further bleeding and increasing size hematoma since original study. One additional unit of blood being given today; vitamin K yesterday-INR improved today. Repeat hemoglobin pending currently. Poor oral intake-may require vitamin K intermittently to maintain low INR. Have discussed potential for transfer to [place] for IR embolization with interventional radiology and nephrology in light of patient's current renal status-both believe intervention now would be very risky due to volume of dye required for the study. Acute kidney failure now oliguric with urine outputs of about 150-200 mL/hr-per hour on Bumex drip. Creatinine unchanged. Metabolic acidosis no longer present with current urine volumes. Volume overloaded-continue supplemental oxygen and BiPAP prn/at bedtime. Hematoma aspirated for culture by radiology 11/23 to exclude infected hematoma- culture negative at 48 hours. Continue cefazolin through 12/13 for 0SSA bacteremia/pneumonia. Continue acyclovir for 1 week for herpes labialis-started 11/21.
[2016-11-25] MEDS: ASCORBIC ACID 500 MG TABLET PO SCH (17:21)
[2016-11-25] MEDS: ONDANSETRON 4 MG/2 ML INJECTION IVP PRN (18:54)
[2016-11-25] MEDS: METOCLOPRAMIDE 10mg/2ml INJECTION IVP PRN (21:25)
[2016-11-25] MEDS: SIMVASTATIN 20 MG TABLET PO SCH (21:56)
[2016-11-25] MEDS: LATANOPROST 0.005% EYE DROPS 2.5ml EACH EYE SCH (21:57)
[2016-11-26] MEDS: ONDANSETRON 4 MG/2 ML INJECTION IVP PRN ×4 (00:55→18:17)
[2016-11-26] MEDS ORDERED: ONDANSETRON 4 MG/2 ML INJECTION IVP ONE (02:10)
[2016-11-26] MEDS: CEFAZOLIN 1 G in NS 100 ML IV SCH ×3 (03:17→20:06)
[2016-11-26] MEDS: SALINE FLUSH 10ml SYRINGE IVF PRN ×4 (03:21→22:33)
[2016-11-26] MEDS: HYDROMORPHONE 2 MG/ML INJECTION IVP PRN ×6 (04:11→22:32)
[2016-11-26] MEDS: LEVOTHYROXINE 88 MCG TABLET PO SCH (05:34)
[2016-11-26] MEDS: LOPERAMIDE 2 MG CAPSULE PO SCH (05:34)
[2016-11-26] MEDS: OMEPRAZOLE 20 MG CAPSULE PO SCH (05:34)
[2016-11-26] MEDS: ALBUTEROL 2.5mg/3ml (0.083%) NEB AEROSOL SCH ×4 (07:05→22:22)
[2016-11-26] MEDS: FERROUS SULFATE 324 MG TABLET PO SCH (08:45)
[2016-11-26] MEDS: LACTOBACILLUS (15B cfu) CAPSULE PO SCH ×3 (08:45→17:38)
[2016-11-26] MEDS: ACYCLOVIR 200 MG CAPSULE PO SCH ×5 (08:46→21:26)
[2016-11-26] MEDS: REFRESH CLASSIC Eye Drops 0.4ml EACH EYE SCH ×2 (08:47→21:31)
[2016-11-26] MEDS: BUMETANIDE DRIP IV SCH ×2 (09:45→21:34)
[2016-11-26] MEDS: RTU SALINE IV SCH ×2 (09:45→21:34)
[2016-11-26] MEDS ORDERED: TPN - PHARMACY CONSULT MC ONE (11:53)
[2016-11-26] MEDS: CALCIUM 500 + VIT D 200 TABLET PO SCH ×2 (12:51→21:27)
[2016-11-26] MEDS: MULTI-VITAMIN + MINERAL TABLET PO SCH (12:51)
[2016-11-26] MEDS: ASCORBIC ACID 500 MG TABLET PO SCH (12:51)
--- NOTE | 2016-11-26 13:18 | Pharmacy Consult-TPN/PPN ---
Pharmacy Consult-TPN/PPN - Laboratory Information Chemistry Turbidity < 20 (0-20) 11/26/16 04:08 Sodium 143 MEQ/L (134-144) 11/26/16 04:08 Potassium 3.4 MEQ/L (3.6-5) L 11/26/16 04:08 Chloride 105 MEQ/L (98-107) 11/26/16 04:08 Carbon Dioxide 27 MEQ/L (22-30) 11/26/16 04:08 Anion Gap 11 MEQ/L (5-15) 11/26/16 04:08 BUN 42.0 MG/DL (7-17) H 11/26/16 04:08 Creatinine 2.7 MG/DL (0.7-1.2) H 11/26/16 04:08 GFR Calculation 17 11/26/16 04:08 BUN/Creatinine Ratio 16 RATIO (6-26) 11/26/16 04:08 Glucose 97 MG/DL (65-110) 11/26/16 04:08 Calculated Osmolality 286 MOSM/KG (261-280) H 11/26/16 04:08 Calcium 8.8 MG/DL (8.4-10.2) 11/26/16 04:08 Phosphorus 5.6 MG/DL (2.5-4.5) H 11/26/16 04:08 Magnesium 1.8 MG/DL (1.6-2.3) 11/26/16 04:08 Total Bilirubin 0.30 MG/DL (0.20-1.30) 11/22/16 04:23 Icterus Index < 2 (0-7) 11/26/16 04:08 AST 57 U/L (14-36) H D 11/22/16 04:23 ALT 35 U/L (9-52) 11/22/16 04:23 Alkaline Phosphatase 45 U/L (38-126) 11/22/16 04:23 C-Reactive Protein 41.5 MG/L (0-9) H 11/22/16 04:23 Total Protein 5.2 G/DL (6.3-8.2) L 11/22/16 04:23 Albumin 2.9 G/DL (3.5-5.0) L 11/26/16 04:08 Globulin 2.6 G/DL (2.4-3.6) 11/22/16 04:23 Albumin/Globulin Ratio 1.0 RATIO (1.1-2.2) L 11/22/16 04:23 Prealbumin 17.3 MG/DL (17.6-36.0) L 11/23/16 03:58 Specimen Hemolysis < 15 (0-25) 11/26/16 04:08 Intake and Output 11/25/16 11/26/16 11/27/16 06:59 06:59 06:59 Intake Total 1184.733 / 4714.093 3634.383 / 1233.383 Output Total 2943 / 2943 3380 / 3380 459 / 459 Balance -1758.267 / -1758.267 -2146.617 / -2146.617 -459 / -459 Weight 81.6 kg 75.2 kg 72.1 kg Intake: IV 984.733 / 984.733 373.383 / 373.383 Bumex Drip 12.5 mg In RTU 44.733 / 44.733 73.383 / 73.383 -Saline 50 ml @ 0.5 mls/ hr IV .Q24H SY Rx#: [id number] Cefazolin 1 g In Ns 100 300 / 300 300 / 300 ml @ 200 mls/hr IV Q8H SY Rx#:[id number] Sodium Bicarbonate 150 485.00 / 485.00 meq In D5w 1,000 ml @ 75 mls/hr IV .[id number] SY Rx #:[id number] Oral 200 / 200 860 / 860 Output: Urine Amount (Catheter) 2943 / 2943 3380 / 3380 459 / 459 Other: Urine Appearance Clear Clear Clear Urine Color Pale Pale Pale Yellow Yellow Yellow Stool Color Brown Stool Consistency Formed Size of Bowel Movement Moderate # Bowel Movements 1 Fern is a 76yo F admitted with non-traumatic retroperitoneal bleed. Has hx of poor oral intake, malnutrition. Will start a STANDARD TPN FORMULA via PICC line. Start slowly at 50ml/hr x 12 hrs, then increase to target rate of 90ml/hr [ based on current wt of 72kg]. Will watch electrolytes closely. Magnesium already ordered for tomorrow morning. Will add BMP and Phosphate. Did not add correctional dose insulin order yet. Starting rate slowly and will see how she handles sugars. Adding Fat Emulsion 20% 100ml, one bag daily to prevent Essential Fatty Acid Deficiency, and add additional calories. STANDARD FORMULA as follows: - Amino Acids 8.5% 1000ml - Dextrose 50% 1000ml - Sodium 70mEq per bag - Potassium 60mEq - Magnesium 10mEq - Calcium 9mEq - Acetate 140mEq - Chloride 78mEq - Phosphate 30mMol - MultiVitamin 10ml - Trace Elements 1ml Thank you
[2016-11-26] MEDS: HYDROCODONE/APAP 5mg/325mg TABLET PO PRN (14:08)
[2016-11-26] MEDS: METOCLOPRAMIDE 10mg/2ml INJECTION IVP PRN ×2 (14:57→20:30)
[2016-11-26] MEDS ORDERED: MULTI-VIT INFUSION 10 ML, MULTI-TRACE ELEMENTS 1 ML in TPN - STANDARD FORMULA 2,000 ML IV SCH (15:00)
[2016-11-26] MEDS ORDERED: FAT EMULSION 20% 100 ML BAG IV SCH (16:00)
[2016-11-26] MEDS: FAT EMULSION 20% 100 ML IV SCH (16:30)
--- NOTE | 2016-11-26 18:46 | Progress Note ---
Subjective: Mrs. Jimenez complained of nausea overnight requiring antiemetics. Oral intake has been poor today. Dyspnea is improved although abdominal pain with any movement persists. She denies constipation or fever. She continues to have generalized weakness and does not feel that pain will permit her to try to get up in a chair. She tolerated CPAP for about 6 hours overnight. No chest pain or palpitations. Objective Vital signs: Temperature 98.9 F 11/26/16 16:00 Pulse Rate 80 11/26/16 16:00 Respiratory Rate 29 H 11/26/16 16:00 Blood Pressure 123/60 11/26/16 16:00 Pulse Oximetry 96 11/26/16 16:00 I/O 1233/3380, current urine output 150-200 mL per hour Fatigued appearing elderly female Patient of color in her cheeks today after transfusion yesterday Conjunctiva clear, conjugate gaze Respirations slightly labored, decreased airflow, breath sounds clear upper anterior west Cardiac rhythm irregular, S1-S2 Abdomen moderately distended, diffusely tender to palpation, diminished bowel sounds +2 edema lower extremities, +1 edema upper extremities Flat affect Rhythm: Atrial Fibrillation with Normal Ventricular Rate (ventricular paced) Height/Weight/BMI: Height 1.73 m Weight 72.1 kg Body Mass Index 23.4 Results - Labs CBC & Chem 7: 11/26/16 04:08 11/26/16 15:36 Labs: Differential: S 74, B 13, L2, M 11 INR 1.19 A.m. potassium 3.4, creatinine 2.7, BUN 42, phosphorus 5.6, magnesium 1.8 Microbiology Results: Microbiology 11/22/16 13:20 Peripheral/Iv Start Blood Culture - Preliminary No Growth After 4 Days 11/23/16 12:15 Body Fluid, Nos Gram Stain - Final 11/23/16 12:15 Body Fluid, Nos Body Fluid Culture - Preliminary No Growth After 3 Days 11/22/16 11:11 Peripheral/Iv Start Blood Culture - Preliminary No Growth After 4 Days - ABG Interpretation ABG results: 11/24/16 11/25/16 16:45 04:35 ABG pH 7.480 H 7.410 ABG pCO2 29 L 37 ABG pO2 75 L 80 ABG HCO3 22 24 ABG Total CO2 22.5 L 24.6 ABG O2 Saturation 96.0 96.0 ABG Base Excess -1.0 -0.9 Assessment and Plan (1) Nontraumatic retroperitoneal hematoma Current visit: Yes Status: Acute DVT Prophylaxis: SCD's GI Prophylaxis: other (omeprazole) Resuscitation Status: Full Code Assessment and Plan: Impression Retroperitoneal bleed, acute, spontaneous Acute blood loss anemia-7 units PRBCs (3-11/21, 3-11/23, 1-11/25), 2 units FFP ( 1-11/23, 1-11/24) Acute renal failure Acute hypoxic respiratory failure-onset 11/24 Volume overload Chronic Fe def. 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 Pneumonia with SHARON in sputum-(appears to be same species as an blood cultures, all are pansensitive)-improving Pulmonary edema with bilateral pleural effusions-resolved with diuresis Debility secondary to illness Mitral Heart valve replacement-tissue valve Pacemaker Atrial fibrillation -chronic anticoagulation therapy (currently on hold) Hypothyroidism GERD Osteoporosis Anxiety Irritable bowel syndrome-diarrhea prominent Glaucoma Chronic back pain secondary to old compression fracture-stable Hypomagnesemia, hyperphosphatemia Malnutrition Plan Persistent abdominal pain due to retroperitoneal hemorrhage-no preceding trauma but was anticoagulated. Repeat CT of the abdomen/pelvis 11/23 demonstrated further bleeding and increasing size hematoma since original study. One additional unit of blood being given yesterday; vitamin K 11/24, INR lower today. Hemoglobin 9.2 today after seventh unit of blood yesterday. Poor oral intake-may require vitamin K intermittently to maintain low INR. Have discussed potential for transfer to [place] for IR embolization with interventional radiology and nephrology in light of patient's current renal status-both believe intervention now would be very risky due to volume of dye required for the study. After discussion with patient have elected not to repeat CT tomorrow due to lack of interventional options. Acute kidney failure now nonoliguric with urine outputs of about 150-200 mL/hr- per hour on 0.5mg/hr Bumex drip. Creatinine minimally changed. Volume overloaded-continue supplemental oxygen and BiPAP prn/at bedtime. Hematoma aspirated for culture by radiology 11/23 to exclude infected hematoma- culture negative after 3 days. Continue cefazolin through 12/13 for 0SSA bacteremia/pneumonia. Continue acyclovir for 1 week for herpes labialis-started 11/21. Leukocytosis persists although degree not as great. Patient remains critically ill and at high risk for decompensation due to multiple medical problems but most acutely the retroperitoneal hemorrhage with hemodynamic instability and threatened renal function. Discussed with nursing throughout the day, patient's daughter and son. - Time spent with patient Time with patient PN: 35 minutes (critical care) Hospital Course Summary Disclaimer: The visit summary below is not to be considered part of the above Progress Note. 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 Pneumonia with staph aureus in sputum-(appears to be same species as an blood cultures, all are pansensitive)-improving Pulmonary edema with bilateral pleural effusions-improved with diuresis Debility secondary to illness Mitral Heart valve replacement -tissue valve Pacemaker Atrial fibrillation - anticoagulation therapy (currently on hold) Hypothyroidism GERD Osteoporosis Iron deficiency anemia Anxiety Irritable bowel syndrome-diarrhea prominent Glaucoma Chronic back pain secondary to old compression fracture-stable 11/21/16-admission to CCU Admit to CCU for close monitoring, under the care of Dr. Miller, for retroperitoneal bleed. Anticoagulation remains on hold. She is to continue on IV antibiotics through December 13 for her bacteremia. Continue acyclovir for herpes labialis Continue O2, DuoNeb and incentive spirometry for pneumonia Continue Imodium every morning and PRN for diarrhea Continue ferrous sulfate and ascorbic acid iron deficiency anemia Hydromorphone IV PRN pain Continue IV fluids at 125 mL per hour NPO Dr. Miller as discussed patient's case with Dr. Izaguirre. 11/22/16 Persistent abdominal pain due to retroperitoneal hemorrhage-no preceding trauma but was anticoagulated. CT of the abdomen/pelvis reviewed by myself demonstrating large multi-density retroperitoneal hemorrhage on the right. Hemoglobin 8.5 after a total of 3 units of packed red blood cells transfused overnight; warfarin/Lovenox on hold. We'll discuss future anticoagulation plans with cardiology but at present for 2 risky to re-anticoagulation in the immediate future. Acute kidney injury evident with poor urine output today and bump in creatinine from 1.1 yesterday to 1.6 today. Renal function being reassessed this evening in conjunction with urine sodium/creatinine. Minimal response to fluid bolus earlier today, continue IV fluids/additional fluid bolus being given this evening. Suspect ATN due to yesterday's hypotension. Continue cefazolin through 12/13 for 0SSA bacteremia/pneumonia. Will also complete 1 week therapy of acyclovir for herpes labialis. Marked leukocytosis-consistent with stress reaction. Magnesium to be replaced IV today-reassess in a.m. Persistent low-grade tachycardia, likely due to pain but may be slightly dry and additional fluids being given Patient remains critically ill and at high risk for decompensation due to multiple medical problems but most acutely the retroperitoneal hemorrhage with hemodynamic instability and threatened renal function. 11/23/16 Persistent abdominal pain due to retroperitoneal hemorrhage-no preceding trauma but was anticoagulated. Repeat CT of the abdomen/pelvis reviewed by myself demonstrating further bleeding and increasing size hematoma since study 2 days ago. Hemoglobin down again today, 2 units packed red blood cells given. Fibrinogen pending-plan 2 units FFP. Platelet count stable. Off Lovenox/warfarin reversed. May require transfer to [place] for IR embolization if blood loss ongoing. Acute kidney injury -creatinine from 1.1 2 days ago to 2.6 today, appears to be stabilizing and urine output improving slightly with Bumex. Clearly volume overloaded by imaging with borderline oxygenation at times. May require Bumex drip if urine output does not improve further. Fractional excretion consistent with prerenal state however obtained after initial dose of diuretics. Probable ATN. Developing mild metabolic acidosis consistent with renal failure we will initiate low rate bicarbonate infusion. Hematoma aspirated for culture by radiology today to exclude infected hematoma after discussion with Dr. David. Continue cefazolin through 12/13 for 0SSA bacteremia/pneumonia. Will also complete 1 week therapy of acyclovir for herpes labialis. Marked leukocytosis-consistent with stress reaction. Magnesium replaced adequately. Monitor with administration of diuretics Persistent low-grade tachycardia, likely due to pain but may be slightly dry and additional fluids being given. 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 Patient remains critically ill and at high risk for decompensation due to multiple medical problems but most acutely the retroperitoneal hemorrhage with hemodynamic instability and threatened renal function. Discussed with nursing throughout the day, patient's sister, and patient's daughter and son. Discussed with Dr. David and Dr. Izaguirre will place central line. 11/24/16 Persistent abdominal pain due to retroperitoneal hemorrhage-no preceding trauma but was anticoagulated. Repeat CT of the abdomen/pelvis 11/23 demonstrated further bleeding and increasing size hematoma since original study. Additional blood required yesterday, INR modestly elevated at 1.6 per verbal report of the lab and patient received one unit FFP yesterday and it additional unit today in addition to 10 mg vitamin K. Have discussed potential for transfer to [place] for IR embolization with interventional radiology and nephrology in light of patient's current renal status-both believe intervention now would be very risky due to volume of dye required for the study. Acute kidney failure now oliguric with urine outputs of about 30-130 mL/hr-per hour on Bumex drip. Neck drip initiated this morning at 0.5 mg/h-increased 1 mg/ h this afternoon. Creatinine increased from 1.1 - 3 days ago to 2.8 today, appears to be plateauing. Persistent mild metabolic acidosis-bicarbonate infusion on hold due to volume overload. Clearly volume overloaded by imaging with deteriorating oxygenation through the day today requiring initiation of supplemental oxygen and trial of BiPAP and subsequently converted to CPAP due to high tidal volumes achieved with low pressure BiPAP. Patient advised she will require when necessary CPAP during the day and continuous CPAP at night pending further diuresis. Hematoma aspirated for culture by radiology yesterday to exclude infected hematoma-culture negative today. Continue cefazolin through 12/13 for 0SSA bacteremia/pneumonia. Will also complete 1 week therapy of acyclovir for herpes labialis. Marked leukocytosis-consistent with stress reaction. Magnesium replaced adequately. Monitor with diuresis. Persistent low-grade tachycardia. 11/25/16 Persistent abdominal pain due to retroperitoneal hemorrhage-no preceding trauma but was anticoagulated. Repeat CT of the abdomen/pelvis 11/23 demonstrated further bleeding and increasing size hematoma since original study. One additional unit of blood being given today; vitamin K yesterday-INR improved today. Repeat hemoglobin pending currently. Poor oral intake-may require vitamin K intermittently to maintain low INR. Have discussed potential for transfer to [place] for IR embolization with interventional radiology and nephrology in light of patient's current renal status-both believe intervention now would be very risky due to volume of dye required for the study. Acute kidney failure now nonoliguric with urine outputs of about 150-200 mL/hr- per hour on Bumex drip. Creatinine unchanged. Metabolic acidosis no longer present with current urine volumes. Volume overloaded-continue supplemental oxygen and BiPAP prn/at bedtime. Hematoma aspirated for culture by radiology 11/23 to exclude infected hematoma- culture negative at 48 hours. Continue cefazolin through 12/13 for 0SSA bacteremia/pneumonia. Continue acyclovir for 1 week for herpes labialis-started 11/21. 11/26/16 Hemoglobin 9.2 today after seventh unit of blood yesterday. Poor oral intake-may require vitamin K intermittently to maintain low INR. Have discussed potential for transfer to [place] for IR embolization with interventional radiology and nephrology in light of patient's current renal status-both believe intervention now would be very risky due to volume of dye required for the study. Acute kidney failure now nonoliguric with urine outputs of about 150-200 mL/hr- per hour on 0.5mg/hr Bumex drip. Creatinine minimally changed. Volume overloaded-continue supplemental oxygen and BiPAP prn/at bedtime.
[2016-11-26] MEDS: SIMVASTATIN 20 MG TABLET PO SCH (21:27)
[2016-11-26] MEDS: LATANOPROST 0.005% EYE DROPS 2.5ml EACH EYE SCH (21:30)
[2016-11-26] MEDS: LORazepam 0.5 MG TABLET PO PRN (22:35)
[2016-11-27] MEDS: HYDROMORPHONE 2 MG/ML INJECTION IVP PRN ×8 (00:25→23:18)
[2016-11-27] MEDS: ONDANSETRON 4 MG/2 ML INJECTION IVP PRN ×3 (00:25→22:02)
[2016-11-27] MEDS: CEFAZOLIN 1 G in NS 100 ML IV SCH ×3 (03:00→18:32)
[2016-11-27] MEDS ORDERED: MULTI-VIT INFUSION 10 ML, MULTI-TRACE ELEMENTS 1 ML in TPN - STANDARD FORMULA 2,000 ML IV SCH (04:00)
[2016-11-27] MEDS: OMEPRAZOLE 20 MG CAPSULE PO SCH (06:15)
[2016-11-27] MEDS: LEVOTHYROXINE 88 MCG TABLET PO SCH (06:15)
[2016-11-27] MEDS: LOPERAMIDE 2 MG CAPSULE PO SCH (06:15)
[2016-11-27] MEDS: ALBUTEROL 2.5mg/3ml (0.083%) NEB AEROSOL SCH ×4 (06:45→20:32)
--- NOTE | 2016-11-27 09:12 | Pharmacy Consult-TPN/PPN ---
Pharmacy Consult-TPN/PPN - Laboratory Information Chemistry Turbidity < 20 (0-20) 11/27/16 04:09 Sodium 144 MEQ/L (134-144) 11/27/16 04:09 Potassium 3.1 MEQ/L (3.6-5) L 11/27/16 04:09 Chloride 103 MEQ/L (98-107) 11/27/16 04:09 Carbon Dioxide 32 MEQ/L (22-30) H 11/27/16 04:09 Anion Gap 9 MEQ/L (5-15) 11/27/16 04:09 BUN 48.0 MG/DL (7-17) H 11/27/16 04:09 Creatinine 2.5 MG/DL (0.7-1.2) H 11/27/16 04:09 GFR Calculation 19 11/27/16 04:09 BUN/Creatinine Ratio 19 RATIO (6-26) 11/27/16 04:09 Glucose 167 MG/DL (65-110) H 11/27/16 04:09 Calculated Osmolality 294 MOSM/KG (261-280) H 11/27/16 04:09 Calcium 9.0 MG/DL (8.4-10.2) 11/27/16 04:09 Phosphorus 4.4 MG/DL (2.5-4.5) 11/27/16 04:09 Magnesium 1.6 MG/DL (1.6-2.3) 11/27/16 04:09 Total Bilirubin 0.30 MG/DL (0.20-1.30) 11/22/16 04:23 Icterus Index < 2 (0-7) 11/27/16 04:09 AST 57 U/L (14-36) H D 11/22/16 04:23 ALT 35 U/L (9-52) 11/22/16 04:23 Alkaline Phosphatase 45 U/L (38-126) 11/22/16 04:23 C-Reactive Protein 264.5 MG/L (0-9) H D 11/27/16 04:09 Total Protein 5.2 G/DL (6.3-8.2) L 11/22/16 04:23 Albumin 2.8 G/DL (3.5-5.0) L 11/27/16 04:09 Globulin 2.6 G/DL (2.4-3.6) 11/22/16 04:23 Albumin/Globulin Ratio 1.0 RATIO (1.1-2.2) L 11/22/16 04:23 Prealbumin 17.3 MG/DL (17.6-36.0) L 11/23/16 03:58 Specimen Hemolysis < 15 (0-25) 11/27/16 04:09 Intake and Output 11/26/16 11/27/16 11/28/16 06:59 06:59 06:59 Intake Total 1233.383 / 4747.019 0248.5 / 2029.5 Output Total 3380 / 3380 2899 / 2899 385 / 385 Balance -2146.617 / -2146.617 -869.5 / -869.5 -385 / -385 Weight 75.2 kg 72.1 kg 78.2 kg Intake: IV 373.383 / 280.846 6765.5 / 1379.5 Bumetanide Drip 12.5 mg 28.5 / 28.5 In RTU-Saline 50 ml @ 0.5 MG/HR 2 mls/hr IV .Q24H SY Rx#:[id number] Bumex Drip 12.5 mg In RTU 73.383 / 73.383 -Saline 50 ml @ 0.5 mls/ hr IV .Q24H SY Rx#: [id number] Cefazolin 1 g In Ns 100 300 / 300 300 / 300 ml @ 200 mls/hr IV Q8H SY Rx#:[id number] Fat Emulsion 20% 100 ml @ 100 / 100 50 mls/hr IV 1600 SY Rx #:[id number] Multi-Vit Infusion 10 ml 951 / 951 Multi-Trace Elements 1 ml In TPN - Standard Formula 2,000 ml @ 50 mls /hr IV .Q24H SY Rx#: [id number] Oral 860 / 860 650 / 650 Output: Urine Amount (Catheter) 3380 / 3380 2899 / 2899 385 / 385 Other: Urine Appearance Clear Clear Clear Urine Color Pale Yellow Yellow Yellow I reviewed the patient's electrolytes and the potassium is low and the CO3 was elevated. I ordered that 80 mEq of Potassium Chloride to the next bag of TPN. The pharmacy will continue to monitor the patient and adjust the TPN as needed. Thanks for the Pharmacy TPN Consult, Des Lala, Pharmacy.
--- NOTE | 2016-11-27 09:24 | Progress Note ---
Subjective Date: 11/27/16 Subjective: Patient is seen with her son and daughter at bedside. She continues to have abdominal/back pain that is keeping her from moving much. She is having nausea that seemed to really get worse yesterday per daughter. She denies dyspnea, fevers or chills. Last blood transfusion was Sunday. Her Ancef was decreased from 2gm IV q8 to 1gm IV q8 on 11/24. Exam Vital Signs: Temperature 98.3 F 11/27/16 07:44 Pulse Rate 80 11/27/16 07:44 Respiratory Rate 14 11/27/16 07:44 Blood Pressure 126/58 11/27/16 07:44 Pulse Oximetry 92 11/27/16 07:44 Height/Weight/BMI: Height 1.73 m Weight 78.2 kg Body Mass Index 23.4 - Constitutional Present: no acute distress, thin - Routine HEENT Exam Head: Present: normocephalic, atraumatic Eye: Present: EOMI, PERRL ENT: Present: mucous membranes moist, dentition normal Comments: scabbed lesions on lower lips are getting smaller - Routine Neck Exam Present: supple - Routine Respiratory Exam Present: CTA bilaterally. Absent: accessory muscle use - Routine Cardiovascular Exam Present: RRR. Absent: murmur - Routine Abdominal Exam Present: soft, tenderness (over abdomen, especially R side, hypoactive bowel sounds). Absent: rebound, guarding - Routine Extremities Exam Absent: cyanosis, clubbing, edema - Routine Skin Exam Present: intact. Absent: rash - Routine Neurological Exam Present: alert, oriented X3, CN II-XII intact. Absent: motor deficit - Routine Psychiatric Exam Present: normal affect Results - Labs CBC & Chem 7: 11/27/16 04:08 11/27/16 04:09 Microbiology Results: Microbiology 11/22/16 13:20 Peripheral/Iv Start Blood Culture - Preliminary No Growth After 4 Days 11/23/16 12:15 Body Fluid, Nos Gram Stain - Final 11/23/16 12:15 Body Fluid, Nos Body Fluid Culture - Preliminary No Growth After 3 Days 11/22/16 11:11 Peripheral/Iv Start Blood Culture - Preliminary No Growth After 4 Days - ABG Interpretation ABG results: 11/24/16 11/25/16 16:45 04:35 ABG pH 7.480 H 7.410 ABG pCO2 29 L 37 ABG pO2 75 L 80 ABG HCO3 22 24 ABG Total CO2 22.5 L 24.6 ABG O2 Saturation 96.0 96.0 ABG Base Excess -1.0 -0.9 Impression: Sepsis, suspect secondary to pulmonary source MSSA septicemia 11/13/16, CARLITOS negative 11/17/16. Blood cultures 11/15 NGTD. MSSA pneumonia S/p Mitral (mechanical followed by tissue) valve replacement S/p pacemaker placement Atrial fibrillation Hypothyroidism Lip lesions, suspect HSV R retroperitoneal bleed with fluid level, enlarging and now measuring 14.5 x 8.4 cm, s/p percutaneous aspiration 11/23 with serous appearing fluid, cx and gram stain negative. GUILHERME Leukocytosis vs leukemoid reaction, improving Nausea Recommendation: Continue ancef for 4 weeks after blood cultures are negative, so this would go through 12/13/16. I will stop the acyclovir today in case this is contributing to her nausea (with the renal insufficiency). She has received 5 days of it. Continue to monitor creatinine.
[2016-11-27] MEDS: METOCLOPRAMIDE 10mg/2ml INJECTION IVP PRN (09:41)
[2016-11-27] MEDS: RTU SALINE IV SCH ×2 (09:42→12:55)
[2016-11-27] MEDS: BUMETANIDE DRIP IV SCH ×2 (09:42→12:55)
[2016-11-27] MEDS: FERROUS SULFATE 324 MG TABLET PO SCH (10:18)
[2016-11-27] MEDS: LACTOBACILLUS (15B cfu) CAPSULE PO SCH ×3 (10:18→18:33)
[2016-11-27] MEDS: ASCORBIC ACID 500 MG TABLET PO SCH (10:18)
[2016-11-27] MEDS: CALCIUM 500 + VIT D 200 TABLET PO SCH (10:19)
[2016-11-27] MEDS: MULTI-VITAMIN + MINERAL TABLET PO SCH (10:19)
[2016-11-27] MEDS ORDERED: METOCLOPRAMIDE 10mg/2ml INJECTION IVP PRN (10:29)
[2016-11-27] MEDS ORDERED: SCOPOLAMINE 1.5 MG PATCH TD SCH (10:30)
--- NOTE | 2016-11-27 10:52 | Progress Note ---
DATE 11/26/2016 F[address]INGS Mrs. Jimenez informs me that she is feeling better today. She is having less abdominal pain. She is breathing better. Her main complaint was that of some nausea. OBJECTIVE VITALS: Afebrile. Normotensive. Current vitals include temperature 98.5, pulse 87, blood pressure 133/66, SaO2 94% on 3 liters per nasal cannula. Respiratory rate 13. HEENT: Normocephalic. Pupils are equally round and react to light and accommodation. CHEST: Clear to auscultation bilaterally. HEART: Regular rate and rhythm. Normal S1, S2, without gallops, murmurs or clicks. ABDOMEN: Palpation of the abdomen reveals it to be soft within the mid and left abdomen. The patient is still moderately tender with palpation along the right lateral abdominal wall overlying the area of her retroperitoneal hematoma. Her abdomen is less taut. Abdomen is less tender upon palpation. LABORATORY/RADIOGRAPHIC EVALUATION The patient did undergo a transfusion and her hemoglobin was 9.0 last evening. Hemoglobin remains stable at 9.2 today. Her leukocytosis continues to improve and is down to 24.9. BMP was obtained and creatinine remains stable at 2.7. BUN is slightly elevated at 42.0. The patient continues to have excellent urinary output. ASSESSMENT 76-year-old female with history for sepsis, pneumonia, large right retroperitoneal hematoma which has fortunately currently stabilized. Patient showing clinical improvement. PLAN Will go ahead and sign off the patient's care at this time from a general surgical standpoint. I do believe that her retroperitoneal hematoma has stopped bleeding on its own behalf. Hopefully the patient will continue to improve. Please contact if any further surgical care is required. WADE
[2016-11-27] MEDS: REFRESH CLASSIC Eye Drops 0.4ml EACH EYE SCH ×2 (10:53→22:03)
--- NOTE | 2016-11-27 12:47 | Progress Note ---
Subjective: Fern was seen with her daughter at the bedside. She continues to have moderately significant pain in the right abdomen and mid back-she localizes pain to one specific point over the spine. She had persistent nausea overnight and is taking oral medications poorly. She has not vomited but her daughter indicated she's come close. She tolerates virtually no movement without marked aggravation and pain. Patient denies dyspnea and did not wear CPAP last night due to nausea. Edema has improved per patient report. Fern describes feeling warm and sweaty overnight but denies having chills. Objective Vital signs: Temperature 97.1 F 11/27/16 12:00 Pulse Rate 83 11/27/16 12:00 Respiratory Rate 16 11/27/16 12:00 Blood Pressure 103/64 11/27/16 12:00 Pulse Oximetry 93-3L 11/27/16 12:00 I/O 2040/2899 EXAM General-alert, appears moderately uncomfortable HEENT-conjunctiva clear, no thrush, oral membranes dry Lungs-shallow respirations, fair airflow, breath sounds clear anteriorly Cardiac-irregular cardiac rhythm, S1-S2, very soft systolic murmur Abd-distended, slightly firm throughout and very tender to palpation, decreased bowel sounds Ext-+1 edema bilateral lower extremities, upper extremity edema has resolved Neuro-moves upper extremities spontaneously/symmetrically Psych-flat - Rhythm: Atrial Fibrillation with Normal Ventricular Rate (ventricular paced) Height/Weight/BMI: Height 1.73 m Weight 78.2 kg Body Mass Index 23.4 Results - Labs CBC & Chem 7: 11/27/16 04:08 11/27/16 04:09 Labs: Differential: S69, B15, L2, M11, E1, myelocyte 2 CRP 264.5 Phosphorus 4.4, magnesium 1.6 Microbiology Results: Microbiology 11/22/16 11:11 Peripheral/Iv Start Blood Culture - Final No Growth After 5 Days 11/22/16 13:20 Peripheral/Iv Start Blood Culture - Preliminary No Growth After 4 Days 11/23/16 12:15 Body Fluid, Nos Gram Stain - Final 11/23/16 12:15 Body Fluid, Nos Body Fluid Culture - Preliminary No Growth After 3 Days - ABG Interpretation ABG results: Assessment and Plan (1) Nontraumatic retroperitoneal hematoma Current visit: Yes Status: Acute (2) Acute renal failure Current visit: Yes Status: Acute DVT Prophylaxis: SCD's GI Prophylaxis: other (omeprazole) Resuscitation Status: Full Code Assessment and Plan: Impression Retroperitoneal bleed, acute, spontaneous Acute blood loss anemia-7 units PRBCs (3-11/21, 3-11/23, 1-11/25), 2 units FFP ( 1-11/23, 1-11/24) Acute renal failure, probable ATN due to hypotension Acute hypoxic respiratory failure, onset 11/24 Volume overload Nausea Chronic Fe def. 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 Pneumonia with SHARON in sputum-(appears to be same species as an blood cultures, all are pansensitive)-improving Pulmonary edema with bilateral pleural effusions-resolved with diuresis Debility secondary to illness Mitral Heart valve replacement-tissue valve Pacemaker Atrial fibrillation -chronic anticoagulation therapy (currently on hold) Hypothyroidism GERD Osteoporosis Anxiety Irritable bowel syndrome-diarrhea prominent Glaucoma Chronic back pain secondary to old compression fracture-stable Hypomagnesemia, hyperphosphatemia, hyperkalemia Malnutrition Plan Persistent abdominal pain due to retroperitoneal hemorrhage-no preceding trauma but was anticoagulated. Nausea precludes oral medication; fentanyl patch 12 g initiated today and IV narcotics available. Zofran scheduled to help manage nausea, scopolamine patch will be tried and multiple vitamins are on hold with only critical oral medications being given. If nausea persistent may require repeat imaging of the abdomen. Repeat CT of the abdomen/pelvis 11/23 demonstrated further bleeding and increasing size hematoma since original study. Total of 7 units of blood given to date, hemoglobin 9 over the past 3 days; vitamin K repeated 11/24, INR low today. Poor oral intake-may require vitamin K intermittently to maintain low INR. Monitor every other day. TPN initiated yesterday. Additional potassium being given for hypokalemia present today. Have discussed potential for transfer to [place] for IR embolization with interventional radiology and nephrology in light of patient's current renal status-both believe intervention now would be very risky due to volume of dye required for the study. Acute kidney failure now nonoliguric with urine outputs of about 100-200 mL/hr- per hour on 0.5mg/hr Bumex drip. Creatinine 2.8 to 2.5 over the past 4 days but BUN is up slightly; suspect becoming somewhat prerenal and will adjust dose to maintain fairly equal fluid balance. Edema improving progressively. Volume overloaded-continue supplemental oxygen and BiPAP prn as tolerates Hematoma aspirated for culture by radiology 11/23 to exclude infected hematoma- culture negative after 3 days. Continue cefazolin through 12/13 for 0SSA bacteremia/pneumonia. Dose adjusted for renal function 2 days ago. 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 Discontinued by Dr. David earlier today as possible cause of nausea-course completed today anyway. Leukocytosis persists although degree not as great. Patient remains critically ill and at high risk for decompensation due to multiple medical problems but most acutely the retroperitoneal hemorrhage with hemodynamic instability and threatened renal function. Discussed with nursing and the patient's daughter. - Time spent with patient Time with patient PN: other (41 minutes-critical care time) Hospital Course Summary Disclaimer: The visit summary below is not to be considered part of the above Progress Note. 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 Pneumonia with staph aureus in sputum-(appears to be same species as an blood cultures, all are pansensitive)-improving Pulmonary edema with bilateral pleural effusions-improved with diuresis Debility secondary to illness Mitral Heart valve replacement -tissue valve Pacemaker Atrial fibrillation - anticoagulation therapy (currently on hold) Hypothyroidism GERD Osteoporosis Iron deficiency anemia Anxiety Irritable bowel syndrome-diarrhea prominent Glaucoma Chronic back pain secondary to old compression fracture-stable 11/21/16-admission to CCU Admit to CCU for close monitoring, under the care of Dr. Miller, for retroperitoneal bleed. Anticoagulation remains on hold. She is to continue on IV antibiotics through December 13 for her bacteremia. Continue acyclovir for herpes labialis Continue O2, DuoNeb and incentive spirometry for pneumonia Continue Imodium every morning and PRN for diarrhea Continue ferrous sulfate and ascorbic acid iron deficiency anemia Hydromorphone IV PRN pain Continue IV fluids at 125 mL per hour NPO Dr. Miller as discussed patient's case with Dr. Izaguirre. 11/22/16 Persistent abdominal pain due to retroperitoneal hemorrhage-no preceding trauma but was anticoagulated. CT of the abdomen/pelvis reviewed by myself demonstrating large multi-density retroperitoneal hemorrhage on the right. Hemoglobin 8.5 after a total of 3 units of packed red blood cells transfused overnight; warfarin/Lovenox on hold. We'll discuss future anticoagulation plans with cardiology but at present for 2 risky to re-anticoagulation in the immediate future. Acute kidney injury evident with poor urine output today and bump in creatinine from 1.1 yesterday to 1.6 today. Renal function being reassessed this evening in conjunction with urine sodium/creatinine. Minimal response to fluid bolus earlier today, continue IV fluids/additional fluid bolus being given this evening. Suspect ATN due to yesterday's hypotension. Continue cefazolin through 12/13 for 0SSA bacteremia/pneumonia. Will also complete 1 week therapy of acyclovir for herpes labialis. Marked leukocytosis-consistent with stress reaction. Magnesium to be replaced IV today-reassess in a.m. Persistent low-grade tachycardia, likely due to pain but may be slightly dry and additional fluids being given Patient remains critically ill and at high risk for decompensation due to multiple medical problems but most acutely the retroperitoneal hemorrhage with hemodynamic instability and threatened renal function. 11/23/16 Persistent abdominal pain due to retroperitoneal hemorrhage-no preceding trauma but was anticoagulated. Repeat CT of the abdomen/pelvis reviewed by myself demonstrating further bleeding and increasing size hematoma since study 2 days ago. Hemoglobin down again today, 2 units packed red blood cells given. Fibrinogen pending-plan 2 units FFP. Platelet count stable. Off Lovenox/warfarin reversed. May require transfer to [place] for IR embolization if blood loss ongoing. Acute kidney injury -creatinine from 1.1 2 days ago to 2.6 today, appears to be stabilizing and urine output improving slightly with Bumex. Clearly volume overloaded by imaging with borderline oxygenation at times. May require Bumex drip if urine output does not improve further. Fractional excretion consistent with prerenal state however obtained after initial dose of diuretics. Probable ATN. Developing mild metabolic acidosis consistent with renal failure we will initiate low rate bicarbonate infusion. Hematoma aspirated for culture by radiology today to exclude infected hematoma after discussion with Dr. David. Continue cefazolin through 12/13 for 0SSA bacteremia/pneumonia. Will also complete 1 week therapy of acyclovir for herpes labialis. Marked leukocytosis-consistent with stress reaction. Magnesium replaced adequately. Monitor with administration of diuretics Persistent low-grade tachycardia, likely due to pain but may be slightly dry and additional fluids being given. 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 Patient remains critically ill and at high risk for decompensation due to multiple medical problems but most acutely the retroperitoneal hemorrhage with hemodynamic instability and threatened renal function. Discussed with nursing throughout the day, patient's sister, and patient's daughter and son. Discussed with Dr. David and Dr. Izaguirre will place central line. 11/24/16 Persistent abdominal pain due to retroperitoneal hemorrhage-no preceding trauma but was anticoagulated. Repeat CT of the abdomen/pelvis 11/23 demonstrated further bleeding and increasing size hematoma since original study. Additional blood required yesterday, INR modestly elevated at 1.6 per verbal report of the lab and patient received one unit FFP yesterday and it additional unit today in addition to 10 mg vitamin K. Have discussed potential for transfer to [place] for IR embolization with interventional radiology and nephrology in light of patient's current renal status-both believe intervention now would be very risky due to volume of dye required for the study. Acute kidney failure now oliguric with urine outputs of about 30-130 mL/hr-per hour on Bumex drip. Neck drip initiated this morning at 0.5 mg/h-increased 1 mg/ h this afternoon. Creatinine increased from 1.1 - 3 days ago to 2.8 today, appears to be plateauing. Persistent mild metabolic acidosis-bicarbonate infusion on hold due to volume overload. Clearly volume overloaded by imaging with deteriorating oxygenation through the day today requiring initiation of supplemental oxygen and trial of BiPAP and subsequently converted to CPAP due to high tidal volumes achieved with low pressure BiPAP. Patient advised she will require when necessary CPAP during the day and continuous CPAP at night pending further diuresis. Hematoma aspirated for culture by radiology yesterday to exclude infected hematoma-culture negative today. Continue cefazolin through 12/13 for 0SSA bacteremia/pneumonia. Will also complete 1 week therapy of acyclovir for herpes labialis. Marked leukocytosis-consistent with stress reaction. Magnesium replaced adequately. Monitor with diuresis. Persistent low-grade tachycardia. 11/25/16 Persistent abdominal pain due to retroperitoneal hemorrhage-no preceding trauma but was anticoagulated. Repeat CT of the abdomen/pelvis 11/23 demonstrated further bleeding and increasing size hematoma since original study. One additional unit of blood being given today; vitamin K yesterday-INR improved today. Repeat hemoglobin pending currently. Poor oral intake-may require vitamin K intermittently to maintain low INR. Have discussed potential for transfer to [place] for IR embolization with interventional radiology and nephrology in light of patient's current renal status-both believe intervention now would be very risky due to volume of dye required for the study. Acute kidney failure now nonoliguric with urine outputs of about 150-200 mL/hr- per hour on Bumex drip. Creatinine unchanged. Metabolic acidosis no longer present with current urine volumes. Volume overloaded-continue supplemental oxygen and BiPAP prn/at bedtime. Hematoma aspirated for culture by radiology 11/23 to exclude infected hematoma- culture negative at 48 hours. Continue cefazolin through 12/13 for 0SSA bacteremia/pneumonia. Continue acyclovir for 1 week for herpes labialis-started 11/21. 11/26/16 Hemoglobin 9.2 today after seventh unit of blood yesterday. Poor oral intake-may require vitamin K intermittently to maintain low INR. Have discussed potential for transfer to [place] for IR embolization with interventional radiology and nephrology in light of patient's current renal status-both believe intervention now would be very risky due to volume of dye required for the study. Acute kidney failure now nonoliguric with urine outputs of about 150-200 mL/hr- per hour on 0.5mg/hr Bumex drip. Creatinine minimally changed. Volume overloaded-continue supplemental oxygen and BiPAP prn/at bedtime. 11/27/16 Persistent abdominal pain due to retroperitoneal hemorrhage-no preceding trauma but was anticoagulated. Nausea precludes oral medication; fentanyl patch 12 g initiated today and IV narcotics available. Zofran scheduled to help manage nausea, scopolamine patch will be tried and multiple vitamins are on hold with only critical oral medications being given. If nausea persistent may require repeat imaging of the abdomen. Repeat CT of the abdomen/pelvis 11/23 demonstrated further bleeding and increasing size hematoma since original study. Total of 7 units of blood given to date, hemoglobin 9 over the past 3 days; vitamin K repeated 11/24, INR low today. Poor oral intake-may require vitamin K intermittently to maintain low INR. Monitor every other day. TPN initiated yesterday. Have discussed potential for transfer to [place] for IR embolization with interventional radiology and nephrology in light of patient's current renal status-both believe intervention now would be very risky due to volume of dye required for the study. Acute kidney failure now nonoliguric with urine outputs of about 100-200 mL/hr- per hour on 0.5mg/hr Bumex drip. Creatinine 2.8 to 2.5 over the past 4 days but BUN is up slightly; suspect becoming somewhat prerenal and will adjust dose to maintain fairly equal fluid balance. Edema improving progressively. Volume overloaded-continue supplemental oxygen and BiPAP prn as tolerates Hematoma aspirated for culture by radiology 11/23 to exclude infected hematoma- culture negative after 3 days. Continue cefazolin through 12/13 for 0SSA bacteremia/pneumonia. Dose adjusted for renal function 2 days ago. 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 Discontinued by Dr. David earlier today as possible cause of nausea-course completed today anyway. Leukocytosis persists although degree not as great. 11/27/16 13:05
[2016-11-27] MEDS: POTASSIUM CHLORIDE PREMIX 10 MEQ/100 ML BAG IV SCH ×4 (12:54→16:14)
[2016-11-27] MEDS ORDERED: [UNRECOGNIZED DRUG - OTHER] IV SCH (16:00)
[2016-11-27] MEDS ORDERED: MULTI VIT INFUSION IV SCH (16:00)
[2016-11-27] MEDS ORDERED: MULTI TRACE ELEMENTS IV SCH (16:00)
[2016-11-27] MEDS ORDERED: POTASSIUM CHLORIDE IV SCH (16:00)
[2016-11-27] MEDS: PANTOPRAZOLE 40 MG INJECTION IVP SCH (16:10)
--- NOTE | 2016-11-27 16:19 | CT Scan Report ---
Indication: retroperitoneal hematoma, intractable nausea CT abdomen pelvis wo con: Comparison: 11/23/2016 Technique: Patient scan without contrast from above the diaphragm to below the pubic symphysis. Dose reduction imaging technology is used. Reformatted sagittal and coronal images are provided. Findings: Patient should more prominent bilateral pleural effusions and basilar atelectasis greater on the right side. No marked change in the cardiac appearance is seen with prior heart surgery and a permanent pacemaker in place. Imaging below the diaphragm shows extensive retroperitoneal hemorrhage with a large mass density involving the right flank. As on the previous study this is a slightly mottled density suggesting some more recent hemorrhage as well as similar finding hemorrhage. It is causing displacement of the liver margin in the right kidney. Its measuring 9.2 x 4.1 cm in axial orientation and extends for approximately 17 cm from top to bottom. Stomach is filled with fluid and there is probable generalized ileus present. : No definitive obstruction to the bowel is identified. There is just a trace of free fluid in the pelvis. Impression: 1. Patient demonstrates a large retroperitoneum hematoma in the right flank region its measuring approximate 17 x4 x 9 cm. There is a slightly mixed density suggesting some older and some new or hemorrhage although, the area has not dramatically changed since previous study. 2. Increase in bilateral pleural effusions and basilar atelectasis which persist greater on the right side. .
[2016-11-27] MEDS: FAT EMULSION 20% 100 ML IV SCH (16:33)
[2016-11-27] MEDS: METOCLOPRAMIDE 10mg/2ml INJECTION IVP SCH (19:05)
[2016-11-27] MEDS ORDERED: SORE THROAT SPRAY 20ml PO PRN (20:12)
[2016-11-27] MEDS: LATANOPROST 0.005% EYE DROPS 2.5ml EACH EYE SCH (22:03)
[2016-11-27] MEDS: SALINE FLUSH 10ml SYRINGE IVF PRN ×2 (22:06→23:17)
[2016-11-28] MEDS: METOCLOPRAMIDE 10mg/2ml INJECTION IVP SCH ×5 (00:29→22:52)
[2016-11-28] MEDS: HYDROMORPHONE 2 MG/ML INJECTION IVP PRN ×10 (00:52→22:53)
[2016-11-28] MEDS: CEFAZOLIN 1 G in NS 100 ML IV SCH ×3 (02:49→18:26)
[2016-11-28] MEDS: SALINE FLUSH 10ml SYRINGE IVF PRN ×3 (04:54→22:53)
[2016-11-28] MEDS: LOPERAMIDE 2 MG CAPSULE PO SCH (06:01)
[2016-11-28] MEDS: LEVOTHYROXINE 88 MCG TABLET PO SCH (06:01)
[2016-11-28] MEDS: ONDANSETRON 4 MG/2 ML INJECTION IVP PRN ×2 (07:39→19:40)
--- NOTE | 2016-11-28 07:57 | XRay Report ---
Indication: NG placement PROCEDURE: XR chest 1V: Encounter: Initial Comparison: November 24, 2016 Findings: Right PICC line and right IJ line remain in place. New nasogastric tube in place extending into the stomach where it appears to be tightly coiled or possibly kinked. Continued moderate to large right pleural effusion. Small left effusion. Bibasilar airspace disease. No pneumothorax. Cardiac silhouette remains enlarged. Mediastinal contours are stable. Impression: Nasogastric tube tip projects over the body of the stomach. The tube may be kinked. Recommend correlation with function. There is a preliminary report by [facility]. .
--- NOTE | 2016-11-28 08:10 | Pharmacy Consult-TPN/PPN ---
Pharmacy Consult-TPN/PPN - Laboratory Information Chemistry Turbidity < 20 (0-20) 11/28/16 04:44 Sodium 144 MEQ/L (134-144) 11/28/16 04:44 Potassium 3.9 MEQ/L (3.6-5) D 11/28/16 04:44 Chloride 102 MEQ/L (98-107) 11/28/16 04:44 Carbon Dioxide 36 MEQ/L (22-30) H 11/28/16 04:44 Anion Gap 6 MEQ/L (5-15) 11/28/16 04:44 BUN 60.0 MG/DL (7-17) H* 11/28/16 04:44 Creatinine 2.3 MG/DL (0.7-1.2) H D 11/28/16 04:44 GFR Calculation 21 11/28/16 04:44 BUN/Creatinine Ratio 26 RATIO (6-26) 11/28/16 04:44 Glucose 135 MG/DL (65-110) H 11/28/16 04:44 Calculated Osmolality 296 MOSM/KG (261-280) H 11/28/16 04:44 Calcium 9.1 MG/DL (8.4-10.2) 11/28/16 04:44 Phosphorus 3.7 MG/DL (2.5-4.5) 11/28/16 04:44 Magnesium 1.7 MG/DL (1.6-2.3) 11/28/16 04:44 Total Bilirubin 0.30 MG/DL (0.20-1.30) 11/22/16 04:23 Icterus Index < 2 (0-7) 11/28/16 04:44 AST 57 U/L (14-36) H D 11/22/16 04:23 ALT 35 U/L (9-52) 11/22/16 04:23 Alkaline Phosphatase 45 U/L (38-126) 11/22/16 04:23 C-Reactive Protein 264.5 MG/L (0-9) H D 11/27/16 04:09 Total Protein 5.2 G/DL (6.3-8.2) L 11/22/16 04:23 Albumin 2.7 G/DL (3.5-5.0) L 11/28/16 04:44 Globulin 2.6 G/DL (2.4-3.6) 11/22/16 04:23 Albumin/Globulin Ratio 1.0 RATIO (1.1-2.2) L 11/22/16 04:23 Prealbumin 17.3 MG/DL (17.6-36.0) L 11/23/16 03:58 Specimen Hemolysis < 15 (0-25) 11/28/16 04:44 Intake and Output 11/27/16 11/28/16 11/29/16 06:59 06:59 06:59 Intake Total 2039.767 / 2039.767 1766.667 / 1766.667 Output Total 2899 / 2899 3240 / 3240 Balance -859.233 / -859.233 -1473.333 / -1473.333 Weight 72.1 kg 78.2 kg Intake: IV 1389.767 / 7628.343 6765.667 / 1726.667 Bumetanide Drip 12.5 mg 28.5 / 28.5 55.667 / 55.667 In RTU-Saline 50 ml @ 0.5 MG/HR 2 mls/hr IV .Q24H SY Rx#:[id number] Cefazolin 1 g In Ns 100 300 / 300 300 / 300 ml @ 200 mls/hr IV Q8H SY Rx#:[id number] Fat Emulsion 20% 100 ml @ 100 / 100 50 mls/hr IV 1600 SY Rx #:[id number] Multi-Vit Infusion 10 ml 951 / 951 Multi-Trace Elements 1 ml In TPN - Standard Formula 2,000 ml @ 50 mls /hr IV .Q24H SY Rx#: [id number] Potassium Chloride Inj 80 1076.000 / 1076.000 meq Multi-Vit Infusion 10 ml Multi-Trace Elements 1 ml In TPN - Standard Formula 2,000 ml @ 80 mls/hr IV .Q24H SY Rx#:[id number] Potassium Chloride Premix 295 / 295 10 meq In 100 ml @ 100 mls/hr IV Q1H SY Rx#: [id number] Oral 650 / 650 Intake, Gastric Tube 40 / 40 Irrigant Amount Right Nare 40 / 40 Output: Urine Amount (Catheter) 2899 / 2899 2040 / 2040 Gastric Drainage 1200 / 1200 Right Nare 1200 / 1200 Other: Urine Appearance Clear Clear Urine Color Yellow Pale Yellow - Consult Information Will add 250mls of free water to today's formula. Otherwise same formula at 80 mls/hr. Thank you.
[2016-11-28] MEDS: ALBUTEROL 2.5mg/3ml (0.083%) NEB AEROSOL SCH ×4 (08:14→20:20)
[2016-11-28] MEDS: PANTOPRAZOLE 40 MG INJECTION IVP SCH (09:22)
[2016-11-28] MEDS: LACTOBACILLUS (15B cfu) CAPSULE PO SCH ×3 (09:23→17:10)
[2016-11-28] MEDS: REFRESH CLASSIC Eye Drops 0.4ml EACH EYE SCH ×2 (09:23→21:38)
[2016-11-28] MEDS ORDERED: SCOPOLAMINE PATCH REMOVAL TD ONE (10:30)
--- NOTE | 2016-11-28 15:56 | Progress Note ---
Subjective: Mrs. Jimenez describes ongoing right abdominal and back pain-currently rated 6/10 requiring Dilaudid for pain control. Dose was increased overnight with greater relief offered. Nausea subsided after placement of NG with fairly rapid return of 1200 mL fluid and total of 2 L overnight. She describes sore throat today due to irritation of the NG but no longer feel she'll vomit. She denies dyspnea , chest pain, or palpitations. Objective Vital signs: Temperature 98.1 F 11/28/16 08:00 Pulse Rate 64 11/28/16 12:00 Respiratory Rate 20 11/28/16 15:36 Blood Pressure 118/56 11/28/16 11:00 Pulse Oximetry 95 - RA 11/28/16 15:36 I/O [id number]/3240 Uncomfortable appearing female, shallow respirations, alert Conjunctiva clear, dry oral membranes, dried/scabbed over lesions on the lips from recent herpes labialis Respirations nonlabored but shallow, diminished breath sounds, anterior lung west clear, no wheezing Irregular rhythm, S1-S2, soft systolic murmur Abdomen is soft, distended, and diffusely tender to palpation-even very light touch is uncomfortable Moving upper extremities spontaneously +2 edema in dependent portion of thighs, minimal edema distally Rhythm: Atrial Fibrillation with Normal Ventricular Rate (ventricular paced) Height/Weight/BMI: Height 1.73 m Weight 73.5 kg Body Mass Index 23.4 Results - Labs CBC & Chem 7: 11/28/16 04:44 11/28/16 04:44 Labs: Differential: S64, B2, L2, M32 Phosphorus 3.7, magnesium 1.7, albumin 2.7 Microbiology Results: Microbiology 11/23/16 12:15 Body Fluid, Nos Gram Stain - Final 11/23/16 12:15 Body Fluid, Nos Body Fluid Culture - Final No Growth After 5 Days 11/22/16 13:20 Peripheral/Iv Start Blood Culture - Final No Growth After 5 Days 11/22/16 11:11 Peripheral/Iv Start Blood Culture - Final No Growth After 5 Days - ABG Interpretation ABG results: 11/24/16 11/25/16 16:45 04:35 ABG pH 7.480 H 7.410 ABG pCO2 29 L 37 ABG pO2 75 L 80 ABG HCO3 22 24 ABG Total CO2 22.5 L 24.6 ABG O2 Saturation 96.0 96.0 ABG Base Excess -1.0 -0.9 Assessment and Plan (1) Nontraumatic retroperitoneal hematoma Current visit: Yes Status: Acute (2) Acute renal failure Current visit: Yes Status: Acute DVT Prophylaxis: SCD's GI Prophylaxis: other (omeprazole) Resuscitation Status: Full Code Assessment and Plan: Impression Retroperitoneal bleed, acute, spontaneous Acute blood loss anemia-7 units PRBCs (3-11/21, 3-11/23, 1-11/25), 2 units FFP ( 1-11/23, 1-11/24) Acute renal failure, probable ATN due to hypotension Acute hypoxic respiratory failure, onset 11/24 Volume overload Ileus, partial gastric obstruction with intractable nausea Chronic Fe def. 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 Pneumonia with SHARON in sputum-(appears to be same species as an blood cultures, all are pansensitive)-improving Pulmonary edema with bilateral pleural effusions-resolved with diuresis Debility secondary to illness Mitral Heart valve replacement-tissue valve Pacemaker Atrial fibrillation -chronic anticoagulation therapy (currently on hold) Hypothyroidism GERD Osteoporosis Anxiety Irritable bowel syndrome-diarrhea prominent Glaucoma Chronic back pain secondary to old compression fracture-stable Hypomagnesemia, hyperphosphatemia, hyperkalemia Malnutrition Plan Persistent abdominal pain due to retroperitoneal hemorrhage-no preceding trauma but was anticoagulated. Repeat CT of the abdomen/pelvis 11/23 demonstrated further bleeding and increasing size hematoma since original study. Total of 7 units of blood given to date, hemoglobin 9 over the past 3 days; vitamin K repeated 11/24, INR low yesterday-recheck in a.m. Have discussed potential for transfer to [facility] for IR embolization with interventional radiology and nephrology in light of patient's current renal status-both believe intervention now would be very risky due to volume of dye required for the study. Third CT scan of the abdomen/pelvis yesterday-no indication of additional bleeding into the hematoma but massive distention of the stomach consistent with ileus present and probable cause of the intractable nausea patient had developed. Fentanyl patch 12 g initiated 11/27 and IV Dilaudid available prn for pain control. Ileus/nausea managed by placement of NG tube with return of > 2 L gastric fluid overnight; metoclopramide scheduled 5 mg every 6 hours. Scopolamine patch will be discontinued as only contributing to dryness and I don 't believe will offer any significant benefit for managing nausea. Poor oral intake preceded nausea. TPN initiated 10/27. Acute kidney failure now nonoliguric with urine outputs of about 100-200 mL/hr- per hour on 0.5mg/hr Bumex drip. Creatinine slowly dropping but BUN is up; suspect becoming somewhat prerenal and will adjust dose to maintain fairly equal fluid balance. Bumex rate decreased to 0.25 mg/hr. Volume overloaded-continue supplemental oxygen and BiPAP prn as tolerates-has not required BiPAP the past 2 days Hematoma aspirated for culture by radiology 11/23 to exclude infected hematoma- culture negative after 5 days. Continue cefazolin through 12/13 for 0SSA bacteremia/pneumonia. Dose adjusted for renal function 3 days ago. 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 Discontinued 11/27. Leukocytosis persists. Patient remains critically ill and at high risk for decompensation due to multiple medical problems but most acutely the retroperitoneal hemorrhage with hemodynamic instability and threatened renal function. Discussed with nursing and the patient's daughter/son/sister. Today's CT reviewed with radiology - Time spent with patient Time with patient PN: other (40 minutes-critical care time) Hospital Course Summary Disclaimer: The visit summary below is not to be considered part of the above Progress Note. 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 Pneumonia with staph aureus in sputum-(appears to be same species as an blood cultures, all are pansensitive)-improving Pulmonary edema with bilateral pleural effusions-improved with diuresis Debility secondary to illness Mitral Heart valve replacement -tissue valve Pacemaker Atrial fibrillation - anticoagulation therapy (currently on hold) Hypothyroidism GERD Osteoporosis Iron deficiency anemia Anxiety Irritable bowel syndrome-diarrhea prominent Glaucoma Chronic back pain secondary to old compression fracture-stable 11/21/16-admission to CCU Admit to CCU for close monitoring, under the care of Dr. Miller, for retroperitoneal bleed. Anticoagulation remains on hold. She is to continue on IV antibiotics through December 13 for her bacteremia. Continue acyclovir for herpes labialis Continue O2, DuoNeb and incentive spirometry for pneumonia Continue Imodium every morning and PRN for diarrhea Continue ferrous sulfate and ascorbic acid iron deficiency anemia Hydromorphone IV PRN pain Continue IV fluids at 125 mL per hour NPO Dr. Miller as discussed patient's case with Dr. Izaguirre. 11/22/16 Persistent abdominal pain due to retroperitoneal hemorrhage-no preceding trauma but was anticoagulated. CT of the abdomen/pelvis reviewed by myself demonstrating large multi-density retroperitoneal hemorrhage on the right. Hemoglobin 8.5 after a total of 3 units of packed red blood cells transfused overnight; warfarin/Lovenox on hold. We'll discuss future anticoagulation plans with cardiology but at present for 2 risky to re-anticoagulation in the immediate future. Acute kidney injury evident with poor urine output today and bump in creatinine from 1.1 yesterday to 1.6 today. Renal function being reassessed this evening in conjunction with urine sodium/creatinine. Minimal response to fluid bolus earlier today, continue IV fluids/additional fluid bolus being given this evening. Suspect ATN due to yesterday's hypotension. Continue cefazolin through 12/13 for 0SSA bacteremia/pneumonia. Will also complete 1 week therapy of acyclovir for herpes labialis. Marked leukocytosis-consistent with stress reaction. Magnesium to be replaced IV today-reassess in a.m. Persistent low-grade tachycardia, likely due to pain but may be slightly dry and additional fluids being given Patient remains critically ill and at high risk for decompensation due to multiple medical problems but most acutely the retroperitoneal hemorrhage with hemodynamic instability and threatened renal function. 11/23/16 Persistent abdominal pain due to retroperitoneal hemorrhage-no preceding trauma but was anticoagulated. Repeat CT of the abdomen/pelvis reviewed by myself demonstrating further bleeding and increasing size hematoma since study 2 days ago. Hemoglobin down again today, 2 units packed red blood cells given. Fibrinogen pending-plan 2 units FFP. Platelet count stable. Off Lovenox/warfarin reversed. May require transfer to [facility] for IR embolization if blood loss ongoing. Acute kidney injury -creatinine from 1.1 2 days ago to 2.6 today, appears to be stabilizing and urine output improving slightly with Bumex. Clearly volume overloaded by imaging with borderline oxygenation at times. May require Bumex drip if urine output does not improve further. Fractional excretion consistent with prerenal state however obtained after initial dose of diuretics. Probable ATN. Developing mild metabolic acidosis consistent with renal failure we will initiate low rate bicarbonate infusion. Hematoma aspirated for culture by radiology today to exclude infected hematoma after discussion with Dr. David. Continue cefazolin through 12/13 for 0SSA bacteremia/pneumonia. Will also complete 1 week therapy of acyclovir for herpes labialis. Marked leukocytosis-consistent with stress reaction. Magnesium replaced adequately. Monitor with administration of diuretics Persistent low-grade tachycardia, likely due to pain but may be slightly dry and additional fluids being given. Discussed with patient's lath hand's office in [place] and records received confirming chronic atrial fibrillation. Patient remains critically ill and at high risk for decompensation due to multiple medical problems but most acutely the retroperitoneal hemorrhage with hemodynamic instability and threatened renal function. Discussed with nursing throughout the day, patient's sister, and patient's daughter and son. Discussed with Dr. David and Dr. Izaguirre will place central line. 11/24/16 Persistent abdominal pain due to retroperitoneal hemorrhage-no preceding trauma but was anticoagulated. Repeat CT of the abdomen/pelvis 11/23 demonstrated further bleeding and increasing size hematoma since original study. Additional blood required yesterday, INR modestly elevated at 1.6 per verbal report of the lab and patient received one unit FFP yesterday and it additional unit today in addition to 10 mg vitamin K. Have discussed potential for transfer to [facility] for IR embolization with interventional radiology and nephrology in light of patient's current renal status-both believe intervention now would be very risky due to volume of dye required for the study. Acute kidney failure now oliguric with urine outputs of about 30-130 mL/hr-per hour on Bumex drip. Neck drip initiated this morning at 0.5 mg/h-increased 1 mg/ h this afternoon. Creatinine increased from 1.1 - 3 days ago to 2.8 today, appears to be plateauing. Persistent mild metabolic acidosis-bicarbonate infusion on hold due to volume overload. Clearly volume overloaded by imaging with deteriorating oxygenation through the day today requiring initiation of supplemental oxygen and trial of BiPAP and subsequently converted to CPAP due to high tidal volumes achieved with low pressure BiPAP. Patient advised she will require when necessary CPAP during the day and continuous CPAP at night pending further diuresis. Hematoma aspirated for culture by radiology yesterday to exclude infected hematoma-culture negative today. Continue cefazolin through 12/13 for 0SSA bacteremia/pneumonia. Will also complete 1 week therapy of acyclovir for herpes labialis. Marked leukocytosis-consistent with stress reaction. Magnesium replaced adequately. Monitor with diuresis. Persistent low-grade tachycardia. 11/25/16 Persistent abdominal pain due to retroperitoneal hemorrhage-no preceding trauma but was anticoagulated. Repeat CT of the abdomen/pelvis 11/23 demonstrated further bleeding and increasing size hematoma since original study. One additional unit of blood being given today; vitamin K yesterday-INR improved today. Repeat hemoglobin pending currently. Poor oral intake-may require vitamin K intermittently to maintain low INR. Have discussed potential for transfer to [facility] for IR embolization with interventional radiology and nephrology in light of patient's current renal status-both believe intervention now would be very risky due to volume of dye required for the study. Acute kidney failure now nonoliguric with urine outputs of about 150-200 mL/hr- per hour on Bumex drip. Creatinine unchanged. Metabolic acidosis no longer present with current urine volumes. Volume overloaded-continue supplemental oxygen and BiPAP prn/at bedtime. Hematoma aspirated for culture by radiology 11/23 to exclude infected hematoma- culture negative at 48 hours. Continue cefazolin through 12/13 for 0SSA bacteremia/pneumonia. Continue acyclovir for 1 week for herpes labialis-started 11/21. 11/26/16 Hemoglobin 9.2 today after seventh unit of blood yesterday. Poor oral intake-may require vitamin K intermittently to maintain low INR. Have discussed potential for transfer to [facility] for IR embolization with interventional radiology and nephrology in light of patient's current renal status-both believe intervention now would be very risky due to volume of dye required for the study. Acute kidney failure now nonoliguric with urine outputs of about 150-200 mL/hr- per hour on 0.5mg/hr Bumex drip. Creatinine minimally changed. Volume overloaded-continue supplemental oxygen and BiPAP prn/at bedtime. 11/27/16 Persistent abdominal pain due to retroperitoneal hemorrhage-no preceding trauma but was anticoagulated. Nausea precludes oral medication; fentanyl patch 12 g initiated today and IV narcotics available. Zofran scheduled to help manage nausea, scopolamine patch will be tried and multiple vitamins are on hold with only critical oral medications being given. If nausea persistent may require repeat imaging of the abdomen. Repeat CT of the abdomen/pelvis 11/23 demonstrated further bleeding and increasing size hematoma since original study. Total of 7 units of blood given to date, hemoglobin 9 over the past 3 days; vitamin K repeated 11/24, INR low today. Poor oral intake-may require vitamin K intermittently to maintain low INR. Monitor every other day. TPN initiated yesterday. Have discussed potential for transfer to [facility] for IR embolization with interventional radiology and nephrology in light of patient's current renal status-both believe intervention now would be very risky due to volume of dye required for the study. Acute kidney failure now nonoliguric with urine outputs of about 100-200 mL/hr- per hour on 0.5mg/hr Bumex drip. Creatinine 2.8 to 2.5 over the past 4 days but BUN is up slightly; suspect becoming somewhat prerenal and will adjust dose to maintain fairly equal fluid balance. Edema improving progressively. Volume overloaded-continue supplemental oxygen and BiPAP prn as tolerates Hematoma aspirated for culture by radiology 11/23 to exclude infected hematoma- culture negative after 3 days. Continue cefazolin through 12/13 for 0SSA bacteremia/pneumonia. Dose adjusted for renal function 2 days ago. 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 Discontinued by Dr. David earlier today as possible cause of nausea-course completed today anyway. Leukocytosis persists although degree not as great. 11/28/16 Persistent abdominal pain due to retroperitoneal hemorrhage-no preceding trauma but was anticoagulated. Repeat CT of the abdomen/pelvis 11/23 demonstrated further bleeding and increasing size hematoma since original study. Total of 7 units of blood given to date, hemoglobin 9 over the past 3 days; vitamin K repeated 11/24, INR low yesterday-recheck in a.m. Have discussed potential for transfer to [facility] for IR embolization with interventional radiology and nephrology in light of patient's current renal status-both believe intervention now would be very risky due to volume of dye required for the study. Third CT scan of the abdomen/pelvis yesterday-no indication of additional bleeding into the hematoma but massive distention of the stomach consistent with ileus present and probable cause of the intractable nausea patient had developed. Fentanyl patch 12 g initiated 11/27 and IV Dilaudid available prn for pain control. Ileus/nausea managed by placement of NG tube with return of > 2 L gastric fluid overnight; metoclopramide scheduled 5 mg every 6 hours. Scopolamine patch will be discontinued as only contributing to dryness and I don 't believe will offer any significant benefit for managing nausea. Poor oral intake preceded nausea. TPN initiated 10/27. Acute kidney failure now nonoliguric with urine outputs of about 100-200 mL/hr- per hour on 0.5mg/hr Bumex drip. Creatinine slowly dropping but BUN is up; suspect becoming somewhat prerenal and will adjust dose to maintain fairly equal fluid balance. Bumex rate decreased to 0.25 mg/hr. Volume overloaded-continue supplemental oxygen and BiPAP prn as tolerates-has not required BiPAP the past 2 days
[2016-11-28] MEDS: MULTI TRACE ELEMENTS IV SCH (16:29)
[2016-11-28] MEDS: MULTI VIT INFUSION IV SCH (16:29)
[2016-11-28] MEDS: POTASSIUM CHLORIDE IV SCH (16:29)
[2016-11-28] MEDS: [UNRECOGNIZED DRUG - OTHER] IV SCH (16:29)
[2016-11-28] MEDS: FAT EMULSION 20% 100 ML IV SCH (16:30)
[2016-11-28] MEDS: BUMETANIDE DRIP IV SCH ×2 (19:00→21:53)
[2016-11-28] MEDS: RTU SALINE IV SCH ×2 (19:00→21:53)
[2016-11-28] MEDS: LATANOPROST 0.005% EYE DROPS 2.5ml EACH EYE SCH (21:38)
[2016-11-29] MEDS: HYDROMORPHONE 2 MG/ML INJECTION IVP PRN ×8 (02:26→23:48)
[2016-11-29] MEDS: CEFAZOLIN 1 G in NS 100 ML IV SCH ×3 (02:27→19:09)
[2016-11-29] MEDS: METOCLOPRAMIDE 10mg/2ml INJECTION IVP SCH ×4 (04:47→23:47)
[2016-11-29] MEDS: SALINE FLUSH 10ml SYRINGE IVF PRN ×8 (04:50→18:11)
[2016-11-29] MEDS: LOPERAMIDE 2 MG CAPSULE PO SCH (05:58)
[2016-11-29] MEDS: LEVOTHYROXINE 88 MCG TABLET PO SCH (05:58)
[2016-11-29] MEDS: ALBUTEROL 2.5mg/3ml (0.083%) NEB AEROSOL SCH ×4 (07:07→19:54)
--- NOTE | 2016-11-29 08:06 | Pharmacy Consult-TPN/PPN ---
Pharmacy Consult-TPN/PPN - Laboratory Information Chemistry Turbidity < 20 (0-20) 11/29/16 04:56 Sodium 143 MEQ/L (134-144) 11/29/16 04:56 Potassium 4.6 MEQ/L (3.6-5) 11/29/16 04:56 Chloride 102 MEQ/L (98-107) 11/29/16 04:56 Carbon Dioxide 35 MEQ/L (22-30) H 11/29/16 04:56 Anion Gap 6 MEQ/L (5-15) 11/29/16 04:56 BUN 71.0 MG/DL (7-17) H* 11/29/16 04:56 Creatinine 2.5 MG/DL (0.7-1.2) H D 11/29/16 04:56 GFR Calculation 19 11/29/16 04:56 BUN/Creatinine Ratio 28 RATIO (6-26) H 11/29/16 04:56 Glucose 131 MG/DL (65-110) H 11/29/16 04:56 Glucometer 154 mg/dL (65-110) 11/29/16 03:59 Calculated Osmolality 298 MOSM/KG (261-280) H 11/29/16 04:56 Calcium 9.1 MG/DL (8.4-10.2) 11/29/16 04:56 Phosphorus 3.5 MG/DL (2.5-4.5) 11/29/16 04:56 Magnesium 1.6 MG/DL (1.6-2.3) 11/29/16 04:56 Total Bilirubin 0.20 MG/DL (0.20-1.30) 11/29/16 04:56 Conjugated Bilirubin 0.00 MG/DL (0.00-0.30) 11/29/16 04:56 Unconjugated Bilirubin 0.00 MG/DL (0.00-1.1) 11/29/16 04:56 Icterus Index < 2 (0-7) 11/29/16 04:56 AST 45 U/L (14-36) H 11/29/16 04:56 ALT 27 U/L (9-52) 11/29/16 04:56 Alkaline Phosphatase 81 U/L (38-126) 11/29/16 04:56 C-Reactive Protein 264.5 MG/L (0-9) H D 11/27/16 04:09 Total Protein 5.8 G/DL (6.3-8.2) L 11/29/16 04:56 Albumin 2.7 G/DL (3.5-5.0) L 11/29/16 04:56 Globulin 3.1 G/DL (2.4-3.6) 11/29/16 04:56 Albumin/Globulin Ratio 0.9 RATIO (1.1-2.2) L 11/29/16 04:56 Prealbumin 17.3 MG/DL (17.6-36.0) L 11/23/16 03:58 Specimen Hemolysis < 15 (0-25) 11/29/16 04:56 Intake and Output 11/28/16 11/29/16 11/30/16 06:59 06:59 06:59 Intake Total 1866.667 / 1985.022 0213.833 / 2507.833 Output Total 3240 / 3240 3625 / 3625 Balance -1373.333 / -1373.333 -1117.167 / -1117.167 Weight 78.2 kg 73.5 kg Intake: IV 1826.667 / 4863.180 6052.833 / 2357.833 Bumetanide Drip 12.5 mg 55.667 / 55.667 37.833 / 37.833 In RTU-Saline 50 ml @ 0. 25 MG/HR 1 mls/hr IV . Q24H SY Rx#:[id number] Cefazolin 1 g In Ns 100 300 / 300 300 / 300 ml @ 200 mls/hr IV Q8H SY Rx#:[id number] Fat Emulsion 20% 100 ml @ 100 / 100 100 / 100 50 mls/hr IV 1600 SY Rx #:[id number] Potassium Chloride Inj 80 1076.000 / 1076.000 838.667 / 838.667 meq Multi-Vit Infusion 10 ml Multi-Trace Elements 1 ml In TPN - Standard Formula 2,000 ml @ 80 mls/hr IV .Q24H SY Rx#:[id number] Potassium Chloride Inj 80 1081.333 / 1081.333 meq Multi-Vit Infusion 10 ml Multi-Trace Elements 1 ml Water For Injection 250 ml In TPN - Standard Formula 2,000 ml @ 80 mls/hr IV .Q24H [facility] Rx#:[id number] Potassium Chloride Premix 295 / 295 10 meq In 100 ml @ 100 mls/hr IV Q1H [facility] Rx#: [id number] Oral 30 / 30 Intake, Gastric Tube 40 / 40 120 / 120 Irrigant Amount Right Nare 40 / 40 120 / 120 Output: Urine Amount (Catheter) 2039 1625 / 1625 Gastric Drainage 1200 / 1200 1999 Right Nare 1200 / 1200 1999 Other: Urine Appearance Clear Cloudy Urine Color Pale Yellow Yellow - Consult Information We will be decreasing the potassium chloride in TPN to 40mEq (from 80mEq). We will continue to add 250mL of sterile water to decrease osmolality. Ordered [facility] for 11/30. Thanks.
[2016-11-29] MEDS: REFRESH CLASSIC Eye Drops 0.4ml EACH EYE SCH ×2 (08:33→22:36)
[2016-11-29] MEDS: LACTOBACILLUS (15B cfu) CAPSULE PO SCH ×3 (08:34→18:58)
[2016-11-29] MEDS: PANTOPRAZOLE 40 MG INJECTION IVP SCH (08:35)
--- NOTE | 2016-11-29 08:57 | Progress Note ---
Subjective Date: 11/29/16 Subjective: She reports that she is still having some nausea and abdominal pain. She denies fevers, chills. Denies shortness of breath. RN reports that the patient has significant vaginal discharge that looks like candidiasis. Exam Vital Signs: Temperature 98.8 F 11/28/16 20:00 Pulse Rate 73 11/29/16 06:00 Respiratory Rate 18 11/29/16 07:11 Blood Pressure 123/58 11/29/16 06:00 Pulse Oximetry 91 11/29/16 07:11 Height/Weight/BMI: Height 1.73 m Weight 73.5 kg Body Mass Index 23.4 - Constitutional Present: no acute distress, thin Comments: appears chronically ill, appears fatigued - Routine HEENT Exam Head: Present: normocephalic, atraumatic Eye: Present: EOMI, PERRL ENT: Present: mucous membranes dry Comments: upper dentures in place, dry, brownish discoloration on tongue, NGT in place. Lip lesions are nearly resolved. - Routine Neck Exam Present: supple - Routine Respiratory Exam Present: CTA bilaterally. Absent: accessory muscle use - Routine Cardiovascular Exam Present: RRR. Absent: murmur - Routine Abdominal Exam Present: soft, tenderness (over abdomen) Comments: no bowel sounds appreciated - Routine Exam Comments: anderson in place - Routine Extremities Exam Present: edema (trace LE). Absent: cyanosis, clubbing - Routine Skin Exam Present: intact. Absent: rash - Routine Neurological Exam Present: alert, oriented X3, CN II-XII intact appears fatigued - Routine Psychiatric Exam Present: normal affect Results - Labs CBC & Chem 7: 11/29/16 04:56 11/29/16 04:56 Microbiology Results: Microbiology 11/23/16 12:15 Body Fluid, Nos Gram Stain - Final 11/23/16 12:15 Body Fluid, Nos Body Fluid Culture - Final No Growth After 5 Days 11/22/16 13:20 Peripheral/Iv Start Blood Culture - Final No Growth After 5 Days 11/22/16 11:11 Peripheral/Iv Start Blood Culture - Final No Growth After 5 Days - ABG Interpretation ABG results: 11/24/16 11/25/16 16:45 04:35 ABG pH 7.480 H 7.410 ABG pCO2 29 L 37 ABG pO2 75 L 80 ABG HCO3 22 24 ABG Total CO2 22.5 L 24.6 ABG O2 Saturation 96.0 96.0 ABG Base Excess -1.0 -0.9 Impression: Sepsis, suspect secondary to pulmonary source MSSA septicemia 11/13/16, CARLITOS negative 11/17/16. Blood cultures 11/15 NGTD. MSSA pneumonia S/p Mitral (mechanical followed by tissue) valve replacement S/p pacemaker placement Atrial fibrillation Hypothyroidism Lip lesions, suspect HSV R retroperitoneal bleed with fluid level, enlarging and now measuring 14.5 x 8.4 cm, s/p percutaneous aspiration 11/23 with serous appearing fluid, cx and gram stain negative. GUILHERME Leukocytosis vs leukemoid reaction Nausea Ileus [place] vaginitis Recommendation: Continue ancef for 4 weeks after blood cultures are negative, so this would go through 12/13/16. Continue to monitor creatinine. She appears fatigued and critically ill. Will give her fluconazole for 7 days for yeast vaginitis.
[2016-11-29] MEDS: FLUCONAZOLE PB 100 MG/50 ML BAG IV SCH (11:06)
[2016-11-29] MEDS: SALIVA SUBSTITUTE MOUTH SPRAY 1.5oz PO PRN (14:56)
[2016-11-29] MEDS ORDERED: MULTI VIT INFUSION IV SCH (16:01)
[2016-11-29] MEDS ORDERED: POTASSIUM CHLORIDE IV SCH (16:01)
[2016-11-29] MEDS ORDERED: MULTI TRACE ELEMENTS IV SCH (16:01)
[2016-11-29] MEDS ORDERED: [UNRECOGNIZED DRUG - OTHER] IV SCH (16:01)
[2016-11-29] MEDS: FAT EMULSION 20% 100 ML IV SCH (16:23)
[2016-11-29] MEDS ORDERED: BISACODYL 10 MG SUPPOSITORY RECTALLY ONE (16:35)
[2016-11-29] MEDS: POTASSIUM CHLORIDE IV SCH (18:05)
[2016-11-29] MEDS: MULTI TRACE ELEMENTS IV SCH (18:05)
[2016-11-29] MEDS: [UNRECOGNIZED DRUG - OTHER] IV SCH (18:05)
[2016-11-29] MEDS: MULTI VIT INFUSION IV SCH (18:05)
--- NOTE | 2016-11-29 21:53 | Progress Note ---
- Date 11/29/16 Subjective: Mrs. Jimenez has had mild confusion overnight and increased lethargy. Pain control has been more problematic and her daughter reports that she's developed nausea again. Nursing reports that the NG has required irrigation intermittently to maintain good drainage. There's been no recurrent fever. Nursing reports patient tolerates virtually no movement due to pain and is developed yeast vaginitis. The patient reports that she's fine and denies dyspnea as is usual. Objective Vital signs: Temperature 99.6 F 11/29/16 16:00 Pulse Rate 72 11/29/16 18:00 Respiratory Rate 15 11/29/16 19:54 Blood Pressure 134/61 11/29/16 18:00 Pulse Oximetry 95 -4L 11/29/16 19:54 I/O 2508/3625 Frail-appearing female, moderately labored respirations Lethargic, less interactive than she was early in the week Diminished breath sounds throughout, anterior west clear Irregular rhythm, S1-S2, soft systolic murmur Abdomen is distended, slightly softer than it has been prior days but remains diffusely tender +2-3 pitting edema in the thighs Rhythm: Atrial Fibrillation with Normal Ventricular Rate (ventricular paced) Height/Weight/BMI: Height 1.73 m Weight 76.6 kg Body Mass Index 23.4 Results - Labs CBC & Chem 7: 11/29/16 04:56 11/29/16 04:56 Labs: S65, B6, L2, M26, E1 INR 1.21 Liver enzymes unremarkable; phosphorus 3.5, magnesium 1.6 Microbiology Results: Microbiology 11/23/16 12:15 Body Fluid, Nos Gram Stain - Final 11/23/16 12:15 Body Fluid, Nos Body Fluid Culture - Final No Growth After 5 Days 11/22/16 13:20 Peripheral/Iv Start Blood Culture - Final No Growth After 5 Days 11/22/16 11:11 Peripheral/Iv Start Blood Culture - Final No Growth After 5 Days Assessment and Plan (1) Nontraumatic retroperitoneal hematoma Current visit: Yes Status: Acute (2) Acute renal failure Current visit: Yes Status: Acute DVT Prophylaxis: SCD's GI Prophylaxis: other (omeprazole) Resuscitation Status: Full Code Assessment and Plan: Impression Retroperitoneal bleed, acute, spontaneous Acute blood loss anemia-7 units PRBCs (3-11/21, 3-11/23, 1-11/25), 2 units FFP ( 1-11/23, 1-11/24) Acute renal failure, probable ATN due to hypotension Acute hypoxic respiratory failure, onset 11/24 Volume overload Ileus, partial gastric obstruction with intractable nausea Chronic Fe def. 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 Pneumonia with SHARON in sputum-(appears to be same species as an blood cultures, all are pansensitive)-improving Pulmonary edema with bilateral pleural effusions-resolved with diuresis Debility secondary to illness Mitral Heart valve replacement-tissue valve Pacemaker Atrial fibrillation -chronic anticoagulation therapy (currently on hold) Hypothyroidism GERD Osteoporosis Anxiety Irritable bowel syndrome-diarrhea prominent Glaucoma Chronic back pain secondary to old compression fracture-stable Hypomagnesemia, hyperphosphatemia, hyperkalemia Malnutrition Yeast vaginitis, fluconazole initiated 11/29 Plan Persistent abdominal pain due to retroperitoneal hemorrhage-no preceding trauma but was anticoagulated. Pain seems to be worsening progressively and patient intolerant of activity; at high risk for complications of being bedridden at this time. Chest x-ray in a.m. to exclude pneumonia as white count is climbing again. Repeat CT of the abdomen/pelvis 11/23 demonstrated further bleeding and increasing size hematoma since original study. Total of 7 units of blood given to date, hemoglobin 9 over the past 3 days; vitamin K repeated 11/24, INR remained stable-monitor every other day. Have discussed potential for transfer to [facility] for IR embolization with interventional radiology and nephrology in light of patient's current renal status-both believe intervention now would be very risky due to volume of dye required for the study. Third CT scan of the abdomen/pelvis yesterday-no indication of additional bleeding into the hematoma but massive distention of the stomach consistent with ileus present and probable cause of the intractable nausea patient had developed. Fentanyl patch started 11/27, dose increased 11/29; IV Dilaudid available prn for pain control. Ileus/nausea managed by placement of NG tube with return of > 2 L gastric fluid overnight; metoclopramide scheduled 5 mg every 6 hours. Poor oral intake preceded nausea. TPN initiated 10/27. Acute kidney failure now nonoliguric with urine outputs of about 100-200 mL/hr- per hour on 0.25mg/hr Bumex drip (previously rate 0.5 mg/h). Creatinine/BUN both up today-Bumex discontinued; suspect becoming somewhat prerenal despite total body volume overload. Volume overloaded-continue supplemental oxygen and BiPAP prn as tolerates. Hematoma aspirated for culture by radiology 11/23 to exclude infected hematoma- culture negative after 5 days. Continue cefazolin through 12/13 for 0SSA bacteremia/pneumonia. Dose adjusted for renal function 3 days ago. 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 Discontinued 11/27. Leukocytosis persists/increased today-chest x-ray in a.m., repeat UA. Patient remains critically ill and at high risk for decompensation due to multiple medical problems but most acutely the retroperitoneal hemorrhage with hemodynamic instability and threatened renal function. Discussed with nursing and the patient's daughter/son/sister. I have expressed my concern to the patient's family that the patient is failing and that inability to increase activity may be a terminal process. Have additionally discussed whether any interventions are available to reduce hematoma with surgery and radiology and all agree that hematoma should be left alone due to risk of rebleeding and infection. Prognosis ominous. Critically ill, 45 minutes in patient care-multiple conversations as noted above. - Time spent with patient Time with patient PN: other (45 minutes-critical care) Hospital Course Summary Disclaimer: The visit summary below is not to be considered part of the above Progress Note. 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 Pneumonia with staph aureus in sputum-(appears to be same species as an blood cultures, all are pansensitive)-improving Pulmonary edema with bilateral pleural effusions-improved with diuresis Debility secondary to illness Mitral Heart valve replacement -tissue valve Pacemaker Atrial fibrillation - anticoagulation therapy (currently on hold) Hypothyroidism GERD Osteoporosis Iron deficiency anemia Anxiety Irritable bowel syndrome-diarrhea prominent Glaucoma Chronic back pain secondary to old compression fracture-stable 11/21/16-admission to CCU Admit to CCU for close monitoring, under the care of Dr. Miller, for retroperitoneal bleed. Anticoagulation remains on hold. She is to continue on IV antibiotics through December 13 for her bacteremia. Continue acyclovir for herpes labialis Continue O2, DuoNeb and incentive spirometry for pneumonia Continue Imodium every morning and PRN for diarrhea Continue ferrous sulfate and ascorbic acid iron deficiency anemia Hydromorphone IV PRN pain Continue IV fluids at 125 mL per hour NPO Dr. Miller as discussed patient's case with Dr. Izaguirre. 11/22/16 Persistent abdominal pain due to retroperitoneal hemorrhage-no preceding trauma but was anticoagulated. CT of the abdomen/pelvis reviewed by myself demonstrating large multi-density retroperitoneal hemorrhage on the right. Hemoglobin 8.5 after a total of 3 units of packed red blood cells transfused overnight; warfarin/Lovenox on hold. We'll discuss future anticoagulation plans with cardiology but at present for 2 risky to re-anticoagulation in the immediate future. Acute kidney injury evident with poor urine output today and bump in creatinine from 1.1 yesterday to 1.6 today. Renal function being reassessed this evening in conjunction with urine sodium/creatinine. Minimal response to fluid bolus earlier today, continue IV fluids/additional fluid bolus being given this evening. Suspect ATN due to yesterday's hypotension. Continue cefazolin through 12/13 for 0SSA bacteremia/pneumonia. Will also complete 1 week therapy of acyclovir for herpes labialis. Marked leukocytosis-consistent with stress reaction. Magnesium to be replaced IV today-reassess in a.m. Persistent low-grade tachycardia, likely due to pain but may be slightly dry and additional fluids being given Patient remains critically ill and at high risk for decompensation due to multiple medical problems but most acutely the retroperitoneal hemorrhage with hemodynamic instability and threatened renal function. 11/23/16 Persistent abdominal pain due to retroperitoneal hemorrhage-no preceding trauma but was anticoagulated. Repeat CT of the abdomen/pelvis reviewed by myself demonstrating further bleeding and increasing size hematoma since study 2 days ago. Hemoglobin down again today, 2 units packed red blood cells given. Fibrinogen pending-plan 2 units FFP. Platelet count stable. Off Lovenox/warfarin reversed. May require transfer to [facility] for IR embolization if blood loss ongoing. Acute kidney injury -creatinine from 1.1 2 days ago to 2.6 today, appears to be stabilizing and urine output improving slightly with Bumex. Clearly volume overloaded by imaging with borderline oxygenation at times. May require Bumex drip if urine output does not improve further. Fractional excretion consistent with prerenal state however obtained after initial dose of diuretics. Probable ATN. Developing mild metabolic acidosis consistent with renal failure we will initiate low rate bicarbonate infusion. Hematoma aspirated for culture by radiology today to exclude infected hematoma after discussion with Dr. David. Continue cefazolin through 12/13 for 0SSA bacteremia/pneumonia. Will also complete 1 week therapy of acyclovir for herpes labialis. Marked leukocytosis-consistent with stress reaction. Magnesium replaced adequately. Monitor with administration of diuretics Persistent low-grade tachycardia, likely due to pain but may be slightly dry and additional fluids being given. 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 Patient remains critically ill and at high risk for decompensation due to multiple medical problems but most acutely the retroperitoneal hemorrhage with hemodynamic instability and threatened renal function. Discussed with nursing throughout the day, patient's sister, and patient's daughter and son. Discussed with Dr. David and Dr. Izaguirre will place central line. 11/24/16 Persistent abdominal pain due to retroperitoneal hemorrhage-no preceding trauma but was anticoagulated. Repeat CT of the abdomen/pelvis 11/23 demonstrated further bleeding and increasing size hematoma since original study. Additional blood required yesterday, INR modestly elevated at 1.6 per verbal report of the lab and patient received one unit FFP yesterday and it additional unit today in addition to 10 mg vitamin K. Have discussed potential for transfer to [facility] for IR embolization with interventional radiology and nephrology in light of patient's current renal status-both believe intervention now would be very risky due to volume of dye required for the study. Acute kidney failure now oliguric with urine outputs of about 30-130 mL/hr-per hour on Bumex drip. Neck drip initiated this morning at 0.5 mg/h-increased 1 mg/ h this afternoon. Creatinine increased from 1.1 - 3 days ago to 2.8 today, appears to be plateauing. Persistent mild metabolic acidosis-bicarbonate infusion on hold due to volume overload. Clearly volume overloaded by imaging with deteriorating oxygenation through the day today requiring initiation of supplemental oxygen and trial of BiPAP and subsequently converted to CPAP due to high tidal volumes achieved with low pressure BiPAP. Patient advised she will require when necessary CPAP during the day and continuous CPAP at night pending further diuresis. Hematoma aspirated for culture by radiology yesterday to exclude infected hematoma-culture negative today. Continue cefazolin through 12/13 for 0SSA bacteremia/pneumonia. Will also complete 1 week therapy of acyclovir for herpes labialis. Marked leukocytosis-consistent with stress reaction. Magnesium replaced adequately. Monitor with diuresis. Persistent low-grade tachycardia. 11/25/16 Persistent abdominal pain due to retroperitoneal hemorrhage-no preceding trauma but was anticoagulated. Repeat CT of the abdomen/pelvis 11/23 demonstrated further bleeding and increasing size hematoma since original study. One additional unit of blood being given today; vitamin K yesterday-INR improved today. Repeat hemoglobin pending currently. Poor oral intake-may require vitamin K intermittently to maintain low INR. Have discussed potential for transfer to [facility] for IR embolization with interventional radiology and nephrology in light of patient's current renal status-both believe intervention now would be very risky due to volume of dye required for the study. Acute kidney failure now nonoliguric with urine outputs of about 150-200 mL/hr- per hour on Bumex drip. Creatinine unchanged. Metabolic acidosis no longer present with current urine volumes. Volume overloaded-continue supplemental oxygen and BiPAP prn/at bedtime. Hematoma aspirated for culture by radiology 11/23 to exclude infected hematoma- culture negative at 48 hours. Continue cefazolin through 12/13 for 0SSA bacteremia/pneumonia. Continue acyclovir for 1 week for herpes labialis-started 11/21. 11/26/16 Hemoglobin 9.2 today after seventh unit of blood yesterday. Poor oral intake-may require vitamin K intermittently to maintain low INR. Have discussed potential for transfer to [facility] for IR embolization with interventional radiology and nephrology in light of patient's current renal status-both believe intervention now would be very risky due to volume of dye required for the study. Acute kidney failure now nonoliguric with urine outputs of about 150-200 mL/hr- per hour on 0.5mg/hr Bumex drip. Creatinine minimally changed. Volume overloaded-continue supplemental oxygen and BiPAP prn/at bedtime. 11/27/16 Persistent abdominal pain due to retroperitoneal hemorrhage-no preceding trauma but was anticoagulated. Nausea precludes oral medication; fentanyl patch 12 g initiated today and IV narcotics available. Zofran scheduled to help manage nausea, scopolamine patch will be tried and multiple vitamins are on hold with only critical oral medications being given. If nausea persistent may require repeat imaging of the abdomen. Repeat CT of the abdomen/pelvis 11/23 demonstrated further bleeding and increasing size hematoma since original study. Total of 7 units of blood given to date, hemoglobin 9 over the past 3 days; vitamin K repeated 11/24, INR low today. Poor oral intake-may require vitamin K intermittently to maintain low INR. Monitor every other day. TPN initiated yesterday. Have discussed potential for transfer to [facility] for IR embolization with interventional radiology and nephrology in light of patient's current renal status-both believe intervention now would be very risky due to volume of dye required for the study. Acute kidney failure now nonoliguric with urine outputs of about 100-200 mL/hr- per hour on 0.5mg/hr Bumex drip. Creatinine 2.8 to 2.5 over the past 4 days but BUN is up slightly; suspect becoming somewhat prerenal and will adjust dose to maintain fairly equal fluid balance. Edema improving progressively. Volume overloaded-continue supplemental oxygen and BiPAP prn as tolerates Hematoma aspirated for culture by radiology 11/23 to exclude infected hematoma- culture negative after 3 days. Continue cefazolin through 12/13 for 0SSA bacteremia/pneumonia. Dose adjusted for renal function 2 days ago. 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 Discontinued by Dr. David earlier today as possible cause of nausea-course completed today anyway. Leukocytosis persists although degree not as great. 11/28/16 Persistent abdominal pain due to retroperitoneal hemorrhage-no preceding trauma but was anticoagulated. Repeat CT of the abdomen/pelvis 11/23 demonstrated further bleeding and increasing size hematoma since original study. Total of 7 units of blood given to date, hemoglobin 9 over the past 3 days; vitamin K repeated 11/24, INR low yesterday-recheck in a.m. Have discussed potential for transfer to [facility] for IR embolization with interventional radiology and nephrology in light of patient's current renal status-both believe intervention now would be very risky due to volume of dye required for the study. Third CT scan of the abdomen/pelvis yesterday-no indication of additional bleeding into the hematoma but massive distention of the stomach consistent with ileus present and probable cause of the intractable nausea patient had developed. Fentanyl patch 12 g initiated 11/27 and IV Dilaudid available prn for pain control. Ileus/nausea managed by placement of NG tube with return of > 2 L gastric fluid overnight; metoclopramide scheduled 5 mg every 6 hours. Scopolamine patch will be discontinued as only contributing to dryness and I don 't believe will offer any significant benefit for managing nausea. Poor oral intake preceded nausea. TPN initiated 10/27. Acute kidney failure now nonoliguric with urine outputs of about 100-200 mL/hr- per hour on 0.5mg/hr Bumex drip. Creatinine slowly dropping but BUN is up; suspect becoming somewhat prerenal and will adjust dose to maintain fairly equal fluid balance. Bumex rate decreased to 0.25 mg/hr. Volume overloaded-continue supplemental oxygen and BiPAP prn as tolerates-has not required BiPAP the past 2 days 11/29/16 Persistent abdominal pain due to retroperitoneal hemorrhage-no preceding trauma but was anticoagulated. Pain seems to be worsening progressively and patient intolerant of activity; at high risk for complications of being bedridden at this time. Chest x-ray in a.m. to exclude pneumonia as white count is climbing again. Repeat CT of the abdomen/pelvis 11/23 demonstrated further bleeding and increasing size hematoma since original study. Total of 7 units of blood given to date, hemoglobin 9 over the past 3 days; vitamin K repeated 11/24, INR remained stable-monitor every other day. Have discussed potential for transfer to [facility] for IR embolization with interventional radiology and nephrology in light of patient's current renal status-both believe intervention now would be very risky due to volume of dye required for the study. Third CT scan of the abdomen/pelvis yesterday-no indication of additional bleeding into the hematoma but massive distention of the stomach consistent with ileus present and probable cause of the intractable nausea patient had developed. Fentanyl patch started 11/27, dose increased 11/29; IV Dilaudid available prn for pain control. Ileus/nausea managed by placement of NG tube with return of > 2 L gastric fluid overnight; metoclopramide scheduled 5 mg every 6 hours. Poor oral intake preceded nausea. TPN initiated 10/27. Acute kidney failure now nonoliguric with urine outputs of about 100-200 mL/hr- per hour on 0.25mg/hr Bumex drip (previously rate 0.5 mg/h). Creatinine/BUN both up today-Bumex discontinued; suspect becoming somewhat prerenal despite total body volume overload. Volume overloaded-continue supplemental oxygen and BiPAP prn as tolerates. Hematoma aspirated for culture by radiology 11/23 to exclude infected hematoma- culture negative after 5 days. Continue cefazolin through 12/13 for 0SSA bacteremia/pneumonia. Dose adjusted for renal function 3 days ago. 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 Discontinued 11/27. Leukocytosis persists/increased today-chest x-ray in a.m., repeat UA. Patient remains critically ill and at high risk for decompensation due to multiple medical problems but most acutely the retroperitoneal hemorrhage with hemodynamic instability and threatened renal function. Discussed with nursing and the patient's daughter/son/sister. I have expressed my concern to the patient's family that the patient is failing and that inability to increase activity may be a terminal process. Have additionally discussed whether any interventions are available to reduce hematoma with surgery and radiology and all agree that hematoma should be left alone due to risk of rebleeding and infection. Prognosis ominous.
[2016-11-29] MEDS: LATANOPROST 0.005% EYE DROPS 2.5ml EACH EYE SCH (22:36)
[2016-11-30] MEDS: CEFAZOLIN 1 G in NS 100 ML IV SCH ×3 (02:45→18:25)
[2016-11-30] MEDS: HYDROMORPHONE 2 MG/ML INJECTION IVP PRN ×5 (03:01→18:24)
[2016-11-30] MEDS: SALINE FLUSH 10ml SYRINGE IVF PRN (03:02)
[2016-11-30] MEDS: ALBUTEROL 2.5mg/3ml (0.083%) NEB AEROSOL SCH ×4 (07:17→19:11)
[2016-11-30] MEDS: LACTOBACILLUS (15B cfu) CAPSULE PO SCH ×3 (07:45→18:25)
[2016-11-30] MEDS: LOPERAMIDE 2 MG CAPSULE PO SCH (07:45)
[2016-11-30] MEDS: LEVOTHYROXINE 88 MCG TABLET PO SCH (07:45)
--- NOTE | 2016-11-30 07:49 | Pharmacy Consult-TPN/PPN ---
Pharmacy Consult-TPN/PPN - Laboratory Information Chemistry Turbidity < 20 (0-20) 11/30/16 04:46 Sodium 144 MEQ/L (134-144) 11/30/16 04:46 Potassium 5.1 MEQ/L (3.6-5) H 11/30/16 04:46 Chloride 102 MEQ/L (98-107) 11/30/16 04:46 Carbon Dioxide 35 MEQ/L (22-30) H 11/30/16 04:46 Anion Gap 7 MEQ/L (5-15) 11/30/16 04:46 BUN 78.0 MG/DL (7-17) H* 11/30/16 04:46 Creatinine 2.5 MG/DL (0.7-1.2) H 11/30/16 04:46 GFR Calculation 19 11/30/16 04:46 BUN/Creatinine Ratio 31 RATIO (6-26) H 11/30/16 04:46 Glucose 162 MG/DL (65-110) H 11/30/16 04:46 Glucometer 145 mg/dL (65-110) 11/29/16 21:03 Calculated Osmolality 304 MOSM/KG (261-280) H 11/30/16 04:46 Calcium 9.2 MG/DL (8.4-10.2) 11/30/16 04:46 Phosphorus 4.3 MG/DL (2.5-4.5) 11/30/16 04:46 Magnesium 1.7 MG/DL (1.6-2.3) 11/30/16 04:46 Total Bilirubin 0.20 MG/DL (0.20-1.30) 11/29/16 04:56 Conjugated Bilirubin 0.00 MG/DL (0.00-0.30) 11/29/16 04:56 Unconjugated Bilirubin 0.00 MG/DL (0.00-1.1) 11/29/16 04:56 Icterus Index < 2 (0-7) 11/30/16 04:46 AST 45 U/L (14-36) H 11/29/16 04:56 ALT 27 U/L (9-52) 11/29/16 04:56 Alkaline Phosphatase 81 U/L (38-126) 11/29/16 04:56 C-Reactive Protein 264.5 MG/L (0-9) H D 11/27/16 04:09 Total Protein 5.8 G/DL (6.3-8.2) L 11/29/16 04:56 Albumin 2.7 G/DL (3.5-5.0) L 11/30/16 04:46 Globulin 3.1 G/DL (2.4-3.6) 11/29/16 04:56 Albumin/Globulin Ratio 0.9 RATIO (1.1-2.2) L 11/29/16 04:56 Prealbumin 17.3 MG/DL (17.6-36.0) L 11/23/16 03:58 Specimen Hemolysis < 15 (0-25) 11/30/16 04:46 Intake and Output 11/29/16 11/30/16 12/01/16 06:59 06:59 06:59 Intake Total 2507.833 / 2507.833 2215.667 / 2215.667 Output Total 3625 / 3625 2515 / 2515 Balance -1117.167 / -1117.167 -299.333 / -299.333 Weight 73.5 kg 76.6 kg Intake: IV 2357.833 / 2357.833 2090.667 / 2090.667 Bumetanide Drip 12.5 mg 37.833 / 37.833 In RTU-Saline 50 ml @ 0. 25 MG/HR 1 mls/hr IV . Q24H SY Rx#:[id number] Cefazolin 1 g In Ns 100 300 / 300 300 / 300 ml @ 200 mls/hr IV Q8H SY Rx#:[id number] Fat Emulsion 20% 100 ml @ 100 / 100 100.000 / 100.000 50 mls/hr IV 1600 SY Rx #:[id number] Fluconazole Pb 100 mg In 50 / 50 50 ml @ 50 mls/hr IV Q24H SY Rx#:[id number] Potassium Chloride Inj 80 838.667 / 838.667 meq Multi-Vit Infusion 10 ml Multi-Trace Elements 1 ml In TPN - Standard Formula 2,000 ml @ 80 mls/hr IV .Q24H [facility] Rx#:[id number] Potassium Chloride Inj 40 1081.333 / 1444.047 3633.667 / 1630.667 meq Multi-Vit Infusion 10 ml Multi-Trace Elements 1 ml Water For Injection 250 ml In TPN - Standard Formula 2,000 ml @ 80 mls/hr IV .Q24H [facility] Rx#:[id number] Oral 30 / 30 Intake, Gastric Tube 120 / 120 125 / 125 Irrigant Amount Right Nare 120 / 120 125 / 125 Output: Urine Amount (Catheter) 1625 / 1625 1740 / 1740 Gastric Drainage 1999 775 / 775 Right Nare 1999 775 / 775 Other: Urine Appearance Cloudy Clear Urine Color Yellow Yellow Stool Color Brown Stool Consistency Soft Size of Bowel Movement Small - Consult Information Potassium was 5.1 this morning so we will not add any KCl to formula and increase sterile water to 500mL (high osmolality). Continue same rate for now ( 80mL per hour) We will order BMP in a.m. Thanks
[2016-11-30] MEDS: METOCLOPRAMIDE 10mg/2ml INJECTION IVP SCH ×4 (07:50→22:54)
--- NOTE | 2016-11-30 09:12 | XRay Report ---
Indication: hypoxia PROCEDURE: XR chest 1V: Encounter: Initial Comparison: November 27, 2016 Findings: Support devices are stable in position. Continued moderate right pleural effusion with compressive atelectasis in the right middle and lower lobes. Small left effusion. No pneumothorax. Continued pulmonary vascular congestion with cephalization. Heart size is stable. Mediastinal contours are unchanged. Impression: Stable chest with pulmonary edema and bilateral pleural effusions. .
[2016-11-30] MEDS: REFRESH CLASSIC Eye Drops 0.4ml EACH EYE SCH ×2 (10:23→21:26)
[2016-11-30] MEDS: PANTOPRAZOLE 40 MG INJECTION IVP SCH (10:23)
--- NOTE | 2016-11-30 10:40 | XRay Report ---
Indication: right pleural effusion PROCEDURE: XR chest w decubitus: Encounter: Initial Comparison: November 30, 2016 at 0524 Findings/ Impression: There is some type of dense material obscuring portions of the right upper and lateral lung field, on the initial view. This is moved on the second view. The right pleural fluid appears partially loculated with a portion that is freely layering. No other acute changes appreciated. .
[2016-11-30] MEDS: FLUCONAZOLE PB 100 MG/50 ML BAG IV SCH (10:49)
--- NOTE | 2016-11-30 14:19 | Ultrasound Report ---
Indication:right pleural effusion Ordering physician:Jocelin Faustin MD Procedure:US thoracentesis THORACENTESIS: After discussing the details of the procedure, including the risks, the patient wished to proceed. Informed consent was obtained. A preprocedural timeout was performed to confirm the correct patient and procedure. Using aseptic technique, local lidocaine anesthetic, and ultrasound guidance throughout, a right-sided thoracentesis was performed using a posterolateral approach. 1050 cc of serosanguineous fluid was removed from the right hemithorax and sent to lab. The patient tolerated this procedure well. The patient was in stable condition in her room in the CCU immediately following the procedure. Impression: Successful right-sided thoracentesis performed with 1050 cc of fluid removed. Erick Badillo RPA/ALEXEY performed this under my personal supervision. .
--- NOTE | 2016-11-30 14:30 | Ultrasound Report ---
Indication: Bilateral lower extremity edema PROCEDURE: US venous doppler LE BI: Encounter: Initial Comparison: None Technique: Color Doppler duplex and grayscale sonographic imaging of both lower extremities was performed. Findings: There is no evidence for acute deep venous thrombosis in either thigh. Specifically, serial graded compression was performed from the inguinal ligament to the popliteal bifurcation, bilaterally, demonstrating appropriate compressibility of the deep venous system. In addition, color and pulsed Doppler demonstrate appropriate spontaneous flow, variation with respiration, and augmentation with calf compression. At the ankle, normal flow is identified in the posterior tibial veins; these vessels are also normal in caliber. Impression: No evidence of acute DVT in either lower limb. .
[2016-11-30] MEDS: [UNRECOGNIZED DRUG - OTHER] IV SCH (15:25)
[2016-11-30] MEDS: MULTI TRACE ELEMENTS IV SCH (15:25)
[2016-11-30] MEDS: WATER FOR INJECTION IV SCH (15:25)
[2016-11-30] MEDS: MULTI VIT INFUSION IV SCH (15:25)
[2016-11-30] MEDS: FAT EMULSION 20% 100 ML IV SCH (16:00)
[2016-11-30] MEDS ORDERED: FALL RISK - PHARMACY CONSULT MC ONE (17:45)
--- NOTE | 2016-11-30 17:50 | Progress Note ---
- Date 11/30/16 Subjective: Mrs. Jimenez with him this morning at which time her sister and daughter at the bedside. She continues to have variable dyspnea although reported that she was more comfortable after using BiPAP overnight. She denied chest pain or palpitations. Indicated that her abdomen was a little more comfortable after having bowel movements overnight. Nursing reported that she had significant pain with repositioning for decubitus chest x-ray earlier in the morning and that urine output is minimally changed after discontinuing Bumex drip. Daughter thought patient was a little more alert today. Objective Vital signs: Temperature 98.5 F 11/30/16 08:00 Pulse Rate 72 11/30/16 12:00 Respiratory Rate 22 11/30/16 14:29 Blood Pressure 139/60 11/30/16 11:01 Pulse Oximetry 95 11/30/16 14:29 I/O 2216/2515 EXAM General-fatigued appearing, drowsy female, chronically ill HEENT-dry oral membranes, lip ulcers have resolved, conjunctiva clear Lungs-respirations are mildly labored and breath sounds are diminished- especially at the right lateral base, upper breath sounds are clear Cardiac-irregular rhythm, S1-S2 Abd-abdomen remains moderately distended although is slightly softer than earlier in the week, sparse bowel sounds Ext-+3 proximally pitting edema proximal lower extremities, +2 distally, legs are tender to palpation Psych-flat affect - Rhythm: Atrial Fibrillation with Normal Ventricular Rate (ventricular paced) Height/Weight/BMI: Height 1.73 m Weight 75.7 kg Body Mass Index 23.4 Results - Labs CBC & Chem 7: 11/30/16 04:47 11/30/16 04:46 Labs: S71 B4 L3 M22 LDH 1635 Phosphorus 4.3, magnesium 1.7, albumin 2.7 Microbiology Results: Microbiology 11/30/16 13:04 Thoracic Fluid Gram Stain - Final 11/30/16 13:04 Thoracic Fluid Body Fluid Culture - Preliminary Culture Initiated - Results Pending 11/23/16 12:15 Body Fluid, Nos Gram Stain - Final 11/23/16 12:15 Body Fluid, Nos Body Fluid Culture - Final No Growth After 5 Days 11/22/16 13:20 Peripheral/Iv Start Blood Culture - Final No Growth After 5 Days 11/22/16 11:11 Peripheral/Iv Start Blood Culture - Final No Growth After 5 Days - ABG Interpretation ABG results: 11/24/16 11/25/16 16:45 04:35 ABG pH 7.480 H 7.410 ABG pCO2 29 L 37 ABG pO2 75 L 80 ABG HCO3 22 24 ABG Total CO2 22.5 L 24.6 ABG O2 Saturation 96.0 96.0 ABG Base Excess -1.0 -0.9 - Imaging and Cardiology Venous US Additional comments: Negative for DVT Chest x-ray Status: image reviewed by me (right greater than left pleural effusion, pulmonary edema) Assessment and Plan (1) Nontraumatic retroperitoneal hematoma Current visit: Yes Status: Acute (2) Acute renal failure Current visit: Yes Status: Acute DVT Prophylaxis: SCD's GI Prophylaxis: other (omeprazole) Resuscitation Status: Full Code Assessment and Plan: Impression Retroperitoneal bleed, acute, spontaneous Acute blood loss anemia-7 units PRBCs (3-11/21, 3-11/23, 1-11/25), 2 units FFP ( 1-11/23, 1-11/24) Acute renal failure, probable ATN due to hypotension Acute hypoxic respiratory failure, onset 11/24 Volume overload Ileus, partial gastric obstruction with intractable nausea Chronic Fe def. 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 Pneumonia with SHARON in sputum-(appears to be same species as an blood cultures, all are pansensitive)-improving Pulmonary edema with bilateral pleural effusions-resolved with diuresis Debility secondary to illness Mitral Heart valve replacement-tissue valve Pacemaker Atrial fibrillation -chronic anticoagulation therapy (currently on hold) Hypothyroidism GERD Osteoporosis Anxiety Irritable bowel syndrome-diarrhea prominent Glaucoma Chronic back pain secondary to old compression fracture-stable Hypomagnesemia, hyperphosphatemia, hyperkalemia Malnutrition Yeast vaginitis, fluconazole initiated 11/29 Plan Persistent abdominal pain due to retroperitoneal hemorrhage-no preceding trauma but was anticoagulated. Pain seems to be worsening progressively and patient intolerant of activity; at high risk for complications of being bedridden at this time. Venous Doppler negative for DVT 11/30. Fentanyl patch started 11/27, dose increased 11/29; IV Dilaudid available prn for pain control. Repeat CT of the abdomen/pelvis 11/23 demonstrated further bleeding and increasing size hematoma since original study. Total of 7 units of blood given to date, hemoglobin 9 over the past 3 days; vitamin K repeated 11/24, INR stable-monitor every other day. Have discussed potential for transfer to [facility] for IR embolization with interventional radiology and nephrology in light of patient's current renal status-both believe intervention now would be very risky due to volume of dye required for the study. Third CT scan of the abdomen/pelvis 11/28 no indication of additional bleeding into the hematoma but massive distention of the stomach consistent with ileus present and probable cause of the intractable nausea patient had developed--NGT placed. Ileus/nausea managed by placement of NG tube with return of > 2 L gastric fluid overnight; metoclopramide scheduled 5 mg every 6 hours. Poor oral intake preceded nausea. TPN initiated 10/27. Chest x-ray without clear evidence of infiltrate today but increased right pleural effusion-for thoracentesis with culture. Just over 1 L fluid removed. PH 7.96, 80% neutrophils on differential, chemistries pending. Gram stain without organisms seen but moderate white cells present Acute kidney failure now nonoliguric with urine outputs of about 30-75 mL/hr- per hour off Bumex drip. BUN up slightly today; creatinine stable suspect becoming somewhat prerenal despite total body volume overload/third spacing. Volume overloaded-continue supplemental oxygen and BiPAP prn as tolerates. Hematoma aspirated for culture by radiology 11/23 to exclude infected hematoma- culture negative after 5 days. Continue cefazolin through 12/13 for 0SSA bacteremia/pneumonia. Dose adjusted for renal function 3 days ago. 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 Discontinued 11/27. Leukocytosis persists/increased today-chest x-ray without obvious infiltrate today, UA negative yesterday. Patient remains critically ill and at high risk for decompensation due to multiple medical problems but most acutely the retroperitoneal hemorrhage with hemodynamic instability and threatened renal function. Discussed with nursing and the patient's daughter/sister. CODE STATUS discussed with the patient's daughter who indicated she's been thinking about what her mother would want but reported that and has told her she wants to keep fighting. No change planned at this time but family is discussing; will need to readdress as new issues evolve. Prognosis poor. Critically ill, 68 minutes in patient care/conversations with family, Dr. Smith, and nursing. - Time spent with patient Time with patient PN: other (68 minutes, critical care) Hospital Course Summary Disclaimer: The visit summary below is not to be considered part of the above Progress Note. 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 Pneumonia with staph aureus in sputum-(appears to be same species as an blood cultures, all are pansensitive)-improving Pulmonary edema with bilateral pleural effusions-improved with diuresis Debility secondary to illness Mitral Heart valve replacement -tissue valve Pacemaker Atrial fibrillation - anticoagulation therapy (currently on hold) Hypothyroidism GERD Osteoporosis Iron deficiency anemia Anxiety Irritable bowel syndrome-diarrhea prominent Glaucoma Chronic back pain secondary to old compression fracture-stable 11/21/16-admission to CCU Admit to CCU for close monitoring, under the care of Dr. Miller, for retroperitoneal bleed. Anticoagulation remains on hold. She is to continue on IV antibiotics through December 13 for her bacteremia. Continue acyclovir for herpes labialis Continue O2, DuoNeb and incentive spirometry for pneumonia Continue Imodium every morning and PRN for diarrhea Continue ferrous sulfate and ascorbic acid iron deficiency anemia Hydromorphone IV PRN pain Continue IV fluids at 125 mL per hour NPO Dr. Miller as discussed patient's case with Dr. Izaguirre. 11/22/16 Persistent abdominal pain due to retroperitoneal hemorrhage-no preceding trauma but was anticoagulated. CT of the abdomen/pelvis reviewed by myself demonstrating large multi-density retroperitoneal hemorrhage on the right. Hemoglobin 8.5 after a total of 3 units of packed red blood cells transfused overnight; warfarin/Lovenox on hold. We'll discuss future anticoagulation plans with cardiology but at present for 2 risky to re-anticoagulation in the immediate future. Acute kidney injury evident with poor urine output today and bump in creatinine from 1.1 yesterday to 1.6 today. Renal function being reassessed this evening in conjunction with urine sodium/creatinine. Minimal response to fluid bolus earlier today, continue IV fluids/additional fluid bolus being given this evening. Suspect ATN due to yesterday's hypotension. Continue cefazolin through 12/13 for 0SSA bacteremia/pneumonia. Will also complete 1 week therapy of acyclovir for herpes labialis. Marked leukocytosis-consistent with stress reaction. Magnesium to be replaced IV today-reassess in a.m. Persistent low-grade tachycardia, likely due to pain but may be slightly dry and additional fluids being given Patient remains critically ill and at high risk for decompensation due to multiple medical problems but most acutely the retroperitoneal hemorrhage with hemodynamic instability and threatened renal function. 11/23/16 Persistent abdominal pain due to retroperitoneal hemorrhage-no preceding trauma but was anticoagulated. Repeat CT of the abdomen/pelvis reviewed by myself demonstrating further bleeding and increasing size hematoma since study 2 days ago. Hemoglobin down again today, 2 units packed red blood cells given. Fibrinogen pending-plan 2 units FFP. Platelet count stable. Off Lovenox/warfarin reversed. May require transfer to [facility] for IR embolization if blood loss ongoing. Acute kidney injury -creatinine from 1.1 2 days ago to 2.6 today, appears to be stabilizing and urine output improving slightly with Bumex. Clearly volume overloaded by imaging with borderline oxygenation at times. May require Bumex drip if urine output does not improve further. Fractional excretion consistent with prerenal state however obtained after initial dose of diuretics. Probable ATN. Developing mild metabolic acidosis consistent with renal failure we will initiate low rate bicarbonate infusion. Hematoma aspirated for culture by radiology today to exclude infected hematoma after discussion with Dr. David. Continue cefazolin through 12/13 for 0SSA bacteremia/pneumonia. Will also complete 1 week therapy of acyclovir for herpes labialis. Marked leukocytosis-consistent with stress reaction. Magnesium replaced adequately. Monitor with administration of diuretics Persistent low-grade tachycardia, likely due to pain but may be slightly dry and additional fluids being given. Discussed with patient's digitizer's office in [place] and records received confirming chronic atrial fibrillation. Patient remains critically ill and at high risk for decompensation due to multiple medical problems but most acutely the retroperitoneal hemorrhage with hemodynamic instability and threatened renal function. Discussed with nursing throughout the day, patient's sister, and patient's daughter and son. Discussed with Dr. David and Dr. Izaguirre will place central line. 11/24/16 Persistent abdominal pain due to retroperitoneal hemorrhage-no preceding trauma but was anticoagulated. Repeat CT of the abdomen/pelvis 10/12 demonstrated further bleeding and increasing size hematoma since original study. Additional blood required yesterday, INR modestly elevated at 1.6 per verbal report of the lab and patient received one unit FFP yesterday and it additional unit today in addition to 10 mg vitamin K. Have discussed potential for transfer to [facility] for IR embolization with interventional radiology and nephrology in light of patient's current renal status-both believe intervention now would be very risky due to volume of dye required for the study. Acute kidney failure now oliguric with urine outputs of about 30-130 mL/hr-per hour on Bumex drip. Neck drip initiated this morning at 0.5 mg/h-increased 1 mg/ h this afternoon. Creatinine increased from 1.1 - 3 days ago to 2.8 today, appears to be plateauing. Persistent mild metabolic acidosis-bicarbonate infusion on hold due to volume overload. Clearly volume overloaded by imaging with deteriorating oxygenation through the day today requiring initiation of supplemental oxygen and trial of BiPAP and subsequently converted to CPAP due to high tidal volumes achieved with low pressure BiPAP. Patient advised she will require when necessary CPAP during the day and continuous CPAP at night pending further diuresis. Hematoma aspirated for culture by radiology yesterday to exclude infected hematoma-culture negative today. Continue cefazolin through 12/13 for 0SSA bacteremia/pneumonia. Will also complete 1 week therapy of acyclovir for herpes labialis. Marked leukocytosis-consistent with stress reaction. Magnesium replaced adequately. Monitor with diuresis. Persistent low-grade tachycardia. 11/25/16 Persistent abdominal pain due to retroperitoneal hemorrhage-no preceding trauma but was anticoagulated. Repeat CT of the abdomen/pelvis 11/23 demonstrated further bleeding and increasing size hematoma since original study. One additional unit of blood being given today; vitamin K yesterday-INR improved today. Repeat hemoglobin pending currently. Poor oral intake-may require vitamin K intermittently to maintain low INR. Have discussed potential for transfer to [facility] for IR embolization with interventional radiology and nephrology in light of patient's current renal status-both believe intervention now would be very risky due to volume of dye required for the study. Acute kidney failure now nonoliguric with urine outputs of about 150-200 mL/hr- per hour on Bumex drip. Creatinine unchanged. Metabolic acidosis no longer present with current urine volumes. Volume overloaded-continue supplemental oxygen and BiPAP prn/at bedtime. Hematoma aspirated for culture by radiology 11/23 to exclude infected hematoma- culture negative at 48 hours. Continue cefazolin through 12/13 for 0SSA bacteremia/pneumonia. Continue acyclovir for 1 week for herpes labialis-started 11/21. 11/26/16 Hemoglobin 9.2 today after seventh unit of blood yesterday. Poor oral intake-may require vitamin K intermittently to maintain low INR. Have discussed potential for transfer to [facility] for IR embolization with interventional radiology and nephrology in light of patient's current renal status-both believe intervention now would be very risky due to volume of dye required for the study. Acute kidney failure now nonoliguric with urine outputs of about 150-200 mL/hr- per hour on 0.5mg/hr Bumex drip. Creatinine minimally changed. Volume overloaded-continue supplemental oxygen and BiPAP prn/at bedtime. 11/27/16 Persistent abdominal pain due to retroperitoneal hemorrhage-no preceding trauma but was anticoagulated. Nausea precludes oral medication; fentanyl patch 12 g initiated today and IV narcotics available. Zofran scheduled to help manage nausea, scopolamine patch will be tried and multiple vitamins are on hold with only critical oral medications being given. If nausea persistent may require repeat imaging of the abdomen. Repeat CT of the abdomen/pelvis 11/23 demonstrated further bleeding and increasing size hematoma since original study. Total of 7 units of blood given to date, hemoglobin 9 over the past 3 days; vitamin K repeated 11/24, INR low today. Poor oral intake-may require vitamin K intermittently to maintain low INR. Monitor every other day. TPN initiated yesterday. Have discussed potential for transfer to [facility] for IR embolization with interventional radiology and nephrology in light of patient's current renal status-both believe intervention now would be very risky due to volume of dye required for the study. Acute kidney failure now nonoliguric with urine outputs of about 100-200 mL/hr- per hour on 0.5mg/hr Bumex drip. Creatinine 2.8 to 2.5 over the past 4 days but BUN is up slightly; suspect becoming somewhat prerenal and will adjust dose to maintain fairly equal fluid balance. Edema improving progressively. Volume overloaded-continue supplemental oxygen and BiPAP prn as tolerates Hematoma aspirated for culture by radiology 11/23 to exclude infected hematoma- culture negative after 3 days. Continue cefazolin through 12/13 for 0SSA bacteremia/pneumonia. Dose adjusted for renal function 2 days ago. 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 Discontinued by Dr. David earlier today as possible cause of nausea-course completed today anyway. Leukocytosis persists although degree not as great. 11/28/16 Persistent abdominal pain due to retroperitoneal hemorrhage-no preceding trauma but was anticoagulated. Repeat CT of the abdomen/pelvis 11/23 demonstrated further bleeding and increasing size hematoma since original study. Total of 7 units of blood given to date, hemoglobin 9 over the past 3 days; vitamin K repeated 11/24, INR low yesterday-recheck in a.m. Have discussed potential for transfer to [facility] for IR embolization with interventional radiology and nephrology in light of patient's current renal status-both believe intervention now would be very risky due to volume of dye required for the study. Third CT scan of the abdomen/pelvis yesterday-no indication of additional bleeding into the hematoma but massive distention of the stomach consistent with ileus present and probable cause of the intractable nausea patient had developed. Fentanyl patch 12 g initiated 11/27 and IV Dilaudid available prn for pain control. Ileus/nausea managed by placement of NG tube with return of > 2 L gastric fluid overnight; metoclopramide scheduled 5 mg every 6 hours. Scopolamine patch will be discontinued as only contributing to dryness and I don 't believe will offer any significant benefit for managing nausea. Poor oral intake preceded nausea. TPN initiated 10/27. Acute kidney failure now nonoliguric with urine outputs of about 100-200 mL/hr- per hour on 0.5mg/hr Bumex drip. Creatinine slowly dropping but BUN is up; suspect becoming somewhat prerenal and will adjust dose to maintain fairly equal fluid balance. Bumex rate decreased to 0.25 mg/hr. Volume overloaded-continue supplemental oxygen and BiPAP prn as tolerates-has not required BiPAP the past 2 days 11/29/16 Persistent abdominal pain due to retroperitoneal hemorrhage-no preceding trauma but was anticoagulated. Pain seems to be worsening progressively and patient intolerant of activity; at high risk for complications of being bedridden at this time. Chest x-ray in a.m. to exclude pneumonia as white count is climbing again. Repeat CT of the abdomen/pelvis 11/23 demonstrated further bleeding and increasing size hematoma since original study. Total of 7 units of blood given to date, hemoglobin 9 over the past 3 days; vitamin K repeated 11/24, INR remained stable-monitor every other day. Have discussed potential for transfer to [facility] for IR embolization with interventional radiology and nephrology in light of patient's current renal status-both believe intervention now would be very risky due to volume of dye required for the study. Third CT scan of the abdomen/pelvis yesterday-no indication of additional bleeding into the hematoma but massive distention of the stomach consistent with ileus present and probable cause of the intractable nausea patient had developed. Fentanyl patch started 11/27, dose increased 11/29; IV Dilaudid available prn for pain control. Ileus/nausea managed by placement of NG tube with return of > 2 L gastric fluid overnight; metoclopramide scheduled 5 mg every 6 hours. Poor oral intake preceded nausea. TPN initiated 10/27. Acute kidney failure now nonoliguric with urine outputs of about 100-200 mL/hr- per hour on 0.25mg/hr Bumex drip (previously rate 0.5 mg/h). Creatinine/BUN both up today-Bumex discontinued; suspect becoming somewhat prerenal despite total body volume overload. Volume overloaded-continue supplemental oxygen and BiPAP prn as tolerates. Hematoma aspirated for culture by radiology 11/23 to exclude infected hematoma- culture negative after 5 days. Continue cefazolin through 12/13 for 0SSA bacteremia/pneumonia. Dose adjusted for renal function 3 days ago. 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 Discontinued 11/27. Leukocytosis persists/increased today-chest x-ray in a.m., repeat UA. Patient remains critically ill and at high risk for decompensation due to multiple medical problems but most acutely the retroperitoneal hemorrhage with hemodynamic instability and threatened renal function. Discussed with nursing and the patient's daughter/son/sister. I have expressed my concern to the patient's family that the patient is failing and that inability to increase activity may be a terminal process. Have additionally discussed whether any interventions are available to reduce hematoma with surgery and radiology and all agree that hematoma should be left alone due to risk of rebleeding and infection. Prognosis ominous. 11/30/16 Chest x-ray without clear evidence of infiltrate today but increased right pleural effusion-for thoracentesis with culture. Just over 1 L fluid removed. PH 7.96, 80% neutrophils on differential, chemistries pending. Gram stain without organisms seen but moderate white cells present Acute kidney failure now nonoliguric with urine outputs of about 30-75 mL/hr- per hour off Bumex drip. BUN up slightly today; creatinine stable suspect becoming somewhat prerenal despite total body volume overload/third spacing. Volume overloaded-continue supplemental oxygen and BiPAP prn as tolerates. Hematoma aspirated for culture by radiology 11/23 to exclude infected hematoma- culture negative after 5 days. Continue cefazolin through 12/13 for 0SSA bacteremia/pneumonia. Dose adjusted for renal function 3 days ago.
[2016-11-30] MEDS: LATANOPROST 0.005% EYE DROPS 2.5ml EACH EYE SCH (21:26)
[2016-12-01] MEDS: CEFAZOLIN 1 G in NS 100 ML IV SCH ×3 (03:00→18:35)
[2016-12-01] MEDS: LEVOTHYROXINE 88 MCG TABLET PO SCH (06:15)
[2016-12-01] MEDS: HYDROMORPHONE 2 MG/ML INJECTION IVP PRN ×6 (06:16→20:57)
[2016-12-01] MEDS: METOCLOPRAMIDE 10mg/2ml INJECTION IVP SCH ×4 (06:21→23:54)
[2016-12-01] MEDS: ACYCLOVIR 200 MG CAPSULE PO SCH (07:01)
[2016-12-01] MEDS: LOPERAMIDE 2 MG CAPSULE PO SCH (07:12)
--- NOTE | 2016-12-01 07:46 | Pharmacy Consult-TPN/PPN ---
Pharmacy Consult-TPN/PPN - Laboratory Information Chemistry Turbidity < 20 (0-20) 12/01/16 04:38 Sodium 145 MEQ/L (134-144) H 12/01/16 04:38 Potassium 4.6 MEQ/L (3.6-5) 12/01/16 04:38 Chloride 103 MEQ/L (98-107) 12/01/16 04:38 Carbon Dioxide 32 MEQ/L (22-30) H 12/01/16 04:38 Anion Gap 10 MEQ/L (5-15) 12/01/16 04:38 BUN 80.0 MG/DL (7-17) H* 12/01/16 04:38 Creatinine 2.5 MG/DL (0.7-1.2) H 12/01/16 04:38 GFR Calculation 19 12/01/16 04:38 BUN/Creatinine Ratio 32 RATIO (6-26) H 12/01/16 04:38 Glucose 160 MG/DL (65-110) H 12/01/16 04:38 Glucometer 152 mg/dL (65-110) 12/01/16 05:42 Calculated Osmolality 306 MOSM/KG (261-280) H 12/01/16 04:38 Calcium 9.1 MG/DL (8.4-10.2) 12/01/16 04:38 Phosphorus 4.0 MG/DL (2.5-4.5) 12/01/16 04:38 Magnesium 1.8 MG/DL (1.6-2.3) 12/01/16 04:38 Total Bilirubin 0.20 MG/DL (0.20-1.30) 11/29/16 04:56 Conjugated Bilirubin 0.00 MG/DL (0.00-0.30) 11/29/16 04:56 Unconjugated Bilirubin 0.00 MG/DL (0.00-1.1) 11/29/16 04:56 Icterus Index < 2 (0-7) 12/01/16 04:38 AST 45 U/L (14-36) H 11/29/16 04:56 ALT 27 U/L (9-52) 11/29/16 04:56 Alkaline Phosphatase 81 U/L (38-126) 11/29/16 04:56 Lactate Dehydrogenase 1635 U/L (313-618) H 11/30/16 04:46 C-Reactive Protein 264.5 MG/L (0-9) H D 11/27/16 04:09 Total Protein 5.8 G/DL (6.3-8.2) L 11/29/16 04:56 Albumin 2.7 G/DL (3.5-5.0) L 12/01/16 04:38 Globulin 3.1 G/DL (2.4-3.6) 11/29/16 04:56 Albumin/Globulin Ratio 0.9 RATIO (1.1-2.2) L 11/29/16 04:56 Prealbumin 17.3 MG/DL (17.6-36.0) L 11/23/16 03:58 Specimen Hemolysis < 15 (0-25) 12/01/16 04:38 Intake and Output 11/30/16 12/01/16 12/02/16 06:59 06:59 06:59 Intake Total 2215.667 / 2215.667 3306.667 / 3306.667 Output Total 2515 / 2515 1618 / 1618 90 / 90 Balance -299.333 / -265.384 8790.667 / 1688.667 -90 / -90 Weight 76.6 kg 75.7 kg Intake: IV 2090.667 / 2090.667 3096.667 / 3096.667 Bumetanide Drip 12.5 mg In RTU-Saline 50 ml @ 0. 25 MG/HR 1 mls/hr IV . Q24H SY Rx#:[id number] Cefazolin 1 g In Ns 100 300 / 300 300 / 300 ml @ 200 mls/hr IV Q8H SY Rx#:[id number] Fat Emulsion 20% 100 ml @ 100.000 / 100.000 100 / 100 50 mls/hr IV 1600 SY Rx #:[id number] Fluconazole Pb 100 mg In 50 / 50 50 / 50 50 ml @ 50 mls/hr IV Q24H SY Rx#:[id number] Multi-Vit Infusion 10 ml 606.667 / 606.667 Multi-Trace Elements 1 ml Water For Injection 500 ml In TPN - Standard Formula 2,000 ml @ 80 mls /hr IV .Q24H SY Rx#: [id number] Potassium Chloride Inj 40 1630.667 / 1630.667 880 / 880 meq Multi-Vit Infusion 10 ml Multi-Trace Elements 1 ml Water For Injection 250 ml In TPN - Standard Formula 2,000 ml @ 80 mls/hr IV .Q24H [facility] Rx#:[id number] Oral 90 / 90 Intake, Gastric Tube 125 / 125 120 / 120 Irrigant Amount Right Nare 125 / 125 120 / 120 Output: Urine Amount (Catheter) 1740 / 1740 1618 / 1618 90 / 90 Gastric Drainage 775 / 775 Right Nare 775 / 775 Other: Urine Appearance Clear Clear Clear Urine Color Yellow Yellow Dark Alicia Stool Color Brown Brown Stool Consistency Soft Soft Loose Size of Bowel Movement Small Smear # Bowel Movements 1 # Incontinent Bowel 1 Movements - Consult Information We will continue the same standard TPN formula with 500mL added sterile water to address increasing serum sodium and osmolality. May consider Custom TPN formula in the future if serum sodium does not improve. Thanks
[2016-12-01] MEDS: ALBUTEROL 2.5mg/3ml (0.083%) NEB AEROSOL SCH ×4 (07:51→19:01)
[2016-12-01] MEDS: LACTOBACILLUS (15B cfu) CAPSULE PO SCH ×3 (08:00→17:13)
[2016-12-01] MEDS: PANTOPRAZOLE 40 MG INJECTION IVP SCH (08:48)
[2016-12-01] MEDS: FLUCONAZOLE PB 100 MG/50 ML BAG IV SCH (08:49)
[2016-12-01] MEDS: REFRESH CLASSIC Eye Drops 0.4ml EACH EYE SCH ×2 (08:49→20:43)
--- NOTE | 2016-12-01 11:10 | Progress Note ---
- Date 12/01/16 Subjective: The patient was seen today accompanied by her daughter. Her pain is better controlled today. She does not have any pain with rest but does have pain with movement. The patient is somewhat somnolent now. Her daughter states that she knew where she was earlier this morning but now she is difficult to understand when she tries to stay where she is. She denies being short of breath. She denies any nausea. She had a brownish black bowel movement earlier today. She has an NG tube in place and a Zarate catheter in place. Scopolamine patch was removed recently due to confusion. Objective Vital signs: Temperature 98.8 F 12/01/16 08:01 Pulse Rate 72 12/01/16 10:00 Respiratory Rate 24 12/01/16 10:00 Blood Pressure 138/63 12/01/16 10:00 Pulse Oximetry 100 12/01/16 10:00 Rhythm: Atrial Fibrillation with Normal Ventricular Rate (ventricular paced) Height/Weight/BMI: Height 1.73 m Weight 75.6 kg Body Mass Index 23.4 Comments: I&O's 2626/2200 Weight is stable at 75.6 kg GEN-drowsy, difficult to understand her speech, appears very fragile, moves all 4 extremities on command HEENT-oropharynx is dry, scabbed lesions on her lips have resolved NECK-supple CV-regular rate and rhythm CHEST-a course squeak was heard consistently in the right lung field, left lung field sounds normal ABD-mild distention, tender over the right abdomen, hypoactive bowel sounds -Zarate in place with good urine output EXT-mild edema in all 4 extremities NEURO-moves all 4 chimneys on command, appears mildly confused and somnolent this morning SKIN-warm and dry and without rashes, bruising on the left leg Results - Labs CBC & Chem 7: 12/01/16 04:38 12/01/16 04:38 Labs: 0 bands today down from 7 yesterday. 71% neutrophils. LDH is elevated at 1635. Haptoglobin is pending. Thoracocentesis results showed glucose 137, protein less than 3, LDH 615, amylase 51 Fluid was red, cloudy, pH 7.96, RBCs 69,000, nucleated cells 3200, neutrophil predominant Microbiology Results: Microbiology 11/30/16 13:04 Thoracic Fluid Gram Stain - Final 11/30/16 13:04 Thoracic Fluid Body Fluid Culture - Preliminary Culture Initiated - Results Pending 11/23/16 12:15 Body Fluid, Nos Gram Stain - Final 11/23/16 12:15 Body Fluid, Nos Body Fluid Culture - Final No Growth After 5 Days 11/22/16 13:20 Peripheral/Iv Start Blood Culture - Final No Growth After 5 Days 11/22/16 11:11 Peripheral/Iv Start Blood Culture - Final No Growth After 5 Days - ABG Interpretation ABG results: 11/24/16 11/25/16 16:45 04:35 ABG pH 7.480 H 7.410 ABG pCO2 29 L 37 ABG pO2 75 L 80 ABG HCO3 22 24 ABG Total CO2 22.5 L 24.6 ABG O2 Saturation 96.0 96.0 ABG Base Excess -1.0 -0.9 Assessment and Plan (1) Nontraumatic retroperitoneal hematoma Current visit: Yes Status: Acute (2) Acute renal failure Current visit: Yes Status: Acute Assessment and Plan: 12/01/2016 Impression Retroperitoneal bleed, acute, spontaneous Acute blood loss anemia-7 units PRBCs (3-11/21, 3-11/23, 1-11/25), 2 units FFP ( 1-11/23, 1-11/24) Acute renal failure, probable ATN due to hypotension Acute hypoxic respiratory failure, onset 11/24 Volume overload Ileus, partial gastric obstruction with intractable nausea Chronic Fe def. 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 Pneumonia with SHARON in sputum-(appears to be same species as an blood cultures, all are pansensitive)-improving Pulmonary edema with bilateral pleural effusions Debility secondary to illness Mitral Heart valve replacement-tissue valve Pacemaker Atrial fibrillation -chronic anticoagulation therapy (currently on hold) Hypothyroidism GERD Osteoporosis Anxiety Irritable bowel syndrome-diarrhea prominent Glaucoma Chronic back pain secondary to old compression fracture-stable Hypomagnesemia, hyperphosphatemia, hyperkalemia Malnutrition Yeast vaginitis, fluconazole initiated 11/29 Right pleural effusion with thoracentesis on 11/30/2016 with 1050 cc of fluid removed. LDH is elevated, possible exudate. Cultures are pending. Plan Persistent abdominal pain due to retroperitoneal hemorrhage-no preceding trauma but was anticoagulated. Pain seems to be worsening progressively and patient intolerant of activity; at high risk for complications of being bedridden at this time. Venous Doppler negative for DVT 11/30. Fentanyl patch started 11/27, dose increased 11/29; pain control improved Repeat CT of the abdomen/pelvis 11/23 demonstrated further bleeding and increasing size hematoma since original study. Recent size 17 x 4 x 9 cm Total of 7 units of blood given to date, hemoglobin 9 over the past 3 days; vitamin K repeated 11/24, INR stable-monitor every other day. Have discussed potential for transfer to [place] for IR embolization with interventional radiology and nephrology in light of patient's current renal status-both believe intervention now would be very risky due to volume of dye required for the study. Third CT scan of the abdomen/pelvis 11/28 no indication of additional bleeding into the hematoma but massive distention of the stomach consistent with ileus present and probable cause of the intractable nausea patient had developed--NGT placed. Ileus/nausea managed by placement of NG tube with return of > 2 L gastric fluid overnight; metoclopramide scheduled 5 mg every 6 hours. Poor oral intake preceded nausea. TPN initiated 10/27. The patient has a coarse squeak in the right lung field. She underwent thoracentesis on the right on 11/30/2016. Just over 1 L fluid removed. PH 7.96, 80% neutrophils. Gram stain without organisms seen but moderate white cells present. LDH 615, amylase 51, protein less than 3, glucose 137. Acute kidney failure now nonoliguric with urine outputs of about 30-75 mL/hr- per hour off Bumex drip. BUN up slightly again today; creatinine stable. Continue to monitor urine output closely off of Bumex. Volume overloaded-continue supplemental oxygen and BiPAP prn as tolerates. Hematoma aspirated for culture by radiology 11/23 to exclude infected hematoma- culture negative after 5 days. Continue cefazolin through 12/13 for 0SSA bacteremia/pneumonia. Dose adjusted for renal function 3 days ago. 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 Discontinued 11/27. Leukocytosis persists/increased 11/30/2016 and 12/01/2016 without fever.-chest x -ray thoracentesis 11/30/2016, results pending., UA negative 11/29/2016. The patient remains critically ill. Greater than 45 minutes of critical care time spent seeing and evaluating the patient, talking with her daughter and her nurse and determining care plan. She continues to be at high risk for decompensation due to multiple comorbidities. Today, she appears fairly stable other than continued mild increase in white count. Greater than 45 minutes of critical care time spent seeing and evaluating the patient. Hospital Course Summary Disclaimer: The visit summary below is not to be considered part of the above Progress Note. 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 Pneumonia with staph aureus in sputum-(appears to be same species as an blood cultures, all are pansensitive)-improving Pulmonary edema with bilateral pleural effusions-improved with diuresis Debility secondary to illness Mitral Heart valve replacement -tissue valve Pacemaker Atrial fibrillation - anticoagulation therapy (currently on hold) Hypothyroidism GERD Osteoporosis Iron deficiency anemia Anxiety Irritable bowel syndrome-diarrhea prominent Glaucoma Chronic back pain secondary to old compression fracture-stable 11/21/16-admission to CCU Admit to CCU for close monitoring, under the care of Dr. Miller, for retroperitoneal bleed. Anticoagulation remains on hold. She is to continue on IV antibiotics through December 13 for her bacteremia. Continue acyclovir for herpes labialis Continue O2, DuoNeb and incentive spirometry for pneumonia Continue Imodium every morning and PRN for diarrhea Continue ferrous sulfate and ascorbic acid iron deficiency anemia Hydromorphone IV PRN pain Continue IV fluids at 125 mL per hour NPO Dr. Miller as discussed patient's case with Dr. Izaguirre. 11/22/16 Persistent abdominal pain due to retroperitoneal hemorrhage-no preceding trauma but was anticoagulated. CT of the abdomen/pelvis reviewed by myself demonstrating large multi-density retroperitoneal hemorrhage on the right. Hemoglobin 8.5 after a total of 3 units of packed red blood cells transfused overnight; warfarin/Lovenox on hold. We'll discuss future anticoagulation plans with cardiology but at present for 2 risky to re-anticoagulation in the immediate future. Acute kidney injury evident with poor urine output today and bump in creatinine from 1.1 yesterday to 1.6 today. Renal function being reassessed this evening in conjunction with urine sodium/creatinine. Minimal response to fluid bolus earlier today, continue IV fluids/additional fluid bolus being given this evening. Suspect ATN due to yesterday's hypotension. Continue cefazolin through 12/13 for 0SSA bacteremia/pneumonia. Will also complete 1 week therapy of acyclovir for herpes labialis. Marked leukocytosis-consistent with stress reaction. Magnesium to be replaced IV today-reassess in a.m. Persistent low-grade tachycardia, likely due to pain but may be slightly dry and additional fluids being given Patient remains critically ill and at high risk for decompensation due to multiple medical problems but most acutely the retroperitoneal hemorrhage with hemodynamic instability and threatened renal function. 11/23/16 Persistent abdominal pain due to retroperitoneal hemorrhage-no preceding trauma but was anticoagulated. Repeat CT of the abdomen/pelvis reviewed by myself demonstrating further bleeding and increasing size hematoma since study 2 days ago. Hemoglobin down again today, 2 units packed red blood cells given. Fibrinogen pending-plan 2 units FFP. Platelet count stable. Off Lovenox/warfarin reversed. May require transfer to [place] for IR embolization if blood loss ongoing. Acute kidney injury -creatinine from 1.1 2 days ago to 2.6 today, appears to be stabilizing and urine output improving slightly with Bumex. Clearly volume overloaded by imaging with borderline oxygenation at times. May require Bumex drip if urine output does not improve further. Fractional excretion consistent with prerenal state however obtained after initial dose of diuretics. Probable ATN. Developing mild metabolic acidosis consistent with renal failure we will initiate low rate bicarbonate infusion. Hematoma aspirated for culture by radiology today to exclude infected hematoma after discussion with Dr. David. Continue cefazolin through 12/13 for 0SSA bacteremia/pneumonia. Will also complete 1 week therapy of acyclovir for herpes labialis. Marked leukocytosis-consistent with stress reaction. Magnesium replaced adequately. Monitor with administration of diuretics Persistent low-grade tachycardia, likely due to pain but may be slightly dry and additional fluids being given. 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 Patient remains critically ill and at high risk for decompensation due to multiple medical problems but most acutely the retroperitoneal hemorrhage with hemodynamic instability and threatened renal function. Discussed with nursing throughout the day, patient's sister, and patient's daughter and son. Discussed with Dr. David and Dr. Izaguirre will place central line. 11/24/16 Persistent abdominal pain due to retroperitoneal hemorrhage-no preceding trauma but was anticoagulated. Repeat CT of the abdomen/pelvis 11/23 demonstrated further bleeding and increasing size hematoma since original study. Additional blood required yesterday, INR modestly elevated at 1.6 per verbal report of the lab and patient received one unit FFP yesterday and it additional unit today in addition to 10 mg vitamin K. Have discussed potential for transfer to [place] for IR embolization with interventional radiology and nephrology in light of patient's current renal status-both believe intervention now would be very risky due to volume of dye required for the study. Acute kidney failure now oliguric with urine outputs of about 30-130 mL/hr-per hour on Bumex drip. Neck drip initiated this morning at 0.5 mg/h-increased 1 mg/ h this afternoon. Creatinine increased from 1.1 - 3 days ago to 2.8 today, appears to be plateauing. Persistent mild metabolic acidosis-bicarbonate infusion on hold due to volume overload. Clearly volume overloaded by imaging with deteriorating oxygenation through the day today requiring initiation of supplemental oxygen and trial of BiPAP and subsequently converted to CPAP due to high tidal volumes achieved with low pressure BiPAP. Patient advised she will require when necessary CPAP during the day and continuous CPAP at night pending further diuresis. Hematoma aspirated for culture by radiology yesterday to exclude infected hematoma-culture negative today. Continue cefazolin through 12/13 for 0SSA bacteremia/pneumonia. Will also complete 1 week therapy of acyclovir for herpes labialis. Marked leukocytosis-consistent with stress reaction. Magnesium replaced adequately. Monitor with diuresis. Persistent low-grade tachycardia. 11/25/16 Persistent abdominal pain due to retroperitoneal hemorrhage-no preceding trauma but was anticoagulated. Repeat CT of the abdomen/pelvis 11/23 demonstrated further bleeding and increasing size hematoma since original study. One additional unit of blood being given today; vitamin K yesterday-INR improved today. Repeat hemoglobin pending currently. Poor oral intake-may require vitamin K intermittently to maintain low INR. Have discussed potential for transfer to [place] for IR embolization with interventional radiology and nephrology in light of patient's current renal status-both believe intervention now would be very risky due to volume of dye required for the study. Acute kidney failure now nonoliguric with urine outputs of about 150-200 mL/hr- per hour on Bumex drip. Creatinine unchanged. Metabolic acidosis no longer present with current urine volumes. Volume overloaded-continue supplemental oxygen and BiPAP prn/at bedtime. Hematoma aspirated for culture by radiology 11/23 to exclude infected hematoma- culture negative at 48 hours. Continue cefazolin through 12/13 for 0SSA bacteremia/pneumonia. Continue acyclovir for 1 week for herpes labialis-started 11/21. 11/26/16 Hemoglobin 9.2 today after seventh unit of blood yesterday. Poor oral intake-may require vitamin K intermittently to maintain low INR. Have discussed potential for transfer to [place] for IR embolization with interventional radiology and nephrology in light of patient's current renal status-both believe intervention now would be very risky due to volume of dye required for the study. Acute kidney failure now nonoliguric with urine outputs of about 150-200 mL/hr- per hour on 0.5mg/hr Bumex drip. Creatinine minimally changed. Volume overloaded-continue supplemental oxygen and BiPAP prn/at bedtime. 11/27/16 Persistent abdominal pain due to retroperitoneal hemorrhage-no preceding trauma but was anticoagulated. Nausea precludes oral medication; fentanyl patch 12 g initiated today and IV narcotics available. Zofran scheduled to help manage nausea, scopolamine patch will be tried and multiple vitamins are on hold with only critical oral medications being given. If nausea persistent may require repeat imaging of the abdomen. Repeat CT of the abdomen/pelvis 11/23 demonstrated further bleeding and increasing size hematoma since original study. Total of 7 units of blood given to date, hemoglobin 9 over the past 3 days; vitamin K repeated 11/24, INR low today. Poor oral intake-may require vitamin K intermittently to maintain low INR. Monitor every other day. TPN initiated yesterday. Have discussed potential for transfer to [place] for IR embolization with interventional radiology and nephrology in light of patient's current renal status-both believe intervention now would be very risky due to volume of dye required for the study. Acute kidney failure now nonoliguric with urine outputs of about 100-200 mL/hr- per hour on 0.5mg/hr Bumex drip. Creatinine 2.8 to 2.5 over the past 4 days but BUN is up slightly; suspect becoming somewhat prerenal and will adjust dose to maintain fairly equal fluid balance. Edema improving progressively. Volume overloaded-continue supplemental oxygen and BiPAP prn as tolerates Hematoma aspirated for culture by radiology 11/23 to exclude infected hematoma- culture negative after 3 days. Continue cefazolin through 12/13 for 0SSA bacteremia/pneumonia. Dose adjusted for renal function 2 days ago. 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 Discontinued by Dr. David earlier today as possible cause of nausea-course completed today anyway. Leukocytosis persists although degree not as great. 11/28/16 Persistent abdominal pain due to retroperitoneal hemorrhage-no preceding trauma but was anticoagulated. Repeat CT of the abdomen/pelvis 11/23 demonstrated further bleeding and increasing size hematoma since original study. Total of 7 units of blood given to date, hemoglobin 9 over the past 3 days; vitamin K repeated 11/24, INR low yesterday-recheck in a.m. Have discussed potential for transfer to [place] for IR embolization with interventional radiology and nephrology in light of patient's current renal status-both believe intervention now would be very risky due to volume of dye required for the study. Third CT scan of the abdomen/pelvis yesterday-no indication of additional bleeding into the hematoma but massive distention of the stomach consistent with ileus present and probable cause of the intractable nausea patient had developed. Fentanyl patch 12 g initiated 11/27 and IV Dilaudid available prn for pain control. Ileus/nausea managed by placement of NG tube with return of > 2 L gastric fluid overnight; metoclopramide scheduled 5 mg every 6 hours. Scopolamine patch will be discontinued as only contributing to dryness and I don 't believe will offer any significant benefit for managing nausea. Poor oral intake preceded nausea. TPN initiated 10/27. Acute kidney failure now nonoliguric with urine outputs of about 100-200 mL/hr- per hour on 0.5mg/hr Bumex drip. Creatinine slowly dropping but BUN is up; suspect becoming somewhat prerenal and will adjust dose to maintain fairly equal fluid balance. Bumex rate decreased to 0.25 mg/hr. Volume overloaded-continue supplemental oxygen and BiPAP prn as tolerates-has not required BiPAP the past 2 days 11/29/16 Persistent abdominal pain due to retroperitoneal hemorrhage-no preceding trauma but was anticoagulated. Pain seems to be worsening progressively and patient intolerant of activity; at high risk for complications of being bedridden at this time. Chest x-ray in a.m. to exclude pneumonia as white count is climbing again. Repeat CT of the abdomen/pelvis 11/23 demonstrated further bleeding and increasing size hematoma since original study. Total of 7 units of blood given to date, hemoglobin 9 over the past 3 days; vitamin K repeated 11/24, INR remained stable-monitor every other day. Have discussed potential for transfer to [place] for IR embolization with interventional radiology and nephrology in light of patient's current renal status-both believe intervention now would be very risky due to volume of dye required for the study. Third CT scan of the abdomen/pelvis yesterday-no indication of additional bleeding into the hematoma but massive distention of the stomach consistent with ileus present and probable cause of the intractable nausea patient had developed. Fentanyl patch started 11/27, dose increased 11/29; IV Dilaudid available prn for pain control. Ileus/nausea managed by placement of NG tube with return of > 2 L gastric fluid overnight; metoclopramide scheduled 5 mg every 6 hours. Poor oral intake preceded nausea. TPN initiated 10/27. Acute kidney failure now nonoliguric with urine outputs of about 100-200 mL/hr- per hour on 0.25mg/hr Bumex drip (previously rate 0.5 mg/h). Creatinine/BUN both up today-Bumex discontinued; suspect becoming somewhat prerenal despite total body volume overload. Volume overloaded-continue supplemental oxygen and BiPAP prn as tolerates. Hematoma aspirated for culture by radiology 11/23 to exclude infected hematoma- culture negative after 5 days. Continue cefazolin through 12/13 for 0SSA bacteremia/pneumonia. Dose adjusted for renal function 3 days ago. 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 Discontinued 11/27. Leukocytosis persists/increased today-chest x-ray in a.m., repeat UA. Patient remains critically ill and at high risk for decompensation due to multiple medical problems but most acutely the retroperitoneal hemorrhage with hemodynamic instability and threatened renal function. Discussed with nursing and the patient's daughter/son/sister. I have expressed my concern to the patient's family that the patient is failing and that inability to increase activity may be a terminal process. Have additionally discussed whether any interventions are available to reduce hematoma with surgery and radiology and all agree that hematoma should be left alone due to risk of rebleeding and infection. Prognosis ominous. 11/30/16 Chest x-ray without clear evidence of infiltrate today but increased right pleural effusion-for thoracentesis with culture. Just over 1 L fluid removed. PH 7.96, 80% neutrophils on differential, chemistries pending. Gram stain without organisms seen but moderate white cells present Acute kidney failure now nonoliguric with urine outputs of about 30-75 mL/hr- per hour off Bumex drip. BUN up slightly today; creatinine stable suspect becoming somewhat prerenal despite total body volume overload/third spacing. Volume overloaded-continue supplemental oxygen and BiPAP prn as tolerates. Hematoma aspirated for culture by radiology 11/23 to exclude infected hematoma- culture negative after 5 days. Continue cefazolin through 12/13 for 0SSA bacteremia/pneumonia. Dose adjusted for renal function 3 days ago.
--- NOTE | 2016-12-01 11:46 | XRay Report ---
Indication: course breath sounds right lung, recent thoracentesis PROCEDURE: XR chest 1V: Encounter: Initial Comparison: November 30, 2016 Findings: Interval right-sided thoracentesis with decrease in right pleural fluid. Small amount remaining. Support devices are stable in appearance. Continued consolidation of the right middle and lower lobes with slight improvement in aeration. No pneumothorax. Left lung is unchanged with a small left effusion. Heart size and mediastinal contours are stable. Impression: Decreased right effusion following thoracentesis. No new or worsening airspace disease seen. .
[2016-12-01] MEDS: MULTI VIT INFUSION IV SCH (13:44)
[2016-12-01] MEDS: MULTI TRACE ELEMENTS IV SCH (13:44)
[2016-12-01] MEDS: WATER FOR INJECTION IV SCH (13:44)
[2016-12-01] MEDS: [UNRECOGNIZED DRUG - OTHER] IV SCH (13:44)
[2016-12-01] MEDS: FAT EMULSION 20% 100 ML IV SCH (16:31)
[2016-12-01] MEDS: LATANOPROST 0.005% EYE DROPS 2.5ml EACH EYE SCH (20:43)
[2016-12-02] MEDS: HYDROMORPHONE 2 MG/ML INJECTION IVP PRN ×3 (01:17→20:56)
[2016-12-02] MEDS: CEFAZOLIN 1 G in NS 100 ML IV SCH ×3 (03:02→18:25)
[2016-12-02] MEDS: METOCLOPRAMIDE 10mg/2ml INJECTION IVP SCH ×3 (05:50→19:09)
[2016-12-02] MEDS: LOPERAMIDE 2 MG CAPSULE PO SCH (06:01)
[2016-12-02] MEDS: LEVOTHYROXINE 88 MCG TABLET PO SCH (06:01)
[2016-12-02] MEDS: ALBUTEROL 2.5mg/3ml (0.083%) NEB AEROSOL SCH ×4 (07:01→21:25)
[2016-12-02] MEDS: LACTOBACILLUS (15B cfu) CAPSULE PO SCH ×3 (10:14→17:20)
[2016-12-02] MEDS: REFRESH CLASSIC Eye Drops 0.4ml EACH EYE SCH ×2 (10:17→21:04)
--- NOTE | 2016-12-02 10:17 | Progress Note ---
- Date 12/02/16 Subjective: The patient was seen this morning accompanied by her sister and daughter. The patient recognized her daughter this morning. The patient complains of pain in her abdomen and her throat. She complains of mild shortness of breath. She has a cough and phlegm that she has difficulty clearing. Her mouth is very dry. Pt had a temp of 100.4 yesterday, but normal since that time. Per her nurse this morning, the patient told her she wanted to go to [facility]. Objective Vital signs: Temperature 97.8 F 12/02/16 04:00 Pulse Rate 65 12/02/16 06:30 Respiratory Rate 26 H 12/02/16 07:00 Blood Pressure 115/56 12/02/16 06:00 Pulse Oximetry 100 12/02/16 07:00 Rhythm: Atrial Fibrillation with Normal Ventricular Rate (ventricular paced) Height/Weight/BMI: Height 1.73 m Weight 74.6 kg Body Mass Index 23.4 Comments: 0760/[id number] GEN-awaken to voice, follows some commands, voice is difficult to understand HEENT-sclera anicteric, oropharynx is dry with dried secretions in the mouth NECK-supple CV-irregular, rate controlled CHEST-coarse breath sounds on the right ABD-soft, tender throughout, hypoactive bowel sounds -Zarate in place with good urine output EXT-+1 pedal edema, trace edema in the arms, SCDs are on NEURO-significant for generalized weakness, confusion SKIN-warm and dry and without rashes Results - Labs CBC & Chem 7: 12/02/16 04:03 12/02/16 04:03 Labs: Neutrophils 72%, bands 7% up from 0% yesterday Microbiology Results: Microbiology 11/30/16 13:04 Thoracic Fluid Gram Stain - Final 11/30/16 13:04 Thoracic Fluid Body Fluid Culture - Preliminary No Growth After 1 Day 11/23/16 12:15 Body Fluid, Nos Gram Stain - Final 11/23/16 12:15 Body Fluid, Nos Body Fluid Culture - Final No Growth After 5 Days 11/22/16 13:20 Peripheral/Iv Start Blood Culture - Final No Growth After 5 Days 11/22/16 11:11 Peripheral/Iv Start Blood Culture - Final No Growth After 5 Days - ABG Interpretation ABG results: 12/01/16 20:30 ABG pH 7.410 ABG pCO2 57 H ABG pO2 83 ABG HCO3 36 H ABG Total CO2 37.8 H ABG O2 Saturation 96.0 ABG Base Excess 9.5 H Assessment and Plan (1) Nontraumatic retroperitoneal hematoma Current visit: Yes Status: Acute (2) Acute renal failure Current visit: Yes Status: Acute Assessment and Plan: 12/02/2016 Impression Retroperitoneal bleed, acute, spontaneous Acute blood loss anemia-7 units PRBCs (3-11/21, 3-11/23, 1-11/25), 2 units FFP ( 1-11/23, 1-11/24) Acute renal failure, probable ATN due to hypotension Acute hypoxic respiratory failure, onset 11/24 Volume overload Ileus, partial gastric obstruction with intractable nausea-NG placed Chronic Fe def. anemia Hypotension, likely due to blood loss anemia; resolved Bacteremia-(SHARON) blood culture negative as of 11/15/16-cefazolin until 12/13/16 Severe sepsis on recent admission-resolved Herpes labialis-finished acyclovir Pneumonia with SHARON in sputum-(appears to be same species as an blood cultures, all are pansensitive)-improving Pulmonary edema with bilateral pleural effusions-Right pleural effusion with thoracentesis on 11/30/2016 with 1050 cc of fluid removed. LDH is elevated, possible exudate. Cultures are pending. Debility secondary to illness Mitral Heart valve replacement-tissue valve Pacemaker Atrial fibrillation -chronic anticoagulation therapy (currently on hold) Hypothyroidism GERD Osteoporosis Anxiety Irritable bowel syndrome-diarrhea prominent Glaucoma Chronic back pain secondary to old compression fracture-stable Hypomagnesemia, hyperphosphatemia, hyperkalemia Malnutrition Yeast vaginitis, fluconazole initiated 11/29 Leukocytosis with white count trending up the past 5 days from 24-30.8. Bands of increased to 7. Patient had a low-grade fever of 100.4 on 12/01/2016. Plan Persistent abdominal pain due to retroperitoneal hemorrhage-no preceding trauma but was anticoagulated. Pain seems to be worsening progressively and patient intolerant of activity; at high risk for complications of being bedridden at this time. Venous Doppler negative for DVT 11/30. Fentanyl patch started 11/27, dose increased 11/29; pain control improved Repeat CT of the abdomen/pelvis 11/23 demonstrated further bleeding and increasing size hematoma since original study. Recent size 17 x 4 x 9 cm Total of 7 units of blood given to date, hemoglobin 9 over the past 3 days; vitamin K repeated 11/24, INR stable-monitor every other day. Have discussed potential for transfer to [place] for IR embolization with interventional radiology and nephrology in light of patient's current renal status-both believe intervention now would be very risky due to volume of dye required for the study. Third CT scan of the abdomen/pelvis 11/28 no indication of additional bleeding into the hematoma but massive distention of the stomach consistent with ileus present and probable cause of the intractable nausea patient had developed--NGT placed. Ileus/nausea managed by placement of NG tube with return of > 2 L gastric fluid overnight; metoclopramide scheduled 5 mg every 6 hours. Poor oral intake preceded nausea. TPN initiated 10/27. Acute kidney failure now nonoliguric with urine outputs of about 30-75 mL/hr- per hour off Bumex drip. BUN up slightly again today; creatinine stable. Continue to monitor urine output closely. May need when necessary Bumex for volume overload Hematoma aspirated for culture by radiology 11/23 to exclude infected hematoma- culture negative after 5 days. Continue cefazolin through 12/13 for 0SSA bacteremia/pneumonia. Dose adjusted for renal function. Regarding leukocytosis, will obtain blood cultures, chest x-ray, urinalysis, and GI panel. I did talk with the patient's daughter and sister about CODE STATUS. We discussed her multiple comorbidities and risk for decompensation. I discussed with them the likelihood of a poor outcome if she did coded and required CPR/ intubation. The patient's daughter who his DPOA will consider whether or not to continue with full CODE STATUS versus changing to DO NOT RESUSCITATE. Greater than 45 minutes of critical care time spent seeing and evaluating the patient. Hospital Course Summary Disclaimer: The visit summary below is not to be considered part of the above Progress Note. 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 Pneumonia with staph aureus in sputum-(appears to be same species as an blood cultures, all are pansensitive)-improving Pulmonary edema with bilateral pleural effusions-improved with diuresis Debility secondary to illness Mitral Heart valve replacement -tissue valve Pacemaker Atrial fibrillation - anticoagulation therapy (currently on hold) Hypothyroidism GERD Osteoporosis Iron deficiency anemia Anxiety Irritable bowel syndrome-diarrhea prominent Glaucoma Chronic back pain secondary to old compression fracture-stable 11/21/16-admission to CCU Admit to CCU for close monitoring, under the care of Dr. Miller, for retroperitoneal bleed. Anticoagulation remains on hold. She is to continue on IV antibiotics through December 13 for her bacteremia. Continue acyclovir for herpes labialis Continue O2, DuoNeb and incentive spirometry for pneumonia Continue Imodium every morning and PRN for diarrhea Continue ferrous sulfate and ascorbic acid iron deficiency anemia Hydromorphone IV PRN pain Continue IV fluids at 125 mL per hour NPO Dr. Miller as discussed patient's case with Dr. Izaguirre. 11/22/16 Persistent abdominal pain due to retroperitoneal hemorrhage-no preceding trauma but was anticoagulated. CT of the abdomen/pelvis reviewed by myself demonstrating large multi-density retroperitoneal hemorrhage on the right. Hemoglobin 8.5 after a total of 3 units of packed red blood cells transfused overnight; warfarin/Lovenox on hold. We'll discuss future anticoagulation plans with cardiology but at present for 2 risky to re-anticoagulation in the immediate future. Acute kidney injury evident with poor urine output today and bump in creatinine from 1.1 yesterday to 1.6 today. Renal function being reassessed this evening in conjunction with urine sodium/creatinine. Minimal response to fluid bolus earlier today, continue IV fluids/additional fluid bolus being given this evening. Suspect ATN due to yesterday's hypotension. Continue cefazolin through 12/13 for 0SSA bacteremia/pneumonia. Will also complete 1 week therapy of acyclovir for herpes labialis. Marked leukocytosis-consistent with stress reaction. Magnesium to be replaced IV today-reassess in a.m. Persistent low-grade tachycardia, likely due to pain but may be slightly dry and additional fluids being given Patient remains critically ill and at high risk for decompensation due to multiple medical problems but most acutely the retroperitoneal hemorrhage with hemodynamic instability and threatened renal function. 11/23/16 Persistent abdominal pain due to retroperitoneal hemorrhage-no preceding trauma but was anticoagulated. Repeat CT of the abdomen/pelvis reviewed by myself demonstrating further bleeding and increasing size hematoma since study 2 days ago. Hemoglobin down again today, 2 units packed red blood cells given. Fibrinogen pending-plan 2 units FFP. Platelet count stable. Off Lovenox/warfarin reversed. May require transfer to [place] for IR embolization if blood loss ongoing. Acute kidney injury -creatinine from 1.1 2 days ago to 2.6 today, appears to be stabilizing and urine output improving slightly with Bumex. Clearly volume overloaded by imaging with borderline oxygenation at times. May require Bumex drip if urine output does not improve further. Fractional excretion consistent with prerenal state however obtained after initial dose of diuretics. Probable ATN. Developing mild metabolic acidosis consistent with renal failure we will initiate low rate bicarbonate infusion. Hematoma aspirated for culture by radiology today to exclude infected hematoma after discussion with Dr. David. Continue cefazolin through 12/13 for 0SSA bacteremia/pneumonia. Will also complete 1 week therapy of acyclovir for herpes labialis. Marked leukocytosis-consistent with stress reaction. Magnesium replaced adequately. Monitor with administration of diuretics Persistent low-grade tachycardia, likely due to pain but may be slightly dry and additional fluids being given. 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 Patient remains critically ill and at high risk for decompensation due to multiple medical problems but most acutely the retroperitoneal hemorrhage with hemodynamic instability and threatened renal function. Discussed with nursing throughout the day, patient's sister, and patient's daughter and son. Discussed with Dr. David and Dr. Izaguirre will place central line. 11/24/16 Persistent abdominal pain due to retroperitoneal hemorrhage-no preceding trauma but was anticoagulated. Repeat CT of the abdomen/pelvis 11/23 demonstrated further bleeding and increasing size hematoma since original study. Additional blood required yesterday, INR modestly elevated at 1.6 per verbal report of the lab and patient received one unit FFP yesterday and it additional unit today in addition to 10 mg vitamin K. Have discussed potential for transfer to [place] for IR embolization with interventional radiology and nephrology in light of patient's current renal status-both believe intervention now would be very risky due to volume of dye required for the study. Acute kidney failure now oliguric with urine outputs of about 30-130 mL/hr-per hour on Bumex drip. Neck drip initiated this morning at 0.5 mg/h-increased 1 mg/ h this afternoon. Creatinine increased from 1.1 - 3 days ago to 2.8 today, appears to be plateauing. Persistent mild metabolic acidosis-bicarbonate infusion on hold due to volume overload. Clearly volume overloaded by imaging with deteriorating oxygenation through the day today requiring initiation of supplemental oxygen and trial of BiPAP and subsequently converted to CPAP due to high tidal volumes achieved with low pressure BiPAP. Patient advised she will require when necessary CPAP during the day and continuous CPAP at night pending further diuresis. Hematoma aspirated for culture by radiology yesterday to exclude infected hematoma-culture negative today. Continue cefazolin through 12/13 for 0SSA bacteremia/pneumonia. Will also complete 1 week therapy of acyclovir for herpes labialis. Marked leukocytosis-consistent with stress reaction. Magnesium replaced adequately. Monitor with diuresis. Persistent low-grade tachycardia. 11/25/16 Persistent abdominal pain due to retroperitoneal hemorrhage-no preceding trauma but was anticoagulated. Repeat CT of the abdomen/pelvis 11/23 demonstrated further bleeding and increasing size hematoma since original study. One additional unit of blood being given today; vitamin K yesterday-INR improved today. Repeat hemoglobin pending currently. Poor oral intake-may require vitamin K intermittently to maintain low INR. Have discussed potential for transfer to [place] for IR embolization with interventional radiology and nephrology in light of patient's current renal status-both believe intervention now would be very risky due to volume of dye required for the study. Acute kidney failure now nonoliguric with urine outputs of about 150-200 mL/hr- per hour on Bumex drip. Creatinine unchanged. Metabolic acidosis no longer present with current urine volumes. Volume overloaded-continue supplemental oxygen and BiPAP prn/at bedtime. Hematoma aspirated for culture by radiology 11/23 to exclude infected hematoma- culture negative at 48 hours. Continue cefazolin through 12/13 for 0SSA bacteremia/pneumonia. Continue acyclovir for 1 week for herpes labialis-started 11/21. 11/26/16 Hemoglobin 9.2 today after seventh unit of blood yesterday. Poor oral intake-may require vitamin K intermittently to maintain low INR. Have discussed potential for transfer to [place] for IR embolization with interventional radiology and nephrology in light of patient's current renal status-both believe intervention now would be very risky due to volume of dye required for the study. Acute kidney failure now nonoliguric with urine outputs of about 150-200 mL/hr- per hour on 0.5mg/hr Bumex drip. Creatinine minimally changed. Volume overloaded-continue supplemental oxygen and BiPAP prn/at bedtime. 11/27/16 Persistent abdominal pain due to retroperitoneal hemorrhage-no preceding trauma but was anticoagulated. Nausea precludes oral medication; fentanyl patch 12 g initiated today and IV narcotics available. Zofran scheduled to help manage nausea, scopolamine patch will be tried and multiple vitamins are on hold with only critical oral medications being given. If nausea persistent may require repeat imaging of the abdomen. Repeat CT of the abdomen/pelvis 11/23 demonstrated further bleeding and increasing size hematoma since original study. Total of 7 units of blood given to date, hemoglobin 9 over the past 3 days; vitamin K repeated 11/24, INR low today. Poor oral intake-may require vitamin K intermittently to maintain low INR. Monitor every other day. TPN initiated yesterday. Have discussed potential for transfer to [place] for IR embolization with interventional radiology and nephrology in light of patient's current renal status-both believe intervention now would be very risky due to volume of dye required for the study. Acute kidney failure now nonoliguric with urine outputs of about 100-200 mL/hr- per hour on 0.5mg/hr Bumex drip. Creatinine 2.8 to 2.5 over the past 4 days but BUN is up slightly; suspect becoming somewhat prerenal and will adjust dose to maintain fairly equal fluid balance. Edema improving progressively. Volume overloaded-continue supplemental oxygen and BiPAP prn as tolerates Hematoma aspirated for culture by radiology 11/23 to exclude infected hematoma- culture negative after 3 days. Continue cefazolin through 12/13 for 0SSA bacteremia/pneumonia. Dose adjusted for renal function 2 days ago. 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 Discontinued by Dr. David earlier today as possible cause of nausea-course completed today anyway. Leukocytosis persists although degree not as great. 11/28/16 Persistent abdominal pain due to retroperitoneal hemorrhage-no preceding trauma but was anticoagulated. Repeat CT of the abdomen/pelvis 11/23 demonstrated further bleeding and increasing size hematoma since original study. Total of 7 units of blood given to date, hemoglobin 9 over the past 3 days; vitamin K repeated 11/24, INR low yesterday-recheck in a.m. Have discussed potential for transfer to [place] for IR embolization with interventional radiology and nephrology in light of patient's current renal status-both believe intervention now would be very risky due to volume of dye required for the study. Third CT scan of the abdomen/pelvis yesterday-no indication of additional bleeding into the hematoma but massive distention of the stomach consistent with ileus present and probable cause of the intractable nausea patient had developed. Fentanyl patch 12 g initiated 11/27 and IV Dilaudid available prn for pain control. Ileus/nausea managed by placement of NG tube with return of > 2 L gastric fluid overnight; metoclopramide scheduled 5 mg every 6 hours. Scopolamine patch will be discontinued as only contributing to dryness and I don 't believe will offer any significant benefit for managing nausea. Poor oral intake preceded nausea. TPN initiated 10/27. Acute kidney failure now nonoliguric with urine outputs of about 100-200 mL/hr- per hour on 0.5mg/hr Bumex drip. Creatinine slowly dropping but BUN is up; suspect becoming somewhat prerenal and will adjust dose to maintain fairly equal fluid balance. Bumex rate decreased to 0.25 mg/hr. Volume overloaded-continue supplemental oxygen and BiPAP prn as tolerates-has not required BiPAP the past 2 days 11/29/16 Persistent abdominal pain due to retroperitoneal hemorrhage-no preceding trauma but was anticoagulated. Pain seems to be worsening progressively and patient intolerant of activity; at high risk for complications of being bedridden at this time. Chest x-ray in a.m. to exclude pneumonia as white count is climbing again. Repeat CT of the abdomen/pelvis 11/23 demonstrated further bleeding and increasing size hematoma since original study. Total of 7 units of blood given to date, hemoglobin 9 over the past 3 days; vitamin K repeated 11/24, INR remained stable-monitor every other day. Have discussed potential for transfer to [place] for IR embolization with interventional radiology and nephrology in light of patient's current renal status-both believe intervention now would be very risky due to volume of dye required for the study. Third CT scan of the abdomen/pelvis yesterday-no indication of additional bleeding into the hematoma but massive distention of the stomach consistent with ileus present and probable cause of the intractable nausea patient had developed. Fentanyl patch started 11/27, dose increased 10/18; IV Dilaudid available prn for pain control. Ileus/nausea managed by placement of NG tube with return of > 2 L gastric fluid overnight; metoclopramide scheduled 5 mg every 6 hours. Poor oral intake preceded nausea. TPN initiated 10/27. Acute kidney failure now nonoliguric with urine outputs of about 100-200 mL/hr- per hour on 0.25mg/hr Bumex drip (previously rate 0.5 mg/h). Creatinine/BUN both up today-Bumex discontinued; suspect becoming somewhat prerenal despite total body volume overload. Volume overloaded-continue supplemental oxygen and BiPAP prn as tolerates. Hematoma aspirated for culture by radiology 11/23 to exclude infected hematoma- culture negative after 5 days. Continue cefazolin through 12/13 for 0SSA bacteremia/pneumonia. Dose adjusted for renal function 3 days ago. 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 Discontinued 11/27. Leukocytosis persists/increased today-chest x-ray in a.m., repeat UA. Patient remains critically ill and at high risk for decompensation due to multiple medical problems but most acutely the retroperitoneal hemorrhage with hemodynamic instability and threatened renal function. Discussed with nursing and the patient's daughter/son/sister. I have expressed my concern to the patient's family that the patient is failing and that inability to increase activity may be a terminal process. Have additionally discussed whether any interventions are available to reduce hematoma with surgery and radiology and all agree that hematoma should be left alone due to risk of rebleeding and infection. Prognosis ominous. 11/30/16 Chest x-ray without clear evidence of infiltrate today but increased right pleural effusion-for thoracentesis with culture. Just over 1 L fluid removed. PH 7.96, 80% neutrophils on differential, chemistries pending. Gram stain without organisms seen but moderate white cells present Acute kidney failure now nonoliguric with urine outputs of about 30-75 mL/hr- per hour off Bumex drip. BUN up slightly today; creatinine stable suspect becoming somewhat prerenal despite total body volume overload/third spacing. Volume overloaded-continue supplemental oxygen and BiPAP prn as tolerates. Hematoma aspirated for culture by radiology 11/23 to exclude infected hematoma- culture negative after 5 days. Continue cefazolin through 12/13 for 0SSA bacteremia/pneumonia. Dose adjusted for renal function 3 days ago. 12/02/16 10:19 12/01/2016 Impression Retroperitoneal bleed, acute, spontaneous Acute blood loss anemia-7 units PRBCs (3-11/21, 3-11/23, 1-11/25), 2 units FFP ( 1-11/23, 1-11/24) Acute renal failure, probable ATN due to hypotension Acute hypoxic respiratory failure, onset 11/24 Volume overload Ileus, partial gastric obstruction with intractable nausea Chronic Fe def. 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 Pneumonia with SHARON in sputum-(appears to be same species as an blood cultures, all are pansensitive)-improving Pulmonary edema with bilateral pleural effusions Debility secondary to illness Mitral Heart valve replacement-tissue valve Pacemaker Atrial fibrillation -chronic anticoagulation therapy (currently on hold) Hypothyroidism GERD Osteoporosis Anxiety Irritable bowel syndrome-diarrhea prominent Glaucoma Chronic back pain secondary to old compression fracture-stable Hypomagnesemia, hyperphosphatemia, hyperkalemia Malnutrition Yeast vaginitis, fluconazole initiated 11/29 Right pleural effusion with thoracentesis on 11/30/2016 with 1050 cc of fluid removed. LDH is elevated, possible exudate. Cultures are pending. Plan Persistent abdominal pain due to retroperitoneal hemorrhage-no preceding trauma but was anticoagulated. Pain seems to be worsening progressively and patient intolerant of activity; at high risk for complications of being bedridden at this time. Venous Doppler negative for DVT 11/30. Fentanyl patch started 11/27, dose increased 11/29; pain control improved Repeat CT of the abdomen/pelvis 11/23 demonstrated further bleeding and increasing size hematoma since original study. Recent size 17 x 4 x 9 cm Total of 7 units of blood given to date, hemoglobin 9 over the past 3 days; vitamin K repeated 11/24, INR stable-monitor every other day. Have discussed potential for transfer to [place] for IR embolization with interventional radiology and nephrology in light of patient's current renal status-both believe intervention now would be very risky due to volume of dye required for the study. Third CT scan of the abdomen/pelvis 11/28 no indication of additional bleeding into the hematoma but massive distention of the stomach consistent with ileus present and probable cause of the intractable nausea patient had developed--NGT placed. Ileus/nausea managed by placement of NG tube with return of > 2 L gastric fluid overnight; metoclopramide scheduled 5 mg every 6 hours. Poor oral intake preceded nausea. TPN initiated 10/27. The patient has a coarse squeak in the right lung field. She underwent thoracentesis on the right on 11/30/2016. Just over 1 L fluid removed. PH 7.96, 80% neutrophils. Gram stain without organisms seen but moderate white cells present. LDH 615, amylase 51, protein less than 3, glucose 137. Acute kidney failure now nonoliguric with urine outputs of about 30-75 mL/hr- per hour off Bumex drip. BUN up slightly again today; creatinine stable. Continue to monitor urine output closely off of Bumex. Volume overloaded-continue supplemental oxygen and BiPAP prn as tolerates. Hematoma aspirated for culture by radiology 11/23 to exclude infected hematoma- culture negative after 5 days. Continue cefazolin through 12/13 for 0SSA bacteremia/pneumonia. Dose adjusted for renal function 3 days ago. 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 Discontinued 11/27. Leukocytosis persists/increased 11/30/2016 and 12/01/2016 without fever.-chest x -ray thoracentesis 11/30/2016, results pending., UA negative 11/29/2016. The patient remains critically ill. Greater than 45 minutes of critical care time spent seeing and evaluating the patient, talking with her daughter and her nurse and determining care plan. She continues to be at high risk for decompensation due to multiple comorbidities. Today, she appears fairly stable other than continued mild increase in white count. Greater than 45 minutes of critical care time spent seeing and evaluating the patient.
[2016-12-02] MEDS: PANTOPRAZOLE 40 MG INJECTION IVP SCH (10:18)
[2016-12-02] MEDS: FLUCONAZOLE PB 100 MG/50 ML BAG IV SCH (10:18)
[2016-12-02] MEDS: SALINE FLUSH 10ml SYRINGE IVF PRN ×2 (13:24→19:09)
[2016-12-02] MEDS: MULTI TRACE ELEMENTS IV SCH (15:17)
[2016-12-02] MEDS: MULTI VIT INFUSION IV SCH (15:17)
[2016-12-02] MEDS: [UNRECOGNIZED DRUG - OTHER] IV SCH (15:17)
[2016-12-02] MEDS: FAT EMULSION 20% 100 ML IV SCH (15:17)
[2016-12-02] MEDS: WATER FOR INJECTION IV SCH (15:17)
[2016-12-02] MEDS: LATANOPROST 0.005% EYE DROPS 2.5ml EACH EYE SCH (21:04)
[2016-12-03] MEDS: METOCLOPRAMIDE 10mg/2ml INJECTION IVP SCH ×4 (00:42→18:04)
[2016-12-03] MEDS: HYDROMORPHONE 2 MG/ML INJECTION IVP PRN ×4 (00:42→17:59)
[2016-12-03] MEDS: CEFAZOLIN 1 G in NS 100 ML IV SCH ×2 (03:20→10:06)
[2016-12-03] MEDS: LEVOTHYROXINE 88 MCG TABLET PO SCH (06:35)
[2016-12-03] MEDS: ALBUTEROL 2.5mg/3ml (0.083%) NEB AEROSOL SCH ×3 (07:28→15:33)
[2016-12-03] MEDS: SALINE FLUSH 10ml SYRINGE IVF PRN ×7 (08:57→18:04)
[2016-12-03] MEDS: PANTOPRAZOLE 40 MG INJECTION IVP SCH (09:00)
[2016-12-03] MEDS: REFRESH CLASSIC Eye Drops 0.4ml EACH EYE SCH (09:16)
[2016-12-03] MEDS: LACTOBACILLUS (15B cfu) CAPSULE PO SCH ×2 (09:17→13:04)
[2016-12-03] MEDS: FLUCONAZOLE PB 100 MG/50 ML BAG IV SCH (09:18)
[2016-12-03] MEDS: SALIVA SUBSTITUTE MOUTH SPRAY 1.5oz PO PRN (10:09)
--- NOTE | 2016-12-03 10:44 | XRay Report ---
Indication: fever PROCEDURE: XR chest 1V: Encounter: Initial Comparison: December 01, 2016 Findings: Support devices are stable. Decreasing small bilateral pleural effusions. Continued dense airspace consolidation in the right lower lobe. Hazy left basilar airspace disease. Motion artifact. No pneumothorax. Heart size and mediastinal contours are stable. Pulmonary vascularity is obscured. Impression: Improved pleural effusions with persistent bilateral infiltrates .
--- NOTE | 2016-12-03 11:29 | Progress Note ---
- Date 12/03/16 Subjective: The patient was seen this morning accompanied by her daughter. She states she feels better today. She cannot state in what way she feels better. She has some pain after being repositioned. She denies any shortness of breath. She has some occasional nausea. Urine output has decreased overnight. She has had 177 mL out overnight. She was resistant to using BiPAP yesterday per her nurse. Objective Vital signs: Temperature 98.9 F 12/03/16 08:00 Pulse Rate 63 12/03/16 11:00 Respiratory Rate 26 H 12/03/16 11:00 Blood Pressure 122/60 12/03/16 11:00 Pulse Oximetry 92 12/03/16 11:00 Rhythm: Atrial Fibrillation with Normal Ventricular Rate (ventricular paced) Height/Weight/BMI: Height 1.73 m Weight 74.6 kg Body Mass Index 23.4 Comments: I&O equals 2524/1667 Urine output is 867 yesterday and 800 of NG output She has been afebrile, Heart rate is 60-90, respirations 16-24, blood pressure 100/49 to 147/65 GEN-chronically ill-appearing, she has an occasional cough with difficulty clearing her secretions, appears very weak, no acute distress HEENT-sclera anicteric, oropharynx reveals what appears to be bruising on the soft palate, dried secretions that were present yesterday have been removed CV-regular rate and rhythm, 2/6 murmur CHEST-coarse breath sounds bilaterally ABD-soft, mildly tender, moderate distention, hypoactive bowel sounds -Zarate in place with light colored urine EXT-trace pedal edema NEURO-no focal deficits. Moves all 4 extremities on command SKIN-warm and dry and without rashes Results - Labs CBC & Chem 7: 12/03/16 04:07 12/03/16 04:07 Labs: Neutrophils 70%, bands 10% up from 7% yesterday GI panel yesterday was negative Urinalysis yesterday showed 2+ protein, 3+ blood, trace leukocyte esterase, 10- 20 red cells and 5-10 white cells and no bacteria seen Phosphorus is elevated at 6.9. Magnesium is normal at 1.9. Blood sugars been in the mid 100s Microbiology Results: Microbiology 12/02/16 11:07 Port/Picc Blood Culture - Preliminary No Growth After 1 Day 12/02/16 11:09 Port/Picc Blood Culture - Preliminary No Growth After 1 Day 11/30/16 13:04 Thoracic Fluid Gram Stain - Final 11/30/16 13:04 Thoracic Fluid Body Fluid Culture - Preliminary No Growth After 2 Days 11/23/16 12:15 Body Fluid, Nos Gram Stain - Final 11/23/16 12:15 Body Fluid, Nos Body Fluid Culture - Final No Growth After 5 Days 11/22/16 13:20 Peripheral/Iv Start Blood Culture - Final No Growth After 5 Days 11/22/16 11:11 Peripheral/Iv Start Blood Culture - Final No Growth After 5 Days - ABG Interpretation ABG results: 12/01/16 20:30 ABG pH 7.410 ABG pCO2 57 H ABG pO2 83 ABG HCO3 36 H ABG Total CO2 37.8 H ABG O2 Saturation 96.0 ABG Base Excess 9.5 H - Impressions Chest x-ray yesterday shows decreasing small bilateral pleural effusions. Continued dense airspace consolidation in the right lower lobe. Hazy left basilar airspace disease. Impression: Improved pleural effusions with persistent bilateral infiltrates. Assessment and Plan (1) Nontraumatic retroperitoneal hematoma Current visit: Yes Status: Acute (2) Acute renal failure Current visit: Yes Status: Acute Assessment and Plan: 12/03/2016 Impression Retroperitoneal bleed, acute, spontaneous Acute blood loss anemia-7 units PRBCs (3-11/21, 3-11/23, 1-11/25), 2 units FFP ( 1-11/23, 1-11/24)-hemoglobin today is down to 7.6-blood pressure is stable Acute renal failure, probable ATN due to hypotension-creatinine has increased to 3.0 up from 2.5 yesterday. Possibly secondary to diuresis. Will give IV fluids cautiously Acute hypoxic respiratory failure, onset 11/24-currently stable on 4 L per nasal cannula and when necessary BiPAP Volume overload-resolved Ileus, partial gastric obstruction with intractable nausea-NG placed, consider clamping NG tomorrow and see how the patient does Chronic Fe def. anemia Hypotension, likely due to blood loss anemia; resolved Bacteremia-(SHARON) blood culture negative as of 11/15/16-cefazolin until 12/13/16 Severe sepsis on recent admission-resolved Herpes labialis-finished acyclovir Pneumonia with SHARON in sputum-(appears to be same species as an blood cultures, all are pansensitive)-improving Pulmonary edema with bilateral pleural effusions-Right pleural effusion with thoracentesis on 11/30/2016 with 1050 cc of fluid removed. LDH is elevated, possible exudate. Cultures are pending. Debility secondary to illness Mitral Heart valve replacement-tissue valve Pacemaker Atrial fibrillation -chronic anticoagulation therapy (currently on hold) Hypothyroidism GERD Osteoporosis Anxiety Irritable bowel syndrome-diarrhea prominent Glaucoma Chronic back pain secondary to old compression fracture-stable Hypomagnesemia-resolved hyperphosphatemia hyperkalemia-resolved Malnutrition Yeast vaginitis, fluconazole initiated 11/29 Leukocytosis with white count trending up the past 5 days from 24-32.8. Bands of increased to 10. She has been afebrile. Blood cultures, urinalysis, GI panel yesterday are all negative to date. Chest x-ray showed bilateral infiltrates which were present on CT scan last week and thought represent atelectasis. Elevated AST and alkaline phosphatase Plan Persistent abdominal pain due to retroperitoneal hemorrhage-no preceding trauma but was anticoagulated. Pain seems to be worsening progressively and patient intolerant of activity; at high risk for complications of being bedridden at this time. Venous Doppler negative for DVT 11/30. Fentanyl patch started 11/27, dose increased 11/29; pain control improved Repeat CT of the abdomen/pelvis 11/23 demonstrated further bleeding and increasing size hematoma since original study. Recent size 17 x 4 x 9 cm Total of 7 units of blood given to date, hemoglobin 9 over the past 3 days; vitamin K repeated 11/24, INR stable-monitor every other day. Have discussed potential for transfer to [place] for IR embolization with interventional radiology and nephrology in light of patient's current renal status-both believe intervention now would be very risky due to volume of dye required for the study. Third CT scan of the abdomen/pelvis 11/28 no indication of additional bleeding into the hematoma but massive distention of the stomach consistent with ileus present and probable cause of the intractable nausea patient had developed--NGT placed. Ileus/nausea managed by placement of NG tube with return of > 2 L gastric fluid overnight; metoclopramide scheduled 5 mg every 6 hours. Poor oral intake preceded nausea. TPN initiated 10/27. Acute kidney failure now nonoliguric with urine outputs decreasing overnight. Increased creatinine and BUN. We'll give cautious IV fluids and monitor urine output. Hematoma aspirated for culture by radiology 11/23 to exclude infected hematoma- culture negative. Continue cefazolin through 12/13 for 0SSA bacteremia/pneumonia. Dose adjusted for renal function. Overall, the patient appears to be doing a little worse today with worsening renal function and slowly increasing white count without obvious signs of a new infection. Will give IV fluids for decreased urine output and increasing creatinine. We'll watch vitals closely and transfuse if hemodynamically unstable. We'll recheck liver enzymes tomorrow. Check ammonia level tomorrow. The patient's daughter stated that the patient is saying she is ready to go to [facility] if it is her time. We discussed CODE STATUS again and the patient's daughter stated that after talking with her aunts, they have decided for DO NOT RESUSCITATE at this time. Greater than 45 minutes of critical care time spent seeing and evaluating the patient. Hospital Course Summary Disclaimer: The visit summary below is not to be considered part of the above Progress Note. 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 Pneumonia with staph aureus in sputum-(appears to be same species as an blood cultures, all are pansensitive)-improving Pulmonary edema with bilateral pleural effusions-improved with diuresis Debility secondary to illness Mitral Heart valve replacement -tissue valve Pacemaker Atrial fibrillation - anticoagulation therapy (currently on hold) Hypothyroidism GERD Osteoporosis Iron deficiency anemia Anxiety Irritable bowel syndrome-diarrhea prominent Glaucoma Chronic back pain secondary to old compression fracture-stable 11/21/16-admission to CCU Admit to CCU for close monitoring, under the care of Dr. Miller, for retroperitoneal bleed. Anticoagulation remains on hold. She is to continue on IV antibiotics through December 13 for her bacteremia. Continue acyclovir for herpes labialis Continue O2, DuoNeb and incentive spirometry for pneumonia Continue Imodium every morning and PRN for diarrhea Continue ferrous sulfate and ascorbic acid iron deficiency anemia Hydromorphone IV PRN pain Continue IV fluids at 125 mL per hour NPO Dr. Miller as discussed patient's case with Dr. Izaguirre. 11/22/16 Persistent abdominal pain due to retroperitoneal hemorrhage-no preceding trauma but was anticoagulated. CT of the abdomen/pelvis reviewed by myself demonstrating large multi-density retroperitoneal hemorrhage on the right. Hemoglobin 8.5 after a total of 3 units of packed red blood cells transfused overnight; warfarin/Lovenox on hold. We'll discuss future anticoagulation plans with cardiology but at present for 2 risky to re-anticoagulation in the immediate future. Acute kidney injury evident with poor urine output today and bump in creatinine from 1.1 yesterday to 1.6 today. Renal function being reassessed this evening in conjunction with urine sodium/creatinine. Minimal response to fluid bolus earlier today, continue IV fluids/additional fluid bolus being given this evening. Suspect ATN due to yesterday's hypotension. Continue cefazolin through 12/13 for 0SSA bacteremia/pneumonia. Will also complete 1 week therapy of acyclovir for herpes labialis. Marked leukocytosis-consistent with stress reaction. Magnesium to be replaced IV today-reassess in a.m. Persistent low-grade tachycardia, likely due to pain but may be slightly dry and additional fluids being given Patient remains critically ill and at high risk for decompensation due to multiple medical problems but most acutely the retroperitoneal hemorrhage with hemodynamic instability and threatened renal function. 11/23/16 Persistent abdominal pain due to retroperitoneal hemorrhage-no preceding trauma but was anticoagulated. Repeat CT of the abdomen/pelvis reviewed by myself demonstrating further bleeding and increasing size hematoma since study 2 days ago. Hemoglobin down again today, 2 units packed red blood cells given. Fibrinogen pending-plan 2 units FFP. Platelet count stable. Off Lovenox/warfarin reversed. May require transfer to [place] for IR embolization if blood loss ongoing. Acute kidney injury -creatinine from 1.1 2 days ago to 2.6 today, appears to be stabilizing and urine output improving slightly with Bumex. Clearly volume overloaded by imaging with borderline oxygenation at times. May require Bumex drip if urine output does not improve further. Fractional excretion consistent with prerenal state however obtained after initial dose of diuretics. Probable ATN. Developing mild metabolic acidosis consistent with renal failure we will initiate low rate bicarbonate infusion. Hematoma aspirated for culture by radiology today to exclude infected hematoma after discussion with Dr. David. Continue cefazolin through 12/13 for 0SSA bacteremia/pneumonia. Will also complete 1 week therapy of acyclovir for herpes labialis. Marked leukocytosis-consistent with stress reaction. Magnesium replaced adequately. Monitor with administration of diuretics Persistent low-grade tachycardia, likely due to pain but may be slightly dry and additional fluids being given. 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 Patient remains critically ill and at high risk for decompensation due to multiple medical problems but most acutely the retroperitoneal hemorrhage with hemodynamic instability and threatened renal function. Discussed with nursing throughout the day, patient's sister, and patient's daughter and son. Discussed with Dr. David and Dr. Izaguirre will place central line. 11/24/16 Persistent abdominal pain due to retroperitoneal hemorrhage-no preceding trauma but was anticoagulated. Repeat CT of the abdomen/pelvis 11/23 demonstrated further bleeding and increasing size hematoma since original study. Additional blood required yesterday, INR modestly elevated at 1.6 per verbal report of the lab and patient received one unit FFP yesterday and it additional unit today in addition to 10 mg vitamin K. Have discussed potential for transfer to [place] for IR embolization with interventional radiology and nephrology in light of patient's current renal status-both believe intervention now would be very risky due to volume of dye required for the study. Acute kidney failure now oliguric with urine outputs of about 30-130 mL/hr-per hour on Bumex drip. Neck drip initiated this morning at 0.5 mg/h-increased 1 mg/ h this afternoon. Creatinine increased from 1.1 - 3 days ago to 2.8 today, appears to be plateauing. Persistent mild metabolic acidosis-bicarbonate infusion on hold due to volume overload. Clearly volume overloaded by imaging with deteriorating oxygenation through the day today requiring initiation of supplemental oxygen and trial of BiPAP and subsequently converted to CPAP due to high tidal volumes achieved with low pressure BiPAP. Patient advised she will require when necessary CPAP during the day and continuous CPAP at night pending further diuresis. Hematoma aspirated for culture by radiology yesterday to exclude infected hematoma-culture negative today. Continue cefazolin through 12/13 for 0SSA bacteremia/pneumonia. Will also complete 1 week therapy of acyclovir for herpes labialis. Marked leukocytosis-consistent with stress reaction. Magnesium replaced adequately. Monitor with diuresis. Persistent low-grade tachycardia. 11/25/16 Persistent abdominal pain due to retroperitoneal hemorrhage-no preceding trauma but was anticoagulated. Repeat CT of the abdomen/pelvis 11/23 demonstrated further bleeding and increasing size hematoma since original study. One additional unit of blood being given today; vitamin K yesterday-INR improved today. Repeat hemoglobin pending currently. Poor oral intake-may require vitamin K intermittently to maintain low INR. Have discussed potential for transfer to [place] for IR embolization with interventional radiology and nephrology in light of patient's current renal status-both believe intervention now would be very risky due to volume of dye required for the study. Acute kidney failure now nonoliguric with urine outputs of about 150-200 mL/hr- per hour on Bumex drip. Creatinine unchanged. Metabolic acidosis no longer present with current urine volumes. Volume overloaded-continue supplemental oxygen and BiPAP prn/at bedtime. Hematoma aspirated for culture by radiology 11/23 to exclude infected hematoma- culture negative at 48 hours. Continue cefazolin through 12/13 for 0SSA bacteremia/pneumonia. Continue acyclovir for 1 week for herpes labialis-started 11/21. 11/26/16 Hemoglobin 9.2 today after seventh unit of blood yesterday. Poor oral intake-may require vitamin K intermittently to maintain low INR. Have discussed potential for transfer to [place] for IR embolization with interventional radiology and nephrology in light of patient's current renal status-both believe intervention now would be very risky due to volume of dye required for the study. Acute kidney failure now nonoliguric with urine outputs of about 150-200 mL/hr- per hour on 0.5mg/hr Bumex drip. Creatinine minimally changed. Volume overloaded-continue supplemental oxygen and BiPAP prn/at bedtime. 11/27/16 Persistent abdominal pain due to retroperitoneal hemorrhage-no preceding trauma but was anticoagulated. Nausea precludes oral medication; fentanyl patch 12 g initiated today and IV narcotics available. Zofran scheduled to help manage nausea, scopolamine patch will be tried and multiple vitamins are on hold with only critical oral medications being given. If nausea persistent may require repeat imaging of the abdomen. Repeat CT of the abdomen/pelvis 11/23 demonstrated further bleeding and increasing size hematoma since original study. Total of 7 units of blood given to date, hemoglobin 9 over the past 3 days; vitamin K repeated 11/24, INR low today. Poor oral intake-may require vitamin K intermittently to maintain low INR. Monitor every other day. TPN initiated yesterday. Have discussed potential for transfer to [place] for IR embolization with interventional radiology and nephrology in light of patient's current renal status-both believe intervention now would be very risky due to volume of dye required for the study. Acute kidney failure now nonoliguric with urine outputs of about 100-200 mL/hr- per hour on 0.5mg/hr Bumex drip. Creatinine 2.8 to 2.5 over the past 4 days but BUN is up slightly; suspect becoming somewhat prerenal and will adjust dose to maintain fairly equal fluid balance. Edema improving progressively. Volume overloaded-continue supplemental oxygen and BiPAP prn as tolerates Hematoma aspirated for culture by radiology 11/23 to exclude infected hematoma- culture negative after 3 days. Continue cefazolin through 12/13 for 0SSA bacteremia/pneumonia. Dose adjusted for renal function 2 days ago. 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 Discontinued by Dr. David earlier today as possible cause of nausea-course completed today anyway. Leukocytosis persists although degree not as great. 11/28/16 Persistent abdominal pain due to retroperitoneal hemorrhage-no preceding trauma but was anticoagulated. Repeat CT of the abdomen/pelvis 11/23 demonstrated further bleeding and increasing size hematoma since original study. Total of 7 units of blood given to date, hemoglobin 9 over the past 3 days; vitamin K repeated 11/24, INR low yesterday-recheck in a.m. Have discussed potential for transfer to [place] for IR embolization with interventional radiology and nephrology in light of patient's current renal status-both believe intervention now would be very risky due to volume of dye required for the study. Third CT scan of the abdomen/pelvis yesterday-no indication of additional bleeding into the hematoma but massive distention of the stomach consistent with ileus present and probable cause of the intractable nausea patient had developed. Fentanyl patch 12 g initiated 11/27 and IV Dilaudid available prn for pain control. Ileus/nausea managed by placement of NG tube with return of > 2 L gastric fluid overnight; metoclopramide scheduled 5 mg every 6 hours. Scopolamine patch will be discontinued as only contributing to dryness and I don 't believe will offer any significant benefit for managing nausea. Poor oral intake preceded nausea. TPN initiated 10/27. Acute kidney failure now nonoliguric with urine outputs of about 100-200 mL/hr- per hour on 0.5mg/hr Bumex drip. Creatinine slowly dropping but BUN is up; suspect becoming somewhat prerenal and will adjust dose to maintain fairly equal fluid balance. Bumex rate decreased to 0.25 mg/hr. Volume overloaded-continue supplemental oxygen and BiPAP prn as tolerates-has not required BiPAP the past 2 days 11/29/16 Persistent abdominal pain due to retroperitoneal hemorrhage-no preceding trauma but was anticoagulated. Pain seems to be worsening progressively and patient intolerant of activity; at high risk for complications of being bedridden at this time. Chest x-ray in a.m. to exclude pneumonia as white count is climbing again. Repeat CT of the abdomen/pelvis 11/23 demonstrated further bleeding and increasing size hematoma since original study. Total of 7 units of blood given to date, hemoglobin 9 over the past 3 days; vitamin K repeated 11/24, INR remained stable-monitor every other day. Have discussed potential for transfer to [place] for IR embolization with interventional radiology and nephrology in light of patient's current renal status-both believe intervention now would be very risky due to volume of dye required for the study. Third CT scan of the abdomen/pelvis yesterday-no indication of additional bleeding into the hematoma but massive distention of the stomach consistent with ileus present and probable cause of the intractable nausea patient had developed. Fentanyl patch started 11/27, dose increased 11/29; IV Dilaudid available prn for pain control. Ileus/nausea managed by placement of NG tube with return of > 2 L gastric fluid overnight; metoclopramide scheduled 5 mg every 6 hours. Poor oral intake preceded nausea. TPN initiated 10/27. Acute kidney failure now nonoliguric with urine outputs of about 100-200 mL/hr- per hour on 0.25mg/hr Bumex drip (previously rate 0.5 mg/h). Creatinine/BUN both up today-Bumex discontinued; suspect becoming somewhat prerenal despite total body volume overload. Volume overloaded-continue supplemental oxygen and BiPAP prn as tolerates. Hematoma aspirated for culture by radiology 11/23 to exclude infected hematoma- culture negative after 5 days. Continue cefazolin through 12/13 for 0SSA bacteremia/pneumonia. Dose adjusted for renal function 3 days ago. 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 Discontinued 11/27. Leukocytosis persists/increased today-chest x-ray in a.m., repeat UA. Patient remains critically ill and at high risk for decompensation due to multiple medical problems but most acutely the retroperitoneal hemorrhage with hemodynamic instability and threatened renal function. Discussed with nursing and the patient's daughter/son/sister. I have expressed my concern to the patient's family that the patient is failing and that inability to increase activity may be a terminal process. Have additionally discussed whether any interventions are available to reduce hematoma with surgery and radiology and all agree that hematoma should be left alone due to risk of rebleeding and infection. Prognosis ominous. 11/30/16 Chest x-ray without clear evidence of infiltrate today but increased right pleural effusion-for thoracentesis with culture. Just over 1 L fluid removed. PH 7.96, 80% neutrophils on differential, chemistries pending. Gram stain without organisms seen but moderate white cells present Acute kidney failure now nonoliguric with urine outputs of about 30-75 mL/hr- per hour off Bumex drip. BUN up slightly today; creatinine stable suspect becoming somewhat prerenal despite total body volume overload/third spacing. Volume overloaded-continue supplemental oxygen and BiPAP prn as tolerates. Hematoma aspirated for culture by radiology 11/23 to exclude infected hematoma- culture negative after 5 days. Continue cefazolin through 12/13 for 0SSA bacteremia/pneumonia. Dose adjusted for renal function 3 days ago. 12/02/16 10:19 12/01/2016 Impression Retroperitoneal bleed, acute, spontaneous Acute blood loss anemia-7 units PRBCs (3-11/21, 3-11/23, 1-11/25), 2 units FFP ( 1-11/23, 1-11/24) Acute renal failure, probable ATN due to hypotension Acute hypoxic respiratory failure, onset 11/24 Volume overload Ileus, partial gastric obstruction with intractable nausea Chronic Fe def. 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 Pneumonia with SHARON in sputum-(appears to be same species as an blood cultures, all are pansensitive)-improving Pulmonary edema with bilateral pleural effusions Debility secondary to illness Mitral Heart valve replacement-tissue valve Pacemaker Atrial fibrillation -chronic anticoagulation therapy (currently on hold) Hypothyroidism GERD Osteoporosis Anxiety Irritable bowel syndrome-diarrhea prominent Glaucoma Chronic back pain secondary to old compression fracture-stable Hypomagnesemia, hyperphosphatemia, hyperkalemia Malnutrition Yeast vaginitis, fluconazole initiated 11/29 Right pleural effusion with thoracentesis on 11/30/2016 with 1050 cc of fluid removed. LDH is elevated, possible exudate. Cultures are pending. Plan Persistent abdominal pain due to retroperitoneal hemorrhage-no preceding trauma but was anticoagulated. Pain seems to be worsening progressively and patient intolerant of activity; at high risk for complications of being bedridden at this time. Venous Doppler negative for DVT 11/30. Fentanyl patch started 11/27, dose increased 11/29; pain control improved Repeat CT of the abdomen/pelvis 11/23 demonstrated further bleeding and increasing size hematoma since original study. Recent size 17 x 4 x 9 cm Total of 7 units of blood given to date, hemoglobin 9 over the past 3 days; vitamin K repeated 11/24, INR stable-monitor every other day. Have discussed potential for transfer to [place] for IR embolization with interventional radiology and nephrology in light of patient's current renal status-both believe intervention now would be very risky due to volume of dye required for the study. Third CT scan of the abdomen/pelvis 11/28 no indication of additional bleeding into the hematoma but massive distention of the stomach consistent with ileus present and probable cause of the intractable nausea patient had developed--NGT placed. Ileus/nausea managed by placement of NG tube with return of > 2 L gastric fluid overnight; metoclopramide scheduled 5 mg every 6 hours. Poor oral intake preceded nausea. TPN initiated 10/27. The patient has a coarse squeak in the right lung field. She underwent thoracentesis on the right on 11/30/2016. Just over 1 L fluid removed. PH 7.96, 80% neutrophils. Gram stain without organisms seen but moderate white cells present. LDH 615, amylase 51, protein less than 3, glucose 137. Acute kidney failure now nonoliguric with urine outputs of about 30-75 mL/hr- per hour off Bumex drip. BUN up slightly again today; creatinine stable. Continue to monitor urine output closely off of Bumex. Volume overloaded-continue supplemental oxygen and BiPAP prn as tolerates. Hematoma aspirated for culture by radiology 11/23 to exclude infected hematoma- culture negative after 5 days. Continue cefazolin through 12/13 for 0SSA bacteremia/pneumonia. Dose adjusted for renal function 3 days ago. 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 Discontinued 11/27. Leukocytosis persists/increased 11/30/2016 and 12/01/2016 without fever.-chest x -ray thoracentesis 11/30/2016, results pending., UA negative 11/29/2016. The patient remains critically ill. Greater than 45 minutes of critical care time spent seeing and evaluating the patient, talking with her daughter and her nurse and determining care plan. She continues to be at high risk for decompensation due to multiple comorbidities. Today, she appears fairly stable other than continued mild increase in white count. Greater than 45 minutes of critical care time spent seeing and evaluating the patient. 12/02/2016 Impression Retroperitoneal bleed, acute, spontaneous Acute blood loss anemia-7 units PRBCs (3-11/21, 3-11/23, 1-11/25), 2 units FFP ( 1-11/23, 1-11/24) Acute renal failure, probable ATN due to hypotension Acute hypoxic respiratory failure, onset 11/24 Volume overload Ileus, partial gastric obstruction with intractable nausea-NG placed Chronic Fe def. anemia Hypotension, likely due to blood loss anemia; resolved Bacteremia-(SHARON) blood culture negative as of 11/15/16-cefazolin until 12/13/16 Severe sepsis on recent admission-resolved Herpes labialis-finished acyclovir Pneumonia with SHARON in sputum-(appears to be same species as an blood cultures, all are pansensitive)-improving Pulmonary edema with bilateral pleural effusions-Right pleural effusion with thoracentesis on 11/30/2016 with 1050 cc of fluid removed. LDH is elevated, possible exudate. Cultures are pending. Debility secondary to illness Mitral Heart valve replacement-tissue valve Pacemaker Atrial fibrillation -chronic anticoagulation therapy (currently on hold) Hypothyroidism GERD Osteoporosis Anxiety Irritable bowel syndrome-diarrhea prominent Glaucoma Chronic back pain secondary to old compression fracture-stable Hypomagnesemia, hyperphosphatemia, hyperkalemia Malnutrition Yeast vaginitis, fluconazole initiated 11/29 Leukocytosis with white count trending up the past 5 days from 24-30.8. Bands of increased to 7. Patient had a low-grade fever of 100.4 on 12/01/2016. Plan Persistent abdominal pain due to retroperitoneal hemorrhage-no preceding trauma but was anticoagulated. Pain seems to be worsening progressively and patient intolerant of activity; at high risk for complications of being bedridden at this time. Venous Doppler negative for DVT 11/30. Fentanyl patch started 11/27, dose increased 11/29; pain control improved Repeat CT of the abdomen/pelvis 11/23 demonstrated further bleeding and increasing size hematoma since original study. Recent size 17 x 4 x 9 cm Total of 7 units of blood given to date, hemoglobin 9 over the past 3 days; vitamin K repeated 11/24, INR stable-monitor every other day. Have discussed potential for transfer to [place] for IR embolization with interventional radiology and nephrology in light of patient's current renal status-both believe intervention now would be very risky due to volume of dye required for the study. Third CT scan of the abdomen/pelvis 11/28 no indication of additional bleeding into the hematoma but massive distention of the stomach consistent with ileus present and probable cause of the intractable nausea patient had developed--NGT placed. Ileus/nausea managed by placement of NG tube with return of > 2 L gastric fluid overnight; metoclopramide scheduled 5 mg every 6 hours. Poor oral intake preceded nausea. TPN initiated 10/27. Acute kidney failure now nonoliguric with urine outputs of about 30-75 mL/hr- per hour off Bumex drip. BUN up slightly again today; creatinine stable. Continue to monitor urine output closely. May need when necessary Bumex for volume overload Hematoma aspirated for culture by radiology 11/23 to exclude infected hematoma- culture negative after 5 days. Continue cefazolin through 12/13 for 0SSA bacteremia/pneumonia. Dose adjusted for renal function. Regarding leukocytosis, will obtain blood cultures, chest x-ray, urinalysis, and GI panel. I did talk with the patient's daughter and sister about CODE STATUS. We discussed her multiple comorbidities and risk for decompensation. I discussed with them the likelihood of a poor outcome if she did coded and required CPR/ intubation. The patient's daughter who his DPOA will consider whether or not to continue with full CODE STATUS versus changing to DO NOT RESUSCITATE. Greater than 45 minutes of critical care time spent seeing and evaluating the patient.
[2016-12-03] MEDS ORDERED: NS 1,000 ML IV SCH (11:30)
[2016-12-03] MEDS ORDERED: SODIUM CHLORIDE IV SCH (12:45)
[2016-12-03] MEDS ORDERED: [UNRECOGNIZED DRUG - OTHER] IV SCH (12:45)
[2016-12-03] MEDS ORDERED: POTASSIUM CHLORIDE IV SCH (12:45)
[2016-12-03 15:56] VITALS: TEMP 97.7
[2016-12-03] MEDS: FAT EMULSION 20% 100 ML IV SCH (16:05)
[2016-12-03] MEDS: MULTI VIT INFUSION IV SCH (18:01)
[2016-12-03] MEDS: [UNRECOGNIZED DRUG - OTHER] IV SCH (18:01)
[2016-12-03] MEDS: WATER FOR INJECTION IV SCH (18:01)
[2016-12-03] MEDS: MULTI TRACE ELEMENTS IV SCH (18:01)
[2016-12-03] MEDS: NALOXONE 0.4 MG/ML INJECTION IVP PRN ×2 (19:15→19:19)
[2016-12-03 19:41] VITALS: BP 77/36; PULSE 60; RESP 0; O2SAT 44
--- NOTE | 2016-12-03 20:23 | Discharge Summary ---
Discharge Information Date of admission: 11/21/16 14:59 Attending Physician: Susan Miller MD Consults: 11/21/16 15:15 Physician Consult [CONS] Routine Consulting Provider: Susan Miller Reason For Exam: Medical management Ordering Provider has Notified Fish Cake Maker: Yes Physician Consult [CONS] Routine Consulting Provider: Mackenzie David Reason For Exam: mssa bacteremia, pneumonia Ordering Provider has Notified Fish Cake Maker: Yes 11/23/16 11:18 Physician Consult [CONS] Routine Consulting Provider: Christian Izaguirre Reason For Exam: central line-triple lumen Ordering Provider has Notified Fish Cake Maker: Yes - Discharge Diagnosis (1) Nontraumatic retroperitoneal hematoma Status: Acute (2) Acute renal failure Status: Acute - Procedures Procedures: Date of Exam: 11/23/16 Ordering Provider: Jocelin Faustin MD Type of Exam(s): CT guided aspiration Reason for Exam(s): retroperitoneal hematomal/?infected Indication:retroperitoneal hematoma, question infection Procedure:CT guided aspiration RETROPERITONEAL FLUID COLLECTION ASPIRATION WITH CT GUIDANCE: After discussing the details of the procedure, including the risks, the patient's questions were answered. Informed consent was obtained. A preprocedural timeout was performed to confirm the correct patient and procedure. Using aseptic technique, local lidocaine anesthetic, and CT guidance throughout, an 18-gauge spinal needle was advanced into the retroperitoneal fluid collection located in the right side of the abdomen. Approximately 10 cc of straw-colored fluid was collected into a specimen cup and sent to lab. The needle was removed. The patient tolerated this procedure well. Following the procedure, the patient was taken back to her room in the critical care unit. Impression: Successful fluid aspiration from the retroperitoneal fluid collection in the right side of the abdomen. Erick Badillo RPA/RRA performed this under my personal supervision. . Date of Exam: 11/30/16 Ordering Provider: Jocelin Faustin MD Type of Exam(s): US thoracentesis Reason for Exam(s): right pleural effusion Indication:right pleural effusion Ordering physician:Jocelin Faustin MD Procedure:US thoracentesis THORACENTESIS: After discussing the details of the procedure, including the risks, the patient wished to proceed. Informed consent was obtained. A preprocedural timeout was performed to confirm the correct patient and procedure. Using aseptic technique, local lidocaine anesthetic, and ultrasound guidance throughout, a right-sided thoracentesis was performed using a posterolateral approach. 1050 cc of serosanguineous fluid was removed from the right hemithorax and sent to lab. The patient tolerated this procedure well. The patient was in stable condition in her room in the CCU immediately following the procedure. Impression: Successful right-sided thoracentesis performed with 1050 cc of fluid removed. Erick Badillo RPA/RRA performed this under my personal supervision. . - Laboratory Labs: 12/03/16 04:07 12/03/16 04:07 - Microbiology Microbiology 11/30/16 13:04 Thoracic Fluid Gram Stain - Final 11/30/16 13:04 Thoracic Fluid Body Fluid Culture - Preliminary No Growth After 3 Days 12/02/16 11:07 Port/Picc Blood Culture - Preliminary No Growth After 1 Day 12/02/16 11:09 Port/Picc Blood Culture - Preliminary No Growth After 1 Day 11/23/16 12:15 Body Fluid, Nos Gram Stain - Final 11/23/16 12:15 Body Fluid, Nos Body Fluid Culture - Final No Growth After 5 Days 11/22/16 13:20 Peripheral/Iv Start Blood Culture - Final No Growth After 5 Days 11/22/16 11:11 Peripheral/Iv Start Blood Culture - Final No Growth After 5 Days - Radiology Radiology: Date of Exam: 11/23/16 Ordering Provider: Jocelin Faustin MD Type of Exam(s): CT abdomen pelvis wo con Reason for Exam(s): retroperitoneal hematoma Indication: retroperitoneal hematoma PROCEDURE: CT abdomen pelvis wo con: Encounter: Initial Comparison: CT abdomen and pelvis dated November 21 and November 13, 2016 Technique: Axial CT images were performed through the abdomen and pelvis without intravenous contrast. Coronal and sagittal two-dimensional reformats. Automated Exposure Control and Iterative Reconstruction dose reducing techniques were utilized. Findings: Increasing moderate right and small left pleural effusions with compressive atelectasis in the lower lobes. Cardiomegaly. Increasing size of the large right retroperitoneal hemorrhage with a prominent fluid hematocrit level present. Increase in the proportion of high attenuation material representing acute hemorrhage compared to the prior study. This measures up to 14.5 x 8.4 cm on coronal image #33 compared to 10.7 x 10.5 cm on the prior exam. This again causes displacement of the right kidney and liver. There is inflammatory change and stranding with inflammation surrounding the right psoas muscle. Increasing moderate free abdominal and pelvic fluid as well which appears lower in attenuation at 29 Hounsfield units. Bladder is decompressed with a Zarate catheter. No evidence of a bowel obstruction. Cecum is moderately distended. No abnormally dilated small bowel loops. There is increasing subcutaneous edema and fluid since the prior study with fluid tracking along the left flank and abdominal wall laterally. No free air appreciated. Bone windows are unchanged. The unenhanced contours of the liver, gallbladder, spleen, adrenal glands and kidneys are unchanged. Pancreas is grossly stable. Impression: 1. Increasing size of the large right retroperitoneal hemorrhage with evidence of acute hemorrhage since the prior study. This is consistent with ongoing bleeding, particularly given the history of transfusion requirements. Interventional radiology evaluation for possible embolization may be helpful. 2. Increasing pleural effusions, ascites and anasarca consistent with a generalized volume overload or third spacing of fluid. . Date of Exam: 11/27/16 Ordering Provider: Jocelin Faustin MD Type of Exam(s): CT abdomen pelvis wo con Reason for Exam(s): retroperitoneal hematoma, intractable nausea Indication: retroperitoneal hematoma, intractable nausea CT abdomen pelvis wo con: Comparison: 11/23/2016 Technique: Patient scan without contrast from above the diaphragm to below the pubic symphysis. Dose reduction imaging technology is used. Reformatted sagittal and coronal images are provided. Findings: Patient should more prominent bilateral pleural effusions and basilar atelectasis greater on the right side. No marked change in the cardiac appearance is seen with prior heart surgery and a permanent pacemaker in place. Imaging below the diaphragm shows extensive retroperitoneal hemorrhage with a large mass density involving the right flank. As on the previous study this is a slightly mottled density suggesting some more recent hemorrhage as well as similar finding hemorrhage. It is causing displacement of the liver margin in the right kidney. Its measuring 9.2 x 4.1 cm in axial orientation and extends for approximately 17 cm from top to bottom. Stomach is filled with fluid and there is probable generalized ileus present. : No definitive obstruction to the bowel is identified. There is just a trace of free fluid in the pelvis. Impression: 1. Patient demonstrates a large retroperitoneum hematoma in the right flank region its measuring approximate 17 x4 x 9 cm. There is a slightly mixed density suggesting some older and some new or hemorrhage although, the area has not dramatically changed since previous study. 2. Increase in bilateral pleural effusions and basilar atelectasis which persist greater on the right side. . Bilateral venous Doppler of the legs Impression: No evidence of acute DVT in either lower limb. Date of Exam: 12/02/16 Ordering Provider: Susan Miller MD Type of Exam(s): XR chest 1V Reason for Exam(s): fever Indication: fever PROCEDURE: XR chest 1V: Encounter: Initial Comparison: December 01, 2016 Findings: Support devices are stable. Decreasing small bilateral pleural effusions. Continued dense airspace consolidation in the right lower lobe. Hazy left basilar airspace disease. Motion artifact. No pneumothorax. Heart size and mediastinal contours are stable. Pulmonary vascularity is obscured. Impression: Improved pleural effusions with persistent bilateral infiltrates History of Present Illness HPI: Patient is a 76-year-old female who resides in [place] but was here visiting her sister who lives in [place] when she developed fever and chills. She was admitted to [facility] on 11/13/16 with sepsis. She grew out Staphylococcus aureus from both blood culture sites and sputum culture. Vancomycin was initiated the evening of 11/13/16 and continued through 11/15/16. Cefazolin was started 11/15/16 when sensitivities were resulted. She developed pulmonary edema, hypophosphatemia and hypokalemia. She was given Lasix, phosphorus and potassium to correct this. Dr. Ramirez was consulted for her increasing oxygen needs and pulmonary edema. She had no interventions other than medical management including Lasix and continued antibiotics, breathing treatments and oxygen supplementation. On 11/17/16 she had CARLITOS with Dr. Rowe to rule out vegetation on her artificial valve. Fortunately, this was negative for vegetation. Her Coumadin was resumed and Lovenox was started the evening of 11/17/16. She was stable on the medical unit and transferred to rehabilitation yesterday ( 11/20/16) for continued strengthening. Overnight she developed pain in her right hip and back and abdominal area. This morning she rated it at 10 out of 10. Freedom did not help the pain. IV morphine relieved the pain some. It was also noted that her hemoglobin has been dropping. Thus, CT of the pelvis and abdomen was performed revealing a retro-peritoneal bleed. She developed some hypotension so she was started on IV fluids and was also given a unit of PRBCs. Decision was made to transfer to CCU for close monitoring given the circumstances. Objective Vital signs: Temperature 97.7 F 12/03/16 15:56 Pulse Rate 60 12/03/16 20:19 Respiratory Rate 0 L 12/03/16 19:30 Blood Pressure 77/36 12/03/16 19:18 Pulse Oximetry 44 L 12/03/16 19:18 Rhythm: Atrial Fibrillation with Normal Ventricular Rate (ventricular paced) Height/Weight/BMI: Height 1.73 m Weight 74.6 kg Body Mass Index 23.4 Hospital Course This is a general summary of the patient's hospital course. For more details refer to the complete medical record. Hospital course: Problem list Retroperitoneal bleed, acute, spontaneous Acute blood loss anemia-7 units PRBCs (3-11/21, 3-11/23, 1-11/25), 2 units FFP ( 1-11/23, 1-11/24) Acute renal failure, probable ATN due to hypotension Acute hypoxic respiratory failure, onset 11/24 Volume overload Ileus, partial gastric obstruction with intractable nausea-NG placed Chronic Fe def. anemia Hypotension, likely due to blood loss anemia; resolved Bacteremia-(SHARON) blood culture negative as of 11/15/16-cefazolin until 12/13/16 Severe sepsis on recent admission-resolved Herpes labialis-finished acyclovir Pneumonia with SHARON in sputum-(appears to be same species as an blood cultures, all are pansensitive)-improving Pulmonary edema with bilateral pleural effusions-Right pleural effusion with thoracentesis on 11/30/2016 with 1050 cc of fluid removed. LDH is elevated, possible exudate. Cultures are pending. Debility secondary to illness Mitral Heart valve replacement-tissue valve Pacemaker Atrial fibrillation -chronic anticoagulation therapy (currently on hold) Hypothyroidism GERD Osteoporosis Anxiety Irritable bowel syndrome-diarrhea prominent Glaucoma Chronic back pain secondary to old compression fracture-stable Hypomagnesemia, hyperphosphatemia, hyperkalemia Malnutrition Yeast vaginitis, fluconazole initiated 11/29 Leukocytosis with white count trending up the past 5 days from 24-30.8. Bands of increased to 7. Patient had a low-grade fever of 100.4 on 12/01/2016. Brief summary of hospital course The patient was transferred from inpatient rehabilitation on 11/21/2016 after she was found to have acute blood loss anemia, hypotension and retroperitoneal bleed. She had been receiving Lovenox bridging for history of A. fib and had been on Coumadin and INR was 1.3. Lovenox was held. The patient was given a total of 7 units of packed red blood cells and 2 units of FFP. She was treated with IV fluids for hypotension. The patient did develop acute renal failure thought to be secondary to ATN from hypotension. Creatinine after ATN was up to 2.8 and had improved to 2.5 on 12/02/2016. On 12/03/2016 creatinine was up to 3.0, thought to be secondary to diuresis which was given for pulmonary edema and pleural effusions. Immediately after the patient had ATN, she was oliguric but thereafter urine output had improved with Bumex drip which was eventually discontinued and thereafter she was given intermittent Bumex. The patient did develop ileus and abdominal pain. CT abdomen showed partial gastric obstruction secondary to her retroperitoneal hematoma. An NG tube was placed. The patient was given TPN for malnutrition/poor by mouth intake. The patient was started on Duragesic patch for severe pain from her retroperitoneal hematoma. Over the hospital course, the patient continued on cefazolin which had been initiated in acute care for SHARON bacteremia. On 11/23/2016 CT-guided needle aspiration was performed of the hematoma to rule out infection. Culture was negative. The patient did develop a large right pleural effusion and a therapeutic thoracentesis was performed on 11/30/2016 with removal of approximately 1 L of fluid. Cultures have been negative. The patient did have acute respiratory failure secondary to pulmonary edema and pleural effusions during the hospital course requiring supplemental oxygen and BiPAP. On 12/02/2016 white count was approximately 30,000 and had been gradually climbing. She had been afebrile. Blood cultures were obtained and are negative to date. Urinalysis did not show signs of infection. GI panel was negative. Chest x-ray did not show any new abnormalities. On 12/03/2016 creatinine had increased to 3.0 and urine output was decreasing. The patient was given an extra 1 L of normal saline, but urine output remained approximately [address] Miller did go to examine the patient regarding decreased urine output. Initially on arrival, blood pressure systolic was in the 140s. Blood pressure rapidly dropped into the 90s and then into the 80s. The patient was minimally responsive. The patient's head of the bed was lowered and she was given Narcan 2 without effect. BiPAP was placed and IV fluids were started wide open without improvement in blood pressure. On telemetry, the patient had paced rhythm in the 60s and oxygen saturations dropped despite BiPAP at 100% FiO2. Despite the above treatments, the patient did . Time of was 7:30 PM. The patient's daughter and sister were present. Discharge Plan - Med Rec/Dispo Prescriptions: No Action Latanoprost 2.5 ml OP HS Levothyroxine Sodium 88 mcg PO DAILY Ascorbate Calcium [Vitamin C] 500 mg PO DAILY Vitamin B Complex Vit C No.4 [Super B Complex] 150 mg PO DAILY Ferrous Sulfate 325 mg PO DAILY Multivit-Min/Iron/Folic/Lutein [Centrum Silver Women Tablet] 1 each PO DAILY Calcium Carbonate/Vitamin D3 [Calcium 500+D Tablet Chew] 1 each PO BID Acetaminophen [Tylenol] 500 mg PO Q6HPRN PRN PRN Reason: Pain Artificial Tears [Tears Naturale] 1 drop EACH EYE BID Omeprazole 40 mg PO DAILY Alendronate Sodium 70 mg PO WEEKLY Dicyclomine [Bentyl] 20 mg PO TID Enoxaparin Sodium [Lovenox] 70 mg SQ BID syringe Loperamide [Imodium] 2 mg PO PRN PRN capsule PRN Reason: Diarrhea Warfarin [Coumadin] 3 mg PO NOON #30 tab Acyclovir [Zovirax] 400 mg PO 5XD capsule Albuterol Neb (0.083%) [Proventil Neb (0.083%)] 2.5 mg AEROSOL RTQID neb Potassium Acid Phosphate Tab [K-Phos Original] 1,000 mg PO WMHS tablet Methylcellulose (with Sugar) [Citrucel Powder] 2,000 gm PO DAILY LORazepam [Ativan] 0.5 mg PO TID PRN PRN Reason: Anxiety [place]-3/Dha/Epa/Fish Oil [Fish Oil 1,000 mg Softgel] 1 each PO QID Simvastatin 20 mg PO HS Simethicone [Mylicon] 80 mg PO PCHS PRN tab.chew PRN Reason: Gas Acidoph/L.bulg/Bif.b/S.thermop [Bacid Caplet] 2 cap PO TIDWM tablet Loperamide [Imodium] 2 mg PO ACB capsule Polyvinyl Alcohol/Povidone O/S [Refresh Classic] 1 drop EACH EYE BID amp
== END 2016-12-03 21:55 | disposition expired | DRG 356 ==
LOC: CCU 14:59 → SUATTDRO 14:59
PROVIDERS: ADMIT Internal Medicine; ATTEND Internal Medicine